=== PATIENT | female | born 1945 | race Caucasian/White ===

== ENCOUNTER → 2016-09-11 | Outpatient (CLI) | payer OTHER ==
[~2016-09-11] MED LIST: ACET-1311 PO; ACET325T30 PO; ALBU1AER9 INH; AMOX875T PO; ARFO15NE INH; ASPEC81 PO; ASPI-435 PO; ATOR-22 PO; ATV5 PO; BACL10TA PO; BISA10SU38 PR; BRVIN NEB; BUDE0.5S NEB; CEFD250S2 PO; CIPR-255 PO; DLR500 PO; DMD20 PO; DOCU-94 PO; DOUNEB NEB; DOXY100C41 PO; FURO40TA3 PO; HYDR25TA4 PO; IPRASOL4 INH; LCTL45 PO; LCTX PO; LEVO100T7 PO; LEVO112T2 PO; LSX20 PO; MAGNSUS73 PO; METO1TAB69 PO; METO50TA7 PO; MOMLX PO; NVLG SQ; NVLGI SC; NYST1POW7 TOP; ONDA4TAB65 PO; OXGN; PANT40TA PO; PRD20 PO; PRED10PA3 PO; PRED10TA PO; PRNJ PO; PRVHFAIN INH; QUET1TAB91 PO; QUET5TAB PO; RISP0.5T10 PO; RISP0.5T4 PO; ROFL1TAB5 PO; SENN-65 PO; SENN8.6T7 PO; SODIENE PR; SPRIN INH; TORS20TA2 PO; TPRSR50 PO; TRAM-10 PO; VNTHFA/IN INH; [UNRECOGNIZED DRUG - CODE] PO
[2016-09-11 17:58] LABS: URINE APPEARANCE CLOUDY (CLEAR); URINE BILIRUBIN NEG (NEG); URINE COLOR YELLOW; URINE EPITHELIAL CELL AUTO >30 /lpf (0-5); URINE NITRITE POS (NEG); URINE PH >= 9.0 (4.5-7.5); URINE SPECIFIC GRAVITY 1.021 (1.000-1.030); UROBILINOGEN NEG (NEG)
[2016-09-11 18:08] LABS: MANUAL MICROSCOPIC REQUIRED? NO; REVIEW REQ? YES
[2016-09-11 18:09] LABS: SULFASALICYLIC ACID NEG (NEG)
== END ==
LOC: C.LABCC 17:08
PROVIDERS: ATTEND Internal Medicine
DX: F29 Unspecified psychosis not due to a substance or known physiological condition (principal)

== ENCOUNTER → 2016-11-22 | Outpatient (CLI) | payer OTHER ==
[~2016-11-22] MED LIST changes: +METO100T44 PO; -METO1TAB69 PO
[2016-11-22 08:30] LABS: BLOOD UREA NITROGEN 30 mg/dl (7-18); BUN/CREATININE RATIO 26.8 (10-20); CALCIUM 8.7 mg/dl (8.5-10.1); CARBON DIOXIDE 31 mmol/L (21-32); CHLORIDE 106 mmol/L (98-107); GLUCOSE 129 mg/dl (70-99); SODIUM 145 mmol/L (136-145)
== END ==
LOC: C.LABCC 08:09
PROVIDERS: ATTEND Internal Medicine
DX: R60.0 Localized edema (principal)

== ENCOUNTER 2016-11-24 12:33 | Inpatient (IN) | payer OTHER ==
[~2016-11-24] VITALS: Ht 177.8 cm; Wt 123.5 kg
[~2016-11-24 12:33] MED LIST changes: -ACET-1311 PO; -ACET325T30 PO; -AMOX875T PO; -ARFO15NE INH; -ASPI-435 PO; -BISA10SU38 PR; -CEFD250S2 PO; -CIPR-255 PO; -DLR500 PO; -DMD20 PO; -DOXY100C41 PO; -FURO40TA3 PO; -IPRASOL4 INH; -LCTL45 PO; -LCTX PO; -LEVO112T2 PO; -MAGNSUS73 PO; -METO50TA7 PO; -MOMLX PO; -NVLG SQ; -NYST1POW7 TOP; -PANT40TA PO; -PRD20 PO; -PRNJ PO; -PRVHFAIN INH; -QUET5TAB PO; -RISP0.5T10 PO; -RISP0.5T4 PO; -SENN-65 PO; -SENN8.6T7 PO; -SODIENE PR; -TORS20TA2 PO; -TPRSR50 PO; -VNTHFA/IN INH; -[UNRECOGNIZED DRUG - CODE] PO
[2016-11-24 13:51] LABS: BASO % 0.2 %; BASO ABS # 0.02 K/uL (0-0.2); COMPLETE YES; EOS % 0.7 %; IG% 0.3 %; LYMPH % 6.2 %; LYMPH ABS # 0.59 K/uL (1.2-3.4); MEAN CELL VOLUME 86.4 fL (80-100); MEAN CORPUSCULAR HEMOGLOBIN 25.7 pg (25-34); MEAN CORPUSCULAR HGB CONC 29.7 g/dl (32-36); MEAN PLATELET VOLUME 9.8 fL (7.4-10.4); MONO % 4.4 %; NEUT % 88.2 %; PLATELET COUNT 142 K/uL (130-400); RED BLOOD COUNT 4.05 M/uL (4.2-5.4); WHITE BLOOD COUNT 9.57 K/uL (4.8-10.8)
[2016-11-24] MEDS ORDERED: ACET325T30 PO (14:05)
[2016-11-24] MEDS ORDERED: LEVO112T2 PO (14:05)
[2016-11-24] MEDS ORDERED: ARFO15NE INH (14:05)
[2016-11-24] MEDS ORDERED: IPRASOL4 INH ×2 (14:05→18:42)
[2016-11-24] MEDS ORDERED: BUDE0.5S NEB (14:05)
[2016-11-24] MEDS ORDERED: NVLG SQ (14:05)
[2016-11-24] MEDS ORDERED: DLR500 PO (14:05)
[2016-11-24] MEDS ORDERED: VNTHFA/IN INH (14:05)
[2016-11-24] MEDS ORDERED: FURO40TA3 PO (14:05)
[2016-11-24] MEDS ORDERED: ASPI-435 PO (14:05)
[2016-11-24] MEDS ORDERED: QUET5TAB PO (14:05)
--- NOTE | 2016-11-24 14:09 | DIAGNOSTIC IMAGING REPORT ---
CHEST ONE VIEW PORTABLE CLINICAL HISTORY: Shortness of breath COMPARISON STUDY: 10/15/2015 FINDINGS: The heart is enlarged. There is radiographic evidence of congestive failure/fluid overload. There is no lobar consolidation. There are postsurgical changes of spinal rodding. Degenerative changes are present within the shoulders.[ IMPRESSION: Cardiomegaly and radiographic evidence of congestive failure/fluid overload. Electronically signed by: Jamin Foreman M.D. 11/24/2016 2:07 PM Dictated Date/Time: 11/24/2016 2:06 PM
[2016-11-24] MEDS ORDERED: PIPERACILLIN/TAZOBACTAM 4.5 GM/100ML D5W IV STA (14:13)
[2016-11-24] MEDS ORDERED: VANCOMYCIN INJ 2,800 MG in SODIUM CHLORIDE 0.9% 500ML 500 ML IV STA (14:13)
[2016-11-24] MEDS ORDERED: FUROSEMIDE 40 MG/4 ML VIAL IV STA (14:13)
--- NOTE | 2016-11-24 14:16 | EMERGENCY ROOM VISIT NOTE ---
History Report prepared by Tavares: Audelia Pate Under the Supervision of: Dr. Susan Foss M.D. First contact with patient: 14:04 Chief Complaint: EDEMA TO EXTREMITY Stated Complaint: FLUID RETENTION/CHF History of Present Illness The patient is a 71 year old female who presents to the Emergency Room with complaints of worsening edema to the bilateral lower extremities beginning one week prior to arrival. The patient notes that the edema began in her feet and has since moved up her legs into her abdomen. She has also been having trouble breathing and shortness of breath. She lives at [facility] and 2 days ago had an ultrasound done of her lower extremities which was negative for a DVT. She is currently on Lasix and Augmentin. 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 The edema has moved up from feet to abdomen. Review of Systems See HPI for pertinent positives & negatives. A total of 10 systems reviewed and were otherwise negative. Past Medical & Surgical Medical Problems: (1) Cholelith W Cholecys Nec (2) Chronic bronchitis (3) Chronic obstructive lung disease (4) Chronic pancreatitis (5) COPD exacerbation (6) Depressive Disorder Nec (7) Dyslipidemia (8) Essential hypertension (9) Hypothyroidism (10) Osteoporosis (11) Panic Disorder Without Agoraphobia (12) Scoliosis deformity of spine (13) Urin Tract Infection Nos Surgical Problems: (1) Carcinoma in situ of breast (2) s p cholecystectomy (3) S/P hysterectomy (4) S/P spinal surgery Family History FH: heart disease FATHER Social History Smoking Status: Former Smoker Alcohol Use: none, other Drug Use: none Marital Status: single Housing Status: prison Occupation Status: retired Current/Historical Medications Scheduled Amoxicillin & Pot Clavulanate (Augmentin 875-125 mg), 875 MG PO BID Arformoterol Tartrate (Brovana), 15 MCG INH BID Aspirin (Aspirin 81), 81 MG PO DAILY Atorvastatin (Lipitor), 20 MG PO HS Budesonide (Inhalation) (Pulmicort), 0.5 MG NEB BID Docusate Sodium (Colace), 500 MG PO BID Furosemide (Lasix), 40 MG PO DAILY Insulin Aspart (Novolog), SQ UD Ipratropium-Albuterol (Duoneb), 1 TREATMENT INH DAILY Levothyroxine Sodium (Synthroid), 112 MCG PO DAILY Metoprolol Succ (Toprol Xl) (Toprol-Xl ), 100 MG PO DAILY Oxygen (Oxygen), 4 LITERS NA CONTINOUS Prednisone Tab (Prednisone), 5 MG PO DAILY Quetiapine Fumarate (Seroquel), 50 MG PO HS Roflumilast (Daliresp), 500 MCG PO DAILY Scheduled PRN Acetaminophen (Acetaminophen), 650 MG PO Q6H PRN for Pain Albuterol (Ventolin Hfa), 2 PUFFS INH Q4 PRN for Shortness of Breath Baclofen (Lioresal), 15 MG PO QID PRN for Muscle Spasms Bisacodyl (Dulcolax), 1 SUPP DE UD PRN for Constipation Ipratropium-Albuterol (Duoneb), 1 TREATMENT INH Q6H PRN for SOB/Wheezing Magnesium Hydroxide (Milk of Magnesia 400 mg/5Ml), 30 ML PO UD PRN for Constipation Ondansetron Hcl (Zofran), 4 MG PO Q8 PRN for Nausea Prune Juice (Prune Juice ), Unknown Dose PO UD PRN for Constipation Tramadol (Ultram), 50 MG PO Q6H PRN for Pain Allergies Coded Allergies: Benzodiazepines (Unverified Adverse Reaction, Unknown, DELIRIUM, 11/25/16) Patient has history of abuse and addiction per family. 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 Physical Exam Vital Signs Date Time Temp Pulse Resp B/P Pulse Ox O2 Delivery O2 Flow Rate FiO2 11/24/16 14:55 90 20 161/82 95 Nasal Cannula 4.0 11/24/16 13:50 96 20 134/73 93 Nasal Cannula 4.0 11/24/16 13:20 93 11/24/16 12:53 36.6 94 20 120/73 93 Nasal Cannula 4.0 11/24/16 12:40 Nasal Cannula 4.0 11/24/16 12:40 Nasal Cannula 4.0 Physical Exam Vital signs reviewed. General: Chronically ill appearing obese female, in no significant distress. On oxygen. HEENT: No scleral icterus, PERRLA, neck supple. Atraumatic. Cardiovascular: Regular rate and rhythm, no extra sounds. Pulmonary: Faint wheezing bilateral lung witt. Abdomen: Soft, nontender, nondistended, positive bowel sounds. Musculoskeletal: Atraumatic. Pitting edema to bilateral lower extremity with erythema circumanally distally tracking medially to the groin with erythema extending throughout suprapubic region to abdomen. Neurologic: Patient awake alert and oriented x 3, full strength in all 4 extremities. Cranial nerves 2 through 12 grossly intact. Skin: Warm, dry, no rash Medical Decision & Procedures ER Provider Diagnostic Interpretation: X-ray results as stated below per interpretation by me and the radiologist: CHEST ONE VIEW PORTABLE CLINICAL HISTORY: Shortness of breath COMPARISON STUDY: 10/15/2015 FINDINGS: The heart is enlarged. There is radiographic evidence of congestive failure/fluid overload. There is no lobar consolidation. There are postsurgical changes of spinal rodding. Degenerative changes are present within the shoulders.[ IMPRESSION: Cardiomegaly and radiographic evidence of congestive failure/fluid overload. Electronically signed by: Jamin Foreman M.D. 11/24/2016 2:07 PM Dictated Date/Time: 11/24/2016 2:06 PM Laboratory Results 11/24/16 13:20 Red Blood Count 4.05, Mean Corpuscular Volume 86.4, Mean Corpuscular Hemoglobin 25.7, Mean Corpuscular Hemoglobin Concent 29.7, Mean Platelet Volume 9.8, Neutrophils (%) (Auto) 88.2, Lymphocytes (%) (Auto) 6.2, Monocytes (%) (Auto) 4.4, Eosinophils (%) (Auto) 0.7, Basophils (%) (Auto) 0.2, Neutrophils # (Auto) 8.44, Lymphocytes # (Auto) 0.59, Monocytes # (Auto) 0.42, Eosinophils # (Auto) 0.07, Basophils # (Auto) 0.02 11/24/16 13:20 Test 11/24/16 13:20 11/24/16 13:50 11/24/16 15:27 White Blood Count 9.57 K/uL (4.8-10.8) Red Blood Count 4.05 M/uL (4.2-5.4) Hemoglobin 10.4 g/dL (12.0-16.0) Hematocrit 35.0 % (37-47) Mean Corpuscular Volume 86.4 fL (80-100) Mean Corpuscular Hemoglobin 25.7 pg (25-34) Mean Corpuscular Hemoglobin Concent 29.7 g/dl (32-36) Platelet Count 142 K/uL (130-400) Mean Platelet Volume 9.8 fL (7.4-10.4) Neutrophils (%) (Auto) 88.2 % Lymphocytes (%) (Auto) 6.2 % Monocytes (%) (Auto) 4.4 % Eosinophils (%) (Auto) 0.7 % Basophils (%) (Auto) 0.2 % Neutrophils # (Auto) 8.44 K/uL (1.4-6.5) Lymphocytes # (Auto) 0.59 K/uL (1.2-3.4) Monocytes # (Auto) 0.42 K/uL (0.11-0.59) Eosinophils # (Auto) 0.07 K/uL (0-0.5) Basophils # (Auto) 0.02 K/uL (0-0.2) RDW Standard Deviation 57.3 fL (36.4-46.3) RDW Coefficient of Variation 18.0 % (11.5-14.5) Immature Granulocyte % (Auto) 0.3 % Immature Granulocyte # (Auto) 0.03 K/uL (0.00-0.02) Anion Gap 4.0 mmol/L (3-11) Est Creatinine Clear Calc Drug Dose 75.7 ml/min Estimated GFR () 68.5 Estimated GFR (Non- 59.1 BUN/Creatinine Ratio 27.2 (10-20) Calcium Level 9.3 mg/dl (8.5-10.1) Total Bilirubin 0.6 mg/dl (0.2-1) Aspartate Amino Transf (AST/SGOT) 11 U/L (15-37) Alanine Aminotransferase (ALT/SGPT) 21 U/L (12-78) Alkaline Phosphatase 60 U/L (45-117) Total Protein 7.4 gm/dl (6.4-8.2) Albumin 3.5 gm/dl (3.4-5.0) Globulin 3.9 gm/dl (2.5-4.0) Albumin/Globulin Ratio 0.9 (0.9-2) Urine Color YELLOW Urine Appearance CLEAR (CLEAR) Urine pH 6.5 (4.5-7.5) Urine Specific [place] 1.014 (1.000-1.030) Urine Protein NEG (NEG) Urine Glucose (UA) NEG (NEG) Urine Ketones NEG (NEG) Urine Occult Blood NEG (NEG) Urine Nitrite NEG (NEG) Urine Bilirubin NEG (NEG) Urine Urobilinogen NEG (NEG) Urine Leukocyte Esterase NEG (NEG) Bedside Lactic Acid Venous 2.07 mmol/L (0.90-1.70) Laboratory results per my review. Medications Administered Medications (Trade) Dose Ordered Sig/Romaine Route Start Time Stop Time Status Last Admin Dose Admin Furosemide 40 mg 40 mg NOW STAT IV 11/24/16 14:13 11/24/16 14:16 DC 11/24/16 14:58 40 MG Vancomycin HCl/ Sodium Chloride (Vancomycin Inj/ Nss 500ml) 556 ml @ 200 mls/hr ONE STAT IV 11/24/16 14:13 11/24/16 16:59 DC 11/24/16 16:19 200 MLS/HR Piperacillin Sod/ Tazobactam Sod (Zosyn Iv) 4.5 gm NOW STAT IV 11/24/16 14:13 11/24/16 14:16 DC 11/24/16 14:59 4.5 GM Morphine Sulfate (MoRPHine SULFATE INJ) 4 mg NOW STAT IV 11/24/16 14:19 11/24/16 14:21 DC 11/24/16 14:59 4 MG Ondansetron HCl (Zofran Inj) 4 mg NOW STAT IV 11/24/16 14:19 11/24/16 14:21 DC 11/24/16 14:59 4 MG ECG Indication: other (edema) Rate (beats per minute): 95 Rhythm: normal sinus Findings: T-wave inversion (diffuse), no ectopy, other (rightward axis, low voltage QRS) ED Course 1411: Past medical records reviewed. The patient was evaluated in room A2. A complete history and physical examination was performed. 1413: Zosyn IV 4.5 gm IB, Vancomycin HCl 2.800 mg/ Sodium Chloride 556 ml @ 200 mls/hr IV, Lasix Inj 40 mg IV. 1419: Zofran Inj 4 mg IV, Morphine Sulfate Inj 4 mg IV. 1656: I reviewed the patient's case with Dr. Logan Sosa. She will evaluate the patient for further management. 1700: Upon reevaluation, the patient is resting comfortably. I discussed laboratory and radiographic results with her. She verbalized agreement of the treatment plan. I spoke with Dr. Ford of the [facility] Hospitalist Service. The patient will be evaluated for further management and care. Medical Decision The patient is a 71 year old female who presents to the ED with complaints of lower extremity edema. Differentials include cellulitis, abscess, MRSA infection, DVT, necrotizing fasciitis, dermatitis, drug eruption, as well as others were entertained. This patient was evaluated and appeared to be in some discomfort. IV access was obtained and laboratory work was drawn. The patient was medicated with IV vancomycin and IV Zosyn for a bilateral lower extremity cellulitis extending to the abdomen. Patient is complaining of some shortness of breath, may be edema related. Ultrasounds of the bilateral lower extremities are negative for DVT 2 days ago. Blood cultures are pending. Patient's vital signs are stable. Given the extent of the cellulitis, the patient was evaluated by the hospitalist service for further management. She was aware of the plan and agree. Consults Time Called: 1653 Consulting Physician: Dr. Logan Sosa Returned Call: 1658 I reviewed the patient's case with Dr. Logan Sosa. She will evaluate the patient for further management. Impression Primary Impression: Bilateral lower leg cellulitis Additional Impression: CHF (congestive heart failure) Scribe Attestation The scribe's documentation has been prepared under my direction and personally reviewed by me in its entirety. I confirm that the note above accurately reflects all work, treatment, procedures, and medical decision making performed by me. Departure Information Dispostion Being Evaluated By Hospitalist Referrals [place] (PCP) Problem Qualifiers
[2016-11-24] MEDS ORDERED: ONDANSETRON INJ 2 MG/ML 2 ML VIAL IV STA (14:19)
[2016-11-24] MEDS ORDERED: MoRPHine SULFATE 4 MG/ML 1 ML CARP\\VIAL IV STA (14:19)
[2016-11-24 14:22] LABS: BUN/CREATININE RATIO 27.2 (10-20); CALCIUM 9.3 mg/dl (8.5-10.1); CREATININE 0.96 mg/dl (0.60-1.20)
[2016-11-24 14:25] LABS: ALB/GLOB RATIO 0.9 (0.9-2)
[2016-11-24 14:58] LABS: URINE APPEARANCE CLEAR (CLEAR); URINE BILIRUBIN NEG (NEG); URINE COLOR YELLOW; URINE NITRITE NEG (NEG); URINE PH 6.5 (4.5-7.5); URINE SPECIFIC GRAVITY 1.014 (1.000-1.030); UROBILINOGEN NEG (NEG); ZZUR CULT IF INDIC CLEAN CATCH NO
[2016-11-24 15:19] LABS: MANUAL MICROSCOPIC REQUIRED? NO; REVIEW REQ? NO
[2016-11-24] MEDS ORDERED: FUROSEMIDE INJ 40 MG in SYRINGE 0 ML IV STA (18:12)
[2016-11-24] MEDS ORDERED: ACETAMINOPHEN 325 MG TAB PO PRN (18:15)
[2016-11-24] MEDS ORDERED: NITROGLYCERIN 0.4 MG SL PER TAB CHARGE SL PRN (18:15)
[2016-11-24] MEDS ORDERED: ONDANSETRON INJ 2 MG/ML 2 ML VIAL IV PRN (18:15)
[2016-11-24] MEDS ORDERED: GLUCOSE 40% GEL 15 GM TUBE PO PRN (18:30)
[2016-11-24] MEDS ORDERED: DEXTROSE 50% 50 ML SYR IV PRN (18:30)
[2016-11-24] MEDS ORDERED: GLUCOSE 10 TABS/TUBE PO PRN (18:30)
[2016-11-24] MEDS ORDERED: GLUCAGON FOR INJ 1 MG VIAL SQ PRN (18:30)
[2016-11-24] MEDS ORDERED: PRNJ PO (18:42)
[2016-11-24] MEDS ORDERED: AMOX875T PO (18:42)
[2016-11-24] MEDS ORDERED: BISA10SU38 PR (18:42)
[2016-11-24] MEDS ORDERED: MAGNSUS73 PO (18:42)
[2016-11-24] MEDS ORDERED: PRVHFAIN INH (18:42)
[2016-11-24] MEDS ORDERED: ALBUT/IPRATROP 3MG/0.5MG NEB 3 ML VIAL INH PRN (18:45)
[2016-11-24] MEDS ORDERED: ALBUTEROL HFA 8 GM INHALER INH PRN (18:45)
[2016-11-24] MEDS ORDERED: BACLOFEN 10 MG TAB PO PRN (18:45)
[2016-11-24 18:54] LABS: CKMB/CK RATIO 3.6 (0-3.0)
[2016-11-24 20:00] VITALS: BP 109/63; PULSE 88; TEMP 36.3; O2SAT 96; Ht 177.8 cm; Wt 123.5 kg
[2016-11-24] MEDS ORDERED: PIPERACILL/TAZOBAC CONSULT ACTIVE PRN (20:00)
[2016-11-24] MEDS ORDERED: VANCOMYCIN CONSULT ACTIVE PRN (20:00)
[2016-11-24 20:35] LABS: CKMB/CK RATIO 3.7 (0-3.0)
--- NOTE | 2016-11-24 20:50 | History and Physical ---
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 Patient reports 1 week of swelling, erythema, and pain starting at the feet progressively extending to her abdomen. There has been no wound/ skin trauma. Patient was started on Augmentin on 11/19 with no improvement. She was also started on furosemide 20 mg on 11/15 which was increased to 40 mg on 11/19 without improvement. Has been taking Tramadol for pain which did not provide relief. Pain is controlled after morphine given in ER. Patient additionally reports increased SOB from baseline for past 1 week with both rest and exertion. She is unable to lay supine due to chronic back pain. The patient reports increased difficulty ambulating secondary to her legs being heavy with the edema. At baseline she uses wheelchair or walker for short distances. Babin was placed in ER at patient's request. Has not tracked her weight. Pt denies fever, chills, diaphoresis, URI symptoms, cough, chest pain, N/V/D, urinary changes. Patient admits to dietary indiscretion. Had LLE venous doppler on 11/18 negative for DVT. Past Medical/Surgical History Medical Problems: (1) Atherosclerosis of abdominal aorta Status: Chronic (2) Cholelith W Cholecys Nec Status: Resolved (3) Chronic bronchitis Status: Chronic (4) Chronic obstructive lung disease Status: Chronic (5) Chronic pancreatitis Status: Resolved (6) Depressive Disorder Nec Status: Chronic (7) Dyslipidemia Status: Chronic (8) Essential hypertension Status: Chronic (9) History of bronchiolitis Status: Chronic (10) Hypothyroidism Status: Chronic (11) Osteoporosis Status: Chronic (12) Panic Disorder Without Agoraphobia Status: Chronic (13) Pulmonary hypertension Status: Chronic (14) Right ventricular dysfunction Status: Chronic (15) Scoliosis deformity of spine Status: Chronic (16) Urin Tract Infection Nos Status: Resolved Surgical Problems: (1) Carcinoma in situ of breast Permanent Comment: 2002 right breast Status: Resolved (2) s p cholecystectomy Permanent Comment: [address] [facility] [address] [place]iola Status: Resolved (3) S/P hysterectomy Permanent Comment: 1994 Status: Resolved (4) S/P spinal surgery Permanent Comment: 1998 [facility] jesse stabilization for scoliosis Status: Resolved Family History FH: heart disease FATHER Social History Smoking Status: Former Smoker (quit 10 years ago. prior 2 ppd x 40 years) Drug Use: none Marital Status: single Housing status: other ([facility]) Occupational Status: retired Immunizations History of Influenza Vaccine: N/A Influenza Vaccine Date: Mar 21, 2011 History of Tetanus Vaccine?: Unknown Tetanus Immunization Date: Apr 09, 2003 History of Pneumococcal: Yes Pneumococcal Date: Mar 10, 2010 History of Hepatitis B Vaccine: Unknown Hepatitis Immunization Date: Mar 19, 1998 Multi-Drug Resistant Organisms History of MDRO: Yes Allergies Coded Allergies: No Known Allergies (Verified , 11/24/16) Home Medications Scheduled Amoxicillin & Pot Clavulanate (Augmentin 875-125 mg), 875 MG PO BID Arformoterol Tartrate (Brovana), 15 MCG INH BID Aspirin (Aspirin 81), 81 MG PO DAILY Atorvastatin (Lipitor), 20 MG PO HS Budesonide (Inhalation) (Pulmicort), 0.5 MG NEB BID Docusate Sodium (Colace), 500 MG PO BID Furosemide (Lasix), 40 MG PO DAILY Insulin Aspart (Novolog), SQ UD Ipratropium-Albuterol (Duoneb), 1 TREATMENT INH DAILY Levothyroxine Sodium (Synthroid), 112 MCG PO DAILY Metoprolol Succ (Toprol Xl) (Toprol-Xl ), 100 MG PO DAILY Oxygen (Oxygen), 4 LITERS NA CONTINOUS Prednisone Tab (Prednisone), 5 MG PO DAILY Quetiapine Fumarate (Seroquel), 50 MG PO HS Roflumilast (Daliresp), 500 MCG PO DAILY Scheduled PRN Acetaminophen (Acetaminophen), 650 MG PO Q6H PRN for Pain Albuterol (Ventolin Hfa), 2 PUFFS INH Q4 PRN for Shortness of Breath Baclofen (Lioresal), 15 MG PO QID PRN for Muscle Spasms Bisacodyl (Dulcolax), 1 SUPP CA UD PRN for Constipation Ipratropium-Albuterol (Duoneb), 1 TREATMENT INH Q6H PRN for SOB/Wheezing Magnesium Hydroxide (Milk of Magnesia 400 mg/5Ml), 30 ML PO UD PRN for Constipation Ondansetron Hcl (Zofran), 4 MG PO Q8 PRN for Nausea Prune Juice (Prune Juice ), Unknown Dose PO UD PRN for Constipation Tramadol (Ultram), 50 MG PO Q6H PRN for Pain Review of Systems Ten point ROS performed Physical Exam Vital Signs Date Time Temp Pulse Resp B/P Pulse Ox O2 Delivery O2 Flow Rate FiO2 11/24/16 17:18 88 11/24/16 17:16 90 22 105/71 90 Room Air 11/24/16 14:55 90 20 161/82 95 Nasal Cannula 4.0 11/24/16 13:50 96 20 134/73 93 Nasal Cannula 4.0 11/24/16 13:20 93 11/24/16 12:53 36.6 94 20 120/73 93 Nasal Cannula 4.0 11/24/16 12:40 Nasal Cannula 4.0 11/24/16 12:40 Nasal Cannula 4.0 General Appearance: no apparent distress, + obese, + pertinent finding ( pleasant alert 71 year old female, sitting up in bed, not in distress) Head: normocephalic, atraumatic Eyes: normal inspection, PERRL, sclerae normal ENT: hearing grossly normal, pharynx normal Neck: supple, trachea midline, + pertinent finding (neck is thick, no JVD appreciated) Respiratory/Chest: no respiratory distress, no accessory muscle use, + decreased breath sounds, + pertinent finding (no wheezing, speaks in full sentences, saturating well on 4 liters NC) Cardiovascular: regular rate, rhythm, no murmur Abdomen/GI: normal bowel sounds, non tender, soft, + pertinent finding (obese) Extremities/Musculoskelatal: + pertinent finding (bilateral lower extremity pitting edema) Neurologic/Psych: alert, normal mood/affect, oriented x 3, + pertinent finding (grossly nonfocal) Skin: warm/dry, + pertinent finding (erythema, warmth, and tenderness extending from dorsum of bilateral feet to entire circumference of lower legs, inner thighs, and mildly on lower adomen. no wound or indurated area. ) Diagnostics Laboratory Results Results Past 24 Hours Test 11/24/16 13:20 11/24/16 13:50 11/24/16 15:27 11/24/16 18:21 Range/Units White Blood Count 9.57 4.8-10.8 K/uL Red Blood Count 4.05 4.2-5.4 M/uL Hemoglobin 10.4 12.0-16.0 g/dL Hematocrit 35.0 37-47 % Mean Corpuscular Volume 86.4 80-100 fL Mean Corpuscular Hemoglobin 25.7 25-34 pg Mean Corpuscular Hemoglobin Concent 29.7 32-36 g/dl Platelet Count 142 130-400 K/uL Mean Platelet Volume 9.8 7.4-10.4 fL Neutrophils (%) (Auto) 88.2 % Lymphocytes (%) (Auto) 6.2 % Monocytes (%) (Auto) 4.4 % Eosinophils (%) (Auto) 0.7 % Basophils (%) (Auto) 0.2 % Neutrophils # (Auto) 8.44 1.4-6.5 K/uL Lymphocytes # (Auto) 0.59 1.2-3.4 K/uL Monocytes # (Auto) 0.42 0.11-0.59 K/uL Eosinophils # (Auto) 0.07 0-0.5 K/uL Basophils # (Auto) 0.02 0-0.2 K/uL RDW Standard Deviation 57.3 36.4-46.3 fL RDW Coefficient of Variation 18.0 11.5-14.5 % Immature Granulocyte % (Auto) 0.3 % Immature Granulocyte # (Auto) 0.03 0.00-0.02 K/uL Sodium Level 143 136-145 mmol/L Potassium Level 4.0 3.5-5.1 mmol/L Chloride Level 106 98-107 mmol/L Carbon Dioxide Level 33 21-32 mmol/L Anion Gap 4.0 3-11 mmol/L Blood Urea Nitrogen 26 7-18 mg/dl Creatinine 0.96 0.60-1.20 mg/dl Est Creatinine Clear Calc Drug Dose 75.7 ml/min Estimated GFR () 68.5 Estimated GFR (Non- 59.1 BUN/Creatinine Ratio 27.2 10-20 Random Glucose 140 70-99 mg/dl Calcium Level 9.3 8.5-10.1 mg/dl Total Bilirubin 0.6 0.2-1 mg/dl Aspartate Amino Transf (AST/SGOT) 11 15-37 U/L Alanine Aminotransferase (ALT/SGPT) 21 12-78 U/L Alkaline Phosphatase 60 45-117 U/L Total Protein 7.4 6.4-8.2 gm/dl Albumin 3.5 3.4-5.0 gm/dl Globulin 3.9 2.5-4.0 gm/dl Albumin/Globulin Ratio 0.9 0.9-2 Thyroid Stimulating Hormone (TSH) 3.800 0.300-4.500 uIu/ml Urine Color YELLOW Urine Appearance CLEAR CLEAR Urine pH 6.5 4.5-7.5 Urine Specific [place] 1.014 1.000-1.030 Urine Protein NEG NEG Urine Glucose (UA) NEG NEG Urine Ketones NEG NEG Urine Occult Blood NEG NEG Urine Nitrite NEG NEG Urine Bilirubin NEG NEG Urine Urobilinogen NEG NEG Urine Leukocyte Esterase NEG NEG Bedside Lactic Acid Venous 2.07 0.90-1.70 mmol/L Creatine Kinase MB Ratio 0-3.0 Microbiology Results 11/24/16 Blood Culture, Received Pending 11/24/16 Blood Culture, Received Pending Diagnostic Radiology CHEST ONE VIEW PORTABLE CLINICAL HISTORY: Shortness of breath COMPARISON STUDY: 10/15/2015 FINDINGS: The heart is enlarged. There is radiographic evidence of congestive failure/fluid overload. There is no lobar consolidation. There are postsurgical changes of spinal rodding. Degenerative changes are present within the shoulders.[ IMPRESSION: Cardiomegaly and radiographic evidence of congestive failure/fluid overload. EKG Normal sinus rhythm, Right axis deviation, Low voltage QRS, Poor R wave progression, consider anterior OK vs. lead placement vs. LVH, Abnormal ECG, When compared with ECG of 10-OCT-2015 08:31, Premature ventricular complexes are no longer Present, QRS axis Shifted right, Nonspecific T wave abnormality now evident in Inferior leads, Nonspecific T wave abnormality now evident in Anterior leads as confirmed by car sealer Impression Assessment and Plan BILATERAL LOWER EXTREMITY CELLULITIS In diabetic patient who resides in health care facility Failed outpatient treatment with Augmentin Started on Zosyn and Vancomycin in ER Blood cultures pending; no wound to culture on the legs Continue empiric Zosyn and Vancomycin Had neg Check bilateral LE venous doppler to r/o DVT INCREASED SHORTNESS OF BREATH Possibly due to acutely decompensated right sided CHF; clinically appears volume overloaded; Pro-BNP ~5000; Saturating well on her chronic 4 liters NC CXR shows cardiomegaly, congestive failure/ fluid overload Patient admits to dietary indiscretion- discussed w/ patient about sodium restriction Prior echo 10/14/15- mild concentric LVH, sigmoid appearing septum, LV EF 55-60% , flattened septum consistent with RV pressure/ volume overload, dilated RV chamber size with normal systolic function, no significant valvular pathology, pulmonary hypertension ins present, moderate right atrial enlargement Initial troponin negative; EKG- nonspecific changes Trend serial cardiac enzymes Check echo Had started outpatient Lasix 20 mg daily on 11/15 -> increased to 40 mg Lasix daily on 11/19 Will give dose of IV Lasix 40 mg IV tonight Track I/O's (Babin in place), daily standing weights COPD Not in acute exacerbation Continue chronic prednisone 5 mg daily, home inhaler/ nebs, Daliresp Continue chronic supplemental O2 HYPERTENSION Stable, continue metoprolol HYPOTHYROIDISM TSH was elevated to ~7 as outpatient on 11/22/16 Levothyroxine increased from 100 ->112 mcg on 11/23/16 TSH WNL on admission DM TYPE 2 Insulin sliding scale coverage Check A1c CODE STATUS Full code per my discussion with the patient DVT PROPHYLAXIS Lovenox SQ DISPOSITION Lives at [facility] service, PT, OT evaluations requested Patient seen in collaboration with Dr. Ford. Please see her addendum. I have seen and examined the patient and discussed the case with the provider above. I agree with the assessment and plan as stated. The cellulitis is extensive and started at the top of her feet; possible minor skin trauma in setting of chronic lymphatic destruction from venous stasis changes as a cause. Failed Augmentin as outpatient, and meets admission criteria because of the extent of the cellulitis. Also, she appears to be in acute heart failure. Agree with management plan above. Awaiting Doppler u/s to look for DVT. Deena Ford, DO Level of Care Telemetry Resuscitation Status FULL RESUSCITATION VTE Prophylaxis VTE Risk Assessment Done? Y/N: Yes Risk Level: Moderate Given or contraindicated: Enoxaparin (Lovenox)SQ Social Service Consult Lives in [facility] Care
--- NOTE | 2016-11-24 21:22 | Pharmacy Progress Note ---
Pharmacy Antibiotic Consult Date of Service: Nov 24, 2016. Pharmacy Dosing Scope Pharmacy is consulted to initiate Vancomycin and Zosyn IV dosing therapies for a bilateral cellulitis in an obese patient (BMI greater than 35kg/m2; BMI= 39.1kg/m2), order appropriate labs and adjust drug dose/frequency. Subjective The patient is a 71 year old female admitted on Nov 24, 2016 at 18:11. Objective Height (Feet): 5 Height (Inches): 10.00 Weight (Kilograms): 122.100 Lab Results (24hrs): Laboratory Tests Test 11/24/16 13:20 BUN/Creatinine Ratio 27.2 Blood Urea Nitrogen 26 mg/dl Creatinine 0.96 mg/dl White Blood Count 9.57 K/uL Red Blood Count 4.05 M/uL Hemoglobin 10.4 g/dL Hematocrit 35.0 % Mean Corpuscular Volume 86.4 fL Mean Corpuscular Hemoglobin 25.7 pg Mean Corpuscular Hemoglobin Concent 29.7 g/dl Platelet Count 142 K/uL Mean Platelet Volume 9.8 fL Neutrophils (%) (Auto) 88.2 % Lymphocytes (%) (Auto) 6.2 % Monocytes (%) (Auto) 4.4 % Eosinophils (%) (Auto) 0.7 % Basophils (%) (Auto) 0.2 % Neutrophils # (Auto) 8.44 K/uL Lymphocytes # (Auto) 0.59 K/uL Monocytes # (Auto) 0.42 K/uL Eosinophils # (Auto) 0.07 K/uL Basophils # (Auto) 0.02 K/uL Micro Results: Item Value Date Time Blood Culture Received 11/24/16 1510 Blood Pending Blood Culture Received 11/24/16 1505 Blood Pending Recent Pertinent Medications Item Value Date Time Piperacillin Sod/ 4.5 gm 11/24/16 1413 Tazobactam Sod NOW STAT/IV 11/24/16 1459 (Zosyn Iv) x 1 in the ED Vancomycin HCl 556 ml @ 200 mls/hr 11/24/16 1413 2800 mg/Sodium ONE STAT/IV 11/24/16 1619 Chloride x 1 in the ED Assessment & Plan Pharmacy is consulted to initiate Vancomycin and Zosyn IV dosing therapies for a bilateral cellulitis in an obese patient (BMI greater than 35kg/m2; BMI= 39.1kg/m2). VANCOMYCIN Loading dose: Vancomycin 2800 mg (~23mg/kg) IV X 1 dose in the ED then: Vancomycin 1600 mg (~13mg/kg) IV every 12 hours. * Estimated P'kinetic levels:ke= 0.0672/hr, t1/2= 10 hrs * Goal trough level estimate: ~15 mcg/mL. * Trough level has been ordered for: ~30 minutes before the 5th dose at 1400 in which Vancomycin serum concentrations will reach steady state. ZOSYN * Zosyn 4.5gm IV x 1 dose in the ED then: * Zosyn 4.5gm IV every 8 hours extended infusion for bilateral cellulitis in an obese patient (BMI greater than 35kg/m2) with a CrCl greater than 20mL/min (CrCl ~ 76mL/min). Pharmacy will continue to follow and will adjust dose/frequency as necessary. Thank you
[2016-11-24] MEDS: ATORVASTATIN 20 MG TAB PO SCH (21:42)
[2016-11-24] MEDS: TRAMADOL HCL 50 MG TAB PO PRN (21:42)
[2016-11-24] MEDS: QUETIAPINE FUMARATE 25 MG TAB PO SCH (21:43)
[2016-11-24] MEDS: ENOXAPARIN 40 MG/0.4 ML SYR SC SCH (21:44)
[2016-11-24] MEDS: DOCUSATE SODIUM 100 MG CAP PO SCH (21:44)
[2016-11-24] MEDS: INSULIN ASPART 100 UNITS/ML 3 ML PEN SC SCH (21:46)
[2016-11-24] MEDS: PIPERACILL/TAZOBAC IV 4.5 GM in DEXTROSE 5% 100ML IV SCH (22:08)
[2016-11-24] MEDS: ARFORMOTEROL TART 15MCG/2ML VIAL INH SCH (22:12)
[2016-11-24 22:13] VITALS: PULSE 91; O2SAT 93
[2016-11-24] MEDS: BUDESONIDE 0.5 MG/2 ML VIAL (PULMICORT) INH SCH (22:13)
[2016-11-24] MEDS ORDERED: OXYCODONE/ACETAMINOPHEN 5-325 TAB PO PRN (22:15)
[2016-11-24 23:33] VITALS: BP 100/65; PULSE 96; TEMP 36.3; O2SAT 90
[2016-11-25] VITALS (15 sets, daily range): BP systolic 94–142; BP diastolic 52–78; PULSE 72–107; TEMP 36.3–36.8; O2SAT 88–99
[2016-11-25] MEDS: VANCOMYCIN INJ 1,600 MG in SODIUM CHLORIDE 0.9% 500ML 500 ML IV SCH ×2 (03:08→14:00)
[2016-11-25] MEDS ORDERED: METHYLPREDNISOLONE 125 MG VIAL IV STA (04:16)
--- NOTE | 2016-11-25 04:29 | Progress Note ---
Progress Note Date of Service Nov 25, 2016. 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 : 71 yo F with multiple co morbidities admitted yesterday for SOB /hypoxia , bilateral lower ext cellulitis Cxray shows -pulmonary vascular congestion hx of CHF with diastolic dysfunction EF 50-55% pro BNP > 3500 given Lasix 40 mg X1 dose in ED called by nursing as pt was found to be very confused, repeating same words - mental status changed since admission worsening of Hypoxia requiring 6 L o2 Spo2 in 88 % significant orthopnea asked for Neb tx pt evaluated at bedside sitting up on edge of bed , more alert and oriented , able to answer questions per nursing -improved to baseline after breathing treatment pt complains of pain and discomfort in bilat lower ext -persistent erythema , tenderness and warmth significant orthopnea -can not lie flat wants to know what is wrong with her P/E: elderly women with sign of respiratory distress , anxious Lungs: very diminished breath sound, rales at base HT; tachycardic EXT ; bilat lower ext erythema, pitting edema , with increased warmth and tenderness extending below knee to foot neuro ; mild confusion , oriented to place and person , normal conversation , no focal neurological deficit noted A/P : Acute hypoxemic respiratory failure due to combination of CHF exacerbation /diastolic dysfunction /COPD exacerbation will give extra dose of Lasix 20 mg IV X1 now ( received 40 mg Lasix in ED) daily IV 40 mg scheduled ( will be given at 9 am ) neb tx Q4 hrs scheduled and PRN hx of chronic respiratory failure -on 4 L 02 at home ordered for IV Solu Medrol repeat Cxray in AM ordered for ABG lower ext Doppler -negative for DVT pulmonology eval requested
[2016-11-25] MEDS: LEVOTHYROXINE 112 MCG TAB PO SCH (04:30)
[2016-11-25] MEDS: BACLOFEN 10 MG TAB PO SCH ×4 (04:30→20:29)
[2016-11-25] MEDS: TRAMADOL HCL 50 MG TAB PO PRN ×2 (04:31→08:45)
[2016-11-25] MEDS ORDERED: FUROSEMIDE INJ 20 MG in SYRINGE 0 ML IV STA (04:35)
[2016-11-25] MEDS ORDERED: NURSING VERBAL MED ORDER ONE (05:15)
[2016-11-25 05:17] LABS: BLOOD UREA NITROGEN 27 mg/dl (7-18); BUN/CREATININE RATIO 24.5 (10-20); CALCIUM 8.8 mg/dl (8.5-10.1); CARBON DIOXIDE 32 mmol/L (21-32); CHLORIDE 104 mmol/L (98-107); CKMB/CK RATIO 3.3 (0-3.0); GLUCOSE 116 mg/dl (70-99); MAGNESIUM 2.1 mg/dl (1.8-2.4); POTASSIUM 4.4 mmol/L (3.5-5.1); SODIUM 143 mmol/L (136-145)
[2016-11-25] MEDS ORDERED: LORAZEPAM 0.5 MG TAB PO STA (05:40)
[2016-11-25] MEDS: PIPERACILL/TAZOBAC IV 4.5 GM in DEXTROSE 5% 100ML IV SCH ×3 (05:45→21:46)
[2016-11-25 05:51] LABS: ARTERIAL BLD GAS O2 SATURATION 85.3 % (90-95); ARTERIAL BLOOD GAS BASE EXCESS 1.9 mEq/L (-9-1.8); ARTERIAL BLOOD GAS HCO3 28 mmol/L (19-24); ARTERIAL BLOOD GAS PO2 57 mm/Hg (80-95); ARTERIAL BLOOD GAS pH 7.35 (7.35-7.45)
[2016-11-25 05:53] LABS: ALLEN TEST POS (POS); O2 ADMINISTRATION 6L
[2016-11-25 05:56] LABS: HEMATOCRIT 34.5 % (37-47); MEAN CELL VOLUME 87.1 fL (80-100); MEAN CORPUSCULAR HGB CONC 29.9 g/dl (32-36); MEAN PLATELET VOLUME 10.5 fL (7.4-10.4); PLATELET COUNT 138 K/uL (130-400); PLT ESTIMATE NORMAL; RED BLOOD COUNT 3.96 M/uL (4.2-5.4); WHITE BLOOD COUNT 11.79 K/uL (4.8-10.8)
--- NOTE | 2016-11-25 06:50 | DIAGNOSTIC IMAGING REPORT ---
BILATERAL LOWER EXTREMITY VENOUS DOPPLER CLINICAL HISTORY: Fluid retention. Congestive heart failure. COMPARISON STUDY: Bilateral lower extremity venous Doppler October 14, 2015. TECHNIQUE: Sonography of the deep venous system of the bilateral lower extremities was performed. Compression and augmentation were evaluated. FINDINGS: The common femoral, superficial femoral and popliteal veins were compressible. Augmentation was normal. Flow was shown within the deep calf vessels. IMPRESSION: No evidence of deep venous thrombus within the bilateral lower extremities. Electronically signed by: Derik Barraza M.D. 11/25/2016 6:48 AM Dictated Date/Time: 11/25/2016 6:47 AM
[2016-11-25] MEDS: ARFORMOTEROL TART 15MCG/2ML VIAL INH SCH ×2 (07:15→19:11)
[2016-11-25] MEDS: BUDESONIDE 0.5 MG/2 ML VIAL (PULMICORT) INH SCH ×2 (07:15→19:11)
[2016-11-25] MEDS: ALBUT/IPRATROP 3MG/0.5MG NEB 3 ML VIAL INH SCH ×5 (07:45→23:53)
[2016-11-25] MEDS: INSULIN ASPART 100 UNITS/ML 3 ML PEN SC SCH ×4 (08:00→20:43)
[2016-11-25] MEDS ORDERED: ALBUT/IPRATROP 3MG/0.5MG NEB 3 ML VIAL INH SCH (08:00)
--- NOTE | 2016-11-25 08:22 | DIAGNOSTIC IMAGING REPORT ---
CHEST ONE VIEW PORTABLE CLINICAL HISTORY: Shortness of breath. Congestive heart failure. COMPARISON STUDY: Chest radiograph November 24, 2016. FINDINGS: Lumbar spine hardware is partially imaged. There is no pneumothorax. Cardiomegaly is unchanged. There is pulmonary vascular congestion with possible mild pulmonary edema. This is unchanged. Mild bibasilar opacities persist. Mild elevation of the left hemidiaphragm is unchanged. There are suspected small bilateral pleural effusions. IMPRESSION: No significant change in mild pulmonary edema, small bilateral pleural effusions and suspected bibasilar atelectasis. Electronically signed by: Derik Barraza M.D. 11/25/2016 8:20 AM Dictated Date/Time: 11/25/2016 8:18 AM
[2016-11-25] MEDS: DOCUSATE SODIUM 100 MG CAP PO SCH ×2 (08:46→20:30)
[2016-11-25] MEDS: METHYLPREDNISOLONE IV 60 MG in SYRINGE 0 ML IV SCH ×2 (08:46→17:43)
[2016-11-25] MEDS: METOPROLOL SUCC 50MG EXT REL TAB PO SCH (08:47)
[2016-11-25] MEDS: ASPIRIN 81 MG ECTAB PO SCH (08:47)
[2016-11-25] MEDS: ROFLUMILAST 500 MCG TAB PO SCH (08:47)
[2016-11-25] MEDS ORDERED: PHARMACY GLYCEMIC MGMT CONSULT PRN (09:00)
[2016-11-25] MEDS ORDERED: FUROSEMIDE INJ 40 MG in SYRINGE 0 ML IV SCH (09:00)
[2016-11-25 11:31] LABS: CKMB/CK RATIO 3.2 (0-3.0)
--- NOTE | 2016-11-25 11:35 | Progress Note ---
Internal Med Progress Note Date of Service: Nov 25, 2016. Provider Documentation: SUBJECTIVE: The patient was seen and examined Has had confusion and SOB last night with low O2 saturation Was better this morning until now Drowsy and low saturation -requiring 10 liters to maintain saturation OBJECTIVE: Vital Signs-as noted below Exam: General-Drowsy this morning but worse since then Eyes-Normal ENT-normal Neck-supple Lungs-Decreased breath sound bilaterally Minimal wheezing and crackles at the bases Heart-regular Abdomen-Benign,no masses,bowel sound present Extremities-Bilateral leg edema and redness Redness is much improved Neuro-AA Drowsy with decreased breathing Lab data as noted below. ASSESSMENT & PLAN: Acute Decompensated Right sided CHF Complicated by COPD INCREASED SHORTNESS OF BREATH associated with it CXR shows cardiomegaly, congestive failure/ fluid overload Prior echo 10/14/15- mild concentric LVH, sigmoid appearing septum, LV EF 55-60% , flattened septum consistent with RV pressure/ volume overload, dilated RV chamber size with normal systolic function, no significant valvular pathology, pulmonary hypertension ins present, moderate right atrial enlargement EKG and Mirta are unremarkable for ACS Check echo-pending Getting Lasix 40mg IV daily BILATERAL LOWER EXTREMITY CELLULITIS Failed outpatient treatment with Augmentin Started on Zosyn and Vancomycin in ER and continued Blood cultures pending; no wound to culture on the legs US negative for any DVT Clinically much better COPD-may have an exacerbation Condition got worse overnight ABG noted with increase CO2 and Decrease O2 Started on IV Solumedrol Pulmonary consulted BIPAP added for better oxygenation and expose CO2 HYPERTENSION Stable, continue metoprolol HYPOTHYROIDISM TSH was elevated to ~7 as outpatient on 11/22/16 Levothyroxine increased from 100 ->112 mcg on 11/23/16 TSH WNL on admission DM TYPE 2 Insulin sliding scale coverage Check [id number] CODE STATUS Full code per my discussion with the patient DVT PROPHYLAXIS Lovenox SQ DISPOSITION Lives at [facility] Social service, PT, OT evaluations requested Vital Signs: Date Time Temp Pulse Resp B/P Pulse Ox O2 Delivery O2 Flow Rate FiO2 11/25/16 08:18 36.8 105 19 142/70 92 Nasal Cannula 6.0 11/25/16 08:00 Nasal Cannula 6.0 11/25/16 07:15 100 18 90 Nasal Cannula 6.0 11/25/16 04:30 Nasal Cannula 6.0 11/25/16 03:27 101 18 95 Nasal Cannula 6.0 11/25/16 03:20 36.8 107 24 108/52 91 Nasal Cannula 6.0 11/25/16 00:00 Nasal Cannula 5.0 11/24/16 23:33 36.3 96 20 100/65 90 Nasal Cannula 5.0 11/24/16 22:13 91 16 93 Nasal Cannula 5.0 11/24/16 20:02 85 20 110/63 91 11/24/16 20:00 36.3 88 24 109/63 96 Nasal Cannula 6.0 11/24/16 19:20 84 20 Nasal Cannula 4.0 11/24/16 17:18 88 11/24/16 17:16 90 22 105/71 90 Room Air 11/24/16 14:55 90 20 161/82 95 Nasal Cannula 4.0 11/24/16 13:50 96 20 134/73 93 Nasal Cannula 4.0 11/24/16 13:20 93 11/24/16 12:53 36.6 94 20 120/73 93 Nasal Cannula 4.0 11/24/16 12:40 Nasal Cannula 4.0 11/24/16 12:40 Nasal Cannula 4.0 Lab Results: Results Past 24 Hours Test 11/24/16 13:20 11/24/16 13:50 11/24/16 15:27 11/24/16 19:54 Range/Units White Blood Count 9.57 4.8-10.8 K/uL Red Blood Count 4.05 4.2-5.4 M/uL Hemoglobin 10.4 12.0-16.0 g/dL Hematocrit 35.0 37-47 % Mean Corpuscular Volume 86.4 80-100 fL Mean Corpuscular Hemoglobin 25.7 25-34 pg Mean Corpuscular Hemoglobin Concent 29.7 32-36 g/dl Platelet Count 142 130-400 K/uL Mean Platelet Volume 9.8 7.4-10.4 fL Neutrophils (%) (Auto) 88.2 % Lymphocytes (%) (Auto) 6.2 % Monocytes (%) (Auto) 4.4 % Eosinophils (%) (Auto) 0.7 % Basophils (%) (Auto) 0.2 % Neutrophils # (Auto) 8.44 1.4-6.5 K/uL Lymphocytes # (Auto) 0.59 1.2-3.4 K/uL Monocytes # (Auto) 0.42 0.11-0.59 K/uL Eosinophils # (Auto) 0.07 0-0.5 K/uL Basophils # (Auto) 0.02 0-0.2 K/uL RDW Standard Deviation 57.3 36.4-46.3 fL RDW Coefficient of Variation 18.0 11.5-14.5 % Immature Granulocyte % (Auto) 0.3 % Immature Granulocyte # (Auto) 0.03 0.00-0.02 K/uL Sodium Level 143 136-145 mmol/L Potassium Level 4.0 3.5-5.1 mmol/L Chloride Level 106 98-107 mmol/L Carbon Dioxide Level 33 21-32 mmol/L Anion Gap 4.0 3-11 mmol/L Blood Urea Nitrogen 26 7-18 mg/dl Creatinine 0.96 0.60-1.20 mg/dl Est Creatinine Clear Calc Drug Dose 75.7 ml/min Estimated GFR () 68.5 Estimated GFR (Non- 59.1 BUN/Creatinine Ratio 27.2 10-20 Random Glucose 140 70-99 mg/dl Calcium Level 9.3 8.5-10.1 mg/dl Total Bilirubin 0.6 0.2-1 mg/dl Aspartate Amino Transf (AST/SGOT) 11 15-37 U/L Alanine Aminotransferase (ALT/SGPT) 21 12-78 U/L Alkaline Phosphatase 60 45-117 U/L Total Creatine Kinase 59 52 26-192 U/L Creatine Kinase MB 2.1 1.9 0.5-3.6 ng/ml Creatine Kinase MB Ratio 3.6 3.7 0-3.0 Troponin I < 0.015 < 0.015 0-0.045 ng/ml Pro-B-Type Natriuretic Peptide 5106 0-900 pg/ml Total Protein 7.4 6.4-8.2 gm/dl Albumin 3.5 3.4-5.0 gm/dl Globulin 3.9 2.5-4.0 gm/dl Albumin/Globulin Ratio 0.9 0.9-2 Thyroid Stimulating Hormone (TSH) 3.800 0.300-4.500 uIu/ml Urine Color YELLOW Urine Appearance CLEAR CLEAR Urine pH 6.5 4.5-7.5 Urine Specific Hayes 1.014 1.000-1.030 Urine Protein NEG NEG Urine Glucose (UA) NEG NEG Urine Ketones NEG NEG Urine Occult Blood NEG NEG Urine Nitrite NEG NEG Urine Bilirubin NEG NEG Urine Urobilinogen NEG NEG Urine Leukocyte Esterase NEG NEG Bedside Lactic Acid Venous 2.07 0.90-1.70 mmol/L Test 11/24/16 20:33 11/25/16 01:19 11/25/16 03:14 11/25/16 04:30 Range/Units Bedside Glucose 116 111 70-90 mg/dl Total Creatine Kinase 48 26-192 U/L Creatine Kinase MB 1.7 1.6 0.5-3.6 ng/ml Creatine Kinase MB Ratio 3.3 0-3.0 Troponin I < 0.015 < 0.015 0-0.045 ng/ml White Blood Count 11.79 4.8-10.8 K/uL Red Blood Count 3.96 4.2-5.4 M/uL Hemoglobin 10.3 12.0-16.0 g/dL Hematocrit 34.5 37-47 % Mean Corpuscular Volume 87.1 80-100 fL Mean Corpuscular Hemoglobin 26.0 25-34 pg Mean Corpuscular Hemoglobin Concent 29.9 32-36 g/dl RDW Standard Deviation 58.4 36.4-46.3 fL RDW Coefficient of Variation 18.2 11.5-14.5 % Platelet Count 138 130-400 K/uL Mean Platelet Volume 10.5 7.4-10.4 fL Platelet Estimate NORMAL D-Dimer 610 0-500 ug/L FEU Sodium Level 143 136-145 mmol/L Potassium Level 4.4 3.5-5.1 mmol/L Chloride Level 104 98-107 mmol/L Carbon Dioxide Level 32 21-32 mmol/L Anion Gap 7.0 3-11 mmol/L Blood Urea Nitrogen 27 7-18 mg/dl Creatinine 1.10 0.60-1.20 mg/dl Est Creatinine Clear Calc Drug Dose 65.6 ml/min Estimated GFR () 58.1 Estimated GFR (Non- 50.1 BUN/Creatinine Ratio 24.5 10-20 Random Glucose 116 70-99 mg/dl Calcium Level 8.8 8.5-10.1 mg/dl Magnesium Level 2.1 1.8-2.4 mg/dl Ammonia 37.0 11-32 umol/L Test 11/25/16 05:40 11/25/16 07:16 11/25/16 09:57 11/25/16 10:30 Range/Units Arterial Blood pH 7.35 7.35-7.45 Arterial Blood Partial Pressure CO2 53 35-46 mmHg Arterial Blood Partial Pressure O2 57 80-95 mm/Hg Arterial Blood HCO3 28 19-24 mmol/L Arterial Blood Oxygen Saturation 85.3 90-95 % Arterial Blood Base Excess 1.9 -9-1.8 mEq/L Arterial Blood Gas Delivery 6L Justice Test POS POS Bedside Glucose 132 70-90 mg/dl Creatine Kinase MB Ratio 0-3.0 Microbiology Results 11/24/16 Blood Culture, Received Pending 11/24/16 Blood Culture, Received Pending
--- NOTE | 2016-11-25 12:46 | ECHOCARDIOGRAM REPORT ---
*NOTICE TO RECEIVING DEMOCRAT AGENCY This information is strictly Confidential and protected under [place] law. [place] law prohibits you from making any further disclosure of this information unless further disclosure is expressly permitted by the written consent of the person to whom it pertains or is authorized by law. A general authorization for the release of medical or other information is not sufficient for this purpose. Hospital accepts no responsibility if the information is made available to any other person, INCLUDING THE PATIENT. Interpretation Summary * Name: MICAELA WALKER Study Date: 11/25/2016 09:42 AM BP: 142/70 mmHg * Patient Location: C.2T\S\S244\S\1 HR: 98 * : 1945 (M/d/yyy) Gender: Female Height: 70 in * Age: 71 yrs Ethnicity: CA Weight: 272 lb * Ordering Physician: Xoimy Gleason * Referring Physician: Harshil Ewing * Performed By: Matheus Win RDCS * * Reason For Study: CHF * BSA: 2.4 m2 * -- Conclusions -- * The left ventricular cavity is small. * There is normal left ventricular wall thickness. * The left ventricular wall motion is normal. * Flattened septum is consistent with RV pressure/volume overload. * Ejection Fraction = 65-70%. * Grade I diastolic dysfunction, (abnormal relaxation pattern). * The right ventricle is moderate to severely dilated. * The right atrium is moderate to severely dilated. * There is severe tricuspid regurgitation. * Right ventricular systolic pressure is markedly elevated at >60mmHg. Procedure Details * A complete two-dimensional transthoracic echocardiogram was performed (2D, M-mode, Doppler and color flow Doppler). * The study was technically difficult. * There were technical limitations due to patient'sbody habitus * A contrast injection of Definity was performed to improve assessment of LV function. * Contrast was injected into an intravenous site in the left arm. * One vial of Definity ultrasound contrast was diluted in normal saline to a total volume of 10 ml. A total of '3' ml of solution was administered during imaging. * Lot # [id number] of Definity utilized for procedure. * Expiration date . * The attending nurse who injected the contrast agent was C.Wineland, RN. Left Ventricle * The left ventricular cavity is small. * There is normal left ventricular wall thickness. * Left ventricular systolic function is normal. * Ejection Fraction = 65-70%. * The left ventricular wall motion is normal. * Flattened septum is consistent with RV pressure/volume overload. Right Ventricle * The right ventricle is moderate to severely dilated. Atria * The left atrial size is normal. * The right atrium is moderate to severely dilated. * No ASD detected; PFO is not assessed. Mitral Valve * The mitral valve anatomy is normal. * There is no mitral valve stenosis. * There is trace mitral regurgitation. Tricuspid Valve * The tricuspid valve anatomy is normal. * There is no tricuspid stenosis. * Right ventricular systolic pressure is elevated at >60mmHg. * There is severe tricuspid regurgitation. Aortic Valve * The aortic valve is trileaflet. * Aortic valve sclerosis mild, without significant aortic valvular stenosis. * No aortic regurgitation is present. Pulmonic Valve * The pulmonic valve is not well visualized. Great Vessels * The aortic root is normal size. Pericardium/Pleural * There is no pericardial effusion. Great Vessels * The inferior vena cava is mildly dilated. Left Ventricular Diastolic Function * Grade I diastolic dysfunction, (abnormal relaxation pattern). MMode 2D Measurements and Calculations IVSd 1.2 cm IVSs 1.5 cm LVIDd 4.5 cm LVIDs 2.8 cm LVPWd 1.3 cm LVPWs 1.6 cm IVS/LVPW 0.93 FS 37.6 % EDV(Teich) 90.8 ml ESV(Teich) 29.2 ml EF(Teich) 67.9 % EDV(cubed) 89.0 ml ESV(cubed) 21.6 ml EF(cubed) 75.7 % % IVS thick 26.1 % % LVPW thick 27.4 % LV mass(C)d 201.6 grams LV mass(C)dI 84.8 grams/m\S\2 LV mass(C)s 152.7 grams LV mass(C)sI 64.2 grams/m\S\2 SV(Teich) 61.6 ml SI(Teich) 25.9 ml/m\S\2 SV(cubed) 67.4 ml SI(cubed) 28.3 ml/m\S\2 EPSS 0.50 cm Ao root diam 3.3 cm Ao root area 8.6 cm\S\2 ACS 1.7 cm LA dimension 3.4 cm asc Aorta Diam 3.4 cm LA/Ao 1.0 LVOT diam 2.1 cm LVOT area 3.5 cm\S\2 LVOT area(traced) 3.5 cm\S\2 LVAd ap4 19.1 cm\S\2 LVLd ap4 7.2 cm EDV(MOD-sp4) 41.0 ml LVAs ap4 11.0 cm\S\2 LVLs ap4 6.1 cm ESV(MOD-sp4) 16.0 ml EF(MOD-sp4) 61.0 % LVAd ap2 22.8 cm\S\2 LVLd ap2 7.5 cm EDV(MOD-sp2) 59.0 ml LVAs ap2 11.4 cm\S\2 LVLs ap2 6.3 cm ESV(MOD-sp2) 19.0 ml EF(MOD-sp2) 67.8 % SV(MOD-sp4) 25.0 ml SI(MOD-sp4) 10.5 ml/m\S\2 SV(MOD-sp2) 40.0 ml SI(MOD-sp2) 16.8 ml/m\S\2 Doppler Measurements and Calculations MV E max rajeev 62.8 cm/sec MV A max rajeev 82.3 cm/sec MV E/A 0.76 MV dec time 0.28 sec Ao V2 max 148.8 cm/sec Ao max PG 8.9 mmHg Ao max PG (full) 5.9 mmHg PEYTON(V,A) 2.1 cm\S\2 PEYTON(V,D) 2.1 cm\S\2 LV V1 max PG 3.0 mmHg LV V1 max 86.4 cm/sec PA V2 max 120.8 cm/sec PA max PG 5.8 mmHg PI end-d rajeev 187.3 cm/sec TR max rajeev 445.8 cm/sec
[2016-11-25] MEDS ORDERED: INSULIN GLARGINE SOLOSTAR 100 UNITS/ML 3 ML PEN SC ONE (15:00)
--- NOTE | 2016-11-25 15:13 | Pharmacy Progress Note ---
Glycemic Control Intl Consult Date of Service Nov 25, 2016. Scope Glycemic Pharmacist consulted by Dr Sandhu on 11/25/16 for glycemic control and to write orders per [facility] inpatient glycemic control protocol Objective Weight (Kilograms): 123.100 Accuchecks BSG (last 24hrs): Test 11/24/16 20:33 11/25/16 03:14 11/25/16 04:30 11/25/16 07:16 Bedside Glucose 116 mg/dl (70-90) 111 mg/dl (70-90) 132 mg/dl (70-90) Random Glucose 116 mg/dl (70-99) Test 11/25/16 11:20 Bedside Glucose 230 mg/dl (70-90) Laboratory Data (last 24hrs) Test 11/25/16 04:30 Anion Gap 7.0 mmol/L BUN/Creatinine Ratio 24.5 Blood Urea Nitrogen 27 mg/dl Creatinine 1.10 mg/dl Potassium Level 4.4 mmol/L Sodium Level 143 mmol/L White Blood Count 11.79 K/uL HbA1c Test 11/25/16 04:30 Recent Pertinent Medications Outpatient Anti-diabetic Regimen: * N/A * A1c 6.4% for 07/26/16 Risk Factors for Insulin Resistance: * Steroids * Infection * Diet Assessment & Plan ASSESSMENT: * 71 yo F admitted with bilateral cellulitis, initiated on broad spectrum antibiotics and high dose IV steroids * Pharmacy consulted to manage potential steroid-induced hyperglycemia * A1c outdated, reassess new A1c in the AM with labs * Fasting BSG 132 mg/dL this AM, then Lunch 230 mg/dL * Initiate weight-based Novolog (stress 1.5) * Given obesity and borderline A1c from 2016, I will go ahead and add a small dose of Lantus * It will be imperative to step insulin dosing down with each step down in steroids * ADA & AACE recommend a goal blood sugar range 140-180 mg/dl for the majority of critically ill & non-critically ill patients. However, more stringent targets may be selected in individual cases. Tighten to 120-160 mg/dL to facilitate treatment of infection. PLAN FOR INPATIENT GLYCEMIC CONTROL: * Basal insulin with LANTUS 10 units SQ daily, first dose now * Correctional Insulin with NOVOLOG per scale ACHS +0200 * Goal Range: Low 120 mg/dL - High 160 mg/dL * Correction Factor: 25 mg/dL/unit * Nutritional / Prandial insulin per carb ratio of 1 unit per 8 grams CHO consumed * A1c to be assessed tomorrow * Please note that the plan above was derived based on current level of insulin resistance and hospital stress. These recommendations are appropriate for inpatient admission only. Plan of care upon discharge will need to be reassessed to avoid potential outpatient hypo/hyperglycemia. Thank you.
[2016-11-25 16:29] LABS: ARTERIAL BLD GAS O2 SATURATION 91.4 % (90-95); ARTERIAL BLOOD GAS HCO3 29 mmol/L (19-24); ARTERIAL BLOOD GAS PO2 74 mm/Hg (80-95); ARTERIAL BLOOD GAS pH 7.28 (7.35-7.45)
[2016-11-25 16:30] LABS: ALLEN TEST POS (POS); O2 ADMINISTRATION 40%
[2016-11-25] MEDS ORDERED: ACETAMINOPHEN IV 650 MG in EMPTY BAG 0 ML IV PRN (16:30)
--- NOTE | 2016-11-25 17:53 | DIAGNOSTIC IMAGING REPORT ---
CHEST ONE VIEW PORTABLE HISTORY: Short of breath. chf,desaturation COMPARISON: Chest 11/25/2016. FINDINGS: No pneumothorax. Thoracic spinal rods are again noted. Chronic elevation of the left hemidiaphragm. Trace bilateral pleural effusions, cardiomegaly, and mild interstitial pulmonary edema persists. A few linear scarlike densities at the left lung base are again noted. No new focal lung consolidations. IMPRESSION: No change in the mild pulmonary edema and trace bilateral pleural effusions. Electronically signed by: Espinoza Navarro M.D. 11/25/2016 5:51 PM Dictated Date/Time: 11/25/2016 5:50 PM
--- NOTE | 2016-11-25 18:53 | Pulmonary Consultation ---
History General Date of Service: Nov 25, 2016. Stated Complaint: Bilateral Lower Leg Cellulitis, Chf HPI The patient is a 71 year old female who presents to [facility] with complaints of Bilateral Lower Leg Cellulitis, Chf. The patient's primary care provider is Harshil Ewing. 71-year-old female admitted with acute on chronic hypoxemia. Patient has an extensive history with severe COPD FEV1 47%, chronic oxygen dependence, right ventricular dysfunction with elevated pulmonary tear pressures and chronic diastolic dysfunction. Patient stated experiencing progressive dyspnea on exertion with bilateral lower extremity swelling and erythema over the previous week. She was started on Augmentin prior to admission because of chronic lower extremity wounds as well as furosemide which was slowly increased to 40 mg with no relief of signs and symptoms. She presented to the ED in respiratory insufficiency and was transferred to the floor. Earlier today the patient started experiencing increasing dyspnea was started on BiPAP with repeat a showing progressive hypoxia and CO2 retention. At this time the patient is arousable but obtunded. Current workup: Blood cultures pending AB11/25/2016 (0540) 7.35/53/57/28 on 6 L AB11/25/2016 (1409) 7.28/63/74/29 on 40% FiO2 WBC: 10K D-dimer: 610 Pro-BNP: 5106 BUN/Cr: 26/0.69 I/Os: -547ml Chest x-ray: Cephalization, bilateral hilar fullness, parabronchial cuffing, but the costophrenic angles bilaterally Cardiac Echo: LV: EF=65-70%, grade I diastolic dysfunction RV: Mod to sever dilation RA: mod-sever dilation Mitral: TR IVC: dilated Current treatment: BiPAP: FIO2:40% Methylprednisolone 60 mg IV every 8 hours Daliresp 500 g daily Duo nebs every 4 hours Vancomycin 1600 mg every 12 hours Zosyn 4.5 g every 8 hours Brovana nebulized twice a day Budesonide one puff twice a day Albuterol nebulizers every 4 hours when necessary shortness of breath PFT 02/16/2016 PRE POST %Change FEV1/FVC: 59 81 3 FEV1: 1.25/47% 1.30/49% 4 FVC: 2.12/59% 2.14/60% one T.00/67% SVC: 2.21/62% RV: 1.79/71% RV/T% DLCO: 33% DL/VA: 60% Appears to be a good quality study Bilateral lower extremity Doppler studies: 10/10/2015 No signs of DVT 6 minute walk study: 07/21/2012 Total ambulation 158 mm Significant ambulatory hypoxemia and noted almost immediately Mild to moderate tachycardia noted Microbiology: Bronchial washing 10/15/2007: Pseudomonas aeruginosa Endotracheal tube suction 11/11/2007: MRSA/Pseudomonas Ascitic fluid for 18 2007: Escherichia coli and VRE Immunologic workup 08/02/2005 A screen positive, LISSA titer 1:80, pattern speckled Historian: EMS Review of Systems Patient is obtunded at this time unable to give appropriate answers Past Medical History Past Medical History: 1. Disorder of vocal cord 2. Lung disease, chronic obstructive 3. Dyslipidemia 4. Essential hypertension 5. chronic bronchitis 6. chronic pancreatitis 7. hypothyroidism 8. osteoporosis 9. Panic disorder 10. 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 Scoliosis 12. 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 Pneumonia: Pseudomonal/MRSA 15. VRE ascitic fluid 16. Escherichia coli: Ascitic fluid/abdominal abscess/urine Past Surgical History: 1. Back Surgery/Scoliosis 2. Hysterectomy Family History FH: heart disease FATHER Unable to obtain to the records and patient is obtunded Social History Hx Tobacco Use In Past Year?: No Smoking Status: Former Smoker (quit 10 years ago. prior 2 ppd x 40 years) Marital status: single Housing status: other ([facility]) Occupational Status: retired Immunizations History of Influenza Vaccine: N/A Influenza Vaccine Date: Mar 21, 2011 History of Tetanus Vaccine?: Unknown Tetanus Immunization Date: Apr 09, 2003 History of Pneumococcal: Yes Pneumococcal Date: Mar 10, 2010 History of Hepatitis B Vaccine: Unknown Hepatitis Immunization Date: Mar 19, 1998 History of MDRO History of MDRO: Yes Allergies Coded Allergies: Benzodiazepines (Unverified Adverse Reaction, Unknown, DELIRIUM, 11/25/16) Patient has history of abuse and addiction per family. 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 Current Medications Reported Home Medications Medications Dose Route/Sig Max Daily Dose Days Date Category Dose Instructions Ventolin Hfa (Albuterol) 60 Puffs/5400 Mcg Aers 2 Puffs INH Q4 PRN 11/24/16 Reported Augmentin 875-125 mg (Amoxicillin & Pot Clavulanate) 1 Tab Tab 875 Mg PO BID 11/24/16 Reported Duoneb (Ipratropium-Albuterol) 3 Ml Nebu 1 Treatment INH DAILY 11/24/16 Reported Dulcolax (Bisacodyl) 10 Mg Sup 1 Supp IA UD PRN 11/24/16 Reported Prune Juice (Prune) Unknown Strength Liqd Unknown Dose PO UD PRN 11/24/16 Reported Milk of Magnesia 400 mg/5Ml (Magnesium Hydroxide) 1 Lynn Lynn 30 Ml PO UD PRN 11/24/16 Reported Lasix (Furosemide) 40 Mg Tab 40 Mg PO DAILY 11/24/16 Reported Daliresp (Roflumilast) 500 Mcg Tab 500 Mcg PO DAILY 11/24/16 Reported Acetaminophen 325 Mg Tab 650 Mg PO Q6H PRN 11/24/16 Reported Novolog (Insulin Aspart) 100 Units/Ml Inj SQ UD 11/24/16 Reported Per sliding scale Seroquel (Quetiapine Fumarate) 50 Mg Tab 50 Mg PO HS 11/24/16 Reported Pulmicort (Budesonide (Inhalation)) 0.5 Mg/2 Ml Lynn 0.5 Mg NEB BID 11/24/16 Reported Brovana (Arformoterol Tartrate) 15 Mcg/2 Ml Neb 15 Mcg INH BID 11/24/16 Reported Synthroid (Levothyroxine Sodium) 112 Mcg Tab 112 Mcg PO DAILY 11/24/16 Reported Duoneb (Ipratropium-Albuterol) 3 Ml Nebu 1 Treatment INH Q6H PRN 11/24/16 Reported Aspirin 81 (Aspirin) 81 Mg Tab 81 Mg PO DAILY 11/24/16 Reported Prednisone 10 Mg Tab 5 Mg PO DAILY 10/10/15 Reported Oxygen Gas 4 Liters NA CONTINOUS 10/10/15 Reported Zofran (Ondansetron Hcl) 4 Mg Tab 4 Mg PO Q8 PRN 09/21/15 Reported Lipitor (Atorvastatin Calcium) 20 Mg Tab 20 Mg PO HS 09/21/15 Reported Lioresal (Baclofen) 10 Mg Tab 15 Mg PO QID PRN 09/21/15 Reported Colace (Docusate Sodium) 100 Mg Cap 500 Mg PO BID 30 09/21/15 Reported Toprol-Xl (Metoprolol Succinate) 100 Mg Tabcr 100 Mg PO DAILY 09/21/15 Reported Ultram (Tramadol HCl) 50 Mg Tab 50 Mg PO Q6H PRN 03/19/08 Reported Physical Physical Exam Vital Signs: Date Time Temp Pulse Resp B/P Pulse Ox O2 Delivery O2 Flow Rate FiO2 11/25/16 16:54 73 96 50 11/25/16 16:00 BiPAP 40 11/25/16 15:33 79 18 94 BiPAP/CPAP 40 11/25/16 15:32 79 94 40 11/25/16 15:28 36.4 76 22 105/65 94 BiPAP 11/25/16 12:02 BiPAP 40 11/25/16 11:59 85 95 40 11/25/16 11:37 36.8 90 20 114/73 88 Nasal Cannula 6.0 11/25/16 08:18 36.8 105 19 142/70 92 Nasal Cannula 6.0 11/25/16 08:00 Nasal Cannula 6.0 11/25/16 07:15 100 18 90 Nasal Cannula 6.0 11/25/16 04:30 Nasal Cannula 6.0 11/25/16 03:27 101 18 95 Nasal Cannula 6.0 11/25/16 03:20 36.8 107 24 108/52 91 Nasal Cannula 6.0 11/25/16 00:00 Nasal Cannula 5.0 11/24/16 23:33 36.3 96 20 100/65 90 Nasal Cannula 5.0 11/24/16 22:13 91 16 93 Nasal Cannula 5.0 11/24/16 20:02 85 20 110/63 91 11/24/16 20:00 36.3 88 24 109/63 96 Nasal Cannula 6.0 11/24/16 19:20 84 20 Nasal Cannula 4.0 General Appearance: obese, other (obtunded but arousable to physical stimulation) Head: NORMOCEPHALIC, ATRAUMATIC Eyes: PERRLA, NO DISCHARGE, EOMI, SCLERAE NORMAL ENT: NORMAL EAR EXAM, NORMAL NASAL EXAM, NORMAL MOUTH EXAM, NORMAL THROAT EXAM , NORMAL DENTAL EXAM, other (BiPAP in place no signs of leak) Neck: NORMAL RANGE OF MOTION, NO TENDERNESS, other (2+ JVD) Respiratory: other (global crackles/ultrasonic evaluation supposed global B- lines with small bilateral pleural effusions) Cardiovasular: REGULAR RATE/RHYTHM, NORMAL S1S2, other (very distant heart sounds unable to auscultate for murmurs rubs or gallops) Abdomen: NORMAL BOWEL SOUNDS, NO REBOUND, other (patient does complain of some mild tenderness to deep palpation) Genitourinary - Female: EXTERNAL GENITALIA NORMAL Back: other (scoliosis appreciated but no tenderness to palpation) Upper Extremities: NO EDEMA, NO DEFORMITY Lower Extremities: NO DEFORMITY, other (bilateral lower lobe/gravity dependent 3+ pitting edema) Pulses: carotid (R) (1+), carotid (L) (1+), posterior tibial (R), posterior tibial (L) (1+) Neuro: lethargic, disoriented Diagnostics Labs Results Past 24 Hours Test 11/24/16 19:54 11/24/16 20:33 11/25/16 01:19 11/25/16 03:14 Range/Units Total Creatine Kinase 52 26-192 U/L Creatine Kinase MB 1.9 1.7 0.5-3.6 ng/ml Creatine Kinase MB Ratio 3.7 0-3.0 Troponin I < 0.015 < 0.015 0-0.045 ng/ml Bedside Glucose 116 111 70-90 mg/dl Test 11/25/16 04:30 11/25/16 05:40 11/25/16 07:16 11/25/16 10:30 Range/Units White Blood Count 11.79 4.8-10.8 K/uL Red Blood Count 3.96 4.2-5.4 M/uL Hemoglobin 10.3 12.0-16.0 g/dL Hematocrit 34.5 37-47 % Mean Corpuscular Volume 87.1 80-100 fL Mean Corpuscular Hemoglobin 26.0 25-34 pg Mean Corpuscular Hemoglobin Concent 29.9 32-36 g/dl RDW Standard Deviation 58.4 36.4-46.3 fL RDW Coefficient of Variation 18.2 11.5-14.5 % Platelet Count 138 130-400 K/uL Mean Platelet Volume 10.5 7.4-10.4 fL Platelet Estimate NORMAL D-Dimer 610 0-500 ug/L FEU Sodium Level 143 136-145 mmol/L Potassium Level 4.4 3.5-5.1 mmol/L Chloride Level 104 98-107 mmol/L Carbon Dioxide Level 32 21-32 mmol/L Anion Gap 7.0 3-11 mmol/L Blood Urea Nitrogen 27 7-18 mg/dl Creatinine 1.10 0.60-1.20 mg/dl Est Creatinine Clear Calc Drug Dose 65.6 ml/min Estimated GFR () 58.1 Estimated GFR (Non- 50.1 BUN/Creatinine Ratio 24.5 10-20 Random Glucose 116 70-99 mg/dl Calcium Level 8.8 8.5-10.1 mg/dl Magnesium Level 2.1 1.8-2.4 mg/dl Ammonia 37.0 11-32 umol/L Total Creatine Kinase 48 41 26-192 U/L Creatine Kinase MB 1.6 1.3 0.5-3.6 ng/ml Creatine Kinase MB Ratio 3.3 3.2 0-3.0 Troponin I < 0.015 < 0.015 0-0.045 ng/ml Arterial Blood pH 7.35 7.35-7.45 Arterial Blood Partial Pressure CO2 53 35-46 mmHg Arterial Blood Partial Pressure O2 57 80-95 mm/Hg Arterial Blood HCO3 28 19-24 mmol/L Arterial Blood Oxygen Saturation 85.3 90-95 % Arterial Blood Base Excess 1.9 -9-1.8 mEq/L Arterial Blood Gas Delivery 6L Justice Test POS POS Bedside Glucose 132 70-90 mg/dl Test 11/25/16 11:20 11/25/16 14:09 11/25/16 15:10 11/25/16 16:12 Range/Units Bedside Glucose 230 206 182 70-90 mg/dl Arterial Blood pH 7.28 7.35-7.45 Arterial Blood Partial Pressure CO2 63 35-46 mmHg Arterial Blood Partial Pressure O2 74 80-95 mm/Hg Arterial Blood HCO3 29 19-24 mmol/L Arterial Blood Oxygen Saturation 91.4 90-95 % Arterial Blood Base Excess 1.0 -9-1.8 mEq/L Arterial Blood Gas Delivery 40% Justice Test POS POS Test 11/25/16 17:57 11/25/16 18:23 Range/Units Creatine Kinase MB Ratio 0-3.0 Diagnostic Radiology Chest x-ray: Cephalization, bilateral hilar fullness, parabronchial cuffing, but the costophrenic angles bilaterally EKG Normal sinus rhythm with right axis deviation Impression Assessment and Plan 71-year-old female admitted with acute on chronic hypoxic respiratory insufficiency: #1 Hypoxic respiratory insufficiency: Patient hypoxia is most likely multifactorial combining severe COPD, diastolic heart failure and possible pulmonary hypertension but group unknown. At this time I would continue aggressive diuresis, BiPAP therapy, IV steroids and nebulizer treatments. I would hold off on oral medications as the patient is obtunded. I also agree with aggressive antibiotic choices at this time as the patient does have a history of VRE, Escherichia coli and MRSA. I should also note her chronic respiratory insufficiency is also made more complicated by her obesity and scoliosis. #2 Future workup: Pulmonary hypertension: Patient most likely has pulmonary hypertension but unknown group. Possible combination of group 2 and 3 even possible group 5. #A In the future the patient will require right heart catheterization with left ventricular end-diastolic evaluation and shunt fraction evaluation #B Patient should also get a high resolution CAT scan when she is stable for rule out of interstitial lung changes as her pulmonary function tests suggest restrictive ventilatory disease #C patient does have a history of LISSA positive speckled pattern. When she is off steroids future rheumatologic workup would be appropriate. #3 Prognosis: The patient is a very guarded prognosis that she has severe chronic hypoxic issues and will require close monitoring on telemetry and early transferred to the intensive care unit if required. #4 Vocal Cords: Patient previously seen by drywall sander Dr. Davison. 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 This time I hear no signs of stridor or upper airway dysfunctioning. We'll continue to monitor this as this could complicate her current issues.
[2016-11-25 19:42] LABS: VEN BLOOD GAS BASE EXCESS 1.6 mmol/L; VENOUS BLOOD GAS PCO2 67 mmHg (38.0-50.0); VENOUS BLOOD GAS PO2 31 mmHg
[2016-11-25 19:43] LABS: VEN BLD GAS O2 SATURATION < 60.0 %
[2016-11-25] MEDS: ENOXAPARIN 40 MG/0.4 ML SYR SC SCH (20:28)
[2016-11-25] MEDS: ATORVASTATIN 20 MG TAB PO SCH (20:28)
[2016-11-25] MEDS: QUETIAPINE FUMARATE 25 MG TAB PO SCH (20:30)
[2016-11-25] MEDS: FUROSEMIDE INJ 40 MG in SYRINGE 0 ML IV SCH (20:36)
[2016-11-26] VITALS (17 sets, daily range): BP systolic 93–112; BP diastolic 53–68; PULSE 78–92; TEMP 36.3–37; O2SAT 90–98
[2016-11-26] MEDS: VANCOMYCIN INJ 1,600 MG in SODIUM CHLORIDE 0.9% 500ML 500 ML IV SCH ×3 (02:01→15:32)
[2016-11-26] MEDS: METHYLPREDNISOLONE IV 60 MG in SYRINGE 0 ML IV SCH ×2 (02:02→14:03)
[2016-11-26] MEDS: INSULIN ASPART 100 UNITS/ML 3 ML PEN SC SCH ×5 (02:03→21:03)
[2016-11-26] MEDS: ALBUT/IPRATROP 3MG/0.5MG NEB 3 ML VIAL INH SCH ×6 (03:17→23:27)
[2016-11-26] MEDS: BACLOFEN 10 MG TAB PO SCH ×4 (03:40→20:58)
[2016-11-26] MEDS: LEVOTHYROXINE 112 MCG TAB PO SCH (06:31)
[2016-11-26] MEDS: PIPERACILL/TAZOBAC IV 4.5 GM in DEXTROSE 5% 100ML IV SCH ×3 (06:33→22:00)
[2016-11-26 06:39] LABS: ESTIMATED AVERAGE GLUCOSE 111 mg/dl; HA1C FLAG Normal (Normal)
[2016-11-26 07:35] LABS: HEMATOCRIT 32.2 % (37-47); MEAN CELL VOLUME 88.5 fL (80-100); MEAN CORPUSCULAR HEMOGLOBIN 26.1 pg (25-34); MEAN CORPUSCULAR HGB CONC 29.5 g/dl (32-36); MEAN PLATELET VOLUME 10.5 fL (7.4-10.4); PLATELET COUNT 122 K/uL (130-400); RED BLOOD COUNT 3.64 M/uL (4.2-5.4); WHITE BLOOD COUNT 6.62 K/uL (4.8-10.8)
[2016-11-26] MEDS: BUDESONIDE 0.5 MG/2 ML VIAL (PULMICORT) INH SCH ×2 (07:36→19:15)
[2016-11-26] MEDS: ARFORMOTEROL TART 15MCG/2ML VIAL INH SCH ×2 (07:36→19:15)
[2016-11-26 08:10] LABS: BUN/CREATININE RATIO 30.6 (10-20); CALCIUM 9.2 mg/dl (8.5-10.1); CREATININE 1.1 mg/dl (0.60-1.20); MAGNESIUM 2.3 mg/dl (1.8-2.4)
[2016-11-26] MEDS: FUROSEMIDE INJ 40 MG in SYRINGE 0 ML IV SCH ×2 (08:10→16:47)
[2016-11-26] MEDS: DOCUSATE SODIUM 100 MG CAP PO SCH ×2 (08:11→20:57)
[2016-11-26] MEDS: ASPIRIN 81 MG ECTAB PO SCH (08:12)
[2016-11-26] MEDS: ROFLUMILAST 500 MCG TAB PO SCH (08:12)
[2016-11-26] MEDS: METOPROLOL SUCC 50MG EXT REL TAB PO SCH (08:13)
[2016-11-26] MEDS: TRAMADOL HCL 50 MG TAB PO PRN ×3 (08:24→20:55)
--- NOTE | 2016-11-26 08:27 | PROGRESS NOTE ---
DATE: 11/26/2016 SUBJECTIVE: The patient is comfortable this morning. She refused BiPAP last night stating she could not tolerate it. She had a long conversation with me this morning and states she just does not want to wear. 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 She has a heavy history of tobacco use, quit several years ago and smoked from age 15 until about age 69, at least a pack a day. That may be the etiology for the hypercapnia. She is eating breakfast this morning and seems to be just slightly confused, thinking that she is here for different reasons, but could not tell me the reason. OBJECTIVE: VITAL SIGNS: Nonetheless, her vital signs are stable and she is afebrile. Nurses' notes are reviewed. Oxygen saturation is 97%. Weight 123.9 kilograms up from 122.1 on the 8th. HEENT: Reveals redundant tissue in the posterior pharynx with a large tongue. NECK: There is no neck vein distention or HJR. HEART: Regular rate and rhythm. I thought I could hear a 1/6 mid-to-late systolic murmur heard at the apex. No gallops are auscultated. LUNGS: Reveal some rales at the lung bases bilaterally. ABDOMEN: Soft, nontender. EXTREMITIES: She has no cyanosis, clubbing or edema. The echocardiogram revealed severely dilated right atrium with [id number] dilatation of the right ventricle with marked elevation of right ventricular pressures at 60 or greater than 60 mmHg. Sugars have been in the 182-230 range. Arterial blood gas last night at 6:30 revealed pH 7.26, pCO2 of 67, pO2 of 31 and that was a venous blood gas, not arterial blood gas. CO2 on her electrolytes on the was 32. IMPRESSION: 1. Respiratory failure with hypercapnia and hypoxemia. 2. Chronic obstructive lung disease with severe pulmonary hypertension. 3. Severe pulmonary hypertension, probably related to chronic obstructive pulmonary disease. She appears to be GOLD class 3. RECOMMENDATIONS: 1. Continue with her present medications. I spoke with her about being placed on BiPAP at night. She states she would be willing to try that again tonight, but I would suggest the setting of 14/6 with a rate of 10. 2. Continue with prednisone. I think she can be switched to 40 mg p.o. and the Solu-Medrol could be discontinued. 3. Continue on the DuoNeb 4 times a day and q. 4 hours p.r.n. She does not have significant bronchitis, but we should continue on the Daliresp for now unless she would develop some despondency and then that can be discontinued. Overall, I think her prognosis is poor.
[2016-11-26] MEDS: INSULIN GLARGINE SOLOSTAR 100 UNITS/ML 3 ML PEN SC SCH (08:35)
--- NOTE | 2016-11-26 09:06 | Pharmacy Progress Note ---
Glycemic Control: Progress Nt Date of Service Nov 26, 2016. Scope Glycemic Pharmacist consulted by Dr Sandhu on 11/25 for glycemic control and to write orders per [facility] inpatient glycemic control protocol. Objective Accuchecks BSG (last 24hrs): Test 11/25/16 11:20 11/25/16 15:10 11/25/16 16:12 11/25/16 20:00 Bedside Glucose 230 mg/dl (70-90) 206 mg/dl (70-90) 182 mg/dl (70-90) 127 mg/dl (70-90) Test 11/26/16 01:54 11/26/16 06:52 11/26/16 06:55 Bedside Glucose 170 mg/dl (70-90) 156 mg/dl (70-90) Random Glucose 149 mg/dl (70-99) Laboratory Data (last 24hrs) Test 11/26/16 06:55 Anion Gap 8.0 mmol/L BUN/Creatinine Ratio 30.6 Blood Urea Nitrogen 34 mg/dl Creatinine 1.10 mg/dl Potassium Level 4.0 mmol/L Sodium Level 144 mmol/L White Blood Count 6.62 K/uL HbA1c: Test 11/25/16 04:30 Hemoglobin A1c 5.5 % (4.5-5.6) Recent Pertinent Medications Outpatient Anti-diabetic Regimen: * n/a The patient is currently receiving: * Basal insulin: Lantus 10 units every 24 hours * Correctional Insulin: Novolog Correction per scale ACHS Goal Range: Low 120 mg/dL - High 160 mg/dL Correction Factor: 25 mg/dL/unit * Prandial insulin: Per carb ratio of 1 unit per 8 grams CHO consumed Risk Factors for Insulin Resistance: * Steroids: Solu-medrol 60 mg IV q12h * Infection: cellulitis - on vanc and Zosyn * Diet: AHA/type 2 diabetes Assessment & Plan ASSESSMENT: 11/25/16 * 71 yo F admitted with bilateral cellulitis, initiated on broad spectrum antibiotics and high dose IV steroids * Pharmacy consulted to manage potential steroid-induced hyperglycemia * A1c outdated, reassess new A1c in the AM with labs * Fasting BSG 132 mg/dL this AM, then Lunch 230 mg/dL * Initiate weight-based Novolog (stress 1.5) * Given obesity and borderline A1c from 2016, I will go ahead and add a small dose of Lantus * It will be imperative to step insulin dosing down with each step down in steroids * ADA & AACE recommend a goal blood sugar range 140-180 mg/dl for the majority of critically ill & non-critically ill patients. However, more stringent targets may be selected in individual cases. Tighten to 120-160 mg/dL to facilitate treatment of infection. 11/26/16 * Ms. Galvan received 25 units of insulin yesterday with BSGs ranging from 127- 182 mg/dL since the initiation of a basal/bolus regimen * Her A1c from this admission is normal, so the hyperglycemia seems to just be steroid-induced * Since BSGs have improved and appear stable, will plan to continue with the current regimen * Insulin doses will need to be adjusted as steroids are reduced PLAN FOR INPATIENT GLYCEMIC CONTROL: * Continue Lantus 10 units daily * Continue Novolog ACHS * Goal 120-160 mg/dL * CF 25 mg/dL/unit * CR 1 unit per 8 gm CHO consumed RECOMMENDATIONS FOR DISCHARGE: * A1c does not indicate diabetes - No need for hypoglycemic agents on d/c unless steroids are to be continued Thank you.
--- NOTE | 2016-11-26 09:23 | Clinical Documentation Query ---
Dr. [facility] : CLINICAL DOCUMENTATION QUERY Patient is a 71 female admitted for bilateral lower extremity cellulitis and acute diastolic CHF. Patient noted to be on 4 L/min of oxygen continuously at home. Subsequent documentation include acute hypoxemic respiratory failure. ABG's have demonstrated both hypoxemia and hypercarbia. Pulmonary design center consultant has documented "respiratory failure with hypercapnia and hypercarbia". This statement lacks consideration of acuity. As appropriate, consider a single diagnostic statement as suggested below in order to capture these important clinical diagnoses. Thank you. In your clinical opinion is this patient being managed for: ( + ) Acute on chronic respiratory failure with hypoxemia and hypercapnia ( ) Other explanation of clinical findings (Please Explain) ( ) Unable to determine (Please Define) ( ) Need to Discuss ( ) Not Agree The medical record reflects the following clinical findings, treatment, and risk factors. Clinical Indicators: As above Treatment: Telemetry, pulmonary consultationd, BiPAP, steroids, nebs Risk Factors: Age, obesity, smoking history, severe COPD Please clarify and document your clinical opinion in the progress notes and discharge summary. Terms such as "probable", "suspected", "likely", "questionable", "possible", or "still to be ruled out" are acceptable. IF IN AGREEMENT, YOU MUST DOCUMENT ABOVE DIAGNOSTIC STATEMENT IN DAILY PROGRESS NOTES AND DISCHARGE SUMMARY. This document is not part of the patient's record. Thank You, Jesse Martin RN [phone]
--- NOTE | 2016-11-26 11:29 | Cardiology Consultation ---
Cardiology Consultation Date of Service Nov 26, 2016. (Lianna Horvath PA-C) Cardiology Consultation Cardiology Consultation: SUBJECTIVE: Tierra Galvan is a 71 year old female with PMH significant for severe underlying COPD with pulmonary hypertension, resultant Right heart failure with dilated RV and severe RV dysfunction, DM type II, HTN, hypothyroidism. She was admitted several days ago with worsening SOB, LE edema, and cellulitis. She resides at [facility] and failed outpatient therapies for right heart failure and COPD exacerbation. Since admission she has been requiring bipap therapy, been treated with antibiotics, steroids, and IV furosemide. At time of consult, patient wearing Bipap and ROS unable to be performed. She is lethargic and continually falls asleep during attempted conversation. Review Of Systems: See HPI PMH: Breast CA HYPOTHYROIDISM OSTEOPOROSIS NOS LUMBAR DISC DISPLACEMENT CHRONIC PANCREATITIS (HCC) Dyslipidemia Obesity Partial small bowel obstruction COPD, severe Elevated diaphragm Atherosclerosis of abdominal aorta Back pain Surgical History Procedure Laterality Date Comment COLONOSCOPY W/ LESION REMOVAL, SNARE 11/20/00 1cm polyp removed distal rectal area [facility] () EXC BREAST LESION RADMARK 11/21/94 Right breast [facility] Dr. Wiley INFORMATION 1974 major cervical laceration repair.( associated with childbirth) LAPAROSCOPY; CHOLECYSTECTOMY 09/22/07 Cholecystectomy, Laproscopic w/ attempted cholangiogram/[facility]/ MISCELLANEOUS ORDER 10/18/07 Central line placement(right subclavian vein)[facility] / MISCELLANEOUS ORDER 10/19/07 Floroscopy guided central line placement/[facility]/ MISCELLANEOUS ORDER 10/23/07 Tracheostomy/[facility]/ PUNCTURE DRAINAGE BREAST CYST 11/21/94 Breast Biopsy RIGHT BLEZNAK [facility] PUNCTURE DRAINAGE BREAST CYST 1971 right breast PUNCTURE DRAINAGE BREAST CYST 05/29/95 FNA right breast at 11:00, [facility] ( ) SPINE SURGERY PROCEDURE NEC 1998 spinal fusion rods.( rib and bone removed) Sheila Adames. 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 Family History: Father with presumed OH/CAD, age 51 Review of patient's allergies indicates: Benzodiazepines, Opium Reported Home Medications Medications Dose Route/Sig Max Daily Dose Days Date Category Dose Instructions Ventolin Hfa (Albuterol) 60 Puffs/5400 Mcg Aers 2 Puffs INH Q4 PRN 11/24/16 Reported Augmentin 875-125 mg (Amoxicillin & Pot Clavulanate) 1 Tab Tab 875 Mg PO BID 11/24/16 Reported Duoneb (Ipratropium-Albuterol) 3 Ml Nebu 1 Treatment INH DAILY 11/24/16 Reported Dulcolax (Bisacodyl) 10 Mg Sup 1 Supp NV UD PRN 11/24/16 Reported Prune Juice (Prune) Unknown Strength Liqd Unknown Dose PO UD PRN 11/24/16 Reported Milk of Magnesia 400 mg/5Ml (Magnesium Hydroxide) 1 Lynn Lynn 30 Ml PO UD PRN 11/24/16 Reported Lasix (Furosemide) 40 Mg Tab 40 Mg PO DAILY 11/24/16 Reported Daliresp (Roflumilast) 500 Mcg Tab 500 Mcg PO DAILY 11/24/16 Reported Acetaminophen 325 Mg Tab 650 Mg PO Q6H PRN 11/24/16 Reported Novolog (Insulin Aspart) 100 Units/Ml Inj SQ UD 11/24/16 Reported Per sliding scale Seroquel (Quetiapine Fumarate) 50 Mg Tab 50 Mg PO HS 11/24/16 Reported Pulmicort (Budesonide (Inhalation)) 0.5 Mg/2 Ml Lynn 0.5 Mg NEB BID 11/24/16 Reported Brovana (Arformoterol Tartrate) 15 Mcg/2 Ml Neb 15 Mcg INH BID 11/24/16 Reported Synthroid (Levothyroxine Sodium) 112 Mcg Tab 112 Mcg PO DAILY 11/24/16 Reported Duoneb (Ipratropium-Albuterol) 3 Ml Nebu 1 Treatment INH Q6H PRN 11/24/16 Reported Aspirin 81 (Aspirin) 81 Mg Tab 81 Mg PO DAILY 11/24/16 Reported Prednisone 10 Mg Tab 5 Mg PO DAILY 10/10/15 Reported Oxygen Gas 4 Liters NA CONTINOUS 10/10/15 Reported Zofran (Ondansetron Hcl) 4 Mg Tab 4 Mg PO Q8 PRN 09/21/15 Reported Lipitor (Atorvastatin Calcium) 20 Mg Tab 20 Mg PO HS 09/21/15 Reported Lioresal (Baclofen) 10 Mg Tab 15 Mg PO QID PRN 09/21/15 Reported Colace (Docusate Sodium) 100 Mg Cap 500 Mg PO BID 30 09/21/15 Reported Toprol-Xl (Metoprolol Succinate) 100 Mg Tabcr 100 Mg PO DAILY 09/21/15 Reported Ultram (Tramadol HCl) 50 Mg Tab 50 Mg PO Q6H PRN 03/19/08 Reported PHYSICAL EXAMINATION: Last 8 Hrs Date Time Temp Pulse Resp B/P Pulse Ox O2 Delivery O2 Flow Rate FiO2 11/26/16 08:11 36.3 91 19 112/55 90 Nasal Cannula 6.0 11/26/16 07:36 88 18 96 Nasal Cannula 6.0 11/26/16 06:13 97 Nasal Cannula 6.0 11/26/16 04:55 95 Nasal Cannula 6.0 11/26/16 04:00 96 Nasal Cannula 6.0 11/26/16 03:40 36.3 88 20 111/66 90 Nasal Cannula 6.0 11/26/16 03:17 82 18 96 BiPAP/CPAP 45 General: Lethargic, Bipap in place Neck: Thick. no evidence of JVD no hepatojugular reflux Lungs: expiratory wheeze with reduced breath sounds anteriorly. Cardiac Exam: - regular heart sounds, no audible murmurs, rubs, or gallops Abdomen: Soft non tender. Extremities: 2+ edema to hips/thighs. Psych: lethargic. Data: Echocardiogram this admission demonstrates: Conclusions -- * The left ventricular cavity is small. * There is normal left ventricular wall thickness. * The left ventricular wall motion is normal. * Flattened septum is consistent with RV pressure/volume overload. * Ejection Fraction = 65-70%. * Grade I diastolic dysfunction, (abnormal relaxation pattern). * The right ventricle is moderate to severely dilated. * The right atrium is moderate to severely dilated. * There is severe tricuspid regurgitation. * Right ventricular systolic pressure is markedly elevated at >60mmHg. Chest xray and imaging reviewed - FINDINGS: No pneumothorax. Thoracic spinal rods are again noted. Chronic elevation of the left hemidiaphragm. Trace bilateral pleural effusions, cardiomegaly, and mild interstitial pulmonary edema persists. A few linear scarlike densities at the left lung base are again noted. No new focal lung consolidations. IMPRESSION: No change in the mild pulmonary edema and trace bilateral pleural effusions. ASSESSMENT: 71 year old female 1. Acute on choreic respiratory failure secondary to severe COPD and pulmonary hypertension 2. Acute on chronic right heart failure secondary to pulmonary disease. With severely dilated RV with reduced RV systolic function. Normal LV function on echo. 3. Hypertension 4. dyslipidemia PLAN: Recommend continuing bipap and treatment of pulmonary exacerbation with antibiotics/steroids/nebs. Continue IV furosemide as tolerated. May benefit from low dose spironolactone. Monitor I+O's. Fluid restriction of 1500 ml Case discussed with Dr. Feliciano. Will follow. (Lianna Horvath, MANISHA) Patient seen and examined, echocardiogram reviewed personally. Assessment and plan as above. Acute on chronic right heart failure due to pulmonary disease. Left ventricle is small and hyperdynamic and likely preload dependant. Caution will be necessary with diuresis. Hold furosemide after pm dose today with reassessment in am Gordno Feliciano MD (Gordon Feliciano,MRegina.)
[2016-11-26] MEDS ORDERED: KETOROLAC TROMETHAMINE 15 MG/ML VIAL IV. ONE (13:30)
[2016-11-26] MEDS ORDERED: VANCOMYCIN TROUGH SCH (13:30)
--- NOTE | 2016-11-26 15:37 | Progress Note ---
Internal Med Progress Note Date of Service: Nov 26, 2016. Provider Documentation: SUBJECTIVE: The patient was seen and examined Has had confusion and SOB last night with low O2 saturation Occasional confusion with agitation Requiring BIPAP OBJECTIVE: Vital Signs-as noted below Exam: General-no acute distress Eyes-Normal ENT-normal Neck-supple Lungs-Decreased breath sound bilaterally Minimal wheezing and crackles at the bases Heart-regular Abdomen-Benign,no masses,bowel sound present Extremities-Bilateral leg edema and redness Redness is much improved Neuro-AA Drowsy with decreased breathing Lab data as noted below. ASSESSMENT & PLAN: Acute Decompensated Right sided CHF INCREASED SHORTNESS OF BREATH CXR shows cardiomegaly, congestive failure/ fluid overload Prior echo 10/14/15- mild concentric LVH, sigmoid appearing septum, LV EF 55-60% , flattened septum consistent with RV pressure/ volume overload, dilated RV chamber size with normal systolic function, no significant valvular pathology, pulmonary hypertension ins present, moderate right atrial enlargement EKG and Mirta are unremarkable for ACS Check ECHO::The left ventricular cavity is small. * There is normal left ventricular wall thickness. * The left ventricular wall motion is normal. * Flattened septum is consistent with RV pressure/volume overload. * Ejection Fraction = 65-70%. * Grade I diastolic dysfunction, (abnormal relaxation pattern). * The right ventricle is moderate to severely dilated. * The right atrium is moderate to severely dilated. * There is severe tricuspid regurgitation. * Right ventricular systolic pressure is markedly elevated at >60mmHg. Was Getting Lasix 40mg IV daily and increased to Twice daily Appreciate Pulmonary input Cardiology consulted Cramps in Hands Patient gets agitated with it May have cramps in other area Toradol 30mg x1 given BILATERAL LOWER EXTREMITY CELLULITIS Failed outpatient treatment with Augmentin Started on Zosyn and Vancomycin in ER and continued Blood cultures pending; no wound to culture on the legs US negative for any DVT Clinically much better Acute on chronic respiratory failure with hypoxemia and hypercapnia COPD-may have an exacerbation Condition got worse overnight ABG noted with increase CO2 and Decrease O2 Started on IV Solumedrol and Nebs Pulmonary consulted -appreciate input BIPAP added for better oxygenation and expose CO2 Advised Cardiology evaluation HYPERTENSION Stable, continue metoprolol HYPOTHYROIDISM TSH was elevated to ~7 as outpatient on 11/22/16 Levothyroxine increased from 100 ->112 mcg on 11/23/16 TSH WNL on admission DM TYPE 2 Insulin sliding scale coverage Check [id number] CODE STATUS Full code per my discussion with the patient DVT PROPHYLAXIS Lovenox SQ DISPOSITION Lives at [facility] Social service, PT, OT evaluations requested Vital Signs: Date Time Temp Pulse Resp B/P Pulse Ox O2 Delivery O2 Flow Rate FiO2 11/26/16 15:17 83 18 95 Nasal Cannula 6.0 11/26/16 12:39 36.3 92 18 93/53 93 Nasal Cannula 6.0 11/26/16 12:00 93 Nasal Cannula 6.0 11/26/16 11:29 86 98 45 11/26/16 11:29 86 20 98 BiPAP/CPAP 45 11/26/16 08:11 36.3 91 19 112/55 90 Nasal Cannula 6.0 11/26/16 08:00 90 Nasal Cannula 6.0 11/26/16 07:36 88 18 96 Nasal Cannula 6.0 11/26/16 06:13 97 Nasal Cannula 6.0 11/26/16 04:55 95 Nasal Cannula 6.0 11/26/16 04:00 96 Nasal Cannula 6.0 11/26/16 03:40 36.3 88 20 111/66 90 Nasal Cannula 6.0 11/26/16 03:17 82 18 96 BiPAP/CPAP 45 11/26/16 00:00 BiPAP 45 11/25/16 23:53 78 18 96 BiPAP/CPAP 45 11/25/16 23:43 36.5 78 18 94/56 96 BiPAP 11/25/16 20:00 BiPAP 50 11/25/16 19:31 36.3 72 22 124/78 99 BiPAP 11/25/16 19:13 77 96 45 11/25/16 19:12 77 18 96 BiPAP/CPAP 50 11/25/16 16:54 73 96 50 11/25/16 16:00 BiPAP 40 11/25/16 15:33 79 18 94 BiPAP/CPAP 40 11/25/16 15:32 79 94 40 Lab Results: Results Past 24 Hours Test 11/25/16 16:12 11/25/16 18:23 11/25/16 20:00 11/26/16 01:54 Range/Units Bedside Glucose 182 127 170 70-90 mg/dl Venous Blood pH 7.26 7.36-7.41 Venous Blood Partial Pressure CO2 67 38.0-50.0 mmHg Venous Blood Partial Pressure O2 31 mmHg Venous Blood HCO3 30 mmol/L Venous Blood Oxygen Saturation < 60.0 % Venous Blood Base Excess 1.6 mmol/L Total Creatine Kinase 35 26-192 U/L Creatine Kinase MB 1.4 0.5-3.6 ng/ml Creatine Kinase MB Ratio 4.0 0-3.0 Troponin I 0.043 0-0.045 ng/ml Test 11/26/16 06:52 11/26/16 06:55 11/26/16 11:24 11/26/16 13:52 Range/Units Bedside Glucose 156 146 70-90 mg/dl White Blood Count 6.62 4.8-10.8 K/uL Red Blood Count 3.64 4.2-5.4 M/uL Hemoglobin 9.5 12.0-16.0 g/dL Hematocrit 32.2 37-47 % Mean Corpuscular Volume 88.5 80-100 fL Mean Corpuscular Hemoglobin 26.1 25-34 pg Mean Corpuscular Hemoglobin Concent 29.5 32-36 g/dl RDW Standard Deviation 58.7 36.4-46.3 fL RDW Coefficient of Variation 17.9 11.5-14.5 % Platelet Count 122 130-400 K/uL Mean Platelet Volume 10.5 7.4-10.4 fL Sodium Level 144 136-145 mmol/L Potassium Level 4.0 3.5-5.1 mmol/L Chloride Level 107 98-107 mmol/L Carbon Dioxide Level 29 21-32 mmol/L Anion Gap 8.0 3-11 mmol/L Blood Urea Nitrogen 34 7-18 mg/dl Creatinine 1.10 0.60-1.20 mg/dl Est Creatinine Clear Calc Drug Dose 66.2 ml/min Estimated GFR () 58.1 Estimated GFR (Non- 50.1 BUN/Creatinine Ratio 30.6 10-20 Random Glucose 149 70-99 mg/dl Calcium Level 9.2 8.5-10.1 mg/dl Magnesium Level 2.3 1.8-2.4 mg/dl Vancomycin Level Trough 38.7 SEE COMMENT mcg/ml
[2016-11-26] MEDS: KETOROLAC TROMETHAMINE 15 MG/ML VIAL IV PRN (19:27)
[2016-11-26] MEDS: QUETIAPINE FUMARATE 25 MG TAB PO SCH (20:58)
[2016-11-26] MEDS: ATORVASTATIN 20 MG TAB PO SCH (20:58)
[2016-11-26] MEDS ORDERED: VANCOMYCIN INJ 1,600 MG in SODIUM CHLORIDE 0.9% 250ML 250 ML IV SCH (21:00)
[2016-11-26] MEDS: ENOXAPARIN 40 MG/0.4 ML SYR SC SCH (21:00)
[2016-11-27] VITALS (17 sets, daily range): BP systolic 100–138; BP diastolic 58–81; PULSE 67–88; TEMP 36.2–36.6; O2SAT 84–99
[2016-11-27] MEDS: INSULIN ASPART 100 UNITS/ML 3 ML PEN SC SCH ×5 (02:00→21:00)
[2016-11-27] MEDS: METHYLPREDNISOLONE IV 60 MG in SYRINGE 0 ML IV SCH ×2 (02:37→13:06)
[2016-11-27] MEDS: BACLOFEN 10 MG TAB PO SCH ×4 (02:43→22:00)
[2016-11-27] MEDS: ALBUT/IPRATROP 3MG/0.5MG NEB 3 ML VIAL INH SCH ×6 (03:50→23:01)
[2016-11-27] MEDS: KETOROLAC TROMETHAMINE 15 MG/ML VIAL IV PRN ×3 (05:15→18:15)
[2016-11-27] MEDS: PIPERACILL/TAZOBAC IV 4.5 GM in DEXTROSE 5% 100ML IV SCH ×3 (05:58→22:46)
[2016-11-27] MEDS: LEVOTHYROXINE 112 MCG TAB PO SCH (05:59)
[2016-11-27] MEDS: BUDESONIDE 0.5 MG/2 ML VIAL (PULMICORT) INH SCH ×2 (07:10→19:32)
[2016-11-27] MEDS: ARFORMOTEROL TART 15MCG/2ML VIAL INH SCH ×2 (07:10→19:32)
[2016-11-27 07:23] LABS: HEMATOCRIT 32.9 % (37-47); MEAN CELL VOLUME 85.9 fL (80-100); MEAN CORPUSCULAR HEMOGLOBIN 25.6 pg (25-34); MEAN CORPUSCULAR HGB CONC 29.8 g/dl (32-36); MEAN PLATELET VOLUME 9.8 fL (7.4-10.4); PLATELET COUNT 139 K/uL (130-400); RED BLOOD COUNT 3.83 M/uL (4.2-5.4); WHITE BLOOD COUNT 9.77 K/uL (4.8-10.8)
--- NOTE | 2016-11-27 07:40 | PROGRESS NOTE ---
DATE: 11/27/2016 SUBJECTIVE: The patient continued to have episodes of confusion and hallucinations, crying out throughout most of the night according to the nurses' notes. She states she wants to go home today. She was not sure who she lives with at home. I think a psychiatric evaluation with consideration for medication treatment might be appropriate for her. She carries a history of chronic obstructive lung disease with pulmonary hypertension, and seems to be stable at the present time. She states her shortness of breath has improved. She has been tolerating BiPAP. She had a cardiology evaluation done as well yesterday. OBJECTIVE: VITAL SIGNS: Stable and she is afebrile. Her blood pressure is slightly low at 100/62, oxygen saturation is 91% on 6 liters. HEENT: Posterior pharynx is unremarkable. Nose exam is unremarkable with no septal deviation. NECK: No neck vein distention or HJR is noted. HEART: Regular rate and rhythm. Second heart sounds accentuated. No murmurs are heard. LUNGS: Clear with decreased breath sounds bilaterally. ABDOMEN: Soft and obese, nontender. EXTREMITIES: She has no cyanosis or clubbing. Chest x-ray revealed trace pleural effusions with increase in vascular markings. PRP is pending. LABORATORY DATA: Her CO2 was 29 with a BUN of 34 yesterday. The CO2 is improved from 32 on the 9th. IMPRESSION: 1. Respiratory failure with hypercapnia and hypoxemia. 2. Chronic obstructive pulmonary disease with exacerbation. 3. Profound pulmonary hypertension. 4. Cellulitis. 5. Confusion. RECOMMENDATIONS: At this point, I discontinuance the Daliresp. It has been known to cause depression and perhaps is the etiology for some of her hallucinations. 2. Continue on her present antimicrobial agents, Ventolin inhaler and she can use DuoNeb as needed. 3. She is on Pulmicort and Brovana, seems to be tolerating those well and they can be continued. Overall from a pulmonary standpoint, she seems to be stable today. JADIEL
[2016-11-27 07:44] LABS: BUN/CREATININE RATIO 31.3 (10-20); CREATININE 1.8 mg/dl (0.60-1.20); MAGNESIUM 2.6 mg/dl (1.8-2.4); POTASSIUM 4.2 mmol/L (3.5-5.1)
[2016-11-27] MEDS: METOPROLOL SUCC 50MG EXT REL TAB PO SCH (08:08)
[2016-11-27] MEDS: DOCUSATE SODIUM 100 MG CAP PO SCH ×2 (08:08→22:08)
[2016-11-27] MEDS: ASPIRIN 81 MG ECTAB PO SCH (08:09)
[2016-11-27] MEDS: ROFLUMILAST 500 MCG TAB PO SCH (08:10)
[2016-11-27] MEDS: INSULIN GLARGINE SOLOSTAR 100 UNITS/ML 3 ML PEN SC SCH (08:17)
[2016-11-27] MEDS: TRAMADOL HCL 50 MG TAB PO PRN ×3 (08:18→22:01)
--- NOTE | 2016-11-27 12:04 | Psychiatric Progress Notes ---
Psychiatric Progress Note Date of Service Nov 27, 2016. Notes Attempted to see the patient at this time. She is agitated, yelling that she is choking and does not want to talk with anyone. Nursing staff in attendance. Will try again later.
--- NOTE | 2016-11-27 13:30 | Psychiatric Consultation ---
Psychiatric Consultation Date of Service: Nov 27, 2016. 71-year-old woman with multiple medical problems including heart disease, hypertension, diabetes, obesity, COPD, CHF, chronic back pain with scoliosis and hypothyroidism, who is admitted to the hospital on 11/24 with bilateral lower leg cellulitis. We are consulted to evaluate anxiety and depression. Information is gathered from the patient and considered to be reliable. History of present illness: Susan says that she had been in psychiatric care for many years but "I gave up on them". She says that she has been on all kinds of medicines in the past and will never go back on an antidepressant. She says she takes Seroquel 50 mg at bedtime currently because of her sleep if she is to continue that does not want her dosage adjusted. She admits that she is depressed but says that she's been that way all of her life. "It's my personality". She reports terrible sleep saying she can't stop moving which is something new. She says her appetite is "too good". Her anxiety is very high and she says it's because she is in the hospital. She denies experiencing any hallucinations. "My reality sucks". Basically the patient does not want to have anything to do with psychiatry and will not be cajoled into reconsidering antidepressants. She feels that she has spent enough time in psychiatry and has not gotten enough benefit from it. She recognizes that she can be irritable and anxious but would rather just "deal with it". I attempted to get her to see that antidepressants can help in more ways than just her anxiety and depression, but to her overall medical outcomes, but she continues to decline. I therefore don't push her but tell her that I am willing to come back at any time if she changes her mind and wishes to consider ways that she could improve her life by treating her depression. She denies that she is suicidal or that she would ever be suicidal. Plan: Has been reviewed with Dr. Trista David As above, the patient is essentially dismissing me, not wanting to have anything to do with psychiatric medications or treatment. There is a psychiatrist at [facility], Dr. Iqbal, who could see her once she is discharged back to their facility, to establish rapport that may allow him to better treat her irritability and depression. For now we will sign off, but feel free to reconsult if the patient has a change of heart.
--- NOTE | 2016-11-27 15:36 | Cardiology Follow-Up ---
Subjective General Date of Service: Nov 27, 2016. Pt evaluation today including: conversation w/ patient, physical exam, chart review, lab review, review of studies, review of inpatient medication list History of Present Illness Patient more awake/alert this AM. She states she is feeling better. SOB improved. Refusing BiPap. No chest pain. Limited ROS. She states she did not want to talk to me. Allergies Coded Allergies: Benzodiazepines (Unverified Adverse Reaction, Unknown, DELIRIUM, 11/25/16) Patient has history of abuse and addiction per family. 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 Social History Smoking Status: Former Smoker (quit 10 years ago. prior 2 ppd x 40 years) Hx Tobacco Use In Past Year?: No Hx Alcohol Use - Type And Amou: No Hx Substance Use - Type And Am: No Problem List Medical Problems: (1) Bilateral lower leg cellulitis Status: Acute (2) CHF (congestive heart failure) Status: Acute (3) Failure of outpatient treatment Status: Acute (4) Hypoxia Status: Acute (5) Respiratory distress Status: Acute Review of Systems Respiratory: + see HPI Cardiac: + see HPI Physical Exam Vital Signs Last Vital Signs Documentation Date Time Temp Pulse Resp B/P Pulse Ox O2 Delivery O2 Flow Rate FiO2 11/27/16 08:19 36.3 73 20 138/78 84 Nasal Cannula 6.0 11/26/16 15:30 45 Physical Exam Constitutional: General Apperance: obese Level of Distress: NAD, acutely ill, chronically ill Psychiatric: Mental Status: agitated Head: normocephalic Eyes: Pupils: PERRLA Neck: supple Lungs: Auscultation: deminished air movement (anteriorly) Cardiovascular: Heart Auscultation: RRR, pertinent finding (distant heart sounds. No audible murmurs) Extremities: edema (1+ b/l edema) Assessment and Plan Assessment and Plan Assessment: 71 year old female 1. Acute on choreic respiratory failure secondary to severe COPD and pulmonary hypertension 2. Acute on chronic right heart failure secondary to pulmonary disease. Severely dilated RV with reduced RV systolic function. Normal LV function on echo with small LV cavity size. 3. Hypertension 4. dyslipidemia 5. ?Dementia/agitation/depression PLAN: Patient refusing Bipap. Hold diuretics today given elevated creatinine. Reassess in AM. Monitor I+O's. Fluid restriction of 1500 ml Case discussed with Dr. Feliciano. Will follow. Patient seen and examined Agree with above. Reassess re diuretic use in am Gordon Feliciano MD Laboratory Results Last 24 Hours Test 11/26/16 11:24 11/26/16 13:52 11/26/16 16:23 11/26/16 20:15 Bedside Glucose 146 mg/dl 151 mg/dl 176 mg/dl Vancomycin Level Trough 38.7 mcg/ml Test 11/27/16 01:59 11/27/16 06:59 11/27/16 07:08 Bedside Glucose 146 mg/dl 154 mg/dl White Blood Count 9.77 K/uL Red Blood Count 3.83 M/uL Hemoglobin 9.8 g/dL Hematocrit 32.9 % Mean Corpuscular Volume 85.9 fL Mean Corpuscular Hemoglobin 25.6 pg Mean Corpuscular Hemoglobin Concent 29.8 g/dl RDW Standard Deviation 56.1 fL RDW Coefficient of Variation 18.0 % Platelet Count 139 K/uL Mean Platelet Volume 9.8 fL Sodium Level 142 mmol/L Potassium Level 4.2 mmol/L Chloride Level 106 mmol/L Carbon Dioxide Level 29 mmol/L Anion Gap 7.0 mmol/L Blood Urea Nitrogen 56 mg/dl Creatinine 1.80 mg/dl Est Creatinine Clear Calc Drug Dose 40.8 ml/min Estimated GFR () 32.0 Estimated GFR (Non- 27.6 BUN/Creatinine Ratio 31.3 Random Glucose 162 mg/dl Calcium Level 9.0 mg/dl Magnesium Level 2.6 mg/dl Random Vancomycin Level 27.5 mcg/ml
--- NOTE | 2016-11-27 18:27 | Progress Note ---
Internal Med Progress Note Date of Service: Nov 27, 2016. Provider Documentation: SUBJECTIVE: resting comfortably denies sob or chest pain no abdominal pain or nausea says constipated afebrile erythema in lower extremity improving OBJECTIVE: Vital Signs-as noted below Exam: General-alert and awake and oriented ENT-normal hearing Neck-no neck masses Lungs-cta b/l no wheezing or crackles Heart-s1 and s2 heard regular rate and rhythm no murmurs Abdomen-soft bowel sounds present non tender no distension Extremities- b/l mild lower extremity erythema seen Neuro-alert and awake moves extremities Lab data as noted below. ASSESSMENT & PLAN: Acute Decompensated Right sided CHF INCREASED SHORTNESS OF BREATH CXR shows cardiomegaly, congestive failure/ fluid overload received iv lasix currently lsix on hold on iv steroids and nebs Pulmonary and cardiology on board and appreciate inputs no complaints today will monitor BILATERAL LOWER EXTREMITY CELLULITIS Failed outpatient treatment with Augmentin Started on Zosyn and Vancomycin in ER and continued No DVT on US improving will d/c iv vanco Acute on chronic respiratory failure with hypoxemia and hypercapnia COPD-may have an exacerbation refused bipap on steroids and nebs improving HYPERTENSION Stable on metoprolol HYPOTHYROIDISM TSH was elevated to ~7 as outpatient on 11/22/16 Levothyroxine increased from 100 ->112 mcg on 11/23/16 TSH WNL on admission DM TYPE 2 ISS monitor while on steroids hba1c 5.5 CODE STATUS Full code DVT PROPHYLAXIS Lovenox SQ DISPOSITION Lives at [facility] Social service, PT, OT evaluations requested Vital Signs: Date Time Temp Pulse Resp B/P Pulse Ox O2 Delivery O2 Flow Rate FiO2 11/27/16 16:00 91 Nasal Cannula 6.0 11/27/16 15:05 36.5 86 18 130/81 93 Nasal Cannula 6.0 Humidified Oxygen 11/27/16 14:33 83 20 93 Nasal Cannula 6.0 11/27/16 12:00 91 Nasal Cannula 6.0 11/27/16 11:50 36.5 76 19 122/68 86 Nasal Cannula 6.0 11/27/16 11:29 69 20 94 Nasal Cannula 6.0 11/27/16 08:19 36.3 73 20 138/78 84 Nasal Cannula 6.0 11/27/16 08:00 91 Nasal Cannula 6.0 11/27/16 07:10 75 20 94 Nasal Cannula 6.0 11/27/16 04:00 91 Nasal Cannula 6.0 11/27/16 03:13 36.6 85 22 100/62 91 Nasal Cannula 6.0 11/27/16 00:00 88 Nasal Cannula 6.0 11/27/16 00:00 36.6 88 22 106/58 88 Nasal Cannula 6.0 11/26/16 23:28 89 20 91 Nasal Cannula 6.0 11/26/16 20:00 Nasal Cannula 6.0 11/26/16 19:30 37.0 89 20 108/58 92 Nasal Cannula 6.0 11/26/16 19:15 88 20 95 Nasal Cannula 6.0 Lab Results: Results Past 24 Hours Test 11/26/16 20:15 11/27/16 01:59 11/27/16 06:59 11/27/16 07:08 Range/Units Bedside Glucose 176 146 154 70-90 mg/dl White Blood Count 9.77 4.8-10.8 K/uL Red Blood Count 3.83 4.2-5.4 M/uL Hemoglobin 9.8 12.0-16.0 g/dL Hematocrit 32.9 37-47 % Mean Corpuscular Volume 85.9 80-100 fL Mean Corpuscular Hemoglobin 25.6 25-34 pg Mean Corpuscular Hemoglobin Concent 29.8 32-36 g/dl RDW Standard Deviation 56.1 36.4-46.3 fL RDW Coefficient of Variation 18.0 11.5-14.5 % Platelet Count 139 130-400 K/uL Mean Platelet Volume 9.8 7.4-10.4 fL Sodium Level 142 136-145 mmol/L Potassium Level 4.2 3.5-5.1 mmol/L Chloride Level 106 98-107 mmol/L Carbon Dioxide Level 29 21-32 mmol/L Anion Gap 7.0 3-11 mmol/L Blood Urea Nitrogen 56 7-18 mg/dl Creatinine 1.80 0.60-1.20 mg/dl Est Creatinine Clear Calc Drug Dose 40.8 ml/min Estimated GFR () 32.0 Estimated GFR (Non- 27.6 BUN/Creatinine Ratio 31.3 10-20 Random Glucose 162 70-99 mg/dl Calcium Level 9.0 8.5-10.1 mg/dl Magnesium Level 2.6 1.8-2.4 mg/dl Random Vancomycin Level 27.5 mcg/ml Test 11/27/16 11:19 11/27/16 16:28 Range/Units Bedside Glucose 158 157 70-90 mg/dl
[2016-11-27] MEDS: ENOXAPARIN 40 MG/0.4 ML SYR SC SCH (21:00)
[2016-11-27] MEDS ORDERED: LACTULOSE SYRUP 30 GM/45 ML UDP PO ONE (21:00)
[2016-11-27] MEDS: QUETIAPINE FUMARATE 25 MG TAB PO SCH (22:06)
[2016-11-27] MEDS: ATORVASTATIN 20 MG TAB PO SCH (22:06)
[2016-11-27] MEDS ORDERED: NURSING VERBAL MED ORDER STA (23:32)
[2016-11-27] MEDS ORDERED: QUETIAPINE FUMARATE 25 MG TAB PO ONE (23:45)
[2016-11-28] VITALS (7 sets, daily range): BP systolic 105–161; BP diastolic 68–90; PULSE 70–81; TEMP 36.2–36.8; O2SAT 91–98
[2016-11-28] MEDS: METHYLPREDNISOLONE IV 60 MG in SYRINGE 0 ML IV SCH (01:28)
[2016-11-28] MEDS: ALBUT/IPRATROP 3MG/0.5MG NEB 3 ML VIAL INH SCH ×3 (03:50→11:55)
[2016-11-28] MEDS: LEVOTHYROXINE 112 MCG TAB PO SCH (05:05)
[2016-11-28] MEDS: BACLOFEN 10 MG TAB PO SCH ×2 (05:05→09:15)
[2016-11-28] MEDS: PIPERACILL/TAZOBAC IV 4.5 GM in DEXTROSE 5% 100ML IV SCH (05:21)
[2016-11-28] MEDS: INSULIN ASPART 100 UNITS/ML 3 ML PEN SC SCH ×2 (07:00→11:00)
[2016-11-28] MEDS: ARFORMOTEROL TART 15MCG/2ML VIAL INH SCH (07:04)
[2016-11-28] MEDS: BUDESONIDE 0.5 MG/2 ML VIAL (PULMICORT) INH SCH (07:04)
[2016-11-28 07:42] LABS: MEAN CELL VOLUME 87.3 fL (80-100); MEAN CORPUSCULAR HEMOGLOBIN 25.9 pg (25-34); MEAN CORPUSCULAR HGB CONC 29.7 g/dl (32-36); MEAN PLATELET VOLUME 9.9 fL (7.4-10.4); PLATELET COUNT 131 K/uL (130-400); RED BLOOD COUNT 3.78 M/uL (4.2-5.4); WHITE BLOOD COUNT 8.67 K/uL (4.8-10.8)
[2016-11-28 08:05] LABS: BUN/CREATININE RATIO 43.9 (10-20); CALCIUM 9.1 mg/dl (8.5-10.1); CREATININE 1.4 mg/dl (0.60-1.20); MAGNESIUM 2.6 mg/dl (1.8-2.4); POTASSIUM 4.2 mmol/L (3.5-5.1)
[2016-11-28] MEDS ORDERED: INSULIN GLARGINE SOLOSTAR 100 UNITS/ML 3 ML PEN SC SCH (09:00)
[2016-11-28] MEDS: DOCUSATE SODIUM 100 MG CAP PO SCH (09:13)
[2016-11-28] MEDS: METOPROLOL SUCC 50MG EXT REL TAB PO SCH (09:14)
[2016-11-28] MEDS: ASPIRIN 81 MG ECTAB PO SCH (09:14)
[2016-11-28] MEDS: ROFLUMILAST 500 MCG TAB PO SCH (09:15)
[2016-11-28] MEDS ORDERED: LCTX PO (09:53)
[2016-11-28] MEDS ORDERED: SENN8.6T7 PO (09:53)
[2016-11-28] MEDS ORDERED: CIPR-255 PO (09:53)
[2016-11-28] MEDS ORDERED: PRED10TA PO (09:53)
[2016-11-28] MEDS ORDERED: DOXY100C41 PO (09:53)
[2016-11-28] MEDS ORDERED: LCTL45 PO (09:53)
--- NOTE | 2016-11-28 09:55 | Discharge Instructions ---
Discharge Instructions Date of Service Nov 28, 2016. Admission Reason for Admission: Bilateral Lower Leg Cellulitis, Chf Discharge Discharge Diagnosis / Problem: bilateral lower extremity cellulitis, chf, arf Discharge Goals Goal(s): Decrease discomfort, Improve function Activity Recommendations Activity Limitations: resume your previous activity . Instructions / Follow-Up Instructions / Follow-Up FOLLOWUP WITH FAMILY DOCTOR IN ONE WEEK LAB: BMP WITH MG LEVELS IN 5-7 DAYS AND FOLLOW RESULTS WITH FAMILY DOCTOR. TO TAPER PREDNISONE TO HOME DOSE 5MG DAILY. Current Hospital Diet Patient's current hospital diet: AHA Diet (Heart Healthy), Diabetes Type 2 Diet Discharge Diet Recommended Diet: AHA Diet (Heart Healthy), Diabetes Type 2 Diet Pending Studies Studies pending at discharge: no Laboratory Results Hemoglobin A1c Test 11/25/16 04:30 Range/Units Estimated Average Glucose 111 mg/dl Hemoglobin A1c 5.5 4.5-5.6 % Medical Emergencies . Who to Call and When: Medical Emergencies: If at any time you feel your situation is an emergency, please call 911 immediately. . Non-Emergent Contact Non-Emergency issues call your: Primary Care Provider . . "Provider Documentation" section prepared by Drew Sifuentes. VTE Core Measure Inpt VTE Proph given/why not?: Enoxaparin (Lovenox)SQ
--- NOTE | 2016-11-28 11:15 | Cardiology Follow-Up ---
Subjective General Date of Service: Nov 28, 2016. Chief Complaint: SOB Pt evaluation today including: conversation w/ patient, physical exam, chart review, lab review, review of studies, conversation w/ regional engagement consultant, review of inpatient medication list History of Present Illness Patient reports feeling better. Anxious to be discharged. States SOB at baseline. Edema improved and at baseline, per patient. No chest pain or dizziness. Appears less agitated, improved mood today. Allergies Coded Allergies: Benzodiazepines (Unverified Adverse Reaction, Unknown, DELIRIUM, 11/25/16) Patient has history of abuse and addiction per family. 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 Social History Smoking Status: Former Smoker (quit 10 years ago. prior 2 ppd x 40 years) Hx Tobacco Use In Past Year?: No Hx Alcohol Use - Type And Amou: No Hx Substance Use - Type And Am: No Problem List Medical Problems: (1) Bilateral lower leg cellulitis Status: Acute (2) CHF (congestive heart failure) Status: Acute (3) Failure of outpatient treatment Status: Acute (4) Hypoxia Status: Acute (5) Respiratory distress Status: Acute Review of Systems Respiratory: + shortness of breath, No cough, No dyspnea at rest, No hemoptysis , No sputum, No wheezing Cardiac: + edema, No PND, No chest pain, No orthopnea, No palpitations Physical Exam Vital Signs Last Vital Signs Documentation Date Time Temp Pulse Resp B/P Pulse Ox O2 Delivery O2 Flow Rate FiO2 11/28/16 07:42 36.8 75 18 145/77 98 6.0 11/28/16 07:04 Nasal Cannula 11/26/16 15:30 45 Physical Exam Constitutional: General Apperance: obese Level of Distress: NAD, chronically ill Psychiatric: Mental Status: active & alert, normal mood Head: normocephalic Eyes: Pupils: PERRLA Neck: supple Lungs: Auscultation: deminished air movement (anteriorly) Cardiovascular: Heart Auscultation: RRR, pertinent finding (distant heart sounds. No audible murmurs) Extremities: edema (1+ b/l edema) Assessment and Plan Assessment and Plan Assessment: 71 year old female 1. Acute on choreic respiratory failure secondary to severe COPD and pulmonary hypertension 2. Acute on chronic right heart failure secondary to pulmonary disease. Severely dilated RV with reduced RV systolic function. Normal LV function on echo with small LV cavity size. 3. Hypertension 4. dyslipidemia 5. ?Dementia/agitation/depression PLAN: Patient refusing Bipap. continue supplemental O2 Renal function improved from yesterday. resume oral diuretics on discharge. Case to be discussed with Dr. Feliciano. Laboratory Results Last 24 Hours Test 11/27/16 11:19 11/27/16 16:28 11/27/16 21:02 11/28/16 06:56 Bedside Glucose 158 mg/dl 157 mg/dl 151 mg/dl 159 mg/dl Test 11/28/16 07:30 White Blood Count 8.67 K/uL Red Blood Count 3.78 M/uL Hemoglobin 9.8 g/dL Hematocrit 33.0 % Mean Corpuscular Volume 87.3 fL Mean Corpuscular Hemoglobin 25.9 pg Mean Corpuscular Hemoglobin Concent 29.7 g/dl RDW Standard Deviation 57.0 fL RDW Coefficient of Variation 17.8 % Platelet Count 131 K/uL Mean Platelet Volume 9.9 fL Sodium Level 143 mmol/L Potassium Level 4.2 mmol/L Chloride Level 106 mmol/L Carbon Dioxide Level 31 mmol/L Anion Gap 6.0 mmol/L Blood Urea Nitrogen 62 mg/dl Creatinine 1.40 mg/dl Est Creatinine Clear Calc Drug Dose 51.9 ml/min Estimated GFR () 43.4 Estimated GFR (Non- 37.4 BUN/Creatinine Ratio 43.9 Random Glucose 155 mg/dl Calcium Level 9.1 mg/dl Magnesium Level 2.6 mg/dl
--- NOTE | 2016-11-28 12:36 | Pharmacy Progress Note ---
Glycemic Control: Progress Nt Date of Service Nov 28, 2016. Scope Glycemic Pharmacist consulted by Dr Sandhu on 11/25 for glycemic control and to write orders per [facility] inpatient glycemic control protocol. Objective Accuchecks BSG (last 24hrs): Test 11/27/16 16:28 11/27/16 21:02 11/28/16 06:56 11/28/16 07:30 Bedside Glucose 157 mg/dl (70-90) 151 mg/dl (70-90) 159 mg/dl (70-90) Random Glucose 155 mg/dl (70-99) Test 11/28/16 11:23 Bedside Glucose 149 mg/dl (70-90) Laboratory Data (last 24hrs) Test 11/28/16 07:30 Anion Gap 6.0 mmol/L BUN/Creatinine Ratio 43.9 Blood Urea Nitrogen 62 mg/dl Creatinine 1.40 mg/dl Potassium Level 4.2 mmol/L Sodium Level 143 mmol/L White Blood Count 8.67 K/uL HbA1c: Test 11/25/16 04:30 Hemoglobin A1c 5.5 % (4.5-5.6) Recent Pertinent Medications Outpatient Anti-diabetic Regimen: * n/a The patient is currently receiving: * Basal insulin: Lantus 12 units every 24 hours * Correctional Insulin: Novolog Correction per scale ACHS Goal Range: Low 120 mg/dL - High 160 mg/dL Correction Factor: 25 mg/dL/unit * Prandial insulin: Per carb ratio of 1 unit per 8 grams CHO consumed Risk Factors for Insulin Resistance: * Steroids: Solu-medrol 60 mg IV q12h -> just decreased to prednisone 40 mg daily * Infection: cellulitis - on Zosyn * Diet: AHA/type 2 diabetes - consuming an ave of 30 gm CHO w/ each meal Assessment & Plan ASSESSMENT: 11/25/16 * 71 yo F admitted with bilateral cellulitis, initiated on broad spectrum antibiotics and high dose IV steroids * Pharmacy consulted to manage potential steroid-induced hyperglycemia * A1c outdated, reassess new A1c in the AM with labs * Fasting BSG 132 mg/dL this AM, then Lunch 230 mg/dL * Initiate weight-based Novolog (stress 1.5) * Given obesity and borderline A1c from 2016, I will go ahead and add a small dose of Lantus * It will be imperative to step insulin dosing down with each step down in steroids * ADA & AACE recommend a goal blood sugar range 140-180 mg/dl for the majority of critically ill & non-critically ill patients. However, more stringent targets may be selected in individual cases. Tighten to 120-160 mg/dL to facilitate treatment of infection. 11/26/16 * Ms. Galvan received 25 units of insulin yesterday with BSGs ranging from 127- 182 mg/dL since the initiation of a basal/bolus regimen * Her A1c from this admission is normal, so the hyperglycemia seems to just be steroid-induced * Since BSGs have improved and appear stable, will plan to continue with the current regimen * Insulin doses will need to be adjusted as steroids are reduced 11/28/16 * Ms. Galvan's BSGs have been excellent over the past 24 hours, other than a fasting that could be slightly improved * I increased her Lantus from 10 to 12 units this AM but now her steroids are being cut in 1/2 (will still receive 2 doses of steroids today) * Will plan to empirically cut her Lantus in 1/2 starting tomorrow but continue the CF/CR for today - will most likely need to adjust this slightly tomorrow * She is currently receiving ~30 units/day, estimate maybe 15-20 units daily with the once daily prednisone? PLAN FOR INPATIENT GLYCEMIC CONTROL: * Decrease Lantus to 6 units qAM starting tomorrow * Continue Novolog ACHS * Goal 120-160 mg/dL * CF 25 mg/dL/unit * CR 1 unit per 8 gm CHO consumed RECOMMENDATIONS FOR DISCHARGE: * A1c does not indicate diabetes - No need for hypoglycemic agents on d/c unless steroids are to be continued Thank you.
[2016-11-28] MEDS: KETOROLAC TROMETHAMINE 15 MG/ML VIAL IV PRN (12:54)
--- NOTE | 2016-11-28 18:25 | Progress Note ---
Internal Med Progress Note Date of Service: Nov 28, 2016. Provider Documentation: SUBJECTIVE: resting comfortably moved bowels afebrile no pain want to be discharged OBJECTIVE: Vital Signs-as noted below Exam: General-alert and awake and oriented ENT-normal hearing Neck-no neck masses Lungs-cta b/l no wheezing or crackles Heart-s1 and s2 heard regular rate and rhythm no murmurs Abdomen-soft bowel sounds present non tender no distension Extremities- b/l mild lower extremity erythema improved Neuro-alert and awake moves extremities Lab data as noted below. ASSESSMENT & PLAN: Acute Decompensated Right sided CHF INCREASED SHORTNESS OF BREATH CXR shows cardiomegaly, congestive failure/ fluid overload received iv lasix currently lsix on hold on iv steroids and nebs Pulmonary and cardiology on board and appreciate inputs no complaints today discharged on prednisone taper to home dose and home lasix BILATERAL LOWER EXTREMITY CELLULITIS Failed outpatient treatment with Augmentin Started on Zosyn and Vancomycin in ER and continued No DVT on US improving will d/c iv vanco discharged on po Cipro and doxycycline f/u with pcp Acute on chronic respiratory failure with hypoxemia and hypercapnia COPD-may have an exacerbation refused bipap on steroids and nebs improving HYPERTENSION Stable on metoprolol HYPOTHYROIDISM TSH was elevated to ~7 as outpatient on 11/22/16 Levothyroxine increased from 100 ->112 mcg on 11/23/16 TSH WNL on admission DM TYPE 2 ISS monitor while on steroids hba1c 5.5 Discharged to [facility] Vital Signs: Date Time Temp Pulse Resp B/P Pulse Ox O2 Delivery O2 Flow Rate FiO2 11/28/16 13:39 36.5 70 20 95 Nasal Cannula 11/28/16 12:00 Nasal Cannula 11/28/16 11:55 70 20 95 Nasal Cannula 6.0 11/28/16 11:35 36.5 79 18 105/68 96 Room Air 11/28/16 08:00 Nasal Cannula 11/28/16 07:42 36.8 75 18 145/77 98 6.0 11/28/16 07:04 73 20 97 Nasal Cannula 6.0 11/28/16 05:12 91 Nasal Cannula 6.0 11/28/16 04:40 36.2 81 22 161/90 94 Nasal Cannula 6.0 Humidified Oxygen 11/28/16 00:00 Nasal Cannula 6.0 11/27/16 23:01 83 20 92 Nasal Cannula 6.0 11/27/16 22:54 36.2 87 24 132/72 91 Nasal Cannula 6.0 11/27/16 20:00 92 Nasal Cannula 6.0 11/27/16 19:33 78 22 93 Nasal Cannula 6.0 11/27/16 19:04 36.3 84 22 126/70 92 Nasal Cannula 6.0 Humidified Oxygen Lab Results: Results Past 24 Hours Test 11/27/16 21:02 11/28/16 06:56 11/28/16 07:30 11/28/16 11:23 Range/Units Bedside Glucose 151 159 149 70-90 mg/dl White Blood Count 8.67 4.8-10.8 K/uL Red Blood Count 3.78 4.2-5.4 M/uL Hemoglobin 9.8 12.0-16.0 g/dL Hematocrit 33.0 37-47 % Mean Corpuscular Volume 87.3 80-100 fL Mean Corpuscular Hemoglobin 25.9 25-34 pg Mean Corpuscular Hemoglobin Concent 29.7 32-36 g/dl RDW Standard Deviation 57.0 36.4-46.3 fL RDW Coefficient of Variation 17.8 11.5-14.5 % Platelet Count 131 130-400 K/uL Mean Platelet Volume 9.9 7.4-10.4 fL Sodium Level 143 136-145 mmol/L Potassium Level 4.2 3.5-5.1 mmol/L Chloride Level 106 98-107 mmol/L Carbon Dioxide Level 31 21-32 mmol/L Anion Gap 6.0 3-11 mmol/L Blood Urea Nitrogen 62 7-18 mg/dl Creatinine 1.40 0.60-1.20 mg/dl Est Creatinine Clear Calc Drug Dose 51.9 ml/min Estimated GFR () 43.4 Estimated GFR (Non- 37.4 BUN/Creatinine Ratio 43.9 10-20 Random Glucose 155 70-99 mg/dl Calcium Level 9.1 8.5-10.1 mg/dl Magnesium Level 2.6 1.8-2.4 mg/dl
--- NOTE | 2016-11-28 18:31 | Discharge Summary ---
Discharge Summary Date of Service Nov 28, 2016. Discharge Summary Admission Date: Nov 24, 2016 at 18:11 Discharge Date: Nov 28, 2016 Discharge Disposition: alf facility Principal Diagnosis: Acute Decompensated Right sided CHF B/L LOWER EXTREMITY CELLULITIS Secondary Diagnoses/Problems: 1) Atherosclerosis of abdominal aorta Status: Chronic (2) Cholelith W Cholecys Nec Status: Resolved (3) Chronic bronchitis Status: Chronic (4) Chronic obstructive lung disease Status: Chronic (5) Chronic pancreatitis Status: Resolved (6) Depressive Disorder Nec Status: Chronic (7) Dyslipidemia Status: Chronic (8) Essential hypertension Status: Chronic (9) History of bronchiolitis Status: Chronic (10) Hypothyroidism Status: Chronic (11) Osteoporosis Status: Chronic (12) Panic Disorder Without Agoraphobia Status: Chronic (13) Pulmonary hypertension Status: Chronic (14) Right ventricular dysfunction Status: Chronic (15) Scoliosis deformity of spine Status: Chronic (16) Urin Tract Infection Nos Status: Resolved Procedures: CXR: Cardiomegaly and radiographic evidence of congestive failure/fluid overload. LOWER EXTREMITY VENOUS DOPPLER: No evidence of deep venous thrombus within the bilateral lower extremities. ECHO: * The left ventricular cavity is small. * There is normal left ventricular wall thickness. * The left ventricular wall motion is normal. * Flattened septum is consistent with RV pressure/volume overload. * Ejection Fraction = 65-70%. * Grade I diastolic dysfunction, (abnormal relaxation pattern). * The right ventricle is moderate to severely dilated. * The right atrium is moderate to severely dilated. * There is severe tricuspid regurgitation. Right ventricular systolic pressure is markedly elevated at >60mmHg Consultations: CARDIOLOGY PULMONARY PSYCHIATRY Medication Reconciliation New Medications: Ciprofloxacin Hcl (Cipro) 500 Mg Tab 500 MG PO BID for 7 Days, #14 TAB Doxycycline (Monohydrate) (Monodox) 100 Mg Cap 100 MG PO BID for 7 Days, #14 CAP Lactobacillus Acidophilus (Lactinex) Tab 4 TAB PO TID for 10 Days, TAB Lactulose (Lactulose) 30 Gm/45 Ml Syrp 45 ML PO BID PRN for Constipation, #30 2 Refills Prednisone (Prednisone) 10 Mg Tab 40 MG PO UD, #30 TAB 1 Refill PREDNISONE 40MG PO DAILY X 2 DAYS THEN PREDNISONE 30MG PO DAILY X 2 DAYS THEN PREDNISONE 20MG PO DAILY X 2 DAYS THEN PREDNISONE 10MG PO DAILY X 2 DAYS THEN PREDNISONE 5MG PO DAILY HOME DOSE Sennosides-Docusate Sodium (Senokot S) 1 Tab Tab 2 TAB PO HS for 30 Days, TAB 2 Refills Continued Medications: Acetaminophen (Acetaminophen) 325 Mg Tab 650 MG PO Q6H PRN for Pain Albuterol (Ventolin Hfa) 60 Puffs/5400 Mcg Aers 2 PUFFS INH Q4 PRN for Shortness of Breath Arformoterol Tartrate (Brovana) 15 Mcg/2 Ml Neb 15 MCG INH BID, INHALER Aspirin (Aspirin 81) 81 Mg Tab 81 MG PO DAILY Atorvastatin (Lipitor) 20 Mg Tab 20 MG PO HS, TAB Baclofen (Lioresal) 10 Mg Tab 15 MG PO QID PRN for Muscle Spasms, TAB Bisacodyl (Dulcolax) 10 Mg Sup 1 SUPP FL UD PRN for Constipation, SUP Budesonide (Inhalation) (Pulmicort) 0.5 Mg/2 Ml Lynn 0.5 MG NEB BID Furosemide (Lasix) 40 Mg Tab 40 MG PO DAILY, TAB Insulin Aspart (Novolog) 100 Units/Ml Inj SQ UD Per sliding scale Ipratropium-Albuterol (Duoneb) 3 Ml Nebu 1 TREATMENT INH Q6H PRN for SOB/Wheezing, INHA Ipratropium-Albuterol (Duoneb) 3 Ml Nebu 1 TREATMENT INH DAILY, INHA Levothyroxine Sodium (Synthroid) 112 Mcg Tab 112 MCG PO DAILY, TAB Metoprolol Succ (Toprol Xl) (Toprol-Xl ) 100 Mg Tabcr 100 MG PO DAILY, TAB Ondansetron Hcl (Zofran) 4 Mg Tab 4 MG PO Q8 PRN for Nausea, TAB Oxygen (Oxygen) Gas 4 LITERS NA CONTINOUS Prednisone Tab (Prednisone) 10 Mg Tab 5 MG PO DAILY, TAB Prune Juice (Prune Juice ) Unknown Strength Liqd Unknown Dose PO UD PRN for Constipation Quetiapine Fumarate (Seroquel) 50 Mg Tab 50 MG PO HS, TAB Tramadol (Ultram) 50 Mg Tab 50 MG PO Q6H PRN for Pain, 0 Refills Discontinued Medications: Amoxicillin & Pot Clavulanate (Augmentin 875-125 mg) 1 Tab Tab 875 MG PO BID, #14 TAB Docusate Sodium (Colace) 100 Mg Cap 500 MG PO BID for 30 Days, #300 CAP Magnesium Hydroxide (Milk of Magnesia 400 mg/5Ml) 1 Lynn Lynn 30 ML PO UD PRN for Constipation Roflumilast (Daliresp) 500 Mcg Tab 500 MCG PO DAILY Admission Information HPI (per Admitting provider): This is a 71 year old female with PMH of COPD on chronic oxygen, RV dysfunction due to COPD, pulmonary hypertension, DM type 2, HTN, and other problems listed below who presents to the ED from [facility] for bilateral lower extremity swelling. Patient reports 1 week of swelling, erythema, and pain starting at the feet progressively extending to her abdomen. There has been no wound/ skin trauma. Patient was started on Augmentin on 11/19 with no improvement. She was also started on furosemide 20 mg on 11/15 which was increased to 40 mg on 11/19 without improvement. Has been taking Tramadol for pain which did not provide relief. Pain is controlled after morphine given in ER. Patient additionally reports increased SOB from baseline for past 1 week with both rest and exertion. She is unable to lay supine due to chronic back pain. The patient reports increased difficulty ambulating secondary to her legs being heavy with the edema. At baseline she uses wheelchair or walker for short distances. Babin was placed in ER at patient's request. Has not tracked her weight. Pt denies fever, chills, diaphoresis, URI symptoms, cough, chest pain, N/V/D, urinary changes. Patient admits to dietary indiscretion. Had LLE venous doppler on 11/18 negative for DVT. Physical Exam (per Admitting): General Appearance: no apparent distress, + obese, + pertinent finding ( pleasant alert 71 year old female, sitting up in bed, not in distress) Head: normocephalic, atraumatic Eyes: normal inspection, PERRL, sclerae normal ENT: hearing grossly normal, pharynx normal Neck: supple, trachea midline, + pertinent finding (neck is thick, no JVD appreciated) Respiratory/Chest: no respiratory distress, no accessory muscle use, + decreased breath sounds, + pertinent finding (no wheezing, speaks in full sentences, saturating well on 4 liters NC) Cardiovascular: regular rate, rhythm, no murmur Abdomen/GI: normal bowel sounds, non tender, soft, + pertinent finding ( obese) Extremities/Musculoskelatal: + pertinent finding (bilateral lower extremity pitting edema) Neurologic/Psych: alert, normal mood/affect, oriented x 3, + pertinent finding (grossly nonfocal) Skin: warm/dry, + pertinent finding (erythema, warmth, and tenderness extending from dorsum of bilateral feet to entire circumference of lower legs, inner thighs, and mildly on lower adomen. no wound or indurated area. ) Hospital Course Acute Decompensated Right sided CHF INCREASED SHORTNESS OF BREATH CXR shows cardiomegaly, congestive failure/ fluid overload received iv lasix currently lsix on hold on iv steroids and nebs Pulmonary and cardiology on board and appreciate inputs no complaints today discharged on prednisone taper to home dose and home lasix BILATERAL LOWER EXTREMITY CELLULITIS Failed outpatient treatment with Augmentin Started on Zosyn and Vancomycin in ER and continued No DVT on US improving will d/c iv vanco discharged on po Cipro and doxycycline f/u with pcp Acute on chronic respiratory failure with hypoxemia and hypercapnia COPD-may have an exacerbation refused bipap on steroids and nebs improving HYPERTENSION Stable on metoprolol HYPOTHYROIDISM TSH was elevated to ~7 as outpatient on 11/22/16 Levothyroxine increased from 100 ->112 mcg on 11/23/16 TSH WNL on admission DM TYPE 2 ISS monitor while on steroids hba1c 5.5 Discharged to [facility] Total time spent on discharge = 40MINUTES This includes examination of the patient, discharge planning, medication reconciliation, and communication with other providers. Discharge Instructions Please take this sheet to every appointment for the next month Discharge Instructions Date of Service Nov 28, 2016. Admission Reason for Admission: Bilateral Lower Leg Cellulitis, Chf Discharge Discharge Diagnosis / Problem: bilateral lower extremity cellulitis, chf, arf Discharge Goals Goal(s): Decrease discomfort, Improve function Activity Recommendations Activity Limitations: resume your previous activity . Instructions / Follow-Up Instructions / Follow-Up FOLLOWUP WITH FAMILY DOCTOR IN ONE WEEK LAB: BMP WITH MG LEVELS IN 5-7 DAYS AND FOLLOW RESULTS WITH FAMILY DOCTOR. TO TAPER PREDNISONE TO HOME DOSE 5MG DAILY. Current Hospital Diet Patient's current hospital diet: AHA Diet (Heart Healthy), Diabetes Type 2 Diet Discharge Diet Recommended Diet: AHA Diet (Heart Healthy), Diabetes Type 2 Diet Pending Studies Studies pending at discharge: no Laboratory Results Hemoglobin A1c Test 11/25/16 04:30 Range/Units Estimated Average Glucose 111 mg/dl Hemoglobin A1c 5.5 4.5-5.6 % Medical Emergencies . Who to Call and When: Medical Emergencies: If at any time you feel your situation is an emergency, please call 911 immediately. . Non-Emergent Contact Non-Emergency issues call your: Primary Care Provider . . "Provider Documentation" section prepared by Drew Sifuentes. VTE Core Measure Inpt VTE Proph given/why not?: Enoxaparin (Lovenox)SQ
[2016-11-29] MEDS ORDERED: INSULIN GLARGINE SOLOSTAR 100 UNITS/ML 3 ML PEN SC SCH (09:00)
[2016-12-05] MEDS ORDERED: PRD20 PO (11:40)
[2016-12-05] MEDS ORDERED: FURO40TA3 PO (11:40)
[2016-12-05] MEDS ORDERED: TRAM-10 PO (11:40)
[2016-12-05] MEDS ORDERED: PANT40TA PO (11:48)
== END 2016-11-28 13:50 | DRG 602 ==
LOC: ENRESERVDT → ENRESERVTM → EDBD 12:33 → C.EDA 12:34 → UNDOADMIN 18:11 → C.2T 18:11
PROVIDERS: ADMIT Hospitalist; ATTEND Internal Medicine
DX: L03.116 Cellulitis of left lower limb (principal); I50.31 Acute diastolic (congestive) heart failure; J96.21 Acute and chronic respiratory failure with hypoxia; J96.22 Acute and chronic respiratory failure with hypercapnia; J44.1 Chronic obstructive pulmonary disease with (acute) exacerbation; J44.0 Chronic obstructive pulmonary disease with (acute) lower respiratory infection; L03.115 Cellulitis of right lower limb; I11.0 Hypertensive heart disease with heart failure; I27.2 Other secondary pulmonary hypertension; E11.9 Type 2 diabetes mellitus without complications; E03.9 Hypothyroidism, unspecified; E78.5 Hyperlipidemia, unspecified; F32.9 Major depressive disorder, single episode, unspecified; M81.0 Age-related osteoporosis without current pathological fracture; Z85.3 Personal history of malignant neoplasm of breast; Z87.891 Personal history of nicotine dependence; E66.9 Obesity, unspecified; Z86.14 Personal history of Methicillin resistant Staphylococcus aureus infection; I07.1 Rheumatic tricuspid insufficiency; F03.90 Unspecified dementia, unspecified severity, without behavioral disturbance, psychotic disturbance, mood disturbance, and anxiety

== ENCOUNTER 2016-12-01 07:18 | Inpatient (IN) | payer OTHER ==
[2016-12-01] VITALS (11 sets, daily range): BP systolic 124–151; BP diastolic 58–76; PULSE 84–104; TEMP 36.6–36.8; O2SAT 91–100; Ht 177.8 cm; Wt 117.9 kg
[~2016-12-01] VITALS: Ht 177.8 cm; Wt 117.9 kg
[~2016-12-01 07:18] MED LIST changes: +ACET325T30 PO; -ALBU1AER9 INH; +ARFO15NE INH; -ASPEC81 PO; +ASPI-435 PO; -ATV5 PO; +BISA10SU38 PR; -BRVIN NEB; +CIPR-255 PO; -DOCU-94 PO; -DOUNEB NEB; +DOXY100C41 PO; +FURO40TA3 PO; -HYDR25TA4 PO; +IPRASOL4 INH; +LCTL45 PO; +LCTX PO; -LEVO100T7 PO; +LEVO112T2 PO; -LSX20 PO; +NVLG SQ; -NVLGI SC; -PRED10PA3 PO; +PRNJ PO; +PRVHFAIN INH; -QUET1TAB91 PO; +QUET5TAB PO; -ROFL1TAB5 PO; +SENN8.6T7 PO; -SPRIN INH
--- NOTE | 2016-12-01 07:59 | EMERGENCY ROOM VISIT NOTE ---
History Report prepared by Tavares: Sharon Luke Under the Supervision of: Dr. Mohamud Rehman M.D. First contact with patient: 07:28 Stated Complaint: LEG SWELLING History of Present Illness The patient is a 71 year old female who presents to the Emergency Room with complaints of constant worsening bilateral leg swelling beginning this morning. The patient states that she was discharged from the hospital 2 days ago with cellulitis and has been on Cipro and Doxycycline since her discharge. She reports that she does not like [facility] and she would like to be transferred to [facility] with her sister. She complains of redness, diarrhea and black tarry stools beginning yesterday, urinary frequency, and dysuria. She denies any shortness of breath, chest pain, abdominal pain, chills, fever, nausea, vomiting, hematochezia. The patient notes that she is diabetic and on prednisone. Source of History: patient Onset: this morning Position: leg (bilateral) Quality: other (swelling) Timing: constant, worsening Associated Symptoms: + diarrhea, + urinary symptoms, No SOB, No abdominal pain, No chest pain, No chills, No fevers, No nausea, No vomiting Note: She complains of redness, black tarry stools beginning yesterday. Review of Systems All systems have been listed, reviewed, and are negative other than those previously mentioned. Please see Additional Medical History Sheet. Past Medical & Surgical Medical Problems: (1) Atherosclerosis of abdominal aorta (2) Bilateral lower leg cellulitis (3) CHF (congestive heart failure) (4) Cholelith W Cholecys Nec (5) Chronic bronchitis (6) Chronic obstructive lung disease (7) Chronic pancreatitis (8) COPD exacerbation (9) Depressive Disorder Nec (10) Dyslipidemia (11) Essential hypertension (12) History of bronchiolitis (13) Hypothyroidism (14) Osteoporosis (15) Panic Disorder Without Agoraphobia (16) Pulmonary hypertension (17) Right ventricular dysfunction (18) Scoliosis deformity of spine (19) Urin Tract Infection Nos Surgical Problems: (1) Carcinoma in situ of breast (2) s p cholecystectomy (3) S/P hysterectomy (4) S/P spinal surgery Family History FH: heart disease FATHER Social History Smoking Status: Former Smoker Alcohol Use: none, other Drug Use: none Marital Status: single Housing Status: half-way Occupation Status: retired Current/Historical Medications Scheduled Arformoterol Tartrate (Brovana), 15 MCG INH BID Aspirin (Aspirin 81), 81 MG PO DAILY Atorvastatin (Lipitor), 20 MG PO HS Budesonide (Inhalation) (Pulmicort), 0.5 MG NEB BID Ciprofloxacin Hcl (Cipro), 500 MG PO BID Doxycycline (Monohydrate) (Monodox), 100 MG PO BID Furosemide (Lasix), 40 MG PO DAILY Insulin Aspart (Novolog), SQ UD Ipratropium-Albuterol (Duoneb), 1 TREATMENT INH DAILY Lactobacillus Acidophilus (Lactinex), 4 TAB PO TID Levothyroxine Sodium (Synthroid), 112 MCG PO DAILY Metoprolol Succ (Toprol Xl) (Toprol-Xl ), 100 MG PO DAILY Oxygen (Oxygen), 4 LITERS NA CONTINOUS Prednisone (Prednisone), 40 MG PO UD Prednisone Tab (Prednisone), 5 MG PO DAILY Quetiapine Fumarate (Seroquel), 50 MG PO HS Sennosides-Docusate Sodium (Senokot S), 2 TAB PO HS Scheduled PRN Acetaminophen (Acetaminophen), 650 MG PO Q6H PRN for Pain Albuterol (Ventolin Hfa), 2 PUFFS INH Q4 PRN for Shortness of Breath Baclofen (Lioresal), 15 MG PO QID PRN for Muscle Spasms Bisacodyl (Dulcolax), 1 SUPP OR UD PRN for Constipation Ipratropium-Albuterol (Duoneb), 1 TREATMENT INH Q6H PRN for SOB/Wheezing Lactulose (Lactulose), 45 ML PO BID PRN for Constipation Ondansetron Hcl (Zofran), 4 MG PO Q8 PRN for Nausea Prune Juice (Prune Juice ), Unknown Dose PO UD PRN for Constipation Tramadol (Ultram), 50 MG PO Q6H PRN for Pain Allergies Coded Allergies: Benzodiazepines (Unverified Adverse Reaction, Unknown, DELIRIUM, 12/01/16) Patient has history of abuse and addiction per family. 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 Physical Exam Vital Signs Date Time Temp Pulse Resp B/P Pulse Ox O2 Delivery O2 Flow Rate FiO2 12/01/16 09:10 82 20 127/59 96 Nasal Cannula 5.0 12/01/16 07:55 96 Nasal Cannula 6.0 12/01/16 07:37 96 Nasal Cannula 6.0 12/01/16 07:29 36.7 86 22 136/68 97 Nasal Cannula 6.0 Physical Exam GENERAL: Patient awake, alert, oriented x 3. Patient follows commands. Patient does not appear toxic. Patient is adequately hydrated and well- nourished. SKIN: Bilateral lower extremity erythema extending to upper thighs bilaterally, no pallor, cyanosis or rash HEENT: Normal head, pupils equal, reactive to light and accommodation. Ears normal. Oral Cavity shows whitish lesions on tongue that scrape off easily. Neck : Without adenopathy, no neck vein distention. LUNGS: Diminished breath sounds bilaterally. No wheezes, no rales, no rhonchi. HEART: 3/6 systolic murmur. No gallops. No rubs ABDOMEN: No masses, no rebound, no hepatomegaly or splenomegaly. Large area of ecchymosis overlying right lower abdomen. EXTREMITIES: No signs of trauma. 2+ pitting pedal edema bilaterally. No calf or thigh tenderness. NEUROLOGIC: Cranial nerves II-XII within normal limits. No gross motor sensory function deficits. RECTAL: Hemoccult positive Medical Decision & Procedures ER Provider Diagnostic Interpretation: X ray results are stated below per my interpretation and the radiologist's interpretation. CHEST ONE VIEW PORTABLE FINDINGS: There are bilateral spinal rods. The heart remains enlarged. Mild elevation of the left hemidiaphragm, unchanged. Diffuse interstitial and vascular thickening is again noted. Suspect trace bilateral pleural effusions. No new focal lung consolidations. IMPRESSION: No change in the pulmonary edema, cardiomegaly, trace bilateral pleural effusions. Electronically signed by: Espinoza Navarro M.D. 12/01/2016 8:23 AM Dictated Date/Time: 12/01/2016 8:22 AM Laboratory Results 12/01/16 08:15 Red Blood Count 3.83, Mean Corpuscular Volume 86.2, Mean Corpuscular Hemoglobin 25.6, Mean Corpuscular Hemoglobin Concent 29.7, Mean Platelet Volume 10.0, Neutrophils (%) (Auto) 79.7, Lymphocytes (%) (Auto) 10.7, Monocytes (%) (Auto) 8.1, Eosinophils (%) (Auto) 0.7, Basophils (%) (Auto) 0.1, Neutrophils # (Auto) 7.24, Lymphocytes # (Auto) 0.97, Monocytes # (Auto) 0.74, Eosinophils # (Auto) 0.06, Basophils # (Auto) 0.01 12/01/16 08:15 Test 12/01/16 08:06 12/01/16 08:15 Urine Color YELLOW Urine Appearance CLEAR (CLEAR) Urine pH 6.5 (4.5-7.5) Urine Specific [place] 1.023 (1.000-1.030) Urine Protein 1+ (NEG) Urine Glucose (UA) NEG (NEG) Urine Ketones NEG (NEG) Urine Occult Blood 2+ (NEG) Urine Nitrite NEG (NEG) Urine Bilirubin NEG (NEG) Urine Urobilinogen NEG (NEG) Urine Leukocyte Esterase SMALL (NEG) Urine WBC (Auto) 10-30 /hpf (0-5) Urine RBC (Auto) 10-30 /hpf (0-4) Urine Hyaline Casts (Auto) 1-5 /lpf (0-5) Urine Epithelial Cells (Auto) 5-10 /lpf (0-5) Urine Bacteria (Auto) NEG (NEG) Urine Renal Epithelial Cells /lpf (0-5) White Blood Count 9.08 K/uL (4.8-10.8) Red Blood Count 3.83 M/uL (4.2-5.4) Hemoglobin 9.8 g/dL (12.0-16.0) Hematocrit 33.0 % (37-47) Mean Corpuscular Volume 86.2 fL (80-100) Mean Corpuscular Hemoglobin 25.6 pg (25-34) Mean Corpuscular Hemoglobin Concent 29.7 g/dl (32-36) Platelet Count 135 K/uL (130-400) Mean Platelet Volume 10.0 fL (7.4-10.4) Neutrophils (%) (Auto) 79.7 % Lymphocytes (%) (Auto) 10.7 % Monocytes (%) (Auto) 8.1 % Eosinophils (%) (Auto) 0.7 % Basophils (%) (Auto) 0.1 % Neutrophils # (Auto) 7.24 K/uL (1.4-6.5) Lymphocytes # (Auto) 0.97 K/uL (1.2-3.4) Monocytes # (Auto) 0.74 K/uL (0.11-0.59) Eosinophils # (Auto) 0.06 K/uL (0-0.5) Basophils # (Auto) 0.01 K/uL (0-0.2) RDW Standard Deviation 56.3 fL (36.4-46.3) RDW Coefficient of Variation 17.8 % (11.5-14.5) Immature Granulocyte % (Auto) 0.7 % Immature Granulocyte # (Auto) 0.06 K/uL (0.00-0.02) Tear Drop Cells OCCASIONAL Prothrombin Time 12.4 SECONDS (9.0-12.0) Prothromb Time International Ratio 1.2 (0.9-1.1) Activated Partial Thromboplast Time 25.4 SECONDS (21.0-31.0) Partial Thromboplastin Ratio 1.0 Anion Gap 5.0 mmol/L (3-11) Est Creatinine Clear Calc Drug Dose 87.7 ml/min Estimated GFR () 81.7 Estimated GFR (Non- 70.4 BUN/Creatinine Ratio 40.8 (10-20) Calcium Level 9.0 mg/dl (8.5-10.1) Total Bilirubin 0.7 mg/dl (0.2-1) Aspartate Amino Transf (AST/SGOT) 16 U/L (15-37) Alanine Aminotransferase (ALT/SGPT) 27 U/L (12-78) Alkaline Phosphatase 45 U/L (45-117) Total Protein 6.6 gm/dl (6.4-8.2) Albumin 3.4 gm/dl (3.4-5.0) Globulin 3.2 gm/dl (2.5-4.0) Albumin/Globulin Ratio 1.1 (0.9-2) Laboratory results as stated above per my review. Medications Administered Medications (Trade) Dose Ordered Sig/Romaine Route Start Time Stop Time Status Last Admin Dose Admin Baclofen (Lioresal Tab) 15 mg QID PRN PO 12/01/16 10:30 12/01/16 14:25 DC 12/01/16 14:19 15 MG Tramadol HCl 50 mg 50 mg Q6H PRN PO 12/01/16 10:30 12/31/16 10:29 12/01/16 14:19 50 MG Furosemide/Syringe (Lasix Inj/ Syringe) 4 ml @ 4 mls/min [id number] IV 12/01/16 10:30 12/31/16 10:29 12/01/16 14:18 4 MLS/MIN ECG Indication: other (edema) Rate (beats per minute): 90 Rhythm: sinus rhythm Findings: no acute ischemic change, no ectopy ED Course 07: Past medical records reviewed. The patient was evaluated in room A2. A complete history and physical examination was performed. 1005: I reevaluated the patient, she is resting comfortably. 1008: I spoke to Carline Balderas PA-C and Dr. Sifuentes will come see the patient. 1038: Discussed the patient's case with Dr. Sifuentes. The patient will be evaluated for further management. 1047: Upon reevaluation, the patient is hemodynamically stable.I discussed today 's findings with the patient. She verbalized agreement of the treatment plan. I spoke with Dr. Sifuentes of the [facility] to evaluate the patient for further management. Medical Decision Differential diagnosis includes cellulitis, CHF exacerbation, necrotizing fasciitis, sepsis, UTI, pneumonia. The patient is significant erythema of both lower legs. The hospitalist who had previously seen her also evaluated her in the ED and apparently the erythema is worsened was at time of discharge. This is consistent with the patient's history. Multiple labs, EKG and imaging were obtained. Please see above. The patient's white count is not elevated. Guaiac stool is positive. The patient is anemic. The patient will require further evaluation in the hospital. Consults Time Called: 1006 Consulting Physician: Carline Sosa Returned Call: [phone] I spoke to Carline Balderas PA-C and Dr. Ye will come see the patient. Additional Consults: Time Called: 1038 Consulted Physician: Dr. Bear Sosa Returned Call: [phone] Additional Comments: Discussed the patient's case with Dr. Sifuentes. The patient will be evaluated for further management. Impression Primary Impression: Bilateral lower leg cellulitis Additional Impressions: Anemia GI bleed Scribe Attestation The scribe's documentation has been prepared under my direction and personally reviewed by me in its entirety. I confirm that the note above accurately reflects all work, treatment, procedures, and medical decision making performed by me. Departure Information Dispostion Being Evaluated By Hospitalist Referrals [place] (PCP) Problem Qualifiers
[2016-12-01 08:26] LABS: BASO % 0.1 %; BASO ABS # 0.01 K/uL (0-0.2); EOS % 0.7 %; IG% 0.7 %; LYMPH % 10.7 %; LYMPH ABS # 0.97 K/uL (1.2-3.4); MEAN CELL VOLUME 86.2 fL (80-100); MEAN CORPUSCULAR HEMOGLOBIN 25.6 pg (25-34); MEAN CORPUSCULAR HGB CONC 29.7 g/dl (32-36); MONO % 8.1 %; NEUT % 79.7 %; PLATELET COUNT 135 K/uL (130-400); RED BLOOD COUNT 3.83 M/uL (4.2-5.4); WHITE BLOOD COUNT 9.08 K/uL (4.8-10.8)
--- NOTE | 2016-12-01 08:26 | DIAGNOSTIC IMAGING REPORT ---
CHEST ONE VIEW PORTABLE HISTORY: Leg swelling. Short of breath. COPD COMPARISON: Chest 11/25/2016. FINDINGS: There are bilateral spinal rods. The heart remains enlarged. Mild elevation of the left hemidiaphragm, unchanged. Diffuse interstitial and vascular thickening is again noted. Suspect trace bilateral pleural effusions. No new focal lung consolidations. IMPRESSION: No change in the pulmonary edema, cardiomegaly, trace bilateral pleural effusions. Electronically signed by: Espinoza Navarro M.D. 12/01/2016 8:23 AM Dictated Date/Time: 12/01/2016 8:22 AM
[2016-12-01 08:41] LABS: BUN/CREATININE RATIO 40.8 (10-20); CREATININE 0.83 mg/dl (0.60-1.20); POTASSIUM 3.5 mmol/L (3.5-5.1)
[2016-12-01 08:44] LABS: ALB/GLOB RATIO 1.1 (0.9-2)
[2016-12-01 08:45] LABS: URINE APPEARANCE CLEAR (CLEAR); URINE BILIRUBIN NEG (NEG); URINE COLOR YELLOW; URINE NITRITE NEG (NEG); URINE PH 6.5 (4.5-7.5); URINE SPECIFIC GRAVITY 1.023 (1.000-1.030); UROBILINOGEN NEG (NEG); ZZURINE CULT IF INDIC CATH YES
[2016-12-01 08:50] LABS: MANUAL MICROSCOPIC REQUIRED? NO; REVIEW REQ? YES
[2016-12-01 08:55] LABS: COMPLETE YES; TEAR DROP CELLS OCCASIONAL
[2016-12-01] MEDS ORDERED: NITROGLYCERIN 0.4 MG SL PER TAB CHARGE SL PRN (10:30)
[2016-12-01] MEDS ORDERED: LACTULOSE SYRUP 30 GM/45 ML UDP PO PRN (10:30)
[2016-12-01] MEDS ORDERED: BISACODYL 10 MG SUPP PR PRN (10:30)
[2016-12-01] MEDS ORDERED: ALUMINUM/MAGNESIUM/SIMETH (MAALOX MAX) 30 ML UDC PO PRN (10:30)
[2016-12-01] MEDS ORDERED: ONDANSETRON 4 MG TAB PO PRN (10:30)
[2016-12-01] MEDS ORDERED: ACETAMINOPHEN 325 MG TAB PO PRN ×2 (10:30)
[2016-12-01] MEDS ORDERED: ALBUTEROL HFA 8 GM INHALER INH PRN (10:30)
[2016-12-01] MEDS ORDERED: BACLOFEN 10 MG TAB PO PRN (10:30)
[2016-12-01] MEDS ORDERED: POLYETHYLENE (MIRALAX) 17 GM PACK PO PRN (10:30)
[2016-12-01] MEDS ORDERED: ONDANSETRON INJ 2 MG/ML 2 ML VIAL IV PRN (10:30)
--- NOTE | 2016-12-01 11:31 | HISTORY & PHYSICAL EXAMINATION ---
DATE OF ADMISSION: 12/01/2016 CHIEF COMPLAINT: Lower extremity cellulitis and congestive heart failure. HISTORY OF PRESENT ILLNESS: This is a 71-year-old female with past medical history significant for COPD on chronic oxygen, right ventricular dysfunction due to COPD, pulmonary hypertension, diabetes type 2, hypertension, chronic pancreatitis, depression, dyslipidemia, hypertension, history of bronchitis, hypothyroidism, panic disorder without agoraphobia, history of urinary tract infections, was recently in the hospital for CHF and lower extremity cellulitis extending up to the abdomen, was treated with IV antibiotics. Cultures did not grow anything. She responded to IV antibiotics and also CHF improved with IV Lasix. She was doing okay. She wanted to get discharged and she was discharged to group home with doxy and Cipro, but the patient says lower extremity swelling got worse and erythema got worse. She says she also not getting good care at [facility] and she is not getting the treatments she should be getting and she was looking to go to [facility] so she came to the ER. Currently lower extremity looks more erythematous and swollen than at the time of discharge a couple of days ago. Denies any fever, chills, no shortness of breath, no chest pain, no headaches, no blurred vision, no nausea, no vomiting. Also complains of black tarry stools, but no abdominal pain. ALLERGIES: BENZODIAZEPINE, OPIUM. PAST MEDICAL HISTORY: As mentioned above. PAST SURGICAL HISTORY: Carcinoma right breast status post cholecystectomy, status post hysterectomy, status post spinal surgery. FAMILY HISTORY: Significant for father had heart disease. SOCIAL HISTORY: Former smoker, quit 10 years ago. Prior to that smoked 2 packs per day for 40 years. No history of drug abuse. Single, currently at [facility], retired. No known drug allergies. MEDICATIONS AT HOME: Currently, the patient is on Cipro 500 mg p.o. b.i.d., doxycycline 100 mg p.o. b.i.d., lactobacillus 4 tablets p.o. t.i.d., lactulose 45 mL p.o. b.i.d. p.r.n. for constipation, prednisone tapering dose, Senokot 2 tablets p.o. at bedtime, Tylenol 650 mg p.o. q. 6 hours p.r.n., albuterol 2 puffs every 4 hours p.r.n., Brovana 50 mcg inhalation b.i.d., aspirin 81 mg p.o. daily, atorvastatin 20 mg p.o. at bedtime, baclofen 50 mg p.o. q.i.d., Dulcolax 10 mg suppository p.r.n., Pulmicort 0.5 mg nebs b.i.d., Lasix 40 mg p.o. daily, insulin sliding scale, DuoNeb 3 mL one inhalation daily, DuoNeb q. 6 hours p.r.n., levothyroxine 112 mcg p.o. daily, Toprol-XL 100 mg p.o. daily, Zofran 4 mg p.o. q. 8 hours p.r.n., oxygen 4 liters continuous, prednisone 5 mg p.o. daily. Prune juice as needed, Seroquel 50 mg p.o. at bedtime, tramadol 50 mg p.o. q. 6 hours p.r.n. REVIEW OF SYMPTOMS: As per HPI. Rest of review of symptoms negative. PHYSICAL EXAMINATION: GENERAL: The patient is obese, not in distress. VITAL SIGNS: Temperature 36.7, pulse 82, respiratory rate 20, blood pressure 127/58, oxygen 96% on 5 liters. HEAD, EYES, EARS, NOSE, AND THROAT: No pallor, no icterus. Pupils equal, round, and reactive to light. NECK: No JVD, no neck masses, no carotid bruits. CARDIOVASCULAR: S1, S2 heard, regular rate and rhythm, no murmur, no gallop. RESPIRATORY SYSTEM: Normal AP diameter. No accessory muscle use. No wheezing, no crackles. ABDOMEN: Soft, bowel sounds present, nontender. Mild erythema seen in lower abdomen. CENTRAL NERVOUS SYSTEM: Cranial nerves II-XII grossly intact. Nonfocal. EXTREMITIES: Bilateral lower extremities, erythematous and edematous. Warm on palpation. LABORATORY DATA: WBC 9, hemoglobin 9.8, hematocrit 33, platelets 135. Sodium 140, potassium 3.5, chloride 108, bicarbonate 32, BUN 34, creatinine 0.8, serum glucose 101, calcium 9, total bilirubin 0.7, AST 16, ALT 27, alkaline phosphatase 45. Urinalysis positive for small leukocyte esterase. Chest x-ray, no change in pulmonary edema, cardiomegaly, trace bilateral pleural effusions. EKG: Sinus rhythm with PACs at a rate of 90, no acute ST changes seen. ASSESSMENT AND PLAN: This is a 71-year-old female who presents with bilateral lower extremity cellulitis and CHF . 1. Bilateral lower extremity cellulitis. The patient responded to IV Zosyn and vancomycin recently and was discharged on doxy and Cipro, but cellulitis came back. She will again be restarted on IV Zosyn, IV vancomycin and follow the cultures. We will get ID help to recommend antibiotics for discharge and duration of antibiotics. 2. Acute on chronic right-sided heart failure from severe COPD. We will place IV Lasix 40 b.i.d. and follow the response. 3. History of chronic obstructive pulmonary disease. Not in exacerbation. The patient will continue his home inhalations and will place on DuoNebs q. 8 hours and p.r.n. and continue the prednisone taper. 4. History of hypertension on metoprolol. Will follow the blood pressure. 5. History of hypothyroidism. Continue Synthroid. 6. History of diabetes, insulin sliding scale.We will monitor the blood sugars. 7. Black stools hb stable from previous labs. will follow stool studies. DVT prophylaxis heparin sub q. for now Disposition: Admit to tele floor. Expect to discharge home and follow up with the family doctor. Level 1 to tele floor. PT and OT prior to discharge. Social Service to help with discharge to [facility]. LEVEL 1 FULL CODE. MTDD
[2016-12-01] MEDS ORDERED: DEXTROSE 50% 50 ML SYR IV PRN (11:45)
[2016-12-01] MEDS ORDERED: GLUCOSE 40% GEL 15 GM TUBE PO PRN (11:45)
[2016-12-01] MEDS ORDERED: PIPERACILL/TAZOBAC CONSULT ACTIVE PRN (11:45)
[2016-12-01] MEDS ORDERED: GLUCAGON FOR INJ 1 MG VIAL SQ PRN (11:45)
[2016-12-01] MEDS ORDERED: VANCOMYCIN CONSULT ACTIVE PRN (11:45)
[2016-12-01] MEDS ORDERED: GLUCOSE 10 TABS/TUBE PO PRN (11:45)
[2016-12-01] MEDS ORDERED: PIPERACILLIN/TAZOBACTAM 4.5 GM/100ML D5W IV STA (11:48)
[2016-12-01] MEDS ORDERED: VANCOMYCIN INJ 2,700 MG in SODIUM CHLORIDE 0.9% 500ML 500 ML IV ONE ×2 (12:00→16:30)
[2016-12-01 12:18] LABS: INR 1.2 (0.9-1.1); PROTHROMBIN TIME (PATIENT) 12.4 SECONDS (9.0-12.0)
[2016-12-01] MEDS: INSULIN ASPART 100 UNITS/ML 3 ML PEN SC SCH ×4 (13:15→21:00)
[2016-12-01] MEDS: LACTOBACILLUS ACIDOPHILUS (FLORANEX) TAB PO SCH ×2 (13:16→16:38)
[2016-12-01] MEDS ORDERED: PIPERACILL/TAZOBAC IV 4.5 GM in DEXTROSE 5% 100ML IV ONE (14:00)
[2016-12-01] MEDS: HEPARIN SOD 5000 UNIT/0.5 ML CARP SQ SCH ×4 (14:00→21:34)
[2016-12-01] MEDS: ALBUT/IPRATROP 3MG/0.5MG NEB 3 ML VIAL INH SCH ×2 (14:07→19:00)
[2016-12-01] MEDS: FUROSEMIDE INJ 40 MG in SYRINGE 0 ML IV SCH ×2 (14:18→16:38)
[2016-12-01] MEDS: TRAMADOL HCL 50 MG TAB PO PRN ×2 (14:19→21:19)
[2016-12-01 16:03] LABS: HEMATOCRIT 35.9 % (37-47)
--- NOTE | 2016-12-01 16:43 | Pharmacy Progress Note ---
Pharmacy Antibiotic Consult Date of Service: Dec 01, 2016. Pharmacy Dosing Scope Pharmacy is consulted to initiate Vancomycin and Zosyn IV dosing therapy, order appropriate labs and adjust drug dose/frequency. Subjective The patient is a 71 year old female admitted on Dec 01, 2016 at 10:38. Objective Height (Feet): 5 Height (Inches): 10.00 Weight (Kilograms): 124.000 Lab Results (24hrs): Laboratory Tests Test 12/01/16 08:15 BUN/Creatinine Ratio 40.8 Blood Urea Nitrogen 34 mg/dl Creatinine 0.83 mg/dl White Blood Count 9.08 K/uL Red Blood Count 3.83 M/uL Hemoglobin 9.8 g/dL Hematocrit 33.0 % Mean Corpuscular Volume 86.2 fL Mean Corpuscular Hemoglobin 25.6 pg Mean Corpuscular Hemoglobin Concent 29.7 g/dl Platelet Count 135 K/uL Mean Platelet Volume 10.0 fL Neutrophils (%) (Auto) 79.7 % Lymphocytes (%) (Auto) 10.7 % Monocytes (%) (Auto) 8.1 % Eosinophils (%) (Auto) 0.7 % Basophils (%) (Auto) 0.1 % Neutrophils # (Auto) 7.24 K/uL Lymphocytes # (Auto) 0.97 K/uL Monocytes # (Auto) 0.74 K/uL Eosinophils # (Auto) 0.06 K/uL Basophils # (Auto) 0.01 K/uL Micro Results: Item Value Date Time Urine Culture Received 12/01/16 1456 Urine,Catheterized Pending Blood Culture Received 12/01/16 0815 Blood Pending Urine Culture Received 12/01/16 0806 Urine,Catheterized Pending Blood Culture Received 12/01/16 0731 Blood Pending Assessment & Plan Assessment 71 year old female admitted with LE cellulitis. * Recent admission to [facility] for CHF, LE cellulitis * Patient received Vancomycin + Zosyn IV and was later transitioned to Doxycycline + Cipro on discharge * Patient resides at a intermediate Plan Vancomycin and Zosyn IV for treatment of LE cellulitis Vancomycin IV * Loading dose: 2700 mg (22 mg/kg) * Maintenance dose: 1400 mg IV (11 mg/kg) every 18 hours * Goal trough level for recurrent cellulitis : 15 to 20 mcg/mL * Trough level ordered for 12/03/16 (dosing will not be at steady state) * A less than traditional dose and extended dosing interval have been selected due to likelihood of drug accumulation in obese patient. During recent admission , the patient had a trough level of 38.7 mcg/mL on a dose of 1600 mg IV every 12 hours, thus I have backed off both the dose and dosing interval and have ordered the trough level early. Piperacillin/tazobactam * 4.5 g bolus administered over 30 minutes, then 4.5 g IV extended infusion every 8 hours for CrCl greater than 20 mL/min * Aggressive dosing selected due to BMI 35 or more Pharmacy will continue to follow and will adjust dose/frequency as necessary. Thank you
[2016-12-01] MEDS: NYSTATIN SUSP 500,000 U/5 ML UDC PO SCH ×3 (17:21→21:19)
[2016-12-01] MEDS: BACLOFEN 10 MG TAB PO SCH ×2 (17:53→21:20)
[2016-12-01] MEDS: ARFORMOTEROL TART 15MCG/2ML VIAL INH SCH (19:00)
[2016-12-01] MEDS: BUDESONIDE 0.5 MG/2 ML VIAL (PULMICORT) INH SCH (19:00)
[2016-12-01] MEDS: PIPERACILL/TAZOBAC IV 4.5 GM in DEXTROSE 5% 100ML 100 ML IV SCH (19:51)
[2016-12-01] MEDS ORDERED: QUETIAPINE FUMARATE 25 MG TAB PO SCH (21:00)
[2016-12-01] MEDS: ATORVASTATIN 20 MG TAB PO SCH (21:19)
[2016-12-01] MEDS: DOCUSATE SODIUM/SENNA 50/8.6MG TAB PO SCH (21:19)
[2016-12-01] MEDS: ALBUT/IPRATROP 3MG/0.5MG NEB 3 ML VIAL INH PRN (23:20)
[2016-12-02] VITALS (12 sets, daily range): BP systolic 81–129; BP diastolic 53–75; PULSE 93–115; TEMP 36.6–37.1; O2SAT 88–96
[2016-12-02] MEDS: PIPERACILL/TAZOBAC IV 4.5 GM in DEXTROSE 5% 100ML 100 ML IV SCH ×3 (04:12→20:53)
[2016-12-02] MEDS: VANCOMYCIN INJ 1,400 MG in SODIUM CHLORIDE 0.9% 500ML 500 ML IV SCH ×2 (04:12→22:00)
[2016-12-02] MEDS: ALBUT/IPRATROP 3MG/0.5MG NEB 3 ML VIAL INH PRN (05:30)
[2016-12-02] MEDS: HEPARIN SOD 5000 UNIT/0.5 ML CARP SQ SCH (06:00)
[2016-12-02] MEDS: LEVOTHYROXINE 112 MCG TAB PO SCH (06:07)
[2016-12-02] MEDS: TRAMADOL HCL 50 MG TAB PO PRN (06:08)
[2016-12-02] MEDS: BACLOFEN 10 MG TAB PO SCH ×4 (06:08→23:44)
[2016-12-02 06:28] LABS: BASO % 0.1 %; BASO ABS # 0.01 K/uL (0-0.2); COMPLETE YES; EOS % 1.4 %; HEMATOCRIT 33.5 % (37-47); IG% 0.4 %; LYMPH % 5.5 %; LYMPH ABS # 0.61 K/uL (1.2-3.4); MEAN CORPUSCULAR HEMOGLOBIN 25.6 pg (25-34); MEAN CORPUSCULAR HGB CONC 30.1 g/dl (32-36); MEAN PLATELET VOLUME 9.5 fL (7.4-10.4); MONO % 5.6 %; PLATELET COUNT 120 K/uL (130-400); RED BLOOD COUNT 3.94 M/uL (4.2-5.4); WHITE BLOOD COUNT 11.15 K/uL (4.8-10.8)
[2016-12-02 06:58] LABS: BUN/CREATININE RATIO 27.2 (10-20); CALCIUM 8.7 mg/dl (8.5-10.1); CREATININE 0.89 mg/dl (0.60-1.20); MAGNESIUM 2.2 mg/dl (1.8-2.4); POTASSIUM 3.3 mmol/L (3.5-5.1)
[2016-12-02] MEDS: BUDESONIDE 0.5 MG/2 ML VIAL (PULMICORT) INH SCH ×2 (07:08→19:14)
[2016-12-02] MEDS: ARFORMOTEROL TART 15MCG/2ML VIAL INH SCH ×2 (07:08→19:14)
[2016-12-02] MEDS: ALBUT/IPRATROP 3MG/0.5MG NEB 3 ML VIAL INH SCH ×4 (07:08→19:14)
[2016-12-02] MEDS ORDERED: POTASSIUM CHLORIDE 20 MEQ TABCR PO ONE (07:45)
[2016-12-02] MEDS ORDERED: NURSING DECISION MEDICATION ORDER SCH (08:00)
[2016-12-02] MEDS ORDERED: SODIUM CHLORIDE 0.65% NA SOLN 45 ML (OCEAN) PRN (08:00)
[2016-12-02] MEDS: LACTOBACILLUS ACIDOPHILUS (FLORANEX) TAB PO SCH ×5 (08:13→17:38)
[2016-12-02] MEDS: INSULIN ASPART 100 UNITS/ML 3 ML PEN SC SCH ×4 (08:14→20:47)
[2016-12-02] MEDS ORDERED: ASPIRIN 81 MG ECTAB PO SCH (09:00)
[2016-12-02] MEDS: NYSTATIN SUSP 500,000 U/5 ML UDC PO SCH ×4 (09:40→20:44)
[2016-12-02] MEDS: PANTOprazole INJ 40 MG in SYRINGE 0 ML IV SCH ×2 (09:41→20:43)
[2016-12-02] MEDS: METOPROLOL SUCC 50MG EXT REL TAB PO SCH (09:41)
[2016-12-02] MEDS: FUROSEMIDE INJ 40 MG in SYRINGE 0 ML IV SCH (09:45)
[2016-12-02] MEDS: RISPERIDONE 0.5 MG TAB PO PRN (11:00)
[2016-12-02] MEDS: DOCUSATE SODIUM 100 MG CAP PO SCH ×2 (11:00→20:43)
[2016-12-02] MEDS: TRAMADOL HCL 50 MG TAB PO SCH ×3 (13:00→23:44)
--- NOTE | 2016-12-02 16:47 | Progress Note ---
Internal Med Progress Note Date of Service: Dec 02, 2016. Provider Documentation: SUBJECTIVE: was some what restless in the morning but more calmer later in the day erythema and swelling in lower extremity improving denies any pain afebrile OBJECTIVE: Vital Signs-as noted below Exam: General-alert and awake and oriented ENT-normal hearing Neck-no neck masses Lungs-cta b/l no wheezing or crackles Heart-s1 and s2 heard irregular rate and rhythm no murmurs Abdomen-soft bowel sounds present non tender no distension Extremities- b/l lower extremity erythema and edema-improving Neuro-alert and awake moves extremities Lab data as noted below. ASSESSMENT & PLAN: This is a 71-year-old female who presents with bilateral lower extremity cellulitis and CHF . 1. Bilateral lower extremity cellulitis. The patient responded to IV Zosyn and vancomycin recently and was discharged on doxy and Cipro, but cellulitis came back. \ Currently on iv vanco and zosyn #2 improving ID consulted. 2. Acute on chronic right-sided heart failure from severe COPD. IV lasix 40mg bid lower extremity improving will change Lasix to once daily and monitor. 3. History of chronic obstructive pulmonary disease. Not in exacerbation. Will continue his home inhalations and will place on DuoNebs q. 8 hours and p.r.n. and continue the prednisone taper. 4. History of hypertension on metoprolol. Will follow the blood pressure. 5. History of hypothyroidism. Continue Synthroid. 6. History of diabetes, insulin sliding scale.We will monitor the blood sugars. 7. Black stools hb stable from previous labs. will follow stool studies.Hemoccult positive. Hb stable. No obvious bleeding. Stopped aspirin and hep sub q. placed on iv Protonix bid. Consulted GI. DVT prophylaxis scds . for now. Disposition: Monitor in tele. Expect to discharge home and follow up with the family doctor. Level 1 to tele floor. PT and OT prior to discharge. Social Service to help with discharge to [facility]. LEVEL 1 FULL CODE. Vital Signs: Date Time Temp Pulse Resp B/P Pulse Ox O2 Delivery O2 Flow Rate FiO2 12/02/16 15:12 95 14 93 Nasal Cannula 5.0 12/02/16 14:48 37.1 96 19 118/71 92 Nasal Cannula 5.0 12/02/16 12:00 Nasal Cannula 4.0 12/02/16 11:43 37.1 99 20 129/73 93 Nasal Cannula 5.0 12/02/16 11:42 96 14 90 Nasal Cannula 5.0 12/02/16 08:45 36.8 115 20 99/53 96 Nasal Cannula 5.0 12/02/16 08:00 94 Nasal Cannula 4.0 12/02/16 07:09 110 14 88 Nasal Cannula 4.0 12/02/16 05:30 103 14 90 Nasal Cannula 4.0 12/02/16 04:00 Nasal Cannula 4.0 12/02/16 03:48 36.8 107 20 115/75 96 Nasal Cannula 4.0 12/02/16 00:00 Nasal Cannula 4.0 12/01/16 23:51 36.7 99 20 127/60 95 Nasal Cannula 4.0 12/01/16 23:20 104 16 95 Nasal Cannula 4.0 12/01/16 20:00 Nasal Cannula 4.0 12/01/16 19:04 36.8 90 19 124/63 97 Nasal Cannula 4.0 12/01/16 19:00 90 16 97 Nasal Cannula 4.0 Lab Results: Results Past 24 Hours Test 12/01/16 20:45 12/02/16 03:27 12/02/16 06:16 12/02/16 06:52 Range/Units Bedside Glucose 134 110 70-90 mg/dl Stool Occult Blood POSITIVE NEGATIVE White Blood Count 11.15 4.8-10.8 K/uL Red Blood Count 3.94 4.2-5.4 M/uL Hemoglobin 10.1 12.0-16.0 g/dL Hematocrit 33.5 37-47 % Mean Corpuscular Volume 85.0 80-100 fL Mean Corpuscular Hemoglobin 25.6 25-34 pg Mean Corpuscular Hemoglobin Concent 30.1 32-36 g/dl Platelet Count 120 130-400 K/uL Mean Platelet Volume 9.5 7.4-10.4 fL Neutrophils (%) (Auto) 87.0 % Lymphocytes (%) (Auto) 5.5 % Monocytes (%) (Auto) 5.6 % Eosinophils (%) (Auto) 1.4 % Basophils (%) (Auto) 0.1 % Neutrophils # (Auto) 9.71 1.4-6.5 K/uL Lymphocytes # (Auto) 0.61 1.2-3.4 K/uL Monocytes # (Auto) 0.62 0.11-0.59 K/uL Eosinophils # (Auto) 0.16 0-0.5 K/uL Basophils # (Auto) 0.01 0-0.2 K/uL RDW Standard Deviation 55.5 36.4-46.3 fL RDW Coefficient of Variation 17.9 11.5-14.5 % Immature Granulocyte % (Auto) 0.4 % Immature Granulocyte # (Auto) 0.04 0.00-0.02 K/uL Sodium Level 144 136-145 mmol/L Potassium Level 3.3 3.5-5.1 mmol/L Chloride Level 104 98-107 mmol/L Carbon Dioxide Level 33 21-32 mmol/L Anion Gap 7.0 3-11 mmol/L Blood Urea Nitrogen 24 7-18 mg/dl Creatinine 0.89 0.60-1.20 mg/dl Est Creatinine Clear Calc Drug Dose 79.0 ml/min Estimated GFR () 75.0 Estimated GFR (Non- 64.7 BUN/Creatinine Ratio 27.2 10-20 Random Glucose 126 70-99 mg/dl Calcium Level 8.7 8.5-10.1 mg/dl Magnesium Level 2.2 1.8-2.4 mg/dl Test 12/02/16 11:42 12/02/16 16:00 12/02/16 16:12 Range/Units Bedside Glucose 135 223 70-90 mg/dl Potassium Level 3.8 3.5-5.1 mmol/L Microbiology Results 12/02/16 C.difficile Toxin B Gene (PCR) - Final, Complete No C. difficile toxin B gene detected
[2016-12-02] MEDS: ATORVASTATIN 20 MG TAB PO SCH (20:44)
[2016-12-02] MEDS: DOCUSATE SODIUM/SENNA 50/8.6MG TAB PO SCH (20:45)
[2016-12-02] MEDS ORDERED: QUETIAPINE FUMARATE 25 MG TAB PO SCH (21:00)
[2016-12-03] VITALS (12 sets, daily range): BP systolic 95–105; BP diastolic 50–71; PULSE 80–98; TEMP 36.4–36.9; O2SAT 91–98
[2016-12-03] MEDS: PIPERACILL/TAZOBAC IV 4.5 GM in DEXTROSE 5% 100ML 100 ML IV SCH ×3 (04:07→20:07)
[2016-12-03] MEDS: TRAMADOL HCL 50 MG TAB PO SCH (06:00)
[2016-12-03] MEDS: LEVOTHYROXINE 112 MCG TAB PO SCH (06:11)
[2016-12-03 06:24] LABS: BASO % 0.1 %; BASO ABS # 0.01 K/uL (0-0.2); COMPLETE YES; IG% 0.5 %; LYMPH % 9.1 %; MEAN CELL VOLUME 85.8 fL (80-100); MEAN CORPUSCULAR HEMOGLOBIN 25.2 pg (25-34); MEAN CORPUSCULAR HGB CONC 29.4 g/dl (32-36); MEAN PLATELET VOLUME 9.6 fL (7.4-10.4); MONO % 7.3 %; PLATELET COUNT 111 K/uL (130-400); RED BLOOD COUNT 3.73 M/uL (4.2-5.4); WHITE BLOOD COUNT 8.82 K/uL (4.8-10.8)
[2016-12-03 06:47] LABS: CALCIUM 8.3 mg/dl (8.5-10.1); MAGNESIUM 2.5 mg/dl (1.8-2.4); POTASSIUM 3.6 mmol/L (3.5-5.1)
[2016-12-03] MEDS: ARFORMOTEROL TART 15MCG/2ML VIAL INH SCH ×2 (07:48→19:10)
[2016-12-03] MEDS: ALBUT/IPRATROP 3MG/0.5MG NEB 3 ML VIAL INH SCH ×4 (07:48→19:11)
[2016-12-03] MEDS: BUDESONIDE 0.5 MG/2 ML VIAL (PULMICORT) INH SCH ×2 (07:48→19:11)
--- NOTE | 2016-12-03 08:10 | Clinical Documentation Query ---
CLINICAL DOCUMENTATION QUERY 71-y/o female with bilateral lower extremity cellulitis and acute on chronic right sided CHF. By CMS coding guidelines right sided heart failure codes to CHF unspecified. Query #1/2 In your clinical opinion is this patient being managed for: ( + ) Acute on chronic right ventricular systolic and diastolic CHF (Acute on chronic preserved EF heart failure) treated with IV Lasix ( ) Other explanation of clinical findings (Please Explain) ( ) Unable to determine (Please Define) ( ) Need to Discuss ( ) Not Agree The medical record reflects the following clinical findings, treatment, and risk factors. Clinical Indicators: As above. Echo 11/25/16 showed EF of 65-70%, RV pressure overload, Grade I diastolic dysfunction, right atrium and ventricles are severely dilated. Severe tricuspid regurgitation. A cardiology consult commenting on above echo stating, "reduced RV systolic function." Treatment: IV Lasix, telemetry, I/O's, daily weights, Risk Factors: Age, right ventricular dilatation, valvular regurgitation, diastolic dysfunction, and HTN. Query #2/2 In your clinical opinion is this patient being managed for: ( + ) Chronic respiratory failure treated with home O2. ( ) Other explanation of clinical findings (Please Explain) ( ) Unable to determine (Please Define) ( ) Need to Discuss ( ) Not Agree The medical record reflects the following clinical findings, treatment, and risk factors. Clinical Indicators: COPD, on home O2. Treatment: O2 Risk Factors: Age, COPD, CHF Please clarify and document your clinical opinion in the progress notes and discharge summary. Terms such as "probable", "suspected", "likely", "questionable", "possible", or "still to be ruled out" are acceptable. IF IN AGREEMENT, YOU MUST DOCUMENT ABOVE DIAGNOSTIC STATEMENT IN DAILY PROGRESS NOTES AND DISCHARGE SUMMARY. This document is not part of the patient's record. Thank You, Gopal Moran, ADELIA [phone]
[2016-12-03] MEDS: DOCUSATE SODIUM 100 MG CAP PO SCH ×2 (08:40→20:09)
[2016-12-03] MEDS: METOPROLOL SUCC 50MG EXT REL TAB PO SCH (08:41)
[2016-12-03] MEDS: LACTOBACILLUS ACIDOPHILUS (FLORANEX) TAB PO SCH ×3 (08:42→17:25)
[2016-12-03] MEDS: BACLOFEN 10 MG TAB PO SCH ×4 (08:42→20:09)
[2016-12-03] MEDS: NYSTATIN SUSP 500,000 U/5 ML UDC PO SCH ×4 (08:43→20:11)
[2016-12-03] MEDS: PANTOprazole INJ 40 MG in SYRINGE 0 ML IV SCH ×2 (08:43→20:08)
[2016-12-03] MEDS: FUROSEMIDE INJ 40 MG in SYRINGE 0 ML IV SCH (08:53)
[2016-12-03] MEDS: INSULIN ASPART 100 UNITS/ML 3 ML PEN SC SCH ×4 (09:41→21:00)
--- NOTE | 2016-12-03 10:18 | Progress Note ---
Progress Note Date of Service Dec 03, 2016. Progress Note ID Consult Dictated #[id number] A/P: 1.LE cellulitis -Can continue vanco and zosyn while hospitalized, upon d/c transition to po cipro/doxy for 7 days -Elevated LE -ok for d/c from ID standpoint when medically stable, thank you
--- NOTE | 2016-12-03 10:26 | DIAGNOSTIC IMAGING REPORT ---
KUB HISTORY: eval for constipation COMPARISON: Chest and abdominal series 03/14/2012. FINDINGS: The bowel gas pattern is unremarkable. There are no dilated loops of small bowel to suggest an obstruction. No renal calculi. No ureteral calculi. No pneumoperitoneum or pneumatosis. Thoracolumbar spinal rods are again noted. There are severe degenerative changes at the L5-S1 disc space. Surgical clips within left upper quadrant. Chronic elevation the left hemidiaphragm. Moderate well-formed stool seen within the colon. IMPRESSION: 1. Moderate well-formed stool seen within the colon. 2. Chronic elevation of the left hemidiaphragm. 3. No evidence for bowel obstruction. Electronically signed by: Espinoza Navarro M.D. 12/03/2016 10:24 AM Dictated Date/Time: 12/03/2016 10:23 AM
[2016-12-03] MEDS ORDERED: POLYETHYLENE (MIRALAX) 17 GM PACK PO ONE (11:42)
--- NOTE | 2016-12-03 11:47 | INFECT. DISEASE CONSULTATION ---
DATE OF CONSULTATION: 12/03/2016 REQUESTING PHYSICIAN: Dr. Sifuentes. HISTORY OF PRESENT ILLNESS: This is a 71-year-old female who was recently discharged from the hospital. At that time, she was found to have COPD, CHF and suspected lower extremity cellulitis. She did improve with IV diuretics and antibiotics. She was subsequently transitioned to oral doxycycline and Cipro and was discharged to a local nursing facility. One day after discharge, she felt that she had worsening breathing, worsening edema and worsening erythema and was subsequently readmitted to the hospital. She was placed on prednisone as well as vancomycin and Zosyn. She has been afebrile since admission. She has not had leukocytosis. Blood cultures were obtained in the Emergency Room and are negative. Urine culture is negative. The C. diff was negative. She states today overall she is feeling better. She states that the edema is less and she feels that the IV diuretics were helping. She also feels that she is improving with IV antibiotics. She denies any pain in the lower extremity. She denies any fevers or chills. She states she does have underlying COPD and her breathing is at its baseline. She denies any chest pain or cough. She has no nausea, vomiting or diarrhea. She does have a Babin catheter in place. All remaining review of systems are reviewed and are negative except for as noted above. PAST MEDICAL HISTORY: Significant for COPD on oxygen, pulmonary hypertension, type 2 diabetes, hypertension, pancreatitis, depression, dyslipidemia, hypothyroidism, panic disorder, acarophobia, and CHF. ALLERGIES: SHE IS ALLERGIC TO BENZOS AND OPIUM. PAST SURGICAL HISTORY: Significant for cholecystectomy, carcinoma of the right breast, hysterectomy and spinal surgery. FAMILY HISTORY: Noncontributory. SOCIAL HISTORY: Significant for history of tobacco use. She has no history of alcohol or drug use. She currently lives at [facility]. CURRENT MEDICATIONS: Include Seroquel, Ultram, prednisone, Lasix, Colace, risperidone, Toprol-XL, Protonix, Synthroid, vancomycin, Lipitor, Senokot, Brovana, Pulmicort, Zosyn, baclofen, Nystatin, DuoNebs, Floranex, insulin, Tylenol, Maalox, Ventolin, MiraLax, Dulcolax, and lactulose. PHYSICAL EXAMINATION: VITAL SIGNS: She is afebrile and has been since admission to the hospital, pulse 95, respiratory rate 20, blood pressure is 95/50, and oxygen saturation is 97% on 5 liters nasal cannula. GENERAL: She is awake, alert and oriented. She is in no acute distress. HEENT: Mucous membranes are moist. Extraocular muscles are intact. HEART: Regular. LUNGS: Clear with decreased breath sounds at the bases bilaterally. ABDOMEN: Soft and nondistended. EXTREMITIES: There is no lower extremity erythema or warmth. There is minimal pitting edema bilaterally. A Babin catheter is in place. LABORATORY AND IMAGING STUDIES: CBC today reveals a white blood cell count of 8.8, hemoglobin 9.4, platelets are 111. Chemistry panel reveals sodium of 143, potassium 3.6, chloride 103, bicarbonate 37, BUN 20, creatinine 1, glucose is 120. Urinalysis was unremarkable. Stool occult blood was positive. C. diff was negative. Urine culture was negative. Blood cultures are negative x2. Chest x-ray done in the Emergency Room shows pulmonary edema unchanged with trace effusions. ASSESSMENT AND PLAN: Previously diagnosed with cellulitis. She can remain on vancomycin and Zosyn while hospitalized. Upon discharge from the hospital, I would recommend transitioning her back to Cipro and doxycycline as previously prescribed for an additional 7 days. Thank you for this consultation.
--- NOTE | 2016-12-03 12:23 | Gastrointestinal Consultation ---
Gastrointestinal Consultation Date of Consultation: Dec 03, 2016 Attending Physician: Drew Sifuentes Consulting Physician: Julian Cerna Reason for Consultation: Heme positive, black stool History of Present Illness Patient is a 71 year old female currently admitted for cellulitis on LE and CHF , seen as consultation for heme positive and black stools. She reports that she has issues w constipation, at home usually take ? 800mg of Colace. Her Colace wasn't given in 2 days prior to admission and she noticed then when she had BM her stools are black, tarry. It is heme positive. She denies any iron supplement. RN report pt has hemorrhoids, but she is denying them being any issue or actively bleeding. Her H/H was 9.8/33 which is around her baseline. She has some nausea, and felt everytime she eats, food is just "stuck" in her upper abd area. She is currently back on Colace and Senna-S and she started to have BMs but stools are still black and tarry per pt. She denies any abd pain otherwise. She is on ASA 81mg daily, but not on any other anti coagulants, and no NSAIDs. She denies having any EGD or colonoscopy in the past. She is currently refusing to have any endoscopic procedures, but asking for abdominal xray. Past Medical/Surgical History Medical Problems: (1) Anemia Status: Acute (2) Bilateral lower leg cellulitis Status: Acute (3) CHF (congestive heart failure) Status: Acute (4) Failure of outpatient treatment Status: Acute (5) GI bleed Status: Acute (6) Hypoxia Status: Acute (7) Respiratory distress Status: Acute Past Medical History: COPD, CHF, pulmonary HTN, DM II, HTN, chronic pancreatitis, depression, dyslipidemia, bronchitis, hypothyroidism, panic disorder, hx of UTI, R breast ca Past Surgical History: Lap bakari, hysterectomy, spinal surgery Family History FH: heart disease FATHER Social History Smoking Status: Former Smoker Alcohol Use: none, other Drug Use: none Marital Status: single Housing Status: halfway Occupation Status: retired Allergies Coded Allergies: Benzodiazepines (Unverified Adverse Reaction, Unknown, DELIRIUM, 12/01/16) Patient has history of abuse and addiction per family. 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 Current Medications Home Meds and Scripts Medications Dose Route/Sig Max Daily Dose Days Date Category Dose Instructions Lactulose 30 Gm/45 Ml Syrp 45 Ml PO BID PRN 11/28/16 Rx Senokot S (Sennosides-Docusate Sodium) 1 Tab Tab 2 Tab PO HS 30 11/28/16 Rx Prednisone 10 Mg Tab 40 Mg PO UD 11/28/16 Rx PREDNISONE 40MG PO DAILY X 2 DAYS THEN PREDNISONE 30MG PO DAILY X 2 DAYS THEN PREDNISONE 20MG PO DAILY X 2 DAYS THEN PREDNISONE 10MG PO DAILY X 2 DAYS THEN PREDNISONE 5MG PO DAILY HOME DOSE Cipro (Ciprofloxacin Hcl) 500 Mg Tab 500 Mg PO BID 7 11/28/16 Rx Lactinex (Lactobacillus Acidophilus) Tab 4 Tab PO TID 10 11/28/16 Rx Monodox (Doxycycline (Monohydrate)) 100 Mg Cap 100 Mg PO BID 7 11/28/16 Rx Ventolin Hfa (Albuterol) 60 Puffs/5400 Mcg Aers 2 Puffs INH Q4 PRN 11/24/16 Reported Duoneb (Ipratropium-Albuterol) 3 Ml Nebu 1 Treatment INH DAILY 11/24/16 Reported Dulcolax (Bisacodyl) 10 Mg Sup 1 Supp ND UD PRN 11/24/16 Reported Prune Juice (Prune) Unknown Strength Liqd Unknown Dose PO UD PRN 11/24/16 Reported Lasix (Furosemide) 40 Mg Tab 40 Mg PO DAILY 11/24/16 Reported Acetaminophen 325 Mg Tab 650 Mg PO Q6H PRN 11/24/16 Reported Novolog (Insulin Aspart) 100 Units/Ml Inj SQ UD 11/24/16 Reported Per sliding scale Seroquel (Quetiapine Fumarate) 50 Mg Tab 50 Mg PO HS 11/24/16 Reported Pulmicort (Budesonide (Inhalation)) 0.5 Mg/2 Ml Lynn 0.5 Mg NEB BID 11/24/16 Reported Brovana (Arformoterol Tartrate) 15 Mcg/2 Ml Neb 15 Mcg INH BID 11/24/16 Reported Synthroid (Levothyroxine Sodium) 112 Mcg Tab 112 Mcg PO DAILY 11/24/16 Reported Duoneb (Ipratropium-Albuterol) 3 Ml Nebu 1 Treatment INH Q6H PRN 11/24/16 Reported Aspirin 81 (Aspirin) 81 Mg Tab 81 Mg PO DAILY 11/24/16 Reported Prednisone 10 Mg Tab 5 Mg PO DAILY 10/10/15 Reported Oxygen Gas 4 Liters NA CONTINOUS 10/10/15 Reported Zofran (Ondansetron Hcl) 4 Mg Tab 4 Mg PO Q8 PRN 09/21/15 Reported Lipitor (Atorvastatin Calcium) 20 Mg Tab 20 Mg PO HS 09/21/15 Reported Lioresal (Baclofen) 10 Mg Tab 15 Mg PO QID PRN 09/21/15 Reported Toprol-Xl (Metoprolol Succinate) 100 Mg Tabcr 100 Mg PO DAILY 09/21/15 Reported Ultram (Tramadol HCl) 50 Mg Tab 50 Mg PO Q6H PRN 03/19/08 Reported Review of Systems Constitutional: No chills, No fever Respiratory: + shortness of breath, No cough Cardiac: + edema, No chest pain Abdomen: + GI bleeding, + nausea, + see HPI, No pain, No vomiting Skin: + see HPI (cellulitis on legs, + redness) Physical Exam Date Time Temp Pulse Resp B/P Pulse Ox O2 Delivery O2 Flow Rate FiO2 12/03/16 11:30 80 14 94 Nasal Cannula 5.0 12/03/16 08:07 36.4 95 20 95/50 97 Nasal Cannula 5.0 12/03/16 08:00 Nasal Cannula 4.0 12/03/16 07:48 87 14 94 Nasal Cannula 5.0 12/03/16 04:00 Nasal Cannula 4.0 12/03/16 03:10 36.8 98 16 105/63 98 Nasal Cannula 5.0 12/03/16 00:00 Nasal Cannula 4.0 12/02/16 23:10 36.6 93 20 81/53 95 Nasal Cannula 5.0 12/02/16 20:00 Nasal Cannula 4.0 12/02/16 19:14 36.8 94 18 107/66 94 Nasal Cannula 5.0 12/02/16 19:14 94 14 94 Nasal Cannula 5.0 12/02/16 16:00 94 Nasal Cannula 4.0 12/02/16 15:12 95 14 93 Nasal Cannula 5.0 12/02/16 14:48 37.1 96 19 118/71 92 Nasal Cannula 5.0 General Appearance: WD/WN, no apparent distress, + obese Eyes: normal inspection, PERRL, EOMI Neck: supple, no JVD, trachea midline Respiratory/Chest: no respiratory distress, no accessory muscle use, + decreased breath sounds Cardiovascular: regular rate, rhythm, no gallop, no murmur Abdomen: normal bowel sounds, non tender, soft Extremities: + swelling, + pertinent finding (bilateral LE w generalized edema. Mild erythema on bilateral lower legs, and up R thigh) Neurologic/Psych: alert, normal mood/affect, oriented x 3 Skin: normal color, no jaundice, no rash Laboratory Results Last 24 Hours Test 12/02/16 16:00 12/02/16 16:12 12/02/16 19:54 12/03/16 06:00 Potassium Level 3.8 mmol/L 3.6 mmol/L Bedside Glucose 223 mg/dl 192 mg/dl White Blood Count 8.82 K/uL Red Blood Count 3.73 M/uL Hemoglobin 9.4 g/dL Hematocrit 32.0 % Mean Corpuscular Volume 85.8 fL Mean Corpuscular Hemoglobin 25.2 pg Mean Corpuscular Hemoglobin Concent 29.4 g/dl Platelet Count 111 K/uL Mean Platelet Volume 9.6 fL Neutrophils (%) (Auto) 82.0 % Lymphocytes (%) (Auto) 9.1 % Monocytes (%) (Auto) 7.3 % Eosinophils (%) (Auto) 1.0 % Basophils (%) (Auto) 0.1 % Neutrophils # (Auto) 7.24 K/uL Lymphocytes # (Auto) 0.80 K/uL Monocytes # (Auto) 0.64 K/uL Eosinophils # (Auto) 0.09 K/uL Basophils # (Auto) 0.01 K/uL RDW Standard Deviation 57.0 fL RDW Coefficient of Variation 18.1 % Immature Granulocyte % (Auto) 0.5 % Immature Granulocyte # (Auto) 0.04 K/uL Sodium Level 143 mmol/L Chloride Level 103 mmol/L Carbon Dioxide Level 37 mmol/L Anion Gap 3.0 mmol/L Blood Urea Nitrogen 20 mg/dl Creatinine 1.00 mg/dl Est Creatinine Clear Calc Drug Dose 71.0 ml/min Estimated GFR () 65.2 Estimated GFR (Non- 56.2 BUN/Creatinine Ratio 20.0 Random Glucose 125 mg/dl Calcium Level 8.3 mg/dl Magnesium Level 2.5 mg/dl Test 12/03/16 07:12 12/03/16 11:24 Bedside Glucose 120 mg/dl 74 mg/dl Impression Patient is a 71 year old female currently admitted for LE cellulitis, CHF, seen for heme positive dark tarry stools. H/H at her baseline. She is c/o of nausea, and previously constipation when her Colace was stopped but now bowels are moving. She is refusing endoscopic evaluations. ? heme positive result related to hemorrhoid bleeding Plan - Monitor H/H, transfuse prn - Obtain KUB, if signs of still high stool load in colon, will add Miralax 17g daily on bowel regimen. If no signs of constipation, will consider gastric emptying study to r/o gastroparesis causing her nausea. - Continue Protonix 40mg BID. - Defer EGD/Colonoscopy per pt's request; and sign off as H/H stable, pt already being on PPI BID dosing and she is refusing endoscopies. Call if new questions or concerns arise. I performed a history and physical examination of the patient. I have discussed the patient's case, impression and plan with CHARLY Jackson. Her note reflects my findings and plan. Most c/w obscure low grade GI bleeding associated with co morbid disease. Patient does not want invasive GI testing. Julian Cerna MD
[2016-12-03] MEDS: TRAMADOL HCL 50 MG TAB PO PRN ×2 (13:05→20:07)
[2016-12-03] MEDS ORDERED: VANCOMYCIN TROUGH SCH (15:30)
--- NOTE | 2016-12-03 15:41 | Progress Note ---
Internal Med Progress Note Date of Service: Dec 03, 2016. Provider Documentation: SUBJECTIVE: says had good night sleep after several days and want to keep Seroquel 75mg q hs for now doesn't want to take probiotic requests to stop Senokot s and place on her previous high dose Colace erythema and swelling in legs improving afebrile denies any pain OBJECTIVE: Vital Signs-as noted below Exam: General-alert and awake and oriented ENT-normal hearing Neck-no neck masses Lungs-cta b/l no wheezing or crackles Heart-s1 and s2 heard regular rate and rhythm no murmurs Abdomen-soft bowel sounds present non tender no distension Extremities- b/l lower extremity erythema and edema-improving Neuro-alert and awake moves extremities Lab data as noted below. ASSESSMENT & PLAN: This is a 71-year-old female who presents with bilateral lower extremity cellulitis and CHF . 1. Bilateral lower extremity cellulitis. The patient responded to IV Zosyn and vancomycin recently and was discharged on doxy and Cipro, but cellulitis came back. Currently on iv vanco and zosyn #3 improving ID consulted and ok for current abcx while inpatient and to d/c on po Cipro and doxycycline 2. Acute on chronic right-sided heart failure from severe COPD. Started IV lasix 40mg bid lower extremity improving currently on iv lasix 40mg daily- which is held today for relative hypotension may need increased Lasix dose at discharge 3. History of chronic obstructive pulmonary disease. Not in exacerbation. Will continue his home inhalations and will place on DuoNebs q. 8 hours and p.r.n. and continue the prednisone taper. Stable. 4. History of hypertension on metoprolol. Will follow the blood pressure. 5. History of hypothyroidism. Continue Synthroid. 6. History of diabetes, insulin sliding scale.We will monitor the blood sugars. 7. Black stools hb stable from previous labs. will follow stool studies.Hemoccult positive. Hb stable. No obvious bleeding. Stopped aspirin and hep sub q. placed on iv Protonix bid. Consulted GI. Patient declined any procedures. Hb stable DVT prophylaxis scds . for now. Disposition: Monitor in tele. Expect to discharge home and follow up with the family doctor. Level 1 to tele floor. PT and OT prior to discharge. Social Service to help with discharge to [facility]. LEVEL 1 FULL CODE. Vital Signs: Date Time Temp Pulse Resp B/P Pulse Ox O2 Delivery O2 Flow Rate FiO2 12/03/16 19:11 87 14 93 Nasal Cannula 5.0 12/03/16 16:00 Nasal Cannula 4.0 12/03/16 15:58 95 12 94 Nasal Cannula 5.0 12/03/16 15:30 36.9 97 22 100/52 95 Nasal Cannula 5.0 12/03/16 12:00 Nasal Cannula 4.0 12/03/16 11:30 80 14 94 Nasal Cannula 5.0 12/03/16 11:10 36.4 88 20 100/71 97 Nasal Cannula 5.0 12/03/16 08:07 36.4 95 20 95/50 97 Nasal Cannula 5.0 12/03/16 08:00 Nasal Cannula 4.0 12/03/16 07:48 87 14 94 Nasal Cannula 5.0 12/03/16 04:00 Nasal Cannula 4.0 12/03/16 03:10 36.8 98 16 105/63 98 Nasal Cannula 5.0 12/03/16 00:00 Nasal Cannula 4.0 12/02/16 23:10 36.6 93 20 81/53 95 Nasal Cannula 5.0 12/02/16 20:00 Nasal Cannula 4.0 Lab Results: Results Past 24 Hours Test 12/02/16 19:54 12/03/16 06:00 12/03/16 07:12 12/03/16 11:24 Range/Units Bedside Glucose 192 120 74 70-90 mg/dl White Blood Count 8.82 4.8-10.8 K/uL Red Blood Count 3.73 4.2-5.4 M/uL Hemoglobin 9.4 12.0-16.0 g/dL Hematocrit 32.0 37-47 % Mean Corpuscular Volume 85.8 80-100 fL Mean Corpuscular Hemoglobin 25.2 25-34 pg Mean Corpuscular Hemoglobin Concent 29.4 32-36 g/dl Platelet Count 111 130-400 K/uL Mean Platelet Volume 9.6 7.4-10.4 fL Neutrophils (%) (Auto) 82.0 % Lymphocytes (%) (Auto) 9.1 % Monocytes (%) (Auto) 7.3 % Eosinophils (%) (Auto) 1.0 % Basophils (%) (Auto) 0.1 % Neutrophils # (Auto) 7.24 1.4-6.5 K/uL Lymphocytes # (Auto) 0.80 1.2-3.4 K/uL Monocytes # (Auto) 0.64 0.11-0.59 K/uL Eosinophils # (Auto) 0.09 0-0.5 K/uL Basophils # (Auto) 0.01 0-0.2 K/uL RDW Standard Deviation 57.0 36.4-46.3 fL RDW Coefficient of Variation 18.1 11.5-14.5 % Immature Granulocyte % (Auto) 0.5 % Immature Granulocyte # (Auto) 0.04 0.00-0.02 K/uL Sodium Level 143 136-145 mmol/L Potassium Level 3.6 3.5-5.1 mmol/L Chloride Level 103 98-107 mmol/L Carbon Dioxide Level 37 21-32 mmol/L Anion Gap 3.0 3-11 mmol/L Blood Urea Nitrogen 20 7-18 mg/dl Creatinine 1.00 0.60-1.20 mg/dl Est Creatinine Clear Calc Drug Dose 71.0 ml/min Estimated GFR () 65.2 Estimated GFR (Non- 56.2 BUN/Creatinine Ratio 20.0 10-20 Random Glucose 125 70-99 mg/dl Calcium Level 8.3 8.5-10.1 mg/dl Magnesium Level 2.5 1.8-2.4 mg/dl Test 12/03/16 15:25 12/03/16 16:16 Range/Units Vancomycin Level Trough 19.6 SEE COMMENT mcg/ml Bedside Glucose 204 70-90 mg/dl
[2016-12-03] MEDS: VANCOMYCIN INJ 1,400 MG in SODIUM CHLORIDE 0.9% 500ML 500 ML IV SCH (16:30)
[2016-12-03] MEDS: ATORVASTATIN 20 MG TAB PO SCH (20:10)
[2016-12-03] MEDS: QUETIAPINE FUMARATE 25 MG TAB PO SCH (20:12)
[2016-12-03] MEDS ORDERED: QUETIAPINE FUMARATE 25 MG TAB PO SCH (21:00)
[2016-12-04] VITALS (10 sets, daily range): BP systolic 94–119; BP diastolic 47–80; PULSE 82–104; TEMP 36.5–36.9; O2SAT 92–97
[2016-12-04] MEDS: RISPERIDONE 0.5 MG TAB PO PRN ×2 (00:34→14:09)
[2016-12-04] MEDS: PIPERACILL/TAZOBAC IV 4.5 GM in DEXTROSE 5% 100ML 100 ML IV SCH ×3 (04:13→20:00)
[2016-12-04] MEDS: LEVOTHYROXINE 112 MCG TAB PO SCH (05:24)
[2016-12-04 06:28] LABS: BASO % 0.1 %; BASO ABS # 0.01 K/uL (0-0.2); COMPLETE YES; HEMATOCRIT 34.4 % (37-47); IG% 0.3 %; LYMPH % 10.7 %; LYMPH ABS # 0.94 K/uL (1.2-3.4); MEAN CELL VOLUME 88.2 fL (80-100); MEAN CORPUSCULAR HEMOGLOBIN 25.6 pg (25-34); MEAN CORPUSCULAR HGB CONC 29.1 g/dl (32-36); MEAN PLATELET VOLUME 10.8 fL (7.4-10.4); MONO % 6.2 %; NEUT % 81.7 %; PLATELET COUNT 126 K/uL (130-400); WHITE BLOOD COUNT 8.77 K/uL (4.8-10.8)
[2016-12-04] MEDS: ARFORMOTEROL TART 15MCG/2ML VIAL INH SCH ×2 (06:31→20:02)
[2016-12-04] MEDS: BUDESONIDE 0.5 MG/2 ML VIAL (PULMICORT) INH SCH ×2 (06:31→20:02)
[2016-12-04] MEDS: ALBUT/IPRATROP 3MG/0.5MG NEB 3 ML VIAL INH SCH ×4 (06:31→20:00)
[2016-12-04 07:00] LABS: BUN/CREATININE RATIO 24.7 (10-20); CALCIUM 8.7 mg/dl (8.5-10.1); MAGNESIUM 2.6 mg/dl (1.8-2.4); POTASSIUM 3.8 mmol/L (3.5-5.1)
--- NOTE | 2016-12-04 08:51 | Pharmacy Progress Note ---
Pharmacy Antibiotic Prog Note Date of Service Dec 04, 2016. Subjective The patient is currently receiving Vancomycin 1400 mg IV every 18 hours and Zosyn 4.5gm IV q8 hours EI. The patient is currently on day # 4 of antibiotic IV therapy for treatment of LE cellulitis. Objective Height (Feet): 5 Height (Inches): 10.00 Weight (Kilograms): 117.200 Levels: Item Value Date Time Vancomycin Level Trough 19.6 mcg/ml 12/03/16 1525 Lab Results (24hrs): Laboratory Tests Test 12/04/16 05:57 BUN/Creatinine Ratio 24.7 Blood Urea Nitrogen 25 mg/dl Creatinine 1.00 mg/dl White Blood Count 8.77 K/uL Red Blood Count 3.90 M/uL Hemoglobin 10.0 g/dL Hematocrit 34.4 % Mean Corpuscular Volume 88.2 fL Mean Corpuscular Hemoglobin 25.6 pg Mean Corpuscular Hemoglobin Concent 29.1 g/dl Platelet Count 126 K/uL Mean Platelet Volume 10.8 fL Neutrophils (%) (Auto) 81.7 % Lymphocytes (%) (Auto) 10.7 % Monocytes (%) (Auto) 6.2 % Eosinophils (%) (Auto) 1.0 % Basophils (%) (Auto) 0.1 % Neutrophils # (Auto) 7.16 K/uL Lymphocytes # (Auto) 0.94 K/uL Monocytes # (Auto) 0.54 K/uL Eosinophils # (Auto) 0.09 K/uL Basophils # (Auto) 0.01 K/uL Micro Results: Item Value Date Time C.difficile Toxin B Gene (PCR) - Final Complete 12/02/16 0327 Stool No C. difficile toxin B gene detected Urine Culture - Final Complete 12/01/16 1456 Urine,Catheterized NO GROWTH - LESS THAN 1,000 COLONIES/ML Blood Culture - Preliminary Resulted 12/01/16 0815 Blood NO GROWTH TO DATE. Urine Culture - Final Complete 12/01/16 0806 Urine,Catheterized NO GROWTH - LESS THAN 1,000 COLONIES/ML Blood Culture - Preliminary Resulted 12/01/16 0731 Blood NO GROWTH TO DATE. Assessment & Plan Vancomycin * Trough level yesterday afternoon was 19.6 mcg/ml. Pt is at risk for drug accumulation d/t body habitus (BMI = 39.2 kg/m2). * Since trough level is on higher end of goal range (15-20 mcg/ml) will extend dosing interval slightly. * Begin Vancomycin 1400 mg IV q20 hours. * Repeat trough level on 12/06 prior to the 0400 dose. Zosyn * Continue Zosyn 4.5gm IV q8 hours EI for BMI > 35 kg/m2 and Crcl > 20 ml/min. Pharmacy will continue to follow and will adjust dose/frequency as necessary. Thank you
[2016-12-04] MEDS: METOPROLOL SUCC 50MG EXT REL TAB PO SCH ×2 (09:00→10:00)
--- NOTE | 2016-12-04 09:44 | Progress Note ---
Internal Med Progress Note Date of Service: Dec 04, 2016. Provider Documentation: SUBJECTIVE: Patient is feeling better. SOB is back to her baseline. Still feels fluid in abdomen, upper thighs. No worsening of cough, sputum production, fever, chills, abdominal pain, nausea. BM + dark colored. Chronic hoarseness of voice due to vocal cord dysfunction On 5 L oxygen OBJECTIVE: Vital Signs-as noted below Exam: General-AAOX3, no distress Lungs-AE bilaterally decreased, no wheezing, rhonchi Heart-S1, S2 normal, no murmurs Abdomen-Soft, distension upper abdomen, edema +, Non tender, BS present Extremities- B/L Lower extremities (thigh right > left) edema, erythema- improved, almost resolved Neuro-Grossly no focal deficits, wheel chair bound Skin- Multiple ecchymotic areas + Lab data as noted below. ASSESSMENT & PLAN: ASSESSMENT & PLAN : This is a 71-year-old female who presents with bilateral lower extremity cellulitis and CHF BILATERAL LOWER EXTREMITY CELLULITIS-Right > Left Patient was treated with IV Vanc/Zosyn and discharged on Cipro/Doxy recently, came back with recurrent cellulitis -On IV Vancomycin/Zosyn (Day 4) -Per ID- continue with IV antibiotics till in hospital and than transition to oral- PO Cipro/doxy x 7 additional days on discharge. ACUTE ON CHRONIC RIGHT SIDED HEART FAILURE (preserved EF) WITH HX OF SEVERE COPD : -Diuresing well- around 6 L since admission, still has some fluid in lower extremity, Abdomen -IV Lasix 40 mg BID--> Changed to IV 40 mg daily which was held yesterday due to relative hypotension -Will need increased lasix dose on discharge BLACK STOOLS WITH FOBT +VE: -No overt GI bleeding noted. -GI was consulted- as patient's HB stable, no GI overt bleeding, patient refusing invasive GI testing, signed off. -Hb stable -Continue with PPI BID- Change to PO from IV -Hold Heparin SQ, Continue with aspirin while monitoring H & H -KUB- Constipation SEVERE COPD WITHOUT EXACERBATION -Continue with home inhalers, Duonebs q 8 hours and prn -Continue with prednisone taper CHRONIC HYPOXIC RESPIRATORY FAILURE -Home: 4-5 L at rest 5-6 L on ambulation -At baseline HYPERTENSION -On metoprolol. IV lasix -Lasix was held yesterday due to relative hypotension. -Monitor closely HYPOTHYROIDISM -Continue with synthroid CONSTIPATION -Resolved -On colace BID, miralex, lactulose prn DM- -ISS, accucheckes DVT prophylaxis- SCDS Heparin SQ held due to black stools DISPOSITION: PT/OT SS on board Plan is for [facility] in 1-2 days FULL CODE Vital Signs: Date Time Temp Pulse Resp B/P Pulse Ox O2 Delivery O2 Flow Rate FiO2 12/04/16 15:47 91 16 93 Nasal Cannula 4.0 12/04/16 15:18 36.8 94 20 100/63 94 Nasal Cannula 4.0 12/04/16 12:23 92 18 94/47 97 Nasal Cannula 4.0 12/04/16 12:00 94 16 97 Nasal Cannula 4.0 12/04/16 07:53 36.8 95 18 119/68 97 12/04/16 06:31 86 14 94 Nasal Cannula 5.0 12/04/16 04:00 95 Nasal Cannula 5.0 12/04/16 03:10 36.5 82 16 106/62 95 Nasal Cannula 5.0 12/03/16 23:59 95 Nasal Cannula 5.0 12/03/16 23:20 36.7 95 18 102/57 95 Nasal Cannula 5.0 12/03/16 20:00 91 Nasal Cannula 5.0 12/03/16 19:27 36.7 90 24 100/60 91 Nasal Cannula 5.0 12/03/16 19:11 87 14 93 Nasal Cannula 5.0 12/03/16 16:00 Nasal Cannula 4.0 Lab Results: Results Past 24 Hours Test 12/03/16 16:16 12/03/16 20:31 12/04/16 05:57 12/04/16 06:26 Range/Units Bedside Glucose 204 150 97 70-90 mg/dl White Blood Count 8.77 4.8-10.8 K/uL Red Blood Count 3.90 4.2-5.4 M/uL Hemoglobin 10.0 12.0-16.0 g/dL Hematocrit 34.4 37-47 % Mean Corpuscular Volume 88.2 80-100 fL Mean Corpuscular Hemoglobin 25.6 25-34 pg Mean Corpuscular Hemoglobin Concent 29.1 32-36 g/dl Platelet Count 126 130-400 K/uL Mean Platelet Volume 10.8 7.4-10.4 fL Neutrophils (%) (Auto) 81.7 % Lymphocytes (%) (Auto) 10.7 % Monocytes (%) (Auto) 6.2 % Eosinophils (%) (Auto) 1.0 % Basophils (%) (Auto) 0.1 % Neutrophils # (Auto) 7.16 1.4-6.5 K/uL Lymphocytes # (Auto) 0.94 1.2-3.4 K/uL Monocytes # (Auto) 0.54 0.11-0.59 K/uL Eosinophils # (Auto) 0.09 0-0.5 K/uL Basophils # (Auto) 0.01 0-0.2 K/uL RDW Standard Deviation 58.8 36.4-46.3 fL RDW Coefficient of Variation 18.0 11.5-14.5 % Immature Granulocyte % (Auto) 0.3 % Immature Granulocyte # (Auto) 0.03 0.00-0.02 K/uL Sodium Level 143 136-145 mmol/L Potassium Level 3.8 3.5-5.1 mmol/L Chloride Level 104 98-107 mmol/L Carbon Dioxide Level 32 21-32 mmol/L Anion Gap 7.0 3-11 mmol/L Blood Urea Nitrogen 25 7-18 mg/dl Creatinine 1.00 0.60-1.20 mg/dl Est Creatinine Clear Calc Drug Dose 70.6 ml/min Estimated GFR () 65.2 Estimated GFR (Non- 56.2 BUN/Creatinine Ratio 24.7 10-20 Random Glucose 107 70-99 mg/dl Calcium Level 8.7 8.5-10.1 mg/dl Magnesium Level 2.6 1.8-2.4 mg/dl Test 12/04/16 11:35 12/04/16 15:44 Range/Units Bedside Glucose 115 188 70-90 mg/dl
[2016-12-04] MEDS: INSULIN ASPART 100 UNITS/ML 3 ML PEN SC SCH ×4 (09:51→20:35)
[2016-12-04] MEDS: FUROSEMIDE INJ 40 MG in SYRINGE 0 ML IV SCH (09:52)
[2016-12-04] MEDS: DOCUSATE SODIUM 100 MG CAP PO SCH ×2 (09:55→20:24)
[2016-12-04] MEDS: POLYETHYLENE (MIRALAX) 17 GM PACK PO SCH (09:57)
[2016-12-04] MEDS: BACLOFEN 10 MG TAB PO SCH ×4 (09:57→20:25)
[2016-12-04] MEDS: NYSTATIN SUSP 500,000 U/5 ML UDC PO SCH ×4 (09:58→20:26)
[2016-12-04] MEDS: VANCOMYCIN INJ 1,400 MG in SODIUM CHLORIDE 0.9% 500ML 500 ML IV SCH (12:00)
[2016-12-04] MEDS: ATORVASTATIN 20 MG TAB PO SCH (20:26)
[2016-12-04] MEDS: PANTOprazole SOD 40 MG TAB PO SCH (20:27)
[2016-12-04] MEDS: QUETIAPINE FUMARATE 25 MG TAB PO SCH (20:27)
[2016-12-05] VITALS (9 sets, daily range): BP systolic 105–123; BP diastolic 59–71; PULSE 80–103; TEMP 36.4–36.9; O2SAT 90–99
[2016-12-05] MEDS: TRAMADOL HCL 50 MG TAB PO PRN ×2 (03:54→12:15)
[2016-12-05] MEDS: ALBUT/IPRATROP 3MG/0.5MG NEB 3 ML VIAL INH SCH ×4 (04:14→15:12)
[2016-12-05] MEDS: PIPERACILL/TAZOBAC IV 4.5 GM in DEXTROSE 5% 100ML 100 ML IV SCH ×2 (04:17→12:00)
[2016-12-05] MEDS: LEVOTHYROXINE 112 MCG TAB PO SCH (05:47)
[2016-12-05 06:46] LABS: HEMATOCRIT 35.2 % (37-47); MEAN CELL VOLUME 90.3 fL (80-100); MEAN CORPUSCULAR HEMOGLOBIN 25.4 pg (25-34); MEAN CORPUSCULAR HGB CONC 28.1 g/dl (32-36); MEAN PLATELET VOLUME 10.4 fL (7.4-10.4); PLATELET COUNT 122 K/uL (130-400); WHITE BLOOD COUNT 7.18 K/uL (4.8-10.8)
[2016-12-05 07:00] LABS: BUN/CREATININE RATIO 21.8 (10-20); CALCIUM 8.8 mg/dl (8.5-10.1); CREATININE 1.2 mg/dl (0.60-1.20); POTASSIUM 3.7 mmol/L (3.5-5.1)
[2016-12-05] MEDS: BUDESONIDE 0.5 MG/2 ML VIAL (PULMICORT) INH SCH (07:15)
[2016-12-05] MEDS: ARFORMOTEROL TART 15MCG/2ML VIAL INH SCH (07:15)
[2016-12-05] MEDS: FUROSEMIDE INJ 40 MG in SYRINGE 0 ML IV SCH (08:03)
[2016-12-05] MEDS: METOPROLOL SUCC 50MG EXT REL TAB PO SCH (08:04)
[2016-12-05] MEDS: DOCUSATE SODIUM 100 MG CAP PO SCH (08:04)
[2016-12-05] MEDS: POLYETHYLENE (MIRALAX) 17 GM PACK PO SCH (08:05)
[2016-12-05] MEDS: PANTOprazole SOD 40 MG TAB PO SCH (08:05)
[2016-12-05] MEDS: BACLOFEN 10 MG TAB PO SCH ×2 (08:05→12:23)
[2016-12-05] MEDS: NYSTATIN SUSP 500,000 U/5 ML UDC PO SCH ×2 (08:05→12:23)
[2016-12-05] MEDS: INSULIN ASPART 100 UNITS/ML 3 ML PEN SC SCH ×2 (08:23→12:20)
[2016-12-05] MEDS: VANCOMYCIN INJ 1,400 MG in SODIUM CHLORIDE 0.9% 500ML 500 ML IV SCH (08:26)
--- NOTE | 2016-12-05 11:37 | Progress Note ---
Internal Med Progress Note Date of Service: Dec 05, 2016. Provider Documentation: SUBJECTIVE: Patient is feeling better. SOB is back to her baseline. Eager to be discharged. Still feels fluid in abdomen, upper thighs., but improved significantly No worsening of cough, sputum production, fever, chills, abdominal pain, nausea. BM + dark colored. Chronic hoarseness of voice due to vocal cord dysfunction On 5 L oxygen as at baseline OBJECTIVE: Vital Signs-as noted below Exam: General-AAOX3, no distress Lungs-AE bilaterally decreased, no wheezing, rhonchi Heart-S1, S2 normal, no murmurs Abdomen-Soft, distension upper abdomen, edema +, Non tender, BS present Extremities- B/L Lower extremities (thigh right > left) edema, erythema- improved, almost resolved Neuro-Grossly no focal deficits, wheel chair bound Skin- Multiple ecchymotic areas + Lab data as noted below. ASSESSMENT & PLAN: ASSESSMENT & PLAN : This is a 71-year-old female who presents with bilateral lower extremity cellulitis and CHF BILATERAL LOWER EXTREMITY CELLULITIS-Right > Left--> Resolved Patient was treated with IV Vanc/Zosyn and discharged on Cipro/Doxy recently, came back with recurrent cellulitis -On IV Vancomycin/Zosyn (Day 4) -Per ID- continue with IV antibiotics till in hospital and than transition to oral- PO Cipro/doxy x 7 additional days on discharge. PLAN: Will change IV Vancomycin/Zosyn to PO Ciprofloxacin/Doxycycline x 7 more days per ID ACUTE ON CHRONIC RIGHT SIDED HEART FAILURE (preserved EF) WITH HX OF SEVERE COPD : -Diuresing well- around 6 L since admission, still has some fluid in lower extremity, Abdomen -IV Lasix 40 mg BID--> Changed to IV 40 mg daily --> Lasix 60 mg PO ( increased from 40 mg daily ) on discharge -Insisting to keep her foleys catheter on discharge due to lasix. Explained her risks of UTI, Sepsis, even , but still adamant about keeping foleys. Would strongly encourage removal of catheter outpatient. Routine catheter care BLACK STOOLS WITH FOBT +VE: -No overt GI bleeding noted. -GI was consulted- as patient's HB stable, no GI overt bleeding, patient refusing invasive GI testing, signed off. -Hb stable -Continue with PPI BID - Changed to PO from IV -Hold Heparin SQ, Continue with aspirin while monitoring H & H -stable -KUB- Constipation SEVERE COPD WITHOUT EXACERBATION -Continue with home inhalers, Duonebs q 8 hours and prn -Continue with prednisone taper CHRONIC HYPOXIC RESPIRATORY FAILURE -Home: 4-5 L at rest 5-6 L on ambulation -At baseline HYPERTENSION -On metoprolol. Lasix -Monitor closely HYPOTHYROIDISM -Continue with synthroid CONSTIPATION -Resolved -On colace BID, miralex, lactulose prn DM- -ISS, accucheckes DVT prophylaxis- SCDS Heparin SQ held due to black stools DISPOSITION: PT/OT SS on board Eager to be discharged Plan is for [facility] today FULL CODE Vital Signs: Date Time Temp Pulse Resp B/P Pulse Ox O2 Delivery O2 Flow Rate FiO2 12/05/16 08:23 36.6 103 20 105/59 90 12/05/16 07:15 91 16 99 Nasal Cannula 5.0 12/05/16 04:15 94 16 94 Nasal Cannula 5.0 12/05/16 04:00 Nasal Cannula 5.0 12/05/16 03:35 36.4 89 14 117/67 97 Nasal Cannula 5.0 12/05/16 00:17 36.9 98 24 123/71 92 Nasal Cannula 5.0 12/05/16 00:01 Nasal Cannula 5.0 12/04/16 20:11 36.9 104 27 118/80 92 Nasal Cannula 4.0 12/04/16 20:05 95 16 95 Nasal Cannula 4.0 12/04/16 20:00 Nasal Cannula 5.0 12/04/16 16:00 Nasal Cannula 4.0 12/04/16 15:47 91 16 93 Nasal Cannula 4.0 12/04/16 15:18 36.8 94 20 100/63 94 Nasal Cannula 4.0 12/04/16 12:23 92 18 94/47 97 Nasal Cannula 4.0 12/04/16 12:00 Nasal Cannula 4.0 12/04/16 12:00 94 16 97 Nasal Cannula 4.0 Lab Results: Results Past 24 Hours Test 12/04/16 11:35 12/04/16 15:44 12/04/16 19:50 12/05/16 05:31 Range/Units Bedside Glucose 115 188 184 70-90 mg/dl White Blood Count 7.18 4.8-10.8 K/uL Red Blood Count 3.90 4.2-5.4 M/uL Hemoglobin 9.9 12.0-16.0 g/dL Hematocrit 35.2 37-47 % Mean Corpuscular Volume 90.3 80-100 fL Mean Corpuscular Hemoglobin 25.4 25-34 pg Mean Corpuscular Hemoglobin Concent 28.1 32-36 g/dl RDW Standard Deviation 59.9 36.4-46.3 fL RDW Coefficient of Variation 18.1 11.5-14.5 % Platelet Count 122 130-400 K/uL Mean Platelet Volume 10.4 7.4-10.4 fL Sodium Level 144 136-145 mmol/L Potassium Level 3.7 3.5-5.1 mmol/L Chloride Level 104 98-107 mmol/L Carbon Dioxide Level 35 21-32 mmol/L Anion Gap 5.0 3-11 mmol/L Blood Urea Nitrogen 26 7-18 mg/dl Creatinine 1.20 0.60-1.20 mg/dl Est Creatinine Clear Calc Drug Dose 58.9 ml/min Estimated GFR () 52.3 Estimated GFR (Non- 45.1 BUN/Creatinine Ratio 21.8 10-20 Random Glucose 123 70-99 mg/dl Calcium Level 8.8 8.5-10.1 mg/dl Test 12/05/16 06:51 12/05/16 11:15 Range/Units Bedside Glucose 117 154 70-90 mg/dl
[2016-12-05] MEDS ORDERED: TRAM-10 PO (11:40)
[2016-12-05] MEDS ORDERED: PRD20 PO (11:40)
[2016-12-05] MEDS ORDERED: FURO40TA3 PO (11:40)
--- NOTE | 2016-12-05 11:43 | Discharge Instructions ---
Discharge Instructions Date of Service Dec 05, 2016. Admission Reason for Admission: Bilateral Lower Leg Cellulitis, Chf Discharge Discharge Diagnosis / Problem: 1. Bilateral lower leg cellulitis 2. Acute on chronic CHF (right sided) Discharge Goals Goal(s): Increase independence, Improve disease control, Therapeutic intervention, Prevent Disease Progression Activity Recommendations Activity Limitations: resume your previous activity ( TOLERATED PRIOR TO ADMISSION; pt/ot RECOMMENDED) . Instructions / Follow-Up Instructions / Follow-Up MEDICATION CHANGES: 1. Lasix dose increased to 60 mg daily from 40 m g daily 2. Ciprofloxacin/Doxycycline x 7 more days for cellulitis 3. New medication: Protonix 40 mg PO BID x 1 month and than consider changing it to daily MONITOR Routine care- Foleys catheter Strongly encourage to discontinue in future as kept in due to patient's request FOLLOW UP 1. Follow up with PCP in 7 days Current Hospital Diet Patient's current hospital diet: AHA Diet (Heart Healthy), Diabetes Type 2 Diet Discharge Diet Recommended Diet: AHA Diet (Heart Healthy), Low Sodium Diet (2gm Na), Diabetes Type 2 Diet Pending Studies Studies pending at discharge: no Laboratory Results Hemoglobin A1c Test 11/25/16 04:30 Range/Units Estimated Average Glucose 111 mg/dl Hemoglobin A1c 5.5 4.5-5.6 % Medical Emergencies . Who to Call and When: Medical Emergencies: If at any time you feel your situation is an emergency, please call 911 immediately. . Non-Emergent Contact Non-Emergency issues call your: Primary Care Provider . . "Provider Documentation" section prepared by Li Prasad. . VTE Core Measure Inpt VTE Proph given/why not?: Unfractionated heparin SQ
--- NOTE | 2016-12-05 11:46 | Discharge Summary ---
Discharge Summary Date of Service Dec 05, 2016. Discharge Summary Admission Date: Dec 01, 2016 at 10:38 Discharge Date: Dec 05, 2016 Discharge Disposition: [facility] facility ([facility] Principal Diagnosis: 1. Bilateral lower extremity cellulitis (Right > Left) 2. Acute on chronic CHF (Right sided heart failure with preserved EF) Secondary Diagnoses/Problems: 1. Severe COPD without exacerbation/Chronic hypoxic respiratory failure 2. HTN 3. Hypothyroidism 4. DM-2 5. Obesity Procedures: Tele monitoring IV antibiotics IV lasix CXR KUB PT/OT Consultations: ID Pending Studies/Follow-Up: Instructions / Follow-Up Instructions / Follow-Up MEDICATION CHANGES: 1. Lasix dose increased to 60 mg daily from 40 m g daily 2. Ciprofloxacin/Doxycycline x 7 more days for cellulitis 3. New medication: Protonix 40 mg PO BID x 1 month and than consider changing it to daily MONITOR Routine care- Foleys catheter Strongly encourage to discontinue in future as kept in due to patient's request FOLLOW UP 1. Follow up with PCP in 7 days Medication Reconciliation New Medications: Prednisone (Prednisone) 20 Mg Tab 20 MG PO UD, #10 TAB Take 20 mg daily x 2 days followed by 10 mg daily x 3 days followed by 5 mg daily as prior to admission Changed Medications: Furosemide (Lasix) 40 Mg Tab 60 MG PO DAILY for 30 Days, #45 TAB (Changed from: 40 MG) Continued Medications: Acetaminophen (Acetaminophen) 325 Mg Tab 650 MG PO Q6H PRN for Pain Albuterol (Ventolin Hfa) 60 Puffs/5400 Mcg Aers 2 PUFFS INH Q4 PRN for Shortness of Breath Arformoterol Tartrate (Brovana) 15 Mcg/2 Ml Neb 15 MCG INH BID, INHALER Aspirin (Aspirin 81) 81 Mg Tab 81 MG PO DAILY Atorvastatin (Lipitor) 20 Mg Tab 20 MG PO HS, TAB Baclofen (Lioresal) 10 Mg Tab 15 MG PO QID PRN for Muscle Spasms, TAB Bisacodyl (Dulcolax) 10 Mg Sup 1 SUPP VA UD PRN for Constipation, SUP Budesonide (Inhalation) (Pulmicort) 0.5 Mg/2 Ml Lynn 0.5 MG NEB BID Ciprofloxacin Hcl (Cipro) 500 Mg Tab 500 MG PO BID for 7 Days, #14 TAB Doxycycline (Monohydrate) (Monodox) 100 Mg Cap 100 MG PO BID for 7 Days, #14 CAP Insulin Aspart (Novolog) 100 Units/Ml Inj SQ UD Per sliding scale Ipratropium-Albuterol (Duoneb) 3 Ml Nebu 1 TREATMENT INH Q6H PRN for SOB/Wheezing, INHA Lactobacillus Acidophilus (Lactinex) Tab 4 TAB PO TID for 10 Days, TAB Lactulose (Lactulose) 30 Gm/45 Ml Syrp 45 ML PO BID PRN for Constipation, #30 2 Refills Levothyroxine Sodium (Synthroid) 112 Mcg Tab 112 MCG PO DAILY, TAB Metoprolol Succ (Toprol Xl) (Toprol-Xl ) 100 Mg Tabcr 100 MG PO DAILY, TAB Ondansetron Hcl (Zofran) 4 Mg Tab 4 MG PO Q8 PRN for Nausea, TAB Oxygen (Oxygen) Gas 4 LITERS NA CONTINOUS Prednisone (Prednisone) 10 Mg Tab 40 MG PO UD, #30 TAB 1 Refill PREDNISONE 40MG PO DAILY X 2 DAYS THEN PREDNISONE 30MG PO DAILY X 2 DAYS THEN PREDNISONE 20MG PO DAILY X 2 DAYS THEN PREDNISONE 10MG PO DAILY X 2 DAYS THEN PREDNISONE 5MG PO DAILY HOME DOSE Prune Juice (Prune Juice ) Unknown Strength Liqd Unknown Dose PO UD PRN for Constipation Quetiapine Fumarate (Seroquel) 50 Mg Tab 50 MG PO HS, TAB Sennosides-Docusate Sodium (Senokot S) 1 Tab Tab 2 TAB PO HS for 30 Days, TAB 2 Refills Tramadol (Ultram) 50 Mg Tab 50 MG PO Q6H PRN for Pain for 10 Days, #40 TAB 0 Refills (This prescription has been renewed) Discontinued Medications: Ipratropium-Albuterol (Duoneb) 3 Ml Nebu 1 TREATMENT INH DAILY, INHA Prednisone Tab (Prednisone) 10 Mg Tab 5 MG PO DAILY, TAB Admission Information HPI (per Admitting provider): HISTORY OF PRESENT ILLNESS: This is a 71-year-old female with past medical history significant for COPD on chronic oxygen, right ventricular dysfunction due to COPD, pulmonary hypertension, diabetes type 2, hypertension, chronic pancreatitis, depression, dyslipidemia, hypertension, history of bronchitis, hypothyroidism, panic disorder without agoraphobia, history of urinary tract infections, was recently in the hospital for CHF and lower extremity cellulitis extending up to the abdomen, was treated with IV antibiotics. Cultures did not grow anything. She responded to IV antibiotics and also CHF improved with IV Lasix. She was doing okay. She wanted to get discharged and [facility], but the patient says lower extremity swelling got worse and erythema got worse. She says she also not getting good care at [facility] [place] and she is not getting the treatments she should be getting and [facility] so she came to the ER. Currently lower extremity looks more erythematous and swollen than at the time of discharge a couple of days ago. Denies any fever, chills, no shortness of breath, no chest pain, no headaches, no blurred vision, no nausea, no vomiting. Also complains of black tarry stools, but no abdominal pain. Hospital Course ASSESSMENT & PLAN : This is a 71-year-old female who presents with bilateral lower extremity cellulitis and CHF BILATERAL LOWER EXTREMITY CELLULITIS-Right > Left--> Resolved Patient was treated with IV Vanc/Zosyn and discharged on Cipro/Doxy recently, came back with recurrent cellulitis -On IV Vancomycin/Zosyn (Day 4) -Per ID- continue with IV antibiotics till in hospital and than transition to oral- PO Cipro/doxy x 7 additional days on discharge. PLAN: Will change IV Vancomycin/Zosyn to PO Ciprofloxacin/Doxycycline x 7 more days per ID ACUTE ON CHRONIC RIGHT SIDED HEART FAILURE (preserved EF) WITH HX OF SEVERE COPD : -Diuresing well- around 6 L since admission, still has some fluid in lower extremity, Abdomen -IV Lasix 40 mg BID--> Changed to IV 40 mg daily --> Lasix 60 mg PO ( increased from 40 mg daily ) on discharge -Insisting to keep her foleys catheter on discharge due to lasix. Explained her risks of UTI, Sepsis, even , but still adamant about keeping foleys. Would strongly encourage removal of catheter outpatient. Routine catheter care BLACK STOOLS WITH FOBT +VE: -No overt GI bleeding noted. -GI was consulted- as patient's HB stable, no GI overt bleeding, patient refusing invasive GI testing, signed off. -Hb stable -Continue with PPI BID - Changed to PO from IV -Hold Heparin SQ, Continue with aspirin while monitoring H & H -stable -KUB- Constipation SEVERE COPD WITHOUT EXACERBATION -Continue with home inhalers, Duonebs q 8 hours and prn -Continue with prednisone taper CHRONIC HYPOXIC RESPIRATORY FAILURE -Home: 4-5 L at rest 5-6 L on ambulation -At baseline HYPERTENSION -On metoprolol. Lasix -Monitor closely HYPOTHYROIDISM -Continue with synthroid CONSTIPATION -Resolved -On colace BID, miralex, lactulose prn DM-2 -ISS, accucheckes DVT prophylaxis- SCDS Heparin SQ held due to black stools DISPOSITION: PT/OT SS on board Eager to be discharged Plan is for [facility] today FULL CODE Total time spent on discharge = 35 minutes This includes examination of the patient, discharge planning, medication reconciliation, and communication with other providers. Discharge Instructions Discharge Diagnosis / Problem: 1. Bilateral lower leg cellulitis 2. Acute on chronic CHF (right sided) Discharge Goals Goal(s): Increase independence, Improve disease control, Therapeutic intervention, Prevent Disease Progression Activity Recommendations Activity Limitations: resume your previous activity ( TOLERATED PRIOR TO ADMISSION; pt/ot RECOMMENDED) . Instructions / Follow-Up Instructions / Follow-Up MEDICATION CHANGES: 1. Lasix dose increased to 60 mg daily from 40 m g daily 2. Ciprofloxacin/Doxycycline x 7 more days for cellulitis MONITOR Routine care- Foleys catheter Strongly encourage to discontinue in future as kept in due to patient's request FOLLOW UP 1. Follow up with PCP in 7 days Current Hospital Diet Patient's current hospital diet: AHA Diet (Heart Healthy), Diabetes Type 2 Diet Discharge Diet Recommended Diet: AHA Diet (Heart Healthy), Low Sodium Diet (2gm Na), Diabetes Type 2 Diet Pending Studies Studies pending at discharge: no Laboratory Results Hemoglobin A1c Test 11/25/16 04:30 Range/Units Estimated Average Glucose 111 mg/dl Hemoglobin A1c 5.5 4.5-5.6 % Medical Emergencies . Who to Call and When: Medical Emergencies: If at any time you feel your situation is an emergency, please call 911 immediately. . Non-Emergent Contact Non-Emergency issues call your: Primary Care Provider . . "Provider Documentation" section prepared by Li Prasad. . VTE Core Measure Inpt VTE Proph given/why not?: Unfractionated heparin SQ
[2016-12-05] MEDS ORDERED: PANT40TA PO (11:48)
[2016-12-06] MEDS ORDERED: VANCOMYCIN TROUGH ONE (03:30)
[2016-12-22] MEDS ORDERED: TPRSR50 PO (11:43)
[2016-12-22] MEDS ORDERED: DMD20 PO (11:43)
[2016-12-22] MEDS ORDERED: [UNRECOGNIZED DRUG - CODE] PO (11:43)
[2016-12-22] MEDS ORDERED: RISP0.5T4 PO (11:43)
== END 2016-12-05 16:00 | DRG 602 ==
LOC: ENRESERVDT → ENRESERVTM → CANRESERV → EDBD 07:18 → C.EDA 07:19 → C.2E 10:38
PROVIDERS: ADMIT Internal Medicine; ATTEND Internal Medicine
DX: L03.115 Cellulitis of right lower limb (principal); I50.43 Acute on chronic combined systolic (congestive) and diastolic (congestive) heart failure; J44.0 Chronic obstructive pulmonary disease with (acute) lower respiratory infection; J96.11 Chronic respiratory failure with hypoxia; K86.1 Other chronic pancreatitis; L03.116 Cellulitis of left lower limb; I11.0 Hypertensive heart disease with heart failure; E03.9 Hypothyroidism, unspecified; E11.9 Type 2 diabetes mellitus without complications; Z99.81 Dependence on supplemental oxygen; I27.2 Other secondary pulmonary hypertension; F32.9 Major depressive disorder, single episode, unspecified; E78.5 Hyperlipidemia, unspecified; Z87.891 Personal history of nicotine dependence; Z85.3 Personal history of malignant neoplasm of breast; E66.9 Obesity, unspecified; Z68.37 Body mass index [BMI] 37.0-37.9, adult

== ENCOUNTER 2016-12-13 08:52 | Inpatient (IN) | payer OTHER ==
[~2016-12-13] VITALS: Ht 177.8 cm; Wt 118.2 kg
[~2016-12-13 08:52] MED LIST changes: -DOXY100C41 PO; -LCTX PO; +PANT40TA PO; +PRD20 PO
[2016-12-13] MEDS ORDERED: LCTX PO (09:19)
--- NOTE | 2016-12-13 09:57 | EMERGENCY ROOM VISIT NOTE ---
History Report prepared by Tavares: Debbi Richard Under the Supervision of: Dr. Susan Foss M.D. First contact with patient: 09:00 Chief Complaint: SHORTNESS OF BREATH Stated Complaint: DIFFICULT BREATHING/ FR [facility] Nursing Triage Summary: Pt presents to ED room b04b via ALS from [facility]. pt reports shortness of breath since yesterday and also nausea and vomitting. pt displays + 2 pitting edema to bilat lower extremities. pt reports "i was just here for the same thing." pt has hx of copd and wears [address] [facility]. ems report that staff at [facility] found pt oxygen saturation today to be at 84%. ems reports they attempted to have mask on pt but pt would rip it off and no tolearte it. pt yelling out upon arrival to room b04b. "help me i have pain!." pt reports pain to neck and back. History of Present Illness The patient is a 71 year old female who presents to the Emergency Room with complaints of persistent SOB starting yesterday. She came to the ED by ALS from [facility]. She has SOB right now and her O2 sat is 92% on 5 L currently. She normally wears 4 L of oxygen at home. She has sleep apnea. She is not on CPAP because she does not want it. Source of History: patient Onset: yesterday Position: other (respiratory) Quality: other (SOB) Timing: other (persistent) Review of Systems See HPI for pertinent positives & negatives. A total of 10 systems reviewed and were otherwise negative. Past Medical & Surgical Medical Problems: (1) Atherosclerosis of abdominal aorta (2) Bilateral lower leg cellulitis (3) CHF (congestive heart failure) (4) Cholelith W Cholecys Nec (5) Chronic bronchitis (6) Chronic obstructive lung disease (7) Chronic pancreatitis (8) COPD exacerbation (9) Depressive Disorder Nec (10) Dyslipidemia (11) Essential hypertension (12) History of bronchiolitis (13) Hypothyroidism (14) Osteoporosis (15) Panic Disorder Without Agoraphobia (16) Pulmonary hypertension (17) Right ventricular dysfunction (18) Scoliosis deformity of spine (19) Urin Tract Infection Nos Surgical Problems: (1) Carcinoma in situ of breast (2) s p cholecystectomy (3) S/P hysterectomy (4) S/P spinal surgery Family History FH: heart disease FATHER Social History Smoking Status: Former Smoker Alcohol Use: none, other Drug Use: none Marital Status: single Housing Status: long-term Occupation Status: retired Current/Historical Medications Scheduled Arformoterol Tartrate (Brovana), 15 MCG INH BID Aspirin (Aspirin 81), 81 MG PO DAILY Atorvastatin (Lipitor), 20 MG PO HS Budesonide (Inhalation) (Pulmicort), 0.5 MG NEB BID Furosemide (Lasix), 60 MG PO DAILY Insulin Aspart (Novolog), SQ UD Lactobacillus Acidophilus (Lactinex), 4 TABS PO TID Levothyroxine Sodium (Synthroid), 112 MCG PO DAILY Metoprolol Succ (Toprol Xl) (Toprol-Xl ), 100 MG PO DAILY Oxygen (Oxygen), 4 LITERS NA CONTINOUS Pantoprazole (Protonix), 40 MG PO BID Prednisone (Prednisone), 40 MG PO UD Quetiapine Fumarate (Seroquel), 50 MG PO HS Sennosides-Docusate Sodium (Senokot S), 2 TAB PO HS Scheduled PRN Albuterol (Ventolin Hfa), 2 PUFFS INH Q4 PRN for Shortness of Breath Baclofen (Lioresal), 15 MG PO QID PRN for Muscle Spasms Ipratropium-Albuterol (Duoneb), 1 TREATMENT INH Q6H PRN for SOB/Wheezing Ondansetron Hcl (Zofran), 4 MG PO Q8 PRN for Nausea Tramadol (Ultram), 50 MG PO Q6H PRN for Pain Allergies Coded Allergies: Benzodiazepines (Unverified Adverse Reaction, Intermediate, DELIRIUM, 12/13) Patient has history of abuse and addiction per family. 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 Physical Exam Vital Signs Date Time Temp Pulse Resp B/P Pulse Ox O2 Delivery O2 Flow Rate FiO2 12/13/16 10:26 87 22 102/60 94 Nasal Cannula 4.0 12/13/16 09:37 79 22 95/55 90 Nasal Cannula 6.0 12/13/16 09:17 94 12/13/16 09:10 91 Nasal Cannula 6.0 12/13/16 09:07 82 Nasal Cannula 4.0 12/13/16 09:07 82 Nasal Cannula 4.0 12/13/16 09:01 36.8 86 32 97/53 82 Nasal Cannula 4.0 12/13/16 09:01 84 Nasal Cannula 4.0 Physical Exam Vital signs reviewed. General: Chronically ill-appearing, edentulous, in no significant distress. HEENT: No scleral icterus, PERRLA, neck supple. Atraumatic. Cardiovascular: Regular rate and rhythm. Systolic ejection murmur. Pulmonary: Crackles at bases bilaterally, increased work of breathing. Hypoxic on home O2 4 L. Abdomen: Soft, nontender, nondistended, positive bowel sounds. Musculoskeletal: Atraumatic, no peripheral edema. Neurologic: Patient is somnolent but arousable, oriented x 3, full strength in all 4 extremities. Cranial nerves 2 through 12 grossly intact. Skin: Warm, dry. Mild erythema to bilateral lower extremities, appears to be improved from previous. Medical Decision & Procedures ER Provider Diagnostic Interpretation: X-ray results as stated below per interpretation by me and the radiologist: CHEST ONE VIEW PORTABLE CLINICAL HISTORY: SOB, hypoxia COMPARISON STUDY: Chest radiograph December 01, 2016. FINDINGS: Spinal hardware is partially imaged. No pneumothorax is present. There are small bilateral pleural effusions with bibasilar opacities. Interstitial thickening has slightly progressed and suggest pulmonary edema. Moderate to marked enlargement of the cardiac silhouette is unchanged. IMPRESSION: Progression of pulmonary edema, small bilateral pleural effusions and bibasilar opacities which statistically reflect atelectasis. Electronically signed by: Derik Barraza M.D. 12/13/2016 10:19 AM Dictated Date/Time: 12/13/2016 10:17 AM Laboratory Results Test 12/13/16 09:05 12/13/16 09:42 Immature Granulocyte % (Auto) 0.3 % White Blood Count 13.66 K/uL (4.8-10.8) Red Blood Count 4.09 M/uL (4.2-5.4) Hemoglobin 10.4 g/dL (12.0-16.0) Hematocrit 36.1 % (37-47) Mean Corpuscular Volume 88.3 fL (80-100) Mean Corpuscular Hemoglobin 25.4 pg (25-34) Mean Corpuscular Hemoglobin Concent 28.8 g/dl (32-36) Platelet Count 142 K/uL (130-400) Mean Platelet Volume 10.7 fL (7.4-10.4) Neutrophils (%) (Auto) 82.4 % Lymphocytes (%) (Auto) 6.5 % Monocytes (%) (Auto) 10.4 % Eosinophils (%) (Auto) 0.3 % Basophils (%) (Auto) 0.1 % Neutrophils # (Auto) 11.25 K/uL (1.4-6.5) Lymphocytes # (Auto) 0.89 K/uL (1.2-3.4) Monocytes # (Auto) 1.42 K/uL (0.11-0.59) Eosinophils # (Auto) 0.04 K/uL (0-0.5) Basophils # (Auto) 0.02 K/uL (0-0.2) Immature Granulocyte # (Auto) 0.04 K/uL (0.00-0.02) Magnesium Level 2.2 mg/dl (1.8-2.4) Total Bilirubin 0.6 mg/dl (0.2-1) Direct Bilirubin 0.2 mg/dl (0-0.2) Aspartate Amino Transf (AST/SGOT) 22 U/L (15-37) Alanine Aminotransferase (ALT/SGPT) 42 U/L (12-78) Alkaline Phosphatase 71 U/L (45-117) Total Creatine Kinase 24 U/L (26-192) Creatine Kinase MB 1.4 ng/ml (0.5-3.6) Creatine Kinase MB Ratio 5.8 (0-3.0) Total Protein 6.2 gm/dl (6.4-8.2) Albumin 3.2 gm/dl (3.4-5.0) Bedside Troponin I 0.030 ng/ml (0-0.045) Laboratory results per my review. Medications Administered Medications (Trade) Dose Ordered Sig/Romaine Route Start Time Stop Time Status Last Admin Dose Admin Furosemide (Lasix Inj) 40 mg NOW STAT IV 12/13/16 10:57 12/13/16 10:58 DC 12/13/16 11:15 40 MG Baclofen (Lioresal Tab) 15 mg QID PRN PO 12/13/16 11:30 01/12/17 11:29 12/14/16 08:50 15 MG Tramadol HCl (Ultram Tab) 50 mg Q6H PRN PO 12/13/16 11:30 01/12/17 11:29 12/14/16 08:49 50 MG ECG Indication: SOB/dyspnea Rate (beats per minute): 91 Rhythm: sinus rhythm (marked sinus arrhythmia) Findings: T-wave inversion (Inferior), no ectopy, other (right axis deviation, poor quality baseline for interpretation) ED Course 0912: Past medical records reviewed. The patient was evaluated in room B4B. A complete history and physical examination was performed. 0934: Her O2 sat was 83% on 5 L. Her oxygen has been increased. 1057: Furosemide 40 mg IV. 1103: I reviewed the patient's [facility] will [facility] the patient for further management. 1107: Upon reevaluation, the patient is resting comfortably. I discussed laboratory and radiographic results with her. She verbalized agreement of the treatment plan. I spoke with Dr. Prasad of the [facility]. The patient will be evaluated for further management and care. Medical Decision Differential diagnosis: Etiologies such as infections, reactive airway disease, pneumonia, pneumothorax , COPD, CHF, cardiac ischemia, pulmonary embolism, musculoskeletal, gastrointestinal, as well as others were entertained. This patient was evaluated and appeared to be in no significant distress. Patient is hypoxic on her home oxygen. She is somewhat somnolent. Chest x-ray is consistent with a congestive heart failure. Laboratory work reveals an elevated BNP over 10,000. Patient's troponin is normal. EKG reveals T-wave inversions but otherwise a sinus rhythm. Patient was given 40 mL of IV Lasix. [facility] Patient was evaluated in the emergency department for further management. Consults Time Called: 105 Consulting Physician: Dr. Prasad [facility] Returned Call: [phone] I reviewed the patient's case with her. She will evaluate the patient for further management. Impression Primary Impression: Hypoxia Additional Impression: CHF (congestive heart failure) Scribe Attestation The scribe's documentation has been prepared under my direction and personally reviewed by me in its entirety. I confirm that the note above accurately reflects all work, treatment, procedures, and medical decision making performed by me. Departure Information Dispostion Being Evaluated By Hospitalist Referrals John Boucher (PCP) Patient Instructions My [facility] Problem Qualifiers
[2016-12-13 10:05] LABS: BUN/CREATININE RATIO 26.9 (10-20); CALCIUM 9.4 mg/dl (8.5-10.1); CREATININE 1.7 mg/dl (0.60-1.20); MAGNESIUM 2.2 mg/dl (1.8-2.4)
[2016-12-13 10:06] LABS: HEMATOCRIT 36.1 % (37-47); MEAN CELL VOLUME 88.3 fL (80-100); MEAN CORPUSCULAR HEMOGLOBIN 25.4 pg (25-34); MEAN CORPUSCULAR HGB CONC 28.8 g/dl (32-36); MEAN PLATELET VOLUME 10.7 fL (7.4-10.4); PLATELET COUNT 142 K/uL (130-400); RED BLOOD COUNT 4.09 M/uL (4.2-5.4); WHITE BLOOD COUNT 13.66 K/uL (4.8-10.8)
[2016-12-13 10:07] LABS: BASO % 0.1 %; BASO ABS # 0.02 K/uL (0-0.2); COMPLETE YES; EOS % 0.3 %; IG% 0.3 %; LYMPH % 6.5 %; LYMPH ABS # 0.89 K/uL (1.2-3.4); MONO % 10.4 %; NEUT % 82.4 %
[2016-12-13 10:10] LABS: CKMB/CK RATIO 5.8 (0-3.0)
--- NOTE | 2016-12-13 10:20 | DIAGNOSTIC IMAGING REPORT ---
CHEST ONE VIEW PORTABLE CLINICAL HISTORY: SOB, hypoxia COMPARISON STUDY: Chest radiograph December 01, 2016. FINDINGS: Spinal hardware is partially imaged. No pneumothorax is present. There are small bilateral pleural effusions with bibasilar opacities. Interstitial thickening has slightly progressed and suggest pulmonary edema. Moderate to marked enlargement of the cardiac silhouette is unchanged. IMPRESSION: Progression of pulmonary edema, small bilateral pleural effusions and bibasilar opacities which statistically reflect atelectasis. Electronically signed by: Derik Barraza M.D. 12/13/2016 10:19 AM Dictated Date/Time: 12/13/2016 10:17 AM
[2016-12-13] MEDS ORDERED: FUROSEMIDE 40 MG/4 ML VIAL IV STA (10:57)
--- NOTE | 2016-12-13 11:28 | History and Physical ---
History & Physical Date & Time of Service: Dec 13, 2016 at 11:27 Chief Complaint: Difficult Breathing/ Fr Sander Primary Care Physician: John Boucher History of Present Illness Source: hospital records, other (EMR) HISTORY OF PRESENT ILLNESS: This is a 71-year-old Female with PMH significant for COPD on chronic oxygen, right ventricular dysfunction due to COPD, pulmonary hypertension, diabetes type 2, hypertension, chronic pancreatitis, depression, dyslipidemia, hypertension, history of bronchitis, hypothyroidism, panic disorder without agoraphobia, history of urinary tract infections, was recently in the hospital (12/04/16) for CHF and lower extremity cellulitis extending up to the abdomen, was treated with IV antibiotics, IV lasix and discharged to [facility] side on increased dose of lasix 60 mg History obtained from EMR, ER physician, Hospital records, as patient is very drowsy and keeps saying that she is sleepy. Unable to give a good history and details. Per records, patient comes back to ED with c/o SOB worsening from baseline since yesterday after noon. Requiring 6 L oxygen (at home on 4 L). CXR- worsening of pulmonary edema, BNP 10k doubled compared to last one 5k, Creatinine is up to 1.70 from 0.88. Received a dose of IV lasix 40 mg in ED. We will admit her for CHF exacerbation, CLIFF on CKD for further evaluation and mx Past Medical/Surgical History Medical Problems: (1) Atherosclerosis of abdominal aorta Status: Chronic (2) Cholelith W Cholecys Nec Status: Resolved (3) Chronic bronchitis Status: Chronic (4) Chronic obstructive lung disease Status: Chronic (5) Chronic pancreatitis Status: Resolved (6) Depressive Disorder Nec Status: Chronic (7) Dyslipidemia Status: Chronic (8) Essential hypertension Status: Chronic (9) History of bronchiolitis Status: Chronic (10) Hypothyroidism Status: Chronic (11) Osteoporosis Status: Chronic (12) Panic Disorder Without Agoraphobia Status: Chronic (13) Pulmonary hypertension Status: Chronic (14) Right ventricular dysfunction Status: Chronic (15) Scoliosis deformity of spine Status: Chronic (16) Urin Tract Infection Nos Status: Resolved Surgical Problems: (1) Carcinoma in situ of breast Permanent Comment: 2002 right breast Status: Resolved (2) s p cholecystectomy Permanent Comment: [address] [facility] [address] Mendiola Status: Resolved (3) S/P hysterectomy Permanent Comment: 1994 Status: Resolved (4) S/P spinal surgery Permanent Comment: 1998 [facility] [place] jesse stabilization for scoliosis Status: Resolved Family History FH: heart disease FATHER Social History Smoking Status: Former Smoker Drug Use: none Marital Status: single Housing status: other Occupational Status: retired Immunizations History of Influenza Vaccine: N/A Influenza Vaccine Date: Mar 21, 2011 History of Tetanus Vaccine?: Unknown Tetanus Immunization Date: Apr 09, 2003 History of Pneumococcal: Yes Pneumococcal Date: Mar 10, 2010 History of Hepatitis B Vaccine: Unknown Hepatitis Immunization Date: Mar 19, 1998 Multi-Drug Resistant Organisms History of MDRO: Yes Allergies Coded Allergies: Benzodiazepines (Unverified Adverse Reaction, Unknown, DELIRIUM, 12/13/16) Patient has history of abuse and addiction per family. Opium (Unverified Adverse Reaction, Unknown, DELIRIUM, 12/13/16) Patient has a history of abuse and addiction to opiates, Per family . Home Medications Scheduled Arformoterol Tartrate (Brovana), 15 MCG INH BID Aspirin (Aspirin 81), 81 MG PO DAILY Atorvastatin (Lipitor), 20 MG PO HS Budesonide (Inhalation) (Pulmicort), 0.5 MG NEB BID Furosemide (Lasix), 60 MG PO DAILY Insulin Aspart (Novolog), SQ UD Lactobacillus Acidophilus (Lactinex), 4 TABS PO TID Levothyroxine Sodium (Synthroid), 112 MCG PO DAILY Metoprolol Succ (Toprol Xl) (Toprol-Xl ), 100 MG PO DAILY Oxygen (Oxygen), 4 LITERS NA CONTINOUS Pantoprazole (Protonix), 40 MG PO BID Prednisone (Prednisone), 40 MG PO UD Quetiapine Fumarate (Seroquel), 50 MG PO HS Sennosides-Docusate Sodium (Senokot S), 2 TAB PO HS Scheduled PRN Albuterol (Ventolin Hfa), 2 PUFFS INH Q4 PRN for Shortness of Breath Baclofen (Lioresal), 15 MG PO QID PRN for Muscle Spasms Ipratropium-Albuterol (Duoneb), 1 TREATMENT INH Q6H PRN for SOB/Wheezing Ondansetron Hcl (Zofran), 4 MG PO Q8 PRN for Nausea Tramadol (Ultram), 50 MG PO Q6H PRN for Pain Review of Systems Limited ROS as patient is drowsy and not able to get much history Constitutional: No fever, No weight loss Eyes: No discharge, No redness Respiratory: + cough, + shortness of breath, No hemoptysis Cardiovascular: + edema, No chest pain Abdomen: No diarrhea, No nausea, No pain, No vomiting Genitourinary - Female: No dysuria, No urinary frequency Neurologic: No memory loss, No paralysis Endocrine: + fatigue Hematologic / Lymphatic: No abnormal bleeding/bruising Integumentary: No rash Physical Exam Vital Signs Date Time Temp Pulse Resp B/P Pulse Ox O2 Delivery O2 Flow Rate FiO2 12/13/16 10:26 87 22 102/60 94 Nasal Cannula 4.0 12/13/16 09:37 79 22 95/55 90 Nasal Cannula 6.0 12/13/16 09:17 94 12/13/16 09:10 91 Nasal Cannula 6.0 12/13/16 09:07 82 Nasal Cannula 4.0 12/13/16 09:07 82 Nasal Cannula 4.0 12/13/16 09:01 36.8 86 32 97/53 82 Nasal Cannula 4.0 12/13/16 09:01 84 Nasal Cannula 4.0 General Appearance: + pertinent finding (Drowsy/Sleepy) Head: normocephalic, atraumatic Eyes: PERRL ENT: hearing grossly normal Neck: supple Respiratory/Chest: chest non-tender, no respiratory distress, no accessory muscle use, + decreased breath sounds, + crackles Cardiovascular: regular rate, rhythm, no murmur, + pertinent finding (b/l edema -thighs + ) Abdomen/GI: non tender, soft, + distended, + pertinent finding (distended +) Extremities/Musculoskelatal: + pedal edema (bilateral extending upto abdomen) Neurologic/Psych: + pertinent finding (drowsy + Limited exam as not cooperative ) Skin: normal color Diagnostics Laboratory Results Results Past 24 Hours Test 12/13/16 09:05 12/13/16 09:42 Range/Units White Blood Count 13.66 4.8-10.8 K/uL Red Blood Count 4.09 4.2-5.4 M/uL Hemoglobin 10.4 12.0-16.0 g/dL Hematocrit 36.1 37-47 % Mean Corpuscular Volume 88.3 80-100 fL Mean Corpuscular Hemoglobin 25.4 25-34 pg Mean Corpuscular Hemoglobin Concent 28.8 32-36 g/dl Platelet Count 142 130-400 K/uL Mean Platelet Volume 10.7 7.4-10.4 fL Neutrophils (%) (Auto) 82.4 % Lymphocytes (%) (Auto) 6.5 % Monocytes (%) (Auto) 10.4 % Eosinophils (%) (Auto) 0.3 % Basophils (%) (Auto) 0.1 % Neutrophils # (Auto) 11.25 1.4-6.5 K/uL Lymphocytes # (Auto) 0.89 1.2-3.4 K/uL Monocytes # (Auto) 1.42 0.11-0.59 K/uL Eosinophils # (Auto) 0.04 0-0.5 K/uL Basophils # (Auto) 0.02 0-0.2 K/uL RDW Standard Deviation 57.8 36.4-46.3 fL RDW Coefficient of Variation 17.9 11.5-14.5 % Immature Granulocyte % (Auto) 0.3 % Immature Granulocyte # (Auto) 0.04 0.00-0.02 K/uL Sodium Level 138 136-145 mmol/L Potassium Level 5.0 3.5-5.1 mmol/L Chloride Level 100 98-107 mmol/L Carbon Dioxide Level 35 21-32 mmol/L Anion Gap 3.0 3-11 mmol/L Blood Urea Nitrogen 46 7-18 mg/dl Creatinine 1.70 0.60-1.20 mg/dl Est Creatinine Clear Calc Drug Dose 42.4 ml/min Estimated GFR () 34.3 Estimated GFR (Non- 29.6 BUN/Creatinine Ratio 26.9 10-20 Random Glucose 148 70-99 mg/dl Calcium Level 9.4 8.5-10.1 mg/dl Magnesium Level 2.2 1.8-2.4 mg/dl Total Bilirubin 0.6 0.2-1 mg/dl Direct Bilirubin 0.2 0-0.2 mg/dl Aspartate Amino Transf (AST/SGOT) 22 15-37 U/L Alanine Aminotransferase (ALT/SGPT) 42 12-78 U/L Alkaline Phosphatase 71 45-117 U/L Total Creatine Kinase 24 26-192 U/L Creatine Kinase MB 1.4 0.5-3.6 ng/ml Creatine Kinase MB Ratio 5.8 0-3.0 Pro-B-Type Natriuretic Peptide 21299 0-900 pg/ml Total Protein 6.2 6.4-8.2 gm/dl Albumin 3.2 3.4-5.0 gm/dl Bedside Troponin I 0.030 0-0.045 ng/ml Diagnostic Radiology CXR reviewed- Pulmonary congestion EKG-sinus arrhythmia with no new changes Impression Assessment and Plan ASSESSMENT & PLAN : This is a 71-year-old female who was recently discharged 12/05/16 (For bilateral LE Cellulitis/CHF exacerbatin) re admitted for CHF exacerbation. ACUTE ON CHRONIC RIGHT SIDED HEART FAILURE (preserved EF) WITH HX OF SEVERE COPD /OBESITY Patient did diurese well during last admission > 6 Litres on IV lasix. Lasix was increased from 40 mg to 60 mg daily on discharge. Comes back with SOB, worse since yesterday afternoon, BNP 10k (doubled from last one), abdominal distension/pedal edema till thighs, CXR- worsening pulmonary congestion, On 6 L oxygen (at home 4 L) -IV lasix 40 mg BID (BP borderline low - so need to monitor closely) -Babin catheter insertion - I/O , Daily weight , Fluid restriction -EKG- no acute changes compared to prior EKG, Troponin x 3, Echo- 11/25/16- EF 65- 70%, Gd I diastolic dysfunction, RV- mod-severe RV dilation, [id number]-gikso dilation, severe TR, Rt ventricular pressure > 60 CLIFF ON CKD-III -Baseline 0.8-1--> 1,70 today -Cardiorenal ? -Lasix ordered -Monitor ACUTE ON CHRONIC HYPOXIC RESPIRATORY FAILURE -Home: 4-5 L at rest 5-6 L on ambulation -Currently on 6 L at rest -Likely secondary to above LETHARGIC Reviewed medication list- didnt receive any sedatives in ED -Does wake up but unable to do a detailed conversation, drowsy in between conversations -Will check ABGs -Has refused to use CPAP outpatient RECENT HX OF BILATERAL LOWER EXTREMITY CELLULITIS-Right > Left--> Resolved Patient was treated with IV Vanc/Zosyn and discharged on Cipro/Doxy recently, came back with recurrent cellulitis last admission. Was again rxed with IV Vanco /zosyn till in hospital and than changed to PO cipro/Doxy x 7 more days per ID ( Completed course of antibiotics) -No issues this time HX OF BLACK STOOLS WITH FOBT +VE: -No overt GI bleeding noted. -GI was consulted last admission as patient's HB stable, no GI overt bleeding, patient refusing invasive GI testing, signed off. -Hb stable -Continue with Protonix BID started last admission -Continue with ASA, but will avoid Heparin SQ for DVT prophylaxis SEVERE COPD WITHOUT EXACERBATION -Continue with home inhalers, Duonebs q 8 hours and PRN -Continue with prednisone taper from last admission- 20 mg daily x 1 day followed by 10 mg daily x 3 days and than 5 mg daily as prior to home dose HYPERTENSION -On metoprolol. Lasix -Monitor closely HYPOTHYROIDISM -Continue with synthroid CONSTIPATION -Resolved -On colace BID, miralex, lactulose PRN DM-2 -ISS, accucheckes DVT prophylaxis- SCDS No heparin due to FOBT +ve anemia during last admission DISPOSITION: PT/OT SS on board Plan is for hearthside once discharged from here FULL CODE per prior records Level of Care Telemetry Resuscitation Status FULL RESUSCITATION VTE Prophylaxis Risk Level: High Given or contraindicated: Unfractionated heparin SQ Social Service Consult Lives in Snf
[2016-12-13] MEDS ORDERED: ALBUT/IPRATROP 3MG/0.5MG NEB 3 ML VIAL INH PRN (11:30)
[2016-12-13] MEDS ORDERED: ALBUTEROL HFA 8 GM INHALER INH PRN (11:30)
[2016-12-13] MEDS ORDERED: DEXTROSE 50% 50 ML SYR IV PRN (11:45)
[2016-12-13] MEDS ORDERED: ACETAMINOPHEN 325 MG TAB PO PRN (11:45)
[2016-12-13] MEDS ORDERED: GLUCOSE 10 TABS/TUBE PO PRN (11:45)
[2016-12-13] MEDS ORDERED: NITROGLYCERIN 0.4 MG SL PER TAB CHARGE SL PRN (11:45)
[2016-12-13] MEDS ORDERED: MAGNESIUM HYDROXIDE SUSP 30 ML UDC PO PRN (11:45)
[2016-12-13] MEDS ORDERED: GLUCOSE 40% GEL 15 GM TUBE PO PRN (11:45)
[2016-12-13] MEDS ORDERED: GLUCAGON FOR INJ 1 MG VIAL SQ PRN (11:45)
[2016-12-13 13:11] LABS: ARTERIAL BLD GAS O2 SATURATION 94.5 % (90-95); ARTERIAL BLOOD GAS BASE EXCESS 3.9 mEq/L (-9-1.8); ARTERIAL BLOOD GAS HCO3 30 mmol/L (19-24); ARTERIAL BLOOD GAS PO2 81 mm/Hg (80-95); ARTERIAL BLOOD GAS pH 7.35 (7.35-7.45)
[2016-12-13 13:12] LABS: ALLEN TEST POS (POS); O2 ADMINISTRATION 4L
[2016-12-13 13:30] VITALS: BP 105/68; PULSE 85; TEMP 36.5; O2SAT 92; Ht 177.8 cm; Wt 118.2 kg
[2016-12-13] MEDS ORDERED: HEPARIN SOD 5000 UNIT/0.5 ML CARP SQ SCH (14:00)
[2016-12-13 16:00] VITALS: O2SAT 92
[2016-12-13] MEDS: LACTOBACILLUS ACIDOPHILUS (FLORANEX) TAB PO SCH ×2 (16:12→20:57)
[2016-12-13] MEDS: INSULIN ASPART 100 UNITS/ML 3 ML PEN SC SCH ×2 (16:15→20:52)
[2016-12-13 16:20] VITALS: BP 109/61; PULSE 87; TEMP 37; O2SAT 90
[2016-12-13] MEDS: FUROSEMIDE INJ 40 MG in SYRINGE 0 ML IV SCH (17:30)
[2016-12-13 19:41] VITALS: BP 110/60; PULSE 87; TEMP 36.5; O2SAT 93
[2016-12-13] MEDS: ARFORMOTEROL TART 15MCG/2ML VIAL INH SCH (19:48)
[2016-12-13] MEDS: BUDESONIDE 0.5 MG/2 ML VIAL (PULMICORT) INH SCH (19:48)
[2016-12-13] MEDS: ALBUT/IPRATROP 3MG/0.5MG NEB 3 ML VIAL INH SCH (19:48)
[2016-12-13 19:57] VITALS: PULSE 88; O2SAT 97
[2016-12-13] MEDS: DOCUSATE SODIUM/SENNA 50/8.6MG TAB PO SCH (20:57)
[2016-12-13] MEDS: QUETIAPINE FUMARATE 25 MG TAB PO SCH (20:57)
[2016-12-13] MEDS: PANTOprazole SOD 40 MG TAB PO SCH (20:57)
[2016-12-13] MEDS: ATORVASTATIN 20 MG TAB PO SCH (20:58)
[2016-12-13 23:49] VITALS: BP 98/64; PULSE 94; TEMP 36.5; O2SAT 91
[2016-12-14] VITALS (11 sets, daily range): BP systolic 97–119; BP diastolic 50–67; PULSE 79–96; TEMP 36.6–36.9; O2SAT 88–100
[2016-12-14] MEDS: LEVOTHYROXINE 112 MCG TAB PO SCH (05:27)
[2016-12-14 06:12] LABS: HEMATOCRIT 34.4 % (37-47); MEAN CELL VOLUME 87.8 fL (80-100); MEAN CORPUSCULAR HEMOGLOBIN 25.3 pg (25-34); MEAN CORPUSCULAR HGB CONC 28.8 g/dl (32-36); MEAN PLATELET VOLUME 10.4 fL (7.4-10.4); PLATELET COUNT 110 K/uL (130-400); RED BLOOD COUNT 3.92 M/uL (4.2-5.4); WHITE BLOOD COUNT 10.13 K/uL (4.8-10.8)
[2016-12-14 06:40] LABS: BUN/CREATININE RATIO 30.6 (10-20); CREATININE 1.7 mg/dl (0.60-1.20); POTASSIUM 4.4 mmol/L (3.5-5.1)
[2016-12-14] MEDS: INSULIN ASPART 100 UNITS/ML 3 ML PEN SC SCH ×4 (07:00→21:00)
--- NOTE | 2016-12-14 07:27 | DIAGNOSTIC IMAGING REPORT ---
SINGLE VIEW CHEST CLINICAL HISTORY: CHF exacerbation. FINDINGS: An AP, portable, upright chest radiograph is compared to study dated 12/13/2016. Correlation is made with chest CT dated 09/25/2007. The examination is significantly degraded by portable technique, large body habitus, and patient rotation. The heart is mildly enlarged. There is pulmonary vascular congestion with mild interstitial edema. There is atherosclerotic calcification of the thoracic aorta. There are layering pleural effusions with bibasilar consolidation. No pneumothorax is seen. The skeletal structures are osteopenic. The bony thorax is grossly intact. Spinal rods are in place. IMPRESSION: 1. Cardiomegaly with evidence of congestive failure and interstitial edema. This is similar to yesterday. 2. Layering pleural effusions with bibasilar consolidation. This likely represents atelectasis. Clinical correlation will be required. Electronically signed by: Juan Luis Jin M.D. 12/14/2016 7:26 AM Dictated Date/Time: 12/14/2016 7:24 AM
[2016-12-14] MEDS: ALBUT/IPRATROP 3MG/0.5MG NEB 3 ML VIAL INH SCH ×3 (07:38→15:49)
[2016-12-14] MEDS: ARFORMOTEROL TART 15MCG/2ML VIAL INH SCH (07:38)
[2016-12-14] MEDS: BUDESONIDE 0.5 MG/2 ML VIAL (PULMICORT) INH SCH (07:38)
[2016-12-14] MEDS: TRAMADOL HCL 50 MG TAB PO PRN (08:49)
[2016-12-14] MEDS: BACLOFEN 10 MG TAB PO PRN (08:50)
[2016-12-14] MEDS: ASPIRIN 81 MG ECTAB PO SCH (08:50)
[2016-12-14] MEDS: FUROSEMIDE INJ 40 MG in SYRINGE 0 ML IV SCH ×2 (08:51→17:29)
[2016-12-14] MEDS: METOPROLOL SUCC 50MG EXT REL TAB PO SCH (08:51)
[2016-12-14] MEDS: PANTOprazole SOD 40 MG TAB PO SCH ×2 (08:51→21:21)
[2016-12-14] MEDS: LACTOBACILLUS ACIDOPHILUS (FLORANEX) TAB PO SCH ×3 (08:51→21:20)
--- NOTE | 2016-12-14 09:27 | NEPHROLOGY CONSULTATION ---
DATE OF CONSULTATION: 12/14/2016 ATTENDING OF RECORD: Jossie Gong DO REASON FOR CONSULTATION: CLIFF. HISTORY OF PRESENT ILLNESS: This 71-year-old female with underlying COPD and pulmonary hypertension who was recently in the hospital several weeks ago for congestive heart failure and lower extremity cellulitis and presents with worsening shortness of breath and lethargy. BNP is elevated. Creatinines worsened up to 1.7. Currently, diuresing with IV Lasix. Has a Babin catheter in place and requiring a facemask to help with oxygenation. The patient is lethargic, but then is very arousable and answers questions appropriately. Appetite is better and states that she is hungry today. PAST MEDICAL HISTORY: Hyperlipidemia, hypertension, hypothyroidism, osteoporosis, pulmonary hypertension, COPD, chronic pancreatitis, and depression. 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 FAMILY HISTORY: Significant for heart disease. SOCIAL HISTORY: Former smoker. No drugs. No alcohol. Currently, residing in a alf. REVIEW OF SYSTEMS: The patient's appetite is better. Does not state that she is short of breath, although requiring a facemask. No chest pain. No nausea or vomiting. Has a Babin catheter in place. Positive fatigue. Limited review of systems. Unclear how much insight she has into her medical problems. All other review of systems otherwise negative. CURRENT MEDICATIONS: Aspirin 81 mg daily, Toprol-XL 100 mg daily, Synthroid 112 mcg daily, Lipitor 20 mg at night, Protonix 40 mg p.o. b.i.d., Seroquel 50 mg at night, senna 2 tabs at night, Lasix 40 mg IV b.i.d., and sliding scale insulin. PHYSICAL EXAMINATION: VITAL SIGNS: Temperature 36.9, pulse 90, respiratory rate 18, blood pressure 119/54, and satting 100% nasal cannula, was requiring 50% Venturi mask earlier this morning. GENERAL: Lethargic, but arousable. Knows her name and location and year. EYES: No scleral icterus. ENT: Moist mucous membranes. NECK: Supple. PULMONARY: Basilar rales. CARDIAC: Distant heart sounds. ABDOMEN: Bowel sounds positive, soft, and nontender. EXTREMITIES: Mild edema in lower extremities with some mild venous stasis changes. NEUROLOGIC: Sleepy, but arousable. DERMATOLOGIC: No ulcers noted. LABORATORY DATA: Sodium is 141, potassium is 4.4, chloride is 102, bicarb is 35, BUN is 52, creatinine is 1.7, glucose 106, and calcium is 9. ProBNP 10,000. CK is 24. Albumin is 3.2. Liver enzymes on admission were normal. Blood gases yesterday showed a pH of 7.35, pCO2 of 56, pO2 of 81, and bicarbonate of 30. White count 10, H\T\H 9.9 and 34.4, and platelet count is 110. IMAGING DATA: Chest x-ray shows cardiomegaly with evidence of congestive failure and interstitial edema with layering pleural effusions with bibasilar consolidation. IMPRESSION AND PLAN: Acute kidney injury, baseline creatinine under 1 and comes in with creatinine 1.7, which is unchanged during admission despite aggressive IV diuresis. Currently on Lasix 40 IV b.i.d. and would continue the current diuretics. The patient does have pleural effusions as well as right-sided heart failure and need to optimize lungs and likely has an element of cardiorenal syndrome as well. Does have a Babin catheter and I do not feel there is an obstruction. At this point, I would hold off on doing a renal ultrasound and continue the IV Lasix. Given the fact that the blood pressure is stable, I do not feel that there is a role for albumin with Lasix at this time. For now, continue the aggressive IV diuresis. The patient does have some lethargy and I would like to check an ammonia level to be thorough and I greatly appreciate primary hospitalist's help in the management of this complicated patient. JADIEL
--- NOTE | 2016-12-14 09:28 | Progress Note ---
Subjective Date of Service: Dec 14, 2016. Subjective Pt evaluation today including: conversation w/ patient, conversation w/ family (son, Ortiz), physical exam, chart review, lab review, review of studies, conversation w/ it consultant, review of inpatient medication list Saw/examined the patient in room 204; she has a mask on for oxygen; she states she's not short of breath Difficulty with keeping oxygen levels appropriate with dips into the upper 80s with any minimal effort Denies chest pain; improvement in lower extremity erythema and swelling Spoke with patient's son about her condition; explaining she is requiring more O2 than she does as an outpatient Problem List Medical Problems: (1) Anemia Status: Acute (2) Bilateral lower leg cellulitis Status: Acute (3) CHF (congestive heart failure) Status: Acute (4) Failure of outpatient treatment Status: Acute (5) GI bleed Status: Acute (6) Hypoxia Status: Acute (7) Hypoxia Status: Acute (8) Respiratory distress Status: Acute Review of Systems Constitutional: + fatigue, + weakness, No chills, No fever Respiratory: No cough, No dyspnea on exertion, No shortness of breath (denies shortness of breath), No sputum, No wheezing Cardiac: No chest pain, No palpitations Medications Current Inpatient Medications Medications (Trade) Dose Ordered Sig/Romaine Route Start Time Stop Time Status Last Admin Dose Admin Arformoterol Tartrate (Brovana 15MCG/ 2ML Neb Soln) 15 mcg BIDR INH 12/13/16 20:00 01/12/17 19:59 12/14/16 07:38 15 MCG Aspirin (Ecotrin Tab) 81 mg DAILY PO 12/14/16 09:00 01/13/17 08:59 Atorvastatin Calcium (Lipitor Tab) 20 mg HS PO 12/13/16 21:00 01/12/17 20:59 12/13/16 20:58 20 MG Baclofen (Lioresal Tab) 15 mg QID PRN PO 12/13/16 11:30 01/12/17 11:29 Budesonide (Pulmicort Respules 0.5MG/ 2ML Neb Soln) 0.5 mg BIDR INH 12/13/16 20:00 01/12/17 19:59 12/14/16 07:38 0.5 MG Lactobacillus Acidophilus (Floranex Tab) 4 tab TID PO 12/13/16 14:00 01/12/17 13:59 12/13/16 20:57 4 TAB Levothyroxine Sodium (Synthroid Tab) 112 mcg DAILYBB PO 12/14/16 06:00 01/13/17 05:59 12/14/16 05:27 112 MCG Metoprolol Succinate (Toprol Xl Tab) 100 mg DAILY PO 12/14/16 09:00 01/13/17 08:59 Pantoprazole Sodium (Protonix Tab) 40 mg BID PO 12/13/16 21:00 01/12/17 20:59 12/13/16 20:57 40 MG Quetiapine Fumarate (seroQUEL TAB) 50 mg HS PO 12/13/16 21:00 01/12/17 20:59 12/13/16 20:57 50 MG Senna/Docusate Sodium (Senokot S Tab) 2 tab HS PO 12/13/16 21:00 01/12/17 20:59 12/13/16 20:57 2 TAB Tramadol HCl (Ultram Tab) 50 mg Q6H PRN PO 12/13/16 11:30 01/12/17 11:29 Acetaminophen (Tylenol Tab) 650 mg Q4H PRN PO 12/13/16 11:45 01/12/17 11:44 Magnesium Hydroxide (Milk Of Magnesia Susp) 30 ml Q12H PRN PO 12/13/16 11:45 01/12/17 11:44 Ondansetron HCl (Zofran Inj) 4 mg Q6H PRN IV 12/13/16 11:45 01/12/17 11:44 Nitroglycerin (Nitrostat Tab) 0.4 mg UD PRN SL 12/13/16 11:45 01/12/17 11:44 Polyethylene (Miralax Powder Packet) 17 gm DAILY PRN PO 12/13/16 11:45 01/12/17 11:44 Insulin Aspart (novoLOG ASPART) SLIDING SCALE If C... ACHS SC 12/13/16 16:15 01/12/17 16:14 Glucose (Glucose 40% Gel) 15-30 GRAMS 15 GRAMS... UD PRN PO 12/13/16 11:45 01/12/17 11:44 Glucose (Glucose Chew Tab) 4-8 Tablets 4 Tabl... UD PRN PO 12/13/16 11:45 01/12/17 11:44 Dextrose (Dextrose 50% 50ML Syringe) 25-50ML OF 50% DW IV FOR... UD PRN IV 12/13/16 11:45 01/12/17 11:44 Glucagon 1 mg 1 mg UD PRN SQ 12/13/16 11:45 01/12/17 11:44 Furosemide/Syringe (Lasix Inj/ Syringe) 4 ml @ 4 mls/min BID17 IV 12/13/16 17:00 01/12/17 16:59 12/13/16 17:30 4 MLS/MIN Albuterol/ Ipratropium (Duoneb) 3 ml QIDR INH 12/13/16 20:00 01/12/17 19:59 Objective Vital Signs Date Time Temp Pulse Resp B/P Pulse Ox O2 Delivery O2 Flow Rate FiO2 12/14/16 07:38 86 22 92 Venturi Mask 50 12/14/16 04:45 36.6 79 22 101/67 91 15.0 50 12/14/16 04:00 Venturi Mask 15.0 50 12/14/16 00:01 Venturi Mask 15.0 50 12/13/16 23:49 36.5 94 20 98/64 91 15.0 50 12/13/16 20:00 Nasal Cannula 6.0 12/13/16 19:57 88 20 97 Nasal Cannula 7.5 12/13/16 19:41 36.5 87 20 110/60 93 Nasal Cannula 8.0 12/13/16 16:20 37.0 87 20 109/61 90 Nasal Cannula 6.0 12/13/16 16:00 92 Nasal Cannula 6.0 12/13/16 13:30 36.5 85 18 105/68 92 Nasal Cannula 6.0 12/13/16 13:09 84 20 97/48 91 12/13/16 11:47 87 20 98/53 91 Nasal Cannula 6.0 12/13/16 10:26 87 22 102/60 94 Nasal Cannula 4.0 12/13/16 09:37 79 22 95/55 90 Nasal Cannula 6.0 12/13/16 09:17 94 12/13/16 09:10 91 Nasal Cannula 6.0 12/13/16 09:07 82 Nasal Cannula 4.0 12/13/16 09:07 82 Nasal Cannula 4.0 12/13/16 09:01 36.8 86 32 97/53 82 Nasal Cannula 4.0 12/13/16 09:01 84 Nasal Cannula 4.0 Physical Exam General Appearance: + mild distress (respiratory distress), + obese Respiratory/Chest: no accessory muscle use, + respiratory distress, + decreased breath sounds, + crackles Cardiovascular: regular rate, rhythm, no murmur Abdomen: non tender, soft, + distended Extremities: + pertinent finding (+1-2 pitting edema b/l LE, mild erythema) Neurologic/Psychiatric: alert, + pertinent finding (awake, alert, but lethargic ) Laboratory Results Last 24 Hours Test 12/13/16 09:05 12/13/16 09:42 12/13/16 12:55 12/13/16 16:19 White Blood Count 13.66 K/uL Red Blood Count 4.09 M/uL Hemoglobin 10.4 g/dL Hematocrit 36.1 % Mean Corpuscular Volume 88.3 fL Mean Corpuscular Hemoglobin 25.4 pg Mean Corpuscular Hemoglobin Concent 28.8 g/dl Platelet Count 142 K/uL Mean Platelet Volume 10.7 fL Neutrophils (%) (Auto) 82.4 % Lymphocytes (%) (Auto) 6.5 % Monocytes (%) (Auto) 10.4 % Eosinophils (%) (Auto) 0.3 % Basophils (%) (Auto) 0.1 % Neutrophils # (Auto) 11.25 K/uL Lymphocytes # (Auto) 0.89 K/uL Monocytes # (Auto) 1.42 K/uL Eosinophils # (Auto) 0.04 K/uL Basophils # (Auto) 0.02 K/uL RDW Standard Deviation 57.8 fL RDW Coefficient of Variation 17.9 % Immature Granulocyte % (Auto) 0.3 % Immature Granulocyte # (Auto) 0.04 K/uL Sodium Level 138 mmol/L Potassium Level 5.0 mmol/L Chloride Level 100 mmol/L Carbon Dioxide Level 35 mmol/L Anion Gap 3.0 mmol/L Blood Urea Nitrogen 46 mg/dl Creatinine 1.70 mg/dl Est Creatinine Clear Calc Drug Dose 42.4 ml/min Estimated GFR () 34.3 Estimated GFR (Non- 29.6 BUN/Creatinine Ratio 26.9 Random Glucose 148 mg/dl Calcium Level 9.4 mg/dl Magnesium Level 2.2 mg/dl Total Bilirubin 0.6 mg/dl Direct Bilirubin 0.2 mg/dl Aspartate Amino Transf (AST/SGOT) 22 U/L Alanine Aminotransferase (ALT/SGPT) 42 U/L Alkaline Phosphatase 71 U/L Total Creatine Kinase 24 U/L Creatine Kinase MB 1.4 ng/ml Creatine Kinase MB Ratio 5.8 Pro-B-Type Natriuretic Peptide 15968 pg/ml Total Protein 6.2 gm/dl Albumin 3.2 gm/dl Bedside Troponin I 0.030 ng/ml Arterial Blood pH 7.35 Arterial Blood Partial Pressure CO2 56 mmHg Arterial Blood Partial Pressure O2 81 mm/Hg Arterial Blood HCO3 30 mmol/L Arterial Blood Oxygen Saturation 94.5 % Arterial Blood Base Excess 3.9 mEq/L Arterial Blood Gas Delivery 4L Justice Test POS Bedside Glucose 133 mg/dl Test 12/13/16 20:33 12/14/16 05:24 12/14/16 06:37 Bedside Glucose 85 mg/dl 113 mg/dl White Blood Count 10.13 K/uL Red Blood Count 3.92 M/uL Hemoglobin 9.9 g/dL Hematocrit 34.4 % Mean Corpuscular Volume 87.8 fL Mean Corpuscular Hemoglobin 25.3 pg Mean Corpuscular Hemoglobin Concent 28.8 g/dl RDW Standard Deviation 57.5 fL RDW Coefficient of Variation 17.8 % Platelet Count 110 K/uL Mean Platelet Volume 10.4 fL Sodium Level 141 mmol/L Potassium Level 4.4 mmol/L Chloride Level 102 mmol/L Carbon Dioxide Level 35 mmol/L Anion Gap 4.0 mmol/L Blood Urea Nitrogen 52 mg/dl Creatinine 1.70 mg/dl Est Creatinine Clear Calc Drug Dose 41.2 ml/min Estimated GFR () 34.3 Estimated GFR (Non- 29.6 BUN/Creatinine Ratio 30.6 Random Glucose 106 mg/dl Calcium Level 9.0 mg/dl Pro-B-Type Natriuretic Peptide 64690 pg/ml Assessment and Plan This is a 71 year old female with PMH of severe COPD and chronic respiratory failure on continuous O2 therapy, right sided heart failure secondary to COPD and pulmonary HTN, DM2, HTN, CKD stage 3, HLD, chronic pancreatitis, hypothyroidism, depression/anxiety with recent admission to [facility] due to CHF exacerbation; was discharged to [facility] and returned with acute respiratory failure Acute on Chronic Respiratory Failure patient on chronic 4-5L O2 at [facility] she has multiple co-morbidities including COPD, R sided heart failure, obesity she is now requiring more O2 than at baseline; currently on a Venturi mask ABGs performed yesterday; pH mildly acidotic, chronic CO2 elevation; which seems to be close to baseline CXR performed on 12/13 Progression of pulmonary edema, small bilateral pleural effusions and bibasilar opacities which statistically reflect atelectasis likely related to her heart failure; will monitor and adjust O2 as needed during previous admission, she did require bipap; will hold off for now Acute on Chronic Right Side Heart Failure (with preserved EF) patient recently admitted a few weeks prior due to heart failure symptoms echo performed on 11/25 suggest R sided heart failure * Flattened septum is consistent with RV pressure/volume overload. * Ejection Fraction = 65-70%. * Grade I diastolic dysfunction, (abnormal relaxation pattern). * The right ventricle is moderate to severely dilated. * The right atrium is moderate to severely dilated. * There is severe tricuspid regurgitation. * Right ventricular systolic pressure is markedly elevated at >60mmHg. CXR also suggest fluid overload, BNP > 10,000 will continue IV Lasix BID, appropriate diuresis I's and O's, daily weights, fluid restriction Acute Kidney Injury superimposed on CKD stage 3 creatinine during last admission was around 0.8 her Lasix dose during previous admission was changed from 40mg to 60mg as outpatient creatinine on admission was 1.7 appreciate nephrology input, will continue to diurese until breathing status, oxygen saturation, etc. improve Lethargy - improving seems to be improving slightly thoughts about CO2 narcosis, though CO2 seems to be at baseline ammonia level pending should on on CPAP nocturnally, though refuses COPD chronic respiratory failure with 4-5 L O2 continuously at baseline does not seem to be in exacerbation, no wheezing noted will monitor breathing status and oxygen saturation after IV Lasix doses no steroids needed nebulizers as needed Recent bilateral LE cellulitis - resolved some lower extremity swelling, though patient with R sided heart failure no need for antibiotics currently, mild residual erythema remains DM2 last A1c = 5.5% using sliding scale and monitor sugars HTN continue home medications monitor BP due to IV diuretic use currently holding up and stable Hypothyroidism continue synthroid Hx. of Black Stools, +FOBT patient was positive for FOBT during last admission refused GI w/up started on protonix BID H/H stable DVT ppx SCDs, due to hx. of GI bleed FULL CODE
--- NOTE | 2016-12-14 09:33 | Clinical Documentation Query ---
CLINICAL DOCUMENTATION QUERY Dr. GARCIA, In your clinical opinion is this patient being managed for: ( ) Metabolic encephalopathy/multifactorial encephalopathy ( ) Other explanation of clinical findings (Please Explain) ( X ) Unable to determine (Please Define) ( ) Need to Discuss ( ) Not Agree The medical record reflects the following clinical findings, treatment, and risk factors. Clinical Indicators: 71 yo female presenting for acute on chronic heart failure, acute respiratory failure and CLIFF. Pt is described as lethargic, uncooperative and agitated, unable to provide detailed conversation and hx. Cr 1.7, hypoxic 88% on 4L, BNP 65326, ABG 7.35/56/81/30 Treatment: IV lasix, increased O2 support, fluid restriction, tele monitoring, monitor CBC and PRP Risk Factors: hypoxia, CLIFF, acute on chronic diastolic CHF, acute respiratory failure Please clarify and document your clinical opinion in the progress notes and discharge summary. Terms such as "probable", "suspected", "likely", "questionable", "possible", or "still to be ruled out" are acceptable. IF IN AGREEMENT, YOU MUST DOCUMENT ABOVE DIAGNOSTIC STATEMENT IN DAILY PROGRESS NOTES AND DISCHARGE SUMMARY. This document is not part of the patient's record. Thank You, Honey Isaacs, RN [phone]
[2016-12-14] MEDS ORDERED: LORAZEPAM 2 MG/ML 1 ML VIAL IV STA (11:20)
[2016-12-14] MEDS ORDERED: LORAZEPAM 2 MG/ML 1 ML VIAL ONE (11:24)
[2016-12-14] MEDS ORDERED: LORAZEPAM 2 MG/ML 1 ML VIAL IV PRN (11:30)
[2016-12-14] MEDS ORDERED: HALOPERIDOL LACTATE 5 MG/ML 1 ML VIAL IV STA (11:40)
[2016-12-14] MEDS ORDERED: HALOPERIDOL LACTATE 5 MG/ML 1 ML VIAL ONE (11:48)
[2016-12-14] MEDS ORDERED: RISPERIDONE 1 MG TAB PO ONE (15:00)
[2016-12-14 19:42] LABS: BUN/CREATININE RATIO 28.8 (10-20); CALCIUM 9.1 mg/dl (8.5-10.1); CREATININE 1.8 mg/dl (0.60-1.20); POTASSIUM 4.8 mmol/L (3.5-5.1)
[2016-12-14] MEDS: ATORVASTATIN 20 MG TAB PO SCH (21:21)
[2016-12-14] MEDS: DOCUSATE SODIUM/SENNA 50/8.6MG TAB PO SCH (21:22)
[2016-12-14] MEDS: QUETIAPINE FUMARATE 25 MG TAB PO SCH (21:22)
[2016-12-14] MEDS: RISPERIDONE 1 MG TAB PO PRN (21:23)
[2016-12-15] VITALS (19 sets, daily range): BP systolic 91–125; BP diastolic 41–75; PULSE 80–98; TEMP 36.3–36.7; O2SAT 88–99
[2016-12-15] MEDS: LEVOTHYROXINE 112 MCG TAB PO SCH (05:48)
[2016-12-15 05:59] LABS: HEMATOCRIT 32.2 % (37-47); MEAN CELL VOLUME 86.8 fL (80-100); MEAN CORPUSCULAR HEMOGLOBIN 25.1 pg (25-34); MEAN CORPUSCULAR HGB CONC 28.9 g/dl (32-36); MEAN PLATELET VOLUME 10.2 fL (7.4-10.4); PLATELET COUNT 113 K/uL (130-400); RED BLOOD COUNT 3.71 M/uL (4.2-5.4); WHITE BLOOD COUNT 8.19 K/uL (4.8-10.8)
[2016-12-15 06:21] LABS: BUN/CREATININE RATIO 34.4 (10-20); CREATININE 1.6 mg/dl (0.60-1.20); MAGNESIUM 2.4 mg/dl (1.8-2.4); POTASSIUM 4.5 mmol/L (3.5-5.1)
[2016-12-15] MEDS: INSULIN ASPART 100 UNITS/ML 3 ML PEN SC SCH ×5 (07:00→20:51)
[2016-12-15] MEDS: ARFORMOTEROL TART 15MCG/2ML VIAL INH SCH ×2 (07:06→19:44)
[2016-12-15] MEDS: BUDESONIDE 0.5 MG/2 ML VIAL (PULMICORT) INH SCH ×2 (07:06→19:44)
[2016-12-15] MEDS: ALBUT/IPRATROP 3MG/0.5MG NEB 3 ML VIAL INH SCH ×4 (07:06→19:44)
--- NOTE | 2016-12-15 09:25 | Progress Note ---
Subjective Date of Service: Dec 15, 2016. Subjective Pt evaluation today including: physical exam, lab review, review of studies, review of inpatient medication list Saw/examined the patient in room 204 Yesterday, she was not saturating well with a Venturi mask, so Bipap was put on As per nursing, she had her breakfast, and then put the Bipap back on She is very lethargic and does not want to wake up for my exam She has been more calm and not as agitated or anxious like she was yesterday Problem List Medical Problems: (1) Anemia Status: Acute (2) Bilateral lower leg cellulitis Status: Acute (3) CHF (congestive heart failure) Status: Acute (4) Failure of outpatient treatment Status: Acute (5) GI bleed Status: Acute (6) Hypoxia Status: Acute (7) Hypoxia Status: Acute (8) Respiratory distress Status: Acute Review of Systems Unable to obtain Medications Current Inpatient Medications Medications (Trade) Dose Ordered Sig/Romaine Route Start Time Stop Time Status Last Admin Dose Admin Arformoterol Tartrate (Brovana 15MCG/ 2ML Neb Soln) 15 mcg BIDR INH 12/13/16 20:00 01/12/17 19:59 12/15/16 07:06 15 MCG Aspirin (Ecotrin Tab) 81 mg DAILY PO 12/14/16 09:00 01/13/17 08:59 12/14/16 08:50 81 MG Atorvastatin Calcium (Lipitor Tab) 20 mg HS PO 12/13/16 21:00 01/12/17 20:59 12/14/16 21:21 20 MG Baclofen (Lioresal Tab) 15 mg QID PRN PO 12/13/16 11:30 01/12/17 11:29 12/14/16 08:50 15 MG Budesonide (Pulmicort Respules 0.5MG/ 2ML Neb Soln) 0.5 mg BIDR INH 12/13/16 20:00 01/12/17 19:59 12/15/16 07:06 0.5 MG Lactobacillus Acidophilus (Floranex Tab) 4 tab TID PO 12/13/16 14:00 01/12/17 13:59 12/14/16 21:20 4 TAB Levothyroxine Sodium (Synthroid Tab) 112 mcg DAILYBB PO 12/14/16 06:00 01/13/17 05:59 12/15/16 05:48 112 MCG Metoprolol Succinate (Toprol Xl Tab) 100 mg DAILY PO 12/14/16 09:00 01/13/17 08:59 12/14/16 08:51 100 MG Pantoprazole Sodium (Protonix Tab) 40 mg BID PO 12/13/16 21:00 01/12/17 20:59 12/14/16 21:21 40 MG Quetiapine Fumarate (seroQUEL TAB) 50 mg HS PO 12/13/16 21:00 01/12/17 20:59 12/14/16 21:22 50 MG Senna/Docusate Sodium (Senokot S Tab) 2 tab HS PO 12/13/16 21:00 01/12/17 20:59 12/14/16 21:22 2 TAB Tramadol HCl (Ultram Tab) 50 mg Q6H PRN PO 12/13/16 11:30 01/12/17 11:29 12/14/16 08:49 50 MG Acetaminophen (Tylenol Tab) 650 mg Q4H PRN PO 12/13/16 11:45 01/12/17 11:44 Magnesium Hydroxide (Milk Of Magnesia Susp) 30 ml Q12H PRN PO 12/13/16 11:45 01/12/17 11:44 Ondansetron HCl (Zofran Inj) 4 mg Q6H PRN IV 12/13/16 11:45 01/12/17 11:44 Nitroglycerin (Nitrostat Tab) 0.4 mg UD PRN SL 12/13/16 11:45 01/12/17 11:44 Polyethylene (Miralax Powder Packet) 17 gm DAILY PRN PO 12/13/16 11:45 01/12/17 11:44 Insulin Aspart (novoLOG ASPART) SLIDING SCALE If C... ACHS SC 12/13/16 16:15 01/12/17 16:14 Glucose (Glucose 40% Gel) 15-30 GRAMS 15 GRAMS... UD PRN PO 12/13/16 11:45 01/12/17 11:44 Glucose (Glucose Chew Tab) 4-8 Tablets 4 Tabl... UD PRN PO 12/13/16 11:45 01/12/17 11:44 Dextrose (Dextrose 50% 50ML Syringe) 25-50ML OF 50% DW IV FOR... UD PRN IV 12/13/16 11:45 01/12/17 11:44 Glucagon 1 mg 1 mg UD PRN SQ 12/13/16 11:45 01/12/17 11:44 Furosemide/Syringe (Lasix Inj/ Syringe) 4 ml @ 4 mls/min BID17 IV 12/13/16 17:00 01/12/17 16:59 12/14/16 17:29 4 MLS/MIN Albuterol/ Ipratropium (Duoneb) 3 ml QIDR INH 12/13/16 20:00 01/12/17 19:59 12/14/16 15:49 3 ML Lorazepam (Ativan Inj) 1 mg Q4H PRN IV 12/14/16 11:30 01/13/17 11:29 Risperidone (Risperdal Tab) 1 mg BID PRN PO 12/14/16 14:30 01/13/17 14:29 12/14/16 21:23 1 MG Objective Vital Signs Date Time Temp Pulse Resp B/P Pulse Ox O2 Delivery O2 Flow Rate FiO2 12/15/16 07:49 36.6 87 22 113/75 88 Nasal Cannula 4.0 12/15/16 04:00 98 BiPAP 6.0 12/15/16 03:53 36.5 82 18 102/52 98 BiPAP 12/15/16 03:00 86 93 60 12/15/16 00:10 83 93 60 12/15/16 00:01 97 BiPAP 6.0 12/15/16 00:00 36.6 85 24 104/51 97 BiPAP 12/14/16 22:17 80 94 60 12/14/16 20:00 88 BiPAP 12.0 12/14/16 20:00 36.7 87 22 97/50 88 BiPAP 12.0 12/14/16 18:55 90 22 99 BiPAP/CPAP 15.0 12/14/16 16:03 BiPAP Venturi Mask 12/14/16 15:49 83 22 97 BiPAP/CPAP 15.0 12/14/16 15:45 36.9 83 18 99/51 96 96 12/14/16 12:03 BiPAP 12/14/16 11:56 36.6 86 25 98/54 90 BiPAP 12/14/16 11:15 85 31 92 BiPAP/CPAP 8.0 12/14/16 11:10 85 92 8.0 Physical Exam General Appearance: no apparent distress, + pertinent finding (somnolent/ lethargic; does not arouse; only grunts to tactile stimuli) Respiratory/Chest: no respiratory distress, no accessory muscle use, + crackles (diffusely) Cardiovascular: regular rate, rhythm, no murmur Extremities: + pertinent finding (trace edema b/l LE, no significant erythema) Laboratory Results Last 24 Hours Test 12/14/16 11:21 12/14/16 16:04 12/14/16 18:49 12/14/16 20:18 Bedside Glucose 112 mg/dl 107 mg/dl 178 mg/dl Sodium Level 138 mmol/L Potassium Level 4.8 mmol/L Chloride Level 101 mmol/L Carbon Dioxide Level 34 mmol/L Anion Gap 3.0 mmol/L Blood Urea Nitrogen 52 mg/dl Creatinine 1.80 mg/dl Est Creatinine Clear Calc Drug Dose 38.9 ml/min Estimated GFR () 32.0 Estimated GFR (Non- 27.6 BUN/Creatinine Ratio 28.8 Random Glucose 137 mg/dl Calcium Level 9.1 mg/dl Chemistry Specimen Hemolysis Test 12/15/16 05:41 12/15/16 06:15 White Blood Count 8.19 K/uL Red Blood Count 3.71 M/uL Hemoglobin 9.3 g/dL Hematocrit 32.2 % Mean Corpuscular Volume 86.8 fL Mean Corpuscular Hemoglobin 25.1 pg Mean Corpuscular Hemoglobin Concent 28.9 g/dl RDW Standard Deviation 56.6 fL RDW Coefficient of Variation 17.7 % Platelet Count 113 K/uL Mean Platelet Volume 10.2 fL Sodium Level 142 mmol/L Potassium Level 4.5 mmol/L Chloride Level 101 mmol/L Carbon Dioxide Level 36 mmol/L Anion Gap 5.0 mmol/L Blood Urea Nitrogen 55 mg/dl Creatinine 1.60 mg/dl Est Creatinine Clear Calc Drug Dose 43.9 ml/min Estimated GFR () 36.9 Estimated GFR (Non- 31.9 BUN/Creatinine Ratio 34.4 Random Glucose 86 mg/dl Calcium Level 9.0 mg/dl Magnesium Level 2.4 mg/dl Ammonia 26.0 umol/L Bedside Glucose 93 mg/dl Assessment and Plan This is a 71 year old female with PMH of severe COPD and chronic respiratory failure on continuous O2 therapy, right sided heart failure secondary to COPD and pulmonary HTN, DM2, HTN, CKD stage 3, HLD, chronic pancreatitis, hypothyroidism, depression/anxiety with recent admission to [facility] due to CHF exacerbation; was discharged to [facility] and returned with acute respiratory failure Acute on Chronic Respiratory Failure 12/15 plan is to continue diuresing Currently on Bipap and saturating well attempting weaning off Bipap, but does not saturate well without it may need discussion regarding palliative care 12/14 patient on chronic 4-5L O2 at [facility] she has multiple co-morbidities including COPD, R sided heart failure, obesity she is now requiring more O2 than at baseline; currently on a Venturi mask ABGs performed yesterday; pH mildly acidotic, chronic CO2 elevation; which seems to be close to baseline CXR performed on 12/13 Progression of pulmonary edema, small bilateral pleural effusions and bibasilar opacities which statistically reflect atelectasis likely related to her heart failure; will monitor and adjust O2 as needed during previous admission, she did require bipap; will hold off for now Acute on Chronic Right Side Heart Failure (with preserved EF) 12/15 for now, keep IV Lasix BID dosing kidneys are handling this okay Unfortunately, her breathing status has not improved today 12/14 patient recently admitted a few weeks prior due to heart failure symptoms echo performed on 11/25 suggest R sided heart failure * Flattened septum is consistent with RV pressure/volume overload. * Ejection Fraction = 65-70%. * Grade I diastolic dysfunction, (abnormal relaxation pattern). * The right ventricle is moderate to severely dilated. * The right atrium is moderate to severely dilated. * There is severe tricuspid regurgitation. * Right ventricular systolic pressure is markedly elevated at >60mmHg. CXR also suggest fluid overload, BNP > 10,000 will continue IV Lasix BID, appropriate diuresis I's and O's, daily weights, fluid restriction Acute Kidney Injury superimposed on CKD stage 3 creatinine during last admission was around 0.8 her Lasix dose during previous admission was changed from 40mg to 60mg as outpatient creatinine on admission was 1.7 appreciate nephrology input, will continue to diurese until breathing status, oxygen saturation, etc. improve Lethargy - improving seems to be improving slightly thoughts about CO2 narcosis, though CO2 seems to be at baseline ammonia level pending should on on CPAP nocturnally, though refuses COPD chronic respiratory failure with 4-5 L O2 continuously at baseline does not seem to be in exacerbation, no wheezing noted will monitor breathing status and oxygen saturation after IV Lasix doses no steroids needed nebulizers as needed Recent bilateral LE cellulitis - resolved some lower extremity swelling, though patient with R sided heart failure no need for antibiotics currently, mild residual erythema remains DM2 last A1c = 5.5% using sliding scale and monitor sugars HTN continue home medications monitor BP due to IV diuretic use currently holding up and stable Hypothyroidism continue synthroid Hx. of Black Stools, +FOBT patient was positive for FOBT during last admission refused GI w/up started on protonix BID H/H stable DVT ppx SCDs, due to hx. of GI bleed FULL CODE
[2016-12-15] MEDS: FUROSEMIDE INJ 40 MG in SYRINGE 0 ML IV SCH ×2 (09:54→17:45)
[2016-12-15] MEDS: LACTOBACILLUS ACIDOPHILUS (FLORANEX) TAB PO SCH ×3 (09:55→20:30)
[2016-12-15] MEDS: PANTOprazole SOD 40 MG TAB PO SCH ×2 (09:55→20:30)
[2016-12-15] MEDS: METOPROLOL SUCC 50MG EXT REL TAB PO SCH (09:55)
[2016-12-15] MEDS: ASPIRIN 81 MG ECTAB PO SCH (09:56)
[2016-12-15] MEDS: RISPERIDONE 1 MG TAB PO PRN ×2 (13:50→20:47)
[2016-12-15] MEDS ORDERED: FUROSEMIDE 10 MG/ML 10 ML VIAL IV SCH (14:00)
--- NOTE | 2016-12-15 14:12 | Nephrology Progress Note ---
Nephrology Progress Note Date of Service: Dec 15, 2016. Subjective challenging to maintain sats off of bipap. difficult to arouse on bipap, though ms not much different than yesterday Objective Date Time Temp Pulse Resp B/P Pulse Ox O2 Delivery O2 Flow Rate FiO2 12/15/16 12:03 98 BiPAP 6.0 12/15/16 12:01 36.3 84 22 91/41 98 BiPAP 12/15/16 11:11 90 20 98 BiPAP/CPAP 60 12/15/16 11:11 90 98 60 12/15/16 08:04 98 BiPAP 6.0 12/15/16 07:49 36.6 87 22 113/75 88 Nasal Cannula 4.0 12/15/16 07:06 80 98 60 12/15/16 07:06 80 21 98 BiPAP/CPAP 60 12/15/16 04:00 98 BiPAP 6.0 12/15/16 03:53 36.5 82 18 102/52 98 BiPAP 12/15/16 03:00 86 93 60 12/15/16 00:10 83 93 60 12/15/16 00:01 97 BiPAP 6.0 12/15/16 00:00 36.6 85 24 104/51 97 BiPAP 12/14/16 22:17 80 94 60 12/14/16 20:00 88 BiPAP 12.0 12/14/16 20:00 36.7 87 22 97/50 88 BiPAP 12.0 12/14/16 18:55 90 22 99 BiPAP/CPAP 15.0 12/14/16 16:03 BiPAP Venturi Mask 12/14/16 15:49 83 22 97 BiPAP/CPAP 15.0 12/14/16 15:45 36.9 83 18 99/51 96 96 Physical Exam: GENERAL: Quite lethargic. on bipap. EYES: No scleral icterus. ENT: dry mucous membranes. NECK: Supple. PULMONARY: Basilar rales. CARDIAC: Distant heart sounds. RRR ABDOMEN: Bowel sounds positive, soft, and nontender. valle + EXTREMITIES: 2+ BLE edema NEUROLOGIC: Sleepy. DERMATOLOGIC: No ulcers noted. some slight mottling on her legs Current Inpatient Medications Medications (Trade) Dose Ordered Sig/Romaine Route Start Time Stop Time Status Last Admin Dose Admin Arformoterol Tartrate (Brovana 15MCG/ 2ML Neb Soln) 15 mcg BIDR INH 12/13/16 20:00 01/12/17 19:59 12/15/16 07:06 15 MCG Aspirin (Ecotrin Tab) 81 mg DAILY PO 12/14/16 09:00 01/13/17 08:59 12/15/16 09:56 81 MG Atorvastatin Calcium (Lipitor Tab) 20 mg HS PO 12/13/16 21:00 01/12/17 20:59 12/14/16 21:21 20 MG Baclofen (Lioresal Tab) 15 mg QID PRN PO 12/13/16 11:30 01/12/17 11:29 12/14/16 08:50 15 MG Budesonide (Pulmicort Respules 0.5MG/ 2ML Neb Soln) 0.5 mg BIDR INH 12/13/16 20:00 01/12/17 19:59 12/15/16 07:06 0.5 MG Lactobacillus Acidophilus (Floranex Tab) 4 tab TID PO 12/13/16 14:00 01/12/17 13:59 12/15/16 09:55 4 TAB Levothyroxine Sodium (Synthroid Tab) 112 mcg DAILYBB PO 12/14/16 06:00 01/13/17 05:59 12/15/16 05:48 112 MCG Metoprolol Succinate (Toprol Xl Tab) 100 mg DAILY PO 12/14/16 09:00 01/13/17 08:59 12/15/16 09:55 100 MG Pantoprazole Sodium (Protonix Tab) 40 mg BID PO 12/13/16 21:00 01/12/17 20:59 12/15/16 09:55 40 MG Quetiapine Fumarate (seroQUEL TAB) 50 mg HS PO 12/13/16 21:00 01/12/17 20:59 12/14/16 21:22 50 MG Senna/Docusate Sodium (Senokot S Tab) 2 tab HS PO 12/13/16 21:00 01/12/17 20:59 12/14/16 21:22 2 TAB Tramadol HCl (Ultram Tab) 50 mg Q6H PRN PO 12/13/16 11:30 01/12/17 11:29 12/14/16 08:49 50 MG Acetaminophen (Tylenol Tab) 650 mg Q4H PRN PO 12/13/16 11:45 01/12/17 11:44 Magnesium Hydroxide (Milk Of Magnesia Susp) 30 ml Q12H PRN PO 12/13/16 11:45 01/12/17 11:44 Ondansetron HCl (Zofran Inj) 4 mg Q6H PRN IV 12/13/16 11:45 01/12/17 11:44 Nitroglycerin (Nitrostat Tab) 0.4 mg UD PRN SL 12/13/16 11:45 01/12/17 11:44 Polyethylene (Miralax Powder Packet) 17 gm DAILY PRN PO 12/13/16 11:45 01/12/17 11:44 Insulin Aspart (novoLOG ASPART) SLIDING SCALE If C... ACHS SC 12/13/16 16:15 01/12/17 16:14 Glucose (Glucose 40% Gel) 15-30 GRAMS 15 GRAMS... UD PRN PO 12/13/16 11:45 01/12/17 11:44 Glucose (Glucose Chew Tab) 4-8 Tablets 4 Tabl... UD PRN PO 12/13/16 11:45 01/12/17 11:44 Dextrose (Dextrose 50% 50ML Syringe) 25-50ML OF 50% DW IV FOR... UD PRN IV 12/13/16 11:45 01/12/17 11:44 Glucagon 1 mg 1 mg UD PRN SQ 12/13/16 11:45 01/12/17 11:44 Furosemide/Syringe (Lasix Inj/ Syringe) 4 ml @ 4 mls/min BID17 IV 12/13/16 17:00 01/12/17 16:59 12/15/16 09:54 4 MLS/MIN Albuterol/ Ipratropium (Duoneb) 3 ml QIDR INH 12/13/16 20:00 01/12/17 19:59 12/15/16 11:11 3 ML Lorazepam (Ativan Inj) 1 mg Q4H PRN IV 12/14/16 11:30 01/13/17 11:29 Risperidone (Risperdal Tab) 1 mg BID PRN PO 12/14/16 14:30 01/13/17 14:29 12/14/16 21:23 1 MG Last 24 Hours Test 12/14/16 16:04 12/14/16 18:49 12/14/16 20:18 12/15/16 05:41 Bedside Glucose 107 mg/dl 178 mg/dl Sodium Level 138 mmol/L 142 mmol/L Potassium Level 4.8 mmol/L 4.5 mmol/L Chloride Level 101 mmol/L 101 mmol/L Carbon Dioxide Level 34 mmol/L 36 mmol/L Anion Gap 3.0 mmol/L 5.0 mmol/L Blood Urea Nitrogen 52 mg/dl 55 mg/dl Creatinine 1.80 mg/dl 1.60 mg/dl Est Creatinine Clear Calc Drug Dose 38.9 ml/min 43.9 ml/min Estimated GFR () 32.0 36.9 Estimated GFR (Non- 27.6 31.9 BUN/Creatinine Ratio 28.8 34.4 Random Glucose 137 mg/dl 86 mg/dl Calcium Level 9.1 mg/dl 9.0 mg/dl Chemistry Specimen Hemolysis White Blood Count 8.19 K/uL Red Blood Count 3.71 M/uL Hemoglobin 9.3 g/dL Hematocrit 32.2 % Mean Corpuscular Volume 86.8 fL Mean Corpuscular Hemoglobin 25.1 pg Mean Corpuscular Hemoglobin Concent 28.9 g/dl RDW Standard Deviation 56.6 fL RDW Coefficient of Variation 17.7 % Platelet Count 113 K/uL Mean Platelet Volume 10.2 fL Magnesium Level 2.4 mg/dl Ammonia 26.0 umol/L Test 12/15/16 06:15 12/15/16 11:06 Bedside Glucose 93 mg/dl 122 mg/dl Assessment & Plan 71 y/o F w/ chronic diastolic HF, plm HTN, COPD admitted with acute on chronic respiratory failure and CLIFF (baseline creatinine 0.8) after recent admission here for cellulitis of lower extremity earlier this month desats quickly off of bipap; even on bipap difficult to arouse/ with diminished MS. nonoliguric acute kidney injury, stable; suspect ischemic versus toxic ATN w/ decreased effective intravascular volume in the setting of heart failure. still markedly volume overloaded -will increase lasix current dose to IV 40 mg tid -daily bmp -cont strict I/O and valle -for now no albumin w/ lasix Appreciate consult; will follow with you
[2016-12-15] MEDS ORDERED: FUROSEMIDE INJ 40 MG in SYRINGE 0 ML IV SCH ×2 (15:15→22:00)
[2016-12-15] MEDS ORDERED: NURSING VERBAL MED ORDER ONE (17:45)
[2016-12-15] MEDS: DOCUSATE SODIUM/SENNA 50/8.6MG TAB PO SCH (20:29)
[2016-12-15] MEDS: QUETIAPINE FUMARATE 25 MG TAB PO SCH (20:29)
[2016-12-15] MEDS: ATORVASTATIN 20 MG TAB PO SCH (20:29)
[2016-12-15] MEDS: BACLOFEN 10 MG TAB PO PRN (20:47)
[2016-12-16] VITALS (18 sets, daily range): BP systolic 97–116; BP diastolic 40–56; PULSE 74–97; TEMP 36.3–37; O2SAT 92–99
[2016-12-16] MEDS: LEVOTHYROXINE 112 MCG TAB PO SCH (05:54)
[2016-12-16 06:26] LABS: HEMATOCRIT 31.4 % (37-47); MEAN CELL VOLUME 86.7 fL (80-100); MEAN CORPUSCULAR HEMOGLOBIN 25.4 pg (25-34); MEAN CORPUSCULAR HGB CONC 29.3 g/dl (32-36); RED BLOOD COUNT 3.62 M/uL (4.2-5.4)
[2016-12-16 06:31] LABS: ARTERIAL BLD GAS O2 SATURATION 94.4 % (90-95); ARTERIAL BLOOD GAS BASE EXCESS 8.7 mEq/L (-9-1.8); ARTERIAL BLOOD GAS HCO3 35 mmol/L (19-24); ARTERIAL BLOOD GAS PO2 81 mm/Hg (80-95); ARTERIAL BLOOD GAS pH 7.39 (7.35-7.45)
[2016-12-16 06:37] LABS: ALLEN TEST POS (POS); O2 ADMINISTRATION 6L
[2016-12-16 06:46] LABS: MEAN PLATELET VOLUME 10.3 fL (7.4-10.4); PLATELET COUNT 99 K/uL (130-400); PLT ESTIMATE DECREASED
[2016-12-16] MEDS: INSULIN ASPART 100 UNITS/ML 3 ML PEN SC SCH ×3 (07:00→21:53)
[2016-12-16] MEDS: BUDESONIDE 0.5 MG/2 ML VIAL (PULMICORT) INH SCH ×2 (07:04→19:25)
[2016-12-16 07:05] LABS: CREATININE 1.1 mg/dl (0.60-1.20); MAGNESIUM 2.2 mg/dl (1.8-2.4); POTASSIUM 3.8 mmol/L (3.5-5.1)
[2016-12-16] MEDS: ARFORMOTEROL TART 15MCG/2ML VIAL INH SCH ×2 (07:14→19:25)
[2016-12-16] MEDS: ALBUT/IPRATROP 3MG/0.5MG NEB 3 ML VIAL INH SCH ×4 (08:00→19:25)
[2016-12-16] MEDS: FUROSEMIDE INJ 40 MG in SYRINGE 0 ML IV SCH ×3 (08:27→21:49)
[2016-12-16] MEDS: BACLOFEN 10 MG TAB PO PRN (08:27)
[2016-12-16] MEDS: ASPIRIN 81 MG ECTAB PO SCH (08:27)
[2016-12-16] MEDS: METOPROLOL SUCC 50MG EXT REL TAB PO SCH (08:27)
[2016-12-16] MEDS: LACTOBACILLUS ACIDOPHILUS (FLORANEX) TAB PO SCH ×3 (08:28→21:00)
[2016-12-16] MEDS: PANTOprazole SOD 40 MG TAB PO SCH ×2 (08:28→21:00)
[2016-12-16] MEDS: TRAMADOL HCL 50 MG TAB PO PRN (08:30)
--- NOTE | 2016-12-16 10:15 | Progress Note ---
Subjective Date of Service: Dec 16, 2016. Subjective Pt evaluation today including: conversation w/ patient, conversation w/ family , physical exam, lab review, review of studies, conversation w/ risk assessment consultant, review of inpatient medication list Saw/examined the patient in room 204 I spoke with the family including katerina's son, Ortiz. I talked about her tenuous respiratory condition and right heart failure. They state that they understand her poor prognosis, but that she has been telling them that she wants to remain full code. They are agreeable to speaking with palliative care. I saw the patient in the room, she is on 6L NC, but only saturating in the 80s; she states she does not want the mask to remain on. She has been on Bipap most of her hospital stay. She is stuporous; very difficult to arouse, but answers occasionally with yes or no. Problem List Medical Problems: (1) Anemia Status: Acute (2) Bilateral lower leg cellulitis Status: Acute (3) CHF (congestive heart failure) Status: Acute (4) Failure of outpatient treatment Status: Acute (5) GI bleed Status: Acute (6) Hypoxia Status: Acute (7) Hypoxia Status: Acute (8) Respiratory distress Status: Acute Review of Systems difficult to obtain due to patient's level of consciousness Medications Current Inpatient Medications Medications (Trade) Dose Ordered Sig/Romaine Route Start Time Stop Time Status Last Admin Dose Admin Arformoterol Tartrate (Brovana 15MCG/ 2ML Neb Soln) 15 mcg BIDR INH 12/13/16 20:00 01/12/17 19:59 12/16/16 07:14 15 MCG Aspirin (Ecotrin Tab) 81 mg DAILY PO 12/14/16 09:00 01/13/17 08:59 12/16/16 08:27 81 MG Atorvastatin Calcium (Lipitor Tab) 20 mg HS PO 12/13/16 21:00 01/12/17 20:59 12/15/16 20:29 20 MG Baclofen (Lioresal Tab) 15 mg QID PRN PO 12/13/16 11:30 01/12/17 11:29 12/16/16 08:27 15 MG Budesonide (Pulmicort Respules 0.5MG/ 2ML Neb Soln) 0.5 mg BIDR INH 12/13/16 20:00 01/12/17 19:59 12/16/16 07:04 0.5 MG Lactobacillus Acidophilus (Floranex Tab) 4 tab TID PO 12/13/16 14:00 01/12/17 13:59 12/16/16 08:28 4 TAB Levothyroxine Sodium (Synthroid Tab) 112 mcg DAILYBB PO 12/14/16 06:00 01/13/17 05:59 12/16/16 05:54 112 MCG Metoprolol Succinate (Toprol Xl Tab) 100 mg DAILY PO 12/14/16 09:00 01/13/17 08:59 12/16/16 08:27 100 MG Pantoprazole Sodium (Protonix Tab) 40 mg BID PO 12/13/16 21:00 01/12/17 20:59 12/16/16 08:28 40 MG Quetiapine Fumarate (seroQUEL TAB) 50 mg HS PO 12/13/16 21:00 01/12/17 20:59 12/15/16 20:29 50 MG Senna/Docusate Sodium (Senokot S Tab) 2 tab HS PO 12/13/16 21:00 01/12/17 20:59 12/15/16 20:29 2 TAB Tramadol HCl (Ultram Tab) 50 mg Q6H PRN PO 12/13/16 11:30 01/12/17 11:29 12/16/16 08:30 50 MG Acetaminophen (Tylenol Tab) 650 mg Q4H PRN PO 12/13/16 11:45 01/12/17 11:44 Magnesium Hydroxide (Milk Of Magnesia Susp) 30 ml Q12H PRN PO 12/13/16 11:45 01/12/17 11:44 Ondansetron HCl (Zofran Inj) 4 mg Q6H PRN IV 12/13/16 11:45 01/12/17 11:44 Nitroglycerin (Nitrostat Tab) 0.4 mg UD PRN SL 12/13/16 11:45 01/12/17 11:44 Polyethylene (Miralax Powder Packet) 17 gm DAILY PRN PO 12/13/16 11:45 01/12/17 11:44 Insulin Aspart (novoLOG ASPART) SLIDING SCALE If C... ACHS SC 12/13/16 16:15 5/27/17 16:14 Glucose (Glucose 40% Gel) 15-30 GRAMS 15 GRAMS... UD PRN PO 12/13/16 11:45 01/12/17 11:44 Glucose (Glucose Chew Tab) 4-8 Tablets 4 Tabl... UD PRN PO 12/13/16 11:45 01/12/17 11:44 Dextrose (Dextrose 50% 50ML Syringe) 25-50ML OF 50% DW IV FOR... UD PRN IV 12/13/16 11:45 01/12/17 11:44 Glucagon (Glucagon Inj) 1 mg UD PRN SQ 12/13/16 11:45 01/12/17 11:44 Albuterol/ Ipratropium (Duoneb) 3 ml QIDR INH 12/13/16 20:00 01/12/17 19:59 12/15/16 15:40 3 ML Lorazepam (Ativan Inj) 1 mg Q4H PRN IV 12/14/16 11:30 01/13/17 11:29 Risperidone 1 mg 1 mg BID PRN PO 12/14/16 14:30 01/13/17 14:29 12/15/16 20:47 1 MG Furosemide/Syringe (Lasix Inj/ Syringe) 4 ml @ 4 mls/min TID IV 12/16/16 14:00 01/15/17 13:59 UNV Objective Vital Signs Date Time Temp Pulse Resp B/P Pulse Ox O2 Delivery O2 Flow Rate FiO2 12/16/16 08:00 36.8 78 16 116/50 95 BiPAP 12/16/16 07:24 74 96 50 12/16/16 07:24 94 14 96 BiPAP/CPAP 50 12/16/16 04:00 BiPAP 12/16/16 03:47 36.7 90 18 104/55 96 BiPAP 12/16/16 02:59 86 95 50 12/16/16 00:00 36.7 94 20 101/40 92 BiPAP 12/15/16 23:59 BiPAP 12/15/16 21:40 91 92 50 12/15/16 20:25 36.7 98 20 110/53 88 Nasal Cannula 6.0 12/15/16 20:00 92 BiPAP 12/15/16 19:44 96 96 50 12/15/16 19:44 96 22 96 BiPAP/CPAP 50 12/15/16 16:03 94 BiPAP 6.0 12/15/16 15:40 83 99 50 12/15/16 15:40 83 21 99 BiPAP/CPAP 50 12/15/16 15:18 36.7 92 20 125/55 93 BiPAP 12/15/16 12:03 98 BiPAP 6.0 12/15/16 12:01 36.3 84 22 91/41 98 BiPAP 12/15/16 11:11 90 20 98 BiPAP/CPAP 60 12/15/16 11:11 90 98 60 Physical Exam General Appearance: + obese, + pertinent finding (stuporous) Respiratory/Chest: + decreased breath sounds, + accessory muscle use, + crackles (diffusely) Cardiovascular: regular rate, rhythm, + systolic murmur (blowing murmur at the left midclavicular line; 3/6) Extremities: + pertinent finding (+1 pitting edema b/l LE) Laboratory Results Last 24 Hours Test 12/15/16 11:06 12/15/16 16:14 12/15/16 20:31 12/16/16 06:10 Bedside Glucose 122 mg/dl 107 mg/dl 147 mg/dl White Blood Count 6.90 K/uL Red Blood Count 3.62 M/uL Hemoglobin 9.2 g/dL Hematocrit 31.4 % Mean Corpuscular Volume 86.7 fL Mean Corpuscular Hemoglobin 25.4 pg Mean Corpuscular Hemoglobin Concent 29.3 g/dl RDW Standard Deviation 56.3 fL RDW Coefficient of Variation 17.7 % Platelet Count 99 K/uL Mean Platelet Volume 10.3 fL Platelet Estimate DECREASED Arterial Blood pH 7.39 Arterial Blood Partial Pressure CO2 59 mmHg Arterial Blood Partial Pressure O2 81 mm/Hg Arterial Blood HCO3 35 mmol/L Arterial Blood Oxygen Saturation 94.4 % Arterial Blood Base Excess 8.7 mEq/L Arterial Blood Gas Delivery 6L Justice Test POS Sodium Level 145 mmol/L Potassium Level 3.8 mmol/L Chloride Level 103 mmol/L Carbon Dioxide Level 35 mmol/L Anion Gap 7.0 mmol/L Blood Urea Nitrogen 50 mg/dl Creatinine 1.10 mg/dl Est Creatinine Clear Calc Drug Dose 64.6 ml/min Estimated GFR () 58.1 Estimated GFR (Non- 50.1 BUN/Creatinine Ratio 45.0 Random Glucose 115 mg/dl Calcium Level 9.0 mg/dl Magnesium Level 2.2 mg/dl Test 12/16/16 06:30 Bedside Glucose 116 mg/dl Assessment and Plan This is a 71 year old female with PMH of severe COPD and chronic respiratory failure on continuous O2 therapy, right sided heart failure secondary to COPD and pulmonary HTN, DM2, HTN, CKD stage 3, HLD, chronic pancreatitis, hypothyroidism, depression/anxiety with recent admission to [facility] due to CHF exacerbation; was discharged to [facility] and returned with acute respiratory failure Acute on Chronic Respiratory Failure 12/16 she has had almost no improvement PCO2 increasing slightly this morning currently on 6L O2 via NC intermittent bipap use, but patient has difficulty tolerating it palliative care consult placed 12/15 plan is to continue diuresing Currently on Bipap and saturating well attempting weaning off Bipap, but does not saturate well without it may need discussion regarding palliative care 12/14 patient on chronic 4-5L O2 at [facility] she has multiple co-morbidities including COPD, R sided heart failure, obesity she is now requiring more O2 than at baseline; currently on a Venturi mask ABGs performed yesterday; pH mildly acidotic, chronic CO2 elevation; which seems to be close to baseline CXR performed on 12/13 Progression of pulmonary edema, small bilateral pleural effusions and bibasilar opacities which statistically reflect atelectasis likely related to her heart failure; will monitor and adjust O2 as needed during previous admission, she did require bipap; will hold off for now Acute on Chronic Right Side Heart Failure (with preserved EF) 12/16 appreciate nephrology input increased Lasix to TID dosing creatinine down to 1.1 and tolerating diuresis poor prognosis 12/15 for now, keep IV Lasix BID dosing kidneys are handling this okay Unfortunately, her breathing status has not improved today 12/14 patient recently admitted a few weeks prior due to heart failure symptoms echo performed on 11/25 suggest R sided heart failure * Flattened septum is consistent with RV pressure/volume overload. * Ejection Fraction = 65-70%. * Grade I diastolic dysfunction, (abnormal relaxation pattern). * The right ventricle is moderate to severely dilated. * The right atrium is moderate to severely dilated. * There is severe tricuspid regurgitation. * Right ventricular systolic pressure is markedly elevated at >60mmHg. CXR also suggest fluid overload, BNP > 10,000 will continue IV Lasix BID, appropriate diuresis I's and O's, daily weights, fluid restriction Acute Kidney Injury superimposed on CKD stage 3 12/16 improving creatinine to 1.1 continue IV Lasix 12/15 creatinine during last admission was around 0.8 her Lasix dose during previous admission was changed from 40mg to 60mg as outpatient creatinine on admission was 1.7 appreciate nephrology input, will continue to diurese until breathing status, oxygen saturation, etc. improve Lethargy/Altered Level of Consciousness 12/16 continues to be in a stupor unsure if this is CO2 narcosis; work of breathing is increased and may be getting lethargic from that 12/14 seems to be improving slightly thoughts about CO2 narcosis, though CO2 seems to be at baseline ammonia level pending should on on CPAP nocturnally, though refuses COPD 12/16 will give one dose of solu-medrol today monitor how she does clinically 12/15 chronic respiratory failure with 4-5 L O2 continuously at baseline does not seem to be in exacerbation, no wheezing noted will monitor breathing status and oxygen saturation after IV Lasix doses no steroids needed nebulizers as needed Recent bilateral LE cellulitis - resolved some lower extremity swelling, though patient with R sided heart failure no need for antibiotics currently, mild residual erythema remains DM2 last A1c = 5.5% using sliding scale and monitor sugars HTN continue home medications monitor BP due to IV diuretic use currently holding up and stable Hypothyroidism continue Synthroid Hx. of Black Stools, +FOBT patient was positive for FOBT during last admission refused GI w/up started on protonix BID H/H stable DVT ppx SCDs, due to hx. of GI bleed FULL CODE
[2016-12-16] MEDS ORDERED: METHYLPREDNISOLONE IV 40 MG in SYRINGE 0 ML IV ONE (10:45)
[2016-12-16] MEDS ORDERED: POTASSIUM CHLR 10 MEQ / WTR 10 MEQ in PREMIXED WATER 100 ML IV SCH (11:15)
[2016-12-16] MEDS: POTASSIUM CHLR 10 MEQ / WTR 10 MEQ in PREMIXED WATER 100 ML IV SCH ×2 (11:38→15:00)
[2016-12-16] MEDS: QUETIAPINE FUMARATE 25 MG TAB PO SCH (21:00)
[2016-12-16] MEDS: ATORVASTATIN 20 MG TAB PO SCH (21:00)
[2016-12-16] MEDS: DOCUSATE SODIUM/SENNA 50/8.6MG TAB PO SCH (21:00)
[2016-12-16 23:18] LABS: EOS % 0.2 %; HEMATOCRIT 32.9 % (37-47); IG% 0.2 %; LYMPH % 4.9 %; LYMPH ABS # 0.27 K/uL (1.2-3.4); MEAN CORPUSCULAR HEMOGLOBIN 25.4 pg (25-34); MONO % 1.1 %; NEUT % 93.6 %; PLATELET COUNT 115 K/uL (130-400); RED BLOOD COUNT 3.78 M/uL (4.2-5.4); WHITE BLOOD COUNT 5.55 K/uL (4.8-10.8)
[2016-12-16 23:24] LABS: ARTERIAL BLD GAS O2 SATURATION 95.1 % (90-95); ARTERIAL BLOOD GAS BASE EXCESS 7.9 mEq/L (-9-1.8); ARTERIAL BLOOD GAS HCO3 35 mmol/L (19-24); ARTERIAL BLOOD GAS PO2 87 mm/Hg (80-95); ARTERIAL BLOOD GAS pH 7.33 (7.35-7.45)
[2016-12-16 23:25] LABS: ALLEN TEST POS (POS); O2 ADMINISTRATION 50% BIPAP
[2016-12-16 23:33] LABS: COMPLETE YES; MEAN CORPUSCULAR HGB CONC 29.2 g/dl (32-36)
[2016-12-16 23:43] LABS: BUN/CREATININE RATIO 41.3 (10-20); CALCIUM 9.3 mg/dl (8.5-10.1); CREATININE 1.1 mg/dl (0.60-1.20); POTASSIUM 4.3 mmol/L (3.5-5.1)
[2016-12-17] VITALS (16 sets, daily range): BP systolic 94–113; BP diastolic 49–57; PULSE 76–101; TEMP 36.3–37; O2SAT 90–100
[2016-12-17] MEDS: RISPERIDONE 1 MG TAB PO PRN ×2 (05:27→17:18)
[2016-12-17] MEDS: BACLOFEN 10 MG TAB PO PRN ×3 (05:27→21:54)
[2016-12-17] MEDS: LEVOTHYROXINE 112 MCG TAB PO SCH (05:28)
[2016-12-17 06:00] LABS: HEMATOCRIT 36.4 % (37-47); MEAN CELL VOLUME 87.7 fL (80-100); MEAN CORPUSCULAR HEMOGLOBIN 25.1 pg (25-34); MEAN CORPUSCULAR HGB CONC 28.6 g/dl (32-36); MEAN PLATELET VOLUME 10.3 fL (7.4-10.4); PLATELET COUNT 115 K/uL (130-400); RED BLOOD COUNT 4.15 M/uL (4.2-5.4); WHITE BLOOD COUNT 4.89 K/uL (4.8-10.8)
[2016-12-17 06:34] LABS: BUN/CREATININE RATIO 39.2 (10-20); CALCIUM 9.5 mg/dl (8.5-10.1); CREATININE 1.2 mg/dl (0.60-1.20); POTASSIUM 4.3 mmol/L (3.5-5.1)
[2016-12-17] MEDS: ARFORMOTEROL TART 15MCG/2ML VIAL INH SCH ×2 (06:55→19:29)
[2016-12-17] MEDS: BUDESONIDE 0.5 MG/2 ML VIAL (PULMICORT) INH SCH ×2 (06:55→19:29)
[2016-12-17] MEDS: INSULIN ASPART 100 UNITS/ML 3 ML PEN SC SCH ×4 (07:00→21:00)
[2016-12-17] MEDS: ALBUT/IPRATROP 3MG/0.5MG NEB 3 ML VIAL INH SCH ×4 (07:29→19:29)
--- NOTE | 2016-12-17 08:35 | Progress Note ---
Subjective Date of Service: December 17, 2016. Subjective Pt evaluation today including: conversation w/ patient, physical exam, lab review, review of studies, review of inpatient medication list Saw/examined the patient in room 204 She is obtunded due to medications; last night she was getting agitated, difficult to breath, became ashen cuellar Bipap settings changed and given risperdal due to agitation Currently, she is saturating fine with bipap on, is not in respiratory distress Problem List Medical Problems: (1) Anemia Status: Acute (2) Bilateral lower leg cellulitis Status: Acute (3) CHF (congestive heart failure) Status: Acute (4) Failure of outpatient treatment Status: Acute (5) GI bleed Status: Acute (6) Hypoxia Status: Acute (7) Hypoxia Status: Acute (8) Respiratory distress Status: Acute Review of Systems Cannot obtain due to patient's mental status Medications Current Inpatient Medications Medications (Trade) Dose Ordered Sig/Romaine Route Start Time Stop Time Status Last Admin Dose Admin Arformoterol Tartrate (Brovana 15MCG/ 2ML Neb Soln) 15 mcg BIDR INH 12/13/16 20:00 01/12/17 19:59 12/17/16 06:55 15 MCG Aspirin (Ecotrin Tab) 81 mg DAILY PO 12/14/16 09:00 01/13/17 08:59 12/16/16 08:27 81 MG Atorvastatin Calcium (Lipitor Tab) 20 mg HS PO 12/13/16 21:00 01/12/17 20:59 12/15/16 20:29 20 MG Baclofen (Lioresal Tab) 15 mg QID PRN PO 12/13/16 11:30 01/12/17 11:29 12/17/16 05:27 15 MG Budesonide (Pulmicort Respules 0.5MG/ 2ML Neb Soln) 0.5 mg BIDR INH 12/13/16 20:00 01/12/17 19:59 12/17/16 06:55 0.5 MG Lactobacillus Acidophilus (Floranex Tab) 4 tab TID PO 12/13/16 14:00 01/12/17 13:59 12/16/16 08:28 4 TAB Levothyroxine Sodium (Synthroid Tab) 112 mcg DAILYBB PO 12/14/16 06:00 01/13/17 05:59 12/17/16 05:28 112 MCG Pantoprazole Sodium (Protonix Tab) 40 mg BID PO 12/13/16 21:00 01/12/17 20:59 12/16/16 08:28 40 MG Quetiapine Fumarate (seroQUEL TAB) 50 mg HS PO 12/13/16 21:00 01/12/17 20:59 12/15/16 20:29 50 MG Senna/Docusate Sodium (Senokot S Tab) 2 tab HS PO 12/13/16 21:00 01/12/17 20:59 12/15/16 20:29 2 TAB Tramadol HCl (Ultram Tab) 50 mg Q6H PRN PO 12/13/16 11:30 01/12/17 11:29 12/16/16 08:30 50 MG Acetaminophen (Tylenol Tab) 650 mg Q4H PRN PO 12/13/16 11:45 01/12/17 11:44 Magnesium Hydroxide (Milk Of Magnesia Susp) 30 ml Q12H PRN PO 12/13/16 11:45 01/12/17 11:44 Ondansetron HCl (Zofran Inj) 4 mg Q6H PRN IV 12/13/16 11:45 01/12/17 11:44 Nitroglycerin (Nitrostat Tab) 0.4 mg UD PRN SL 12/13/16 11:45 01/12/17 11:44 Polyethylene (Miralax Powder Packet) 17 gm DAILY PRN PO 12/13/16 11:45 01/12/17 11:44 Insulin Aspart (novoLOG ASPART) SLIDING SCALE If C... ACHS SC 12/13/16 16:15 01/12/17 16:14 12/16/16 21:53 1 UNITS Glucose (Glucose 40% Gel) 15-30 GRAMS 15 GRAMS... UD PRN PO 12/13/16 11:45 01/12/17 11:44 Glucose (Glucose Chew Tab) 4-8 Tablets 4 Tabl... UD PRN PO 12/13/16 11:45 01/12/17 11:44 Dextrose (Dextrose 50% 50ML Syringe) 25-50ML OF 50% DW IV FOR... UD PRN IV 12/13/16 11:45 01/12/17 11:44 Glucagon (Glucagon Inj) 1 mg UD PRN SQ 12/13/16 11:45 01/12/17 11:44 Albuterol/ Ipratropium (Duoneb) 3 ml QIDR INH 12/13/16 20:00 01/12/17 19:59 12/16/16 19:25 3 ML Lorazepam (Ativan Inj) 1 mg Q4H PRN IV 12/14/16 11:30 01/13/17 11:29 Risperidone 1 mg 1 mg BID PRN PO 12/14/16 14:30 01/13/17 14:29 12/17/16 05:27 1 MG Furosemide/Syringe (Lasix Inj/ Syringe) 4 ml @ 4 mls/min TID IV 12/16/16 14:00 01/15/17 13:59 12/16/16 21:49 4 MLS/MIN Metoprolol Succinate (Toprol Xl Tab) 50 mg DAILY PO 12/17/16 09:00 01/16/17 08:59 Objective Vital Signs Date Time Temp Pulse Resp B/P Pulse Ox O2 Delivery O2 Flow Rate FiO2 12/17/16 07:52 36.7 86 16 94/49 98 BiPAP 12/17/16 06:55 91 14 100 Nasal Cannula 6.0 12/17/16 04:00 99 BiPAP 12/17/16 03:59 36.6 76 18 97/57 98 BiPAP 12/17/16 00:27 78 97 50 12/17/16 00:00 36.3 81 18 105/53 98 BiPAP 12/16/16 23:59 BiPAP 12/16/16 21:05 86 96 50 12/16/16 20:00 99 BiPAP 12/16/16 19:26 36.3 83 18 106/54 98 BiPAP 12/16/16 19:25 88 14 96 BiPAP/CPAP 50 12/16/16 16:02 97 BiPAP 12/16/16 15:16 88 96 50 12/16/16 15:15 88 14 96 BiPAP/CPAP 50 12/16/16 15:01 84 16 103/56 95 BiPAP 12/16/16 12:21 37.0 75 16 97/44 99 BiPAP 12/16/16 12:03 94 BiPAP 12/16/16 11:23 74 96 50 12/16/16 11:22 97 14 96 BiPAP/CPAP 50 Physical Exam General Appearance: no apparent distress Respiratory/Chest: no respiratory distress, no accessory muscle use, + crackles Cardiovascular: regular rate, rhythm, + systolic murmur Extremities: normal inspection, no pedal edema Laboratory Results Last 24 Hours Test 12/16/16 11:35 12/16/16 16:33 12/16/16 20:33 12/16/16 23:05 Bedside Glucose 155 mg/dl 194 mg/dl 186 mg/dl White Blood Count 5.55 K/uL Red Blood Count 3.78 M/uL Hemoglobin 9.6 g/dL Hematocrit 32.9 % Mean Corpuscular Volume 87.0 fL Mean Corpuscular Hemoglobin 25.4 pg Mean Corpuscular Hemoglobin Concent 29.2 g/dl Platelet Count 115 K/uL Mean Platelet Volume 10.0 fL Neutrophils (%) (Auto) 93.6 % Lymphocytes (%) (Auto) 4.9 % Monocytes (%) (Auto) 1.1 % Eosinophils (%) (Auto) 0.2 % Basophils (%) (Auto) 0.0 % Neutrophils # (Auto) 5.20 K/uL Lymphocytes # (Auto) 0.27 K/uL Monocytes # (Auto) 0.06 K/uL Eosinophils # (Auto) 0.01 K/uL Basophils # (Auto) 0.00 K/uL RDW Standard Deviation 56.2 fL RDW Coefficient of Variation 17.6 % Immature Granulocyte % (Auto) 0.2 % Immature Granulocyte # (Auto) 0.01 K/uL Arterial Blood pH 7.33 Arterial Blood Partial Pressure CO2 68 mmHg Arterial Blood Partial Pressure O2 87 mm/Hg Arterial Blood HCO3 35 mmol/L Arterial Blood Oxygen Saturation 95.1 % Arterial Blood Base Excess 7.9 mEq/L Arterial Blood Gas Delivery 50% BIPAP Justice Test POS Sodium Level 146 mmol/L Potassium Level 4.3 mmol/L Chloride Level 103 mmol/L Carbon Dioxide Level 39 mmol/L Anion Gap 4.0 mmol/L Blood Urea Nitrogen 45 mg/dl Creatinine 1.10 mg/dl Est Creatinine Clear Calc Drug Dose 64.6 ml/min Estimated GFR () 58.1 Estimated GFR (Non- 50.1 BUN/Creatinine Ratio 41.3 Random Glucose 162 mg/dl Calcium Level 9.3 mg/dl Test 12/17/16 05:43 12/17/16 06:34 White Blood Count 4.89 K/uL Red Blood Count 4.15 M/uL Hemoglobin 10.4 g/dL Hematocrit 36.4 % Mean Corpuscular Volume 87.7 fL Mean Corpuscular Hemoglobin 25.1 pg Mean Corpuscular Hemoglobin Concent 28.6 g/dl RDW Standard Deviation 56.8 fL RDW Coefficient of Variation 17.5 % Platelet Count 115 K/uL Mean Platelet Volume 10.3 fL Sodium Level 144 mmol/L Potassium Level 4.3 mmol/L Chloride Level 103 mmol/L Carbon Dioxide Level 37 mmol/L Anion Gap 4.0 mmol/L Blood Urea Nitrogen 47 mg/dl Creatinine 1.20 mg/dl Est Creatinine Clear Calc Drug Dose 59.2 ml/min Estimated GFR () 52.3 Estimated GFR (Non- 45.1 BUN/Creatinine Ratio 39.2 Random Glucose 142 mg/dl Calcium Level 9.5 mg/dl Bedside Glucose 159 mg/dl Assessment and Plan This is a 71 year old female with PMH of severe COPD and chronic respiratory failure on continuous O2 therapy, right sided heart failure secondary to COPD and pulmonary HTN, DM2, HTN, CKD stage 3, HLD, chronic pancreatitis, hypothyroidism, depression/anxiety with recent admission to [facility] due to CHF exacerbation; was discharged to [facility] and returned with acute respiratory failure Acute on Chronic Respiratory Failure 12/17 Currently on Bipap did not have a good night due to respiratory distress and agitation now obtunded due to medications saturating well, in no respiratory distress currently palliative care consultation pending family aware of poor prognosis 12/16 she has had almost no improvement PCO2 increasing slightly this morning currently on 6L O2 via NC intermittent bipap use, but patient has difficulty tolerating it palliative care consult placed 12/15 plan is to continue diuresing Currently on Bipap and saturating well attempting weaning off Bipap, but does not saturate well without it may need discussion regarding palliative care 12/14 patient on chronic 4-5L O2 at [facility] she has multiple co-morbidities including COPD, R sided heart failure, obesity she is now requiring more O2 than at baseline; currently on a Venturi mask ABGs performed yesterday; pH mildly acidotic, chronic CO2 elevation; which seems to be close to baseline CXR performed on 12/13 Progression of pulmonary edema, small bilateral pleural effusions and bibasilar opacities which statistically reflect atelectasis likely related to her heart failure; will monitor and adjust O2 as needed during previous admission, she did require bipap; will hold off for now Acute on Chronic Right Side Heart Failure (with preserved EF) 12/17 continue Lasix TID dosing creatinine is stable and can handle it at 1.2 today poor prognosis 12/16 appreciate nephrology input increased Lasix to TID dosing creatinine down to 1.1 and tolerating diuresis poor prognosis 12/15 for now, keep IV Lasix BID dosing kidneys are handling this okay Unfortunately, her breathing status has not improved today 12/14 patient recently admitted a few weeks prior due to heart failure symptoms echo performed on 11/25 suggest R sided heart failure * Flattened septum is consistent with RV pressure/volume overload. * Ejection Fraction = 65-70%. * Grade I diastolic dysfunction, (abnormal relaxation pattern). * The right ventricle is moderate to severely dilated. * The right atrium is moderate to severely dilated. * There is severe tricuspid regurgitation. * Right ventricular systolic pressure is markedly elevated at >60mmHg. CXR also suggest fluid overload, BNP > 10,000 will continue IV Lasix BID, appropriate diuresis I's and O's, daily weights, fluid restriction Acute Kidney Injury superimposed on CKD stage 3 12/17 1.2 today will continue Lasix TID dosing 12/16 improving creatinine to 1.1 continue IV Lasix 12/15 creatinine during last admission was around 0.8 her Lasix dose during previous admission was changed from 40mg to 60mg as outpatient creatinine on admission was 1.7 appreciate nephrology input, will continue to diurese until breathing status, oxygen saturation, etc. improve Lethargy/Altered Level of Consciousness 12/16 continues to be in a stupor unsure if this is CO2 narcosis; work of breathing is increased and may be getting lethargic from that 12/14 seems to be improving slightly thoughts about CO2 narcosis, though CO2 seems to be at baseline ammonia level pending should on on CPAP nocturnally, though refuses COPD 12/16 will give one dose of solu-medrol today monitor how she does clinically 12/15 chronic respiratory failure with 4-5 L O2 continuously at baseline does not seem to be in exacerbation, no wheezing noted will monitor breathing status and oxygen saturation after IV Lasix doses no steroids needed nebulizers as needed Recent bilateral LE cellulitis - resolved some lower extremity swelling, though patient with R sided heart failure no need for antibiotics currently, mild residual erythema remains DM2 last A1c = 5.5% using sliding scale and monitor sugars HTN continue home medications monitor BP due to IV diuretic use currently holding up and stable Hypothyroidism continue Synthroid Hx. of Black Stools, +FOBT patient was positive for FOBT during last admission refused GI w/up started on protonix BID H/H stable DVT ppx SCDs, due to hx. of GI bleed FULL CODE
[2016-12-17] MEDS: FUROSEMIDE INJ 40 MG in SYRINGE 0 ML IV SCH ×3 (08:49→19:47)
[2016-12-17] MEDS: LACTOBACILLUS ACIDOPHILUS (FLORANEX) TAB PO SCH ×3 (08:51→19:44)
[2016-12-17] MEDS: PANTOprazole SOD 40 MG TAB PO SCH ×2 (08:51→19:44)
[2016-12-17] MEDS: ASPIRIN 81 MG ECTAB PO SCH (08:51)
[2016-12-17] MEDS: METOPROLOL SUCC 50MG EXT REL TAB PO SCH (08:52)
--- NOTE | 2016-12-17 12:44 | Palliative Care Consultation ---
Consultation Date of Consultation: December 17, 2016. Requesting Physician: Dr. Gong Attending Physician: Dr. Gong Reason for Consultation: Goals of care History of Present Illness This 71 year old female patient presented to the ED from the [facility] three days ago with c/o worsening SOB. She has a significant past medical history of severe COPD, right ventricular dysfunction secondary to COPD, pulmonary hypertension, and others listed below. She was recently treatment twice in the hospital for lower extremity cellulitis and COPD/CHF exacerbations. In the ED on this admission, a CXR showed worsening pulmonary edema, BNP was 10k, and creatinine was up to 1.70 (up from 0.88). She received IV lasix, admitted for CHF exacerbation and CLIFF. Patient has intermittently required bipap, but does not tolerate it well as it is uncomfortable. Her creatinine has improved, she is making urine. Just had echocardiogram done at beginning of November 2016 showing EF of 65-70%, severely dilated right atrium and ventricle, severe tricuspid regurg, and elevated RV pressure. Patient has been followed during previous admissions by cardiology and pulmonology. Pulmonology noted patient's FEV1 in February 2016 to be 47%, and that the patient's prognosis was guarded. Patient is also in a rather deconditioned stte, morbidly obese and not able to ambulate much. Per her sons, she was mostly in a wheelchair at SNF. Has had an overall decline since June when she transitioned from living independently to living in a residential. Now, during this admission, patient has not showed signs of improvement. Sons are struggling to make her a DNR/DNI as her wishes were to be a full code and have everything done. Palliative care consulted to assist with establishing goals of care. I met with the patient and her family in room 204. Patient is drowsy but awake, on the bipap. She denied any pain or discomfort, but was just experiencing increased SOB which is why she had the bipap put back on. Per nursing, patient desaturates to the 70s quite quickly without the bipap. Patient's son, Ortiz, just got done speaking with the patient about code status; and patient is adamant that she wants to be a full code and to be resuscitated. I located a POLST, copy is in the EMR, that states she is a full code, full treatment, abx if life can be prolonged, and long-term artificial feeding/nutrition. Myself, the two sons (Aaron and Ortiz), and daughter in law (Ortiz's ), met outside of the room. Both sons feel that their mother is not doing well and they know her prognosis is quite poor at this time. We discussed her medical conditions and they verbalized understanding. However, they are honoring their mother's wish to be a full code and receive full treatment. They stated several times, "We want to give her every fighting chance." However, if patient deteriorates to the point of no communication and she is not improving at all, they would step in and make decisions for her and would not want her to be resuscitated at that time. If patient does end up on a ventilator/coding, if there were no signs of improvement tor hope for a meaningful recovery in a few days, they again would step in and withdraw care. they would never want their mother to have a trach or feeding tube. They know the patient would never want to live in a vegetative or incapacitated state, as she was a strong and independent woman. Past Medical/Surgical History Medical History: Bronchitis CHF with preserved EF. 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 Medications Current Inpatient Medications Medications (Trade) Dose Ordered Sig/Romaine Route Start Time Stop Time Status Last Admin Dose Admin Arformoterol Tartrate (Brovana 15MCG/ 2ML Neb Soln) 15 mcg BIDR INH 12/13/16 20:00 01/12/17 19:59 12/17/16 06:55 15 MCG Aspirin (Ecotrin Tab) 81 mg DAILY PO 12/14/16 09:00 01/13/17 08:59 12/17/16 08:51 81 MG Atorvastatin Calcium (Lipitor Tab) 20 mg HS PO 12/13/16 21:00 01/12/17 20:59 12/15/16 20:29 20 MG Baclofen (Lioresal Tab) 15 mg QID PRN PO 12/13/16 11:30 01/12/17 11:29 12/17/16 05:27 15 MG Budesonide (Pulmicort Respules 0.5MG/ 2ML Neb Soln) 0.5 mg BIDR INH 12/13/16 20:00 01/12/17 19:59 12/17/16 06:55 0.5 MG Lactobacillus Acidophilus (Floranex Tab) 4 tab TID PO 12/13/16 14:00 01/12/17 13:59 12/17/16 08:51 4 TAB Levothyroxine Sodium (Synthroid Tab) 112 mcg DAILYBB PO 12/14/16 06:00 01/13/17 05:59 12/17/16 05:28 112 MCG Pantoprazole Sodium (Protonix Tab) 40 mg BID PO 12/13/16 21:00 01/12/17 20:59 12/17/16 08:51 40 MG Quetiapine Fumarate (seroQUEL TAB) 50 mg HS PO 12/13/16 21:00 01/12/17 20:59 12/15/16 20:29 50 MG Senna/Docusate Sodium (Senokot S Tab) 2 tab HS PO 12/13/16 21:00 01/12/17 20:59 12/15/16 20:29 2 TAB Tramadol HCl (Ultram Tab) 50 mg Q6H PRN PO 12/13/16 11:30 01/12/17 11:29 12/16/16 08:30 50 MG Acetaminophen (Tylenol Tab) 650 mg Q4H PRN PO 12/13/16 11:45 01/12/17 11:44 Magnesium Hydroxide (Milk Of Magnesia Susp) 30 ml Q12H PRN PO 12/13/16 11:45 01/12/17 11:44 Ondansetron HCl (Zofran Inj) 4 mg Q6H PRN IV 12/13/16 11:45 01/12/17 11:44 Nitroglycerin (Nitrostat Tab) 0.4 mg UD PRN SL 12/13/16 11:45 01/12/17 11:44 Polyethylene (Miralax Powder Packet) 17 gm DAILY PRN PO 12/13/16 11:45 01/12/17 11:44 Insulin Aspart (novoLOG ASPART) SLIDING SCALE If C... ACHS SC 12/13/16 16:15 01/12/17 16:14 12/16/16 21:53 1 UNITS Glucose (Glucose 40% Gel) 15-30 GRAMS 15 GRAMS... UD PRN PO 12/13/16 11:45 01/12/17 11:44 Glucose (Glucose Chew Tab) 4-8 Tablets 4 Tabl... UD PRN PO 12/13/16 11:45 01/12/17 11:44 Dextrose (Dextrose 50% 50ML Syringe) 25-50ML OF 50% DW IV FOR... UD PRN IV 12/13/16 11:45 01/12/17 11:44 Glucagon (Glucagon Inj) 1 mg UD PRN SQ 12/13/16 11:45 01/12/17 11:44 Albuterol/ Ipratropium (Duoneb) 3 ml QIDR INH 12/13/16 20:00 01/12/17 19:59 12/17/16 11:36 3 ML Lorazepam (Ativan Inj) 1 mg Q4H PRN IV 12/14/16 11:30 01/13/17 11:29 Risperidone 1 mg 1 mg BID PRN PO 12/14/16 14:30 01/13/17 14:29 12/17/16 05:27 1 MG Furosemide/Syringe (Lasix Inj/ Syringe) 4 ml @ 4 mls/min TID IV 12/16/16 14:00 01/15/17 13:59 12/17/16 08:49 4 MLS/MIN Metoprolol Succinate (Toprol Xl Tab) 50 mg DAILY PO 12/17/16 09:00 01/16/17 08:59 12/17/16 08:52 50 MG Physical Exam Date Time Temp Pulse Resp B/P Pulse Ox O2 Delivery O2 Flow Rate FiO2 12/17/16 11:37 77 100 50 12/17/16 11:36 77 20 100 BiPAP/CPAP 50 12/17/16 08:49 95 17 113/56 90 Nasal Cannula 6.0 12/17/16 07:52 36.7 86 16 94/49 98 BiPAP 12/17/16 06:55 91 14 100 Nasal Cannula 6.0 12/17/16 04:00 99 BiPAP 12/17/16 03:59 36.6 76 18 97/57 98 BiPAP 12/17/16 00:27 78 97 50 12/17/16 00:00 36.3 81 18 105/53 98 BiPAP 12/16/16 23:59 BiPAP 12/16/16 21:05 86 96 50 12/16/16 20:00 99 BiPAP 12/16/16 19:26 36.3 83 18 106/54 98 BiPAP 12/16/16 19:25 88 14 96 BiPAP/CPAP 50 12/16/16 16:02 97 BiPAP 12/16/16 15:16 88 96 50 12/16/16 15:15 88 14 96 BiPAP/CPAP 50 12/16/16 15:01 84 16 103/56 95 BiPAP 12/16/16 12:21 37.0 75 16 97/44 99 BiPAP 12/16/16 12:03 94 BiPAP General Appearance: no apparent distress, + obese ENT: hearing grossly normal Neck: supple, no JVD Respiratory: no respiratory distress, + decreased breath sounds, + pertinent finding (bipap mask on) Cardiovascular: regular rate, rhythm (frequent PVCs), + normal peripheral pulses, + pertinent finding (bilateral lower extremity edema) Abdomen: normal bowel sounds, non tender, soft Neurologic/Psychiatric: + pertinent finding (awake but drowsy. disoriented) Skin: + pallor Laboratory Results Last 24 Hours Test 12/16/16 16:33 12/16/16 20:33 12/16/16 23:05 12/17/16 05:43 Bedside Glucose 194 mg/dl 186 mg/dl White Blood Count 5.55 K/uL 4.89 K/uL Red Blood Count 3.78 M/uL 4.15 M/uL Hemoglobin 9.6 g/dL 10.4 g/dL Hematocrit 32.9 % 36.4 % Mean Corpuscular Volume 87.0 fL 87.7 fL Mean Corpuscular Hemoglobin 25.4 pg 25.1 pg Mean Corpuscular Hemoglobin Concent 29.2 g/dl 28.6 g/dl Platelet Count 115 K/uL 115 K/uL Mean Platelet Volume 10.0 fL 10.3 fL Neutrophils (%) (Auto) 93.6 % Lymphocytes (%) (Auto) 4.9 % Monocytes (%) (Auto) 1.1 % Eosinophils (%) (Auto) 0.2 % Basophils (%) (Auto) 0.0 % Neutrophils # (Auto) 5.20 K/uL Lymphocytes # (Auto) 0.27 K/uL Monocytes # (Auto) 0.06 K/uL Eosinophils # (Auto) 0.01 K/uL Basophils # (Auto) 0.00 K/uL RDW Standard Deviation 56.2 fL 56.8 fL RDW Coefficient of Variation 17.6 % 17.5 % Immature Granulocyte % (Auto) 0.2 % Immature Granulocyte # (Auto) 0.01 K/uL Arterial Blood pH 7.33 Arterial Blood Partial Pressure CO2 68 mmHg Arterial Blood Partial Pressure O2 87 mm/Hg Arterial Blood HCO3 35 mmol/L Arterial Blood Oxygen Saturation 95.1 % Arterial Blood Base Excess 7.9 mEq/L Arterial Blood Gas Delivery 50% BIPAP Justice Test POS Sodium Level 146 mmol/L 144 mmol/L Potassium Level 4.3 mmol/L 4.3 mmol/L Chloride Level 103 mmol/L 103 mmol/L Carbon Dioxide Level 39 mmol/L 37 mmol/L Anion Gap 4.0 mmol/L 4.0 mmol/L Blood Urea Nitrogen 45 mg/dl 47 mg/dl Creatinine 1.10 mg/dl 1.20 mg/dl Est Creatinine Clear Calc Drug Dose 64.6 ml/min 59.2 ml/min Estimated GFR () 58.1 52.3 Estimated GFR (Non- 50.1 45.1 BUN/Creatinine Ratio 41.3 39.2 Random Glucose 162 mg/dl 142 mg/dl Calcium Level 9.3 mg/dl 9.5 mg/dl Test 12/17/16 06:34 12/17/16 11:11 Bedside Glucose 159 mg/dl 144 mg/dl Assessment & Plan Palliative Performance Scale: 20 % Problem list: Altered mental status SOB Ambulatory dysfunction/weakness Respiratory failure CHF exacerbation COPD Goals of care (Z51.5) Palliative care recommendations: discussed with patient's sons and Dr. Gong. -Continue current treatment -Remains level one full code -If patient is unable to make decisions, it will be deferred to all four children who seem to be in agreement with everything. -Sons state that patient would never want to be kept alive by heroic measures if she had no chance of recovery or if she was in a vegetative state -Goal is to get patient well enough to go back to the [facility] -Prognosis is poor -Will defer to primary medical team to decide on whether or not to obtain pulmonology and cardiology consults during this admission for their input/ support and for optimal treatment as the family wants full treatment at this time -Would not increase any sedative medications at this time Thank you kindly for this consult. I will follow as needed.
[2016-12-17] MEDS: TRAMADOL HCL 50 MG TAB PO PRN ×2 (15:13→21:57)
[2016-12-17] MEDS: ATORVASTATIN 20 MG TAB PO SCH (19:44)
[2016-12-17] MEDS: QUETIAPINE FUMARATE 25 MG TAB PO SCH (19:45)
[2016-12-17] MEDS: DOCUSATE SODIUM/SENNA 50/8.6MG TAB PO SCH (19:45)
[2016-12-18] VITALS (14 sets, daily range): BP systolic 93–122; BP diastolic 50–69; PULSE 79–102; TEMP 36.4–37; O2SAT 92–99
[2016-12-18 06:16] LABS: HEMATOCRIT 32.9 % (37-47); MEAN CELL VOLUME 87.7 fL (80-100); MEAN CORPUSCULAR HEMOGLOBIN 25.1 pg (25-34); MEAN CORPUSCULAR HGB CONC 28.6 g/dl (32-36); MEAN PLATELET VOLUME 10.5 fL (7.4-10.4); PLATELET COUNT 122 K/uL (130-400); RED BLOOD COUNT 3.75 M/uL (4.2-5.4); WHITE BLOOD COUNT 8.21 K/uL (4.8-10.8)
[2016-12-18] MEDS: LEVOTHYROXINE 112 MCG TAB PO SCH (06:45)
[2016-12-18 06:55] LABS: CALCIUM 9.2 mg/dl (8.5-10.1); CREATININE 1.2 mg/dl (0.60-1.20)
[2016-12-18] MEDS: INSULIN ASPART 100 UNITS/ML 3 ML PEN SC SCH ×4 (07:00→20:56)
[2016-12-18] MEDS: ARFORMOTEROL TART 15MCG/2ML VIAL INH SCH ×2 (07:15→19:04)
[2016-12-18] MEDS: BUDESONIDE 0.5 MG/2 ML VIAL (PULMICORT) INH SCH ×2 (07:15→19:04)
[2016-12-18] MEDS: ALBUT/IPRATROP 3MG/0.5MG NEB 3 ML VIAL INH SCH ×4 (07:15→19:04)
[2016-12-18] MEDS: LACTOBACILLUS ACIDOPHILUS (FLORANEX) TAB PO SCH ×3 (08:24→20:55)
[2016-12-18] MEDS: ASPIRIN 81 MG ECTAB PO SCH (08:27)
[2016-12-18] MEDS: FUROSEMIDE INJ 40 MG in SYRINGE 0 ML IV SCH ×2 (08:27→17:06)
[2016-12-18] MEDS: PANTOprazole SOD 40 MG TAB PO SCH ×2 (08:28→20:55)
[2016-12-18] MEDS: METOPROLOL SUCC 50MG EXT REL TAB PO SCH (08:28)
--- NOTE | 2016-12-18 09:30 | Progress Note ---
Subjective Date of Service: December 18, 2016. Subjective Pt evaluation today including: conversation w/ patient, physical exam, lab review, review of studies, review of inpatient medication list Saw/examined the patient in room 204 She is awake today, on nasal cannula, eating breakfast, talking to me States she does not recall why she is in the hospital or how long she has been here - I explained everything and she understood Currently, she is calm, but gets very anxious + agitated about putting on a mask or Bipap Denies chest pain, shortness of breath, palpitations, fevers/chills Problem List Medical Problems: (1) Anemia Status: Acute (2) Bilateral lower leg cellulitis Status: Acute (3) CHF (congestive heart failure) Status: Acute (4) Failure of outpatient treatment Status: Acute (5) GI bleed Status: Acute (6) Hypoxia Status: Acute (7) Hypoxia Status: Acute (8) Respiratory distress Status: Acute Review of Systems Constitutional: No chills, No fever Respiratory: No cough, No dyspnea at rest, No dyspnea on exertion, No hemoptysis, No shortness of breath, No sputum, No wheezing Cardiac: No chest pain, No edema Abdomen: No diarrhea, No nausea, No pain, No vomiting Medications Current Inpatient Medications Medications (Trade) Dose Ordered Sig/Romaine Route Start Time Stop Time Status Last Admin Dose Admin Arformoterol Tartrate (Brovana 15MCG/ 2ML Neb Soln) 15 mcg BIDR INH 12/13/16 20:00 01/12/17 19:59 12/18/16 07:15 15 MCG Aspirin (Ecotrin Tab) 81 mg DAILY PO 12/14/16 09:00 01/13/17 08:59 12/18/16 08:27 81 MG Atorvastatin Calcium (Lipitor Tab) 20 mg HS PO 12/13/16 21:00 01/12/17 20:59 12/17/16 19:44 20 MG Baclofen (Lioresal Tab) 15 mg QID PRN PO 12/13/16 11:30 01/12/17 11:29 12/17/16 21:54 15 MG Budesonide (Pulmicort Respules 0.5MG/ 2ML Neb Soln) 0.5 mg BIDR INH 12/13/16 20:00 01/12/17 19:59 12/18/16 07:15 0.5 MG Lactobacillus Acidophilus (Floranex Tab) 4 tab TID PO 12/13/16 14:00 01/12/17 13:59 12/17/16 19:44 4 TAB Levothyroxine Sodium (Synthroid Tab) 112 mcg DAILYBB PO 12/14/16 06:00 01/13/17 05:59 12/18/16 06:45 112 MCG Pantoprazole Sodium (Protonix Tab) 40 mg BID PO 12/13/16 21:00 01/12/17 20:59 12/18/16 08:28 40 MG Quetiapine Fumarate (seroQUEL TAB) 50 mg HS PO 12/13/16 21:00 01/12/17 20:59 12/17/16 19:45 50 MG Senna/Docusate Sodium (Senokot S Tab) 2 tab HS PO 12/13/16 21:00 01/12/17 20:59 12/17/16 19:45 2 TAB Tramadol HCl (Ultram Tab) 50 mg Q6H PRN PO 12/13/16 11:30 01/12/17 11:29 12/17/16 21:57 50 MG Acetaminophen (Tylenol Tab) 650 mg Q4H PRN PO 12/13/16 11:45 01/12/17 11:44 Magnesium Hydroxide (Milk Of Magnesia Susp) 30 ml Q12H PRN PO 12/13/16 11:45 01/12/17 11:44 Ondansetron HCl (Zofran Inj) 4 mg Q6H PRN IV 12/13/16 11:45 01/12/17 11:44 Nitroglycerin (Nitrostat Tab) 0.4 mg UD PRN SL 12/13/16 11:45 01/12/17 11:44 Polyethylene (Miralax Powder Packet) 17 gm DAILY PRN PO 12/13/16 11:45 01/12/17 11:44 Insulin Aspart (novoLOG ASPART) SLIDING SCALE If C... ACHS SC 12/13/16 16:15 01/12/17 16:14 12/16/16 21:53 1 UNITS Glucose (Glucose 40% Gel) 15-30 GRAMS 15 GRAMS... UD PRN PO 12/13/16 11:45 01/12/17 11:44 Glucose (Glucose Chew Tab) 4-8 Tablets 4 Tabl... UD PRN PO 12/13/16 11:45 01/12/17 11:44 Dextrose (Dextrose 50% 50ML Syringe) 25-50ML OF 50% DW IV FOR... UD PRN IV 12/13/16 11:45 01/12/17 11:44 Glucagon (Glucagon Inj) 1 mg UD PRN SQ 12/13/16 11:45 01/12/17 11:44 Albuterol/ Ipratropium (Duoneb) 3 ml QIDR INH 12/13/16 20:00 01/12/17 19:59 12/17/16 15:11 3 ML Lorazepam (Ativan Inj) 1 mg Q4H PRN IV 12/14/16 11:30 01/13/17 11:29 Risperidone 1 mg 1 mg BID PRN PO 12/14/16 14:30 01/13/17 14:29 12/17/16 17:18 1 MG Furosemide/Syringe (Lasix Inj/ Syringe) 4 ml @ 4 mls/min TID IV 12/16/16 14:00 01/15/17 13:59 12/18/16 08:27 4 MLS/MIN Metoprolol Succinate (Toprol Xl Tab) 50 mg DAILY PO 12/17/16 09:00 01/16/17 08:59 12/18/16 08:28 50 MG Objective Vital Signs Date Time Temp Pulse Resp B/P Pulse Ox O2 Delivery O2 Flow Rate FiO2 12/18/16 08:03 36.9 88 18 102/68 98 12/18/16 07:16 93 20 95 Nasal Cannula 5.0 12/18/16 04:00 Nasal Cannula 6.0 12/18/16 03:31 37.0 98 20 93/55 92 Nasal Cannula 6.0 12/18/16 00:01 Nasal Cannula 6.0 12/18/16 00:00 36.6 94 18 106/54 94 Nasal Cannula 5.0 12/17/16 22:20 101 96 40 12/17/16 20:20 36.6 95 24 99/53 95 Nasal Cannula 6.0 12/17/16 20:00 Nasal Cannula 6.0 12/17/16 19:30 92 20 94 Nasal Cannula 5.0 12/17/16 16:00 37.0 94 20 113/50 95 BiPAP 5/1/17 16:00 Nasal Cannula 6.0 96 12/17/16 15:11 92 20 90 Nasal Cannula 5.0 12/17/16 12:33 36.9 95 18 97/51 97 BiPAP 12/17/16 12:00 90 Nasal Cannula 6.0 12/17/16 11:37 77 100 50 12/17/16 11:36 77 20 100 BiPAP/CPAP 50 Physical Exam General Appearance: no apparent distress, + obese Respiratory/Chest: no respiratory distress, no accessory muscle use, + decreased breath sounds, + crackles (mild crackles diffusely) Cardiovascular: no edema, no murmur, + systolic murmur (R apex) Extremities: normal inspection, no pedal edema Neurologic/Psychiatric: no motor/sensory deficits, alert, + depressed affect ( anxious affect) Laboratory Results Last 24 Hours Test 12/17/16 11:11 12/17/16 16:03 12/17/16 21:00 12/18/16 05:36 Bedside Glucose 144 mg/dl 110 mg/dl 110 mg/dl White Blood Count 8.21 K/uL Red Blood Count 3.75 M/uL Hemoglobin 9.4 g/dL Hematocrit 32.9 % Mean Corpuscular Volume 87.7 fL Mean Corpuscular Hemoglobin 25.1 pg Mean Corpuscular Hemoglobin Concent 28.6 g/dl RDW Standard Deviation 56.9 fL RDW Coefficient of Variation 17.6 % Platelet Count 122 K/uL Mean Platelet Volume 10.5 fL Sodium Level 142 mmol/L Potassium Level 4.0 mmol/L Chloride Level 101 mmol/L Carbon Dioxide Level 37 mmol/L Anion Gap 4.0 mmol/L Blood Urea Nitrogen 55 mg/dl Creatinine 1.20 mg/dl Est Creatinine Clear Calc Drug Dose 59.7 ml/min Estimated GFR () 52.3 Estimated GFR (Non- 45.1 BUN/Creatinine Ratio 46.0 Random Glucose 103 mg/dl Calcium Level 9.2 mg/dl Test 12/18/16 06:42 Bedside Glucose 106 mg/dl Assessment and Plan This is a 71 year old female with PMH of severe COPD and chronic respiratory failure on continuous O2 therapy, right sided heart failure secondary to COPD and pulmonary HTN, DM2, HTN, CKD stage 3, HLD, chronic pancreatitis, hypothyroidism, depression/anxiety with recent admission to [facility] due to CHF exacerbation; was discharged to [facility] and returned with acute respiratory failure Acute on Chronic Respiratory Failure 12/18 There has been an improvement in her clinical presentation today no longer lethargic and currently awake/alert, answering questions and eating breakfast She does not recall what brought her to the hospital She is on chronic 4-5 L of O2 at baseline, currently on 6L and will wean as tolerated 12/17 Currently on Bipap did not have a good night due to respiratory distress and agitation now obtunded due to medications saturating well, in no respiratory distress currently palliative care consultation pending family aware of poor prognosis 12/16 she has had almost no improvement PCO2 increasing slightly this morning currently on 6L O2 via NC intermittent bipap use, but patient has difficulty tolerating it palliative care consult placed 12/15 plan is to continue diuresing Currently on Bipap and saturating well attempting weaning off Bipap, but does not saturate well without it may need discussion regarding palliative care 12/14 patient on chronic 4-5L O2 at [facility] she has multiple co-morbidities including COPD, R sided heart failure, obesity she is now requiring more O2 than at baseline; currently on a Venturi mask ABGs performed yesterday; pH mildly acidotic, chronic CO2 elevation; which seems to be close to baseline CXR performed on 12/13 Progression of pulmonary edema, small bilateral pleural effusions and bibasilar opacities which statistically reflect atelectasis likely related to her heart failure; will monitor and adjust O2 as needed during previous admission, she did require bipap; will hold off for now Acute on Chronic Right Side Heart Failure (with preserved EF) 12/18 due to her improvement in breathing status; will taper down Lasix to BID dosing 12/17 continue Lasix TID dosing creatinine is stable and can handle it at 1.2 today poor prognosis 12/16 appreciate nephrology input increased Lasix to TID dosing creatinine down to 1.1 and tolerating diuresis poor prognosis 12/15 for now, keep IV Lasix BID dosing kidneys are handling this okay Unfortunately, her breathing status has not improved today 12/14 patient recently admitted a few weeks prior due to heart failure symptoms echo performed on 11/25 suggest R sided heart failure * Flattened septum is consistent with RV pressure/volume overload. * Ejection Fraction = 65-70%. * Grade I diastolic dysfunction, (abnormal relaxation pattern). * The right ventricle is moderate to severely dilated. * The right atrium is moderate to severely dilated. * There is severe tricuspid regurgitation. * Right ventricular systolic pressure is markedly elevated at >60mmHg. CXR also suggest fluid overload, BNP > 10,000 will continue IV Lasix BID, appropriate diuresis I's and O's, daily weights, fluid restriction Acute Kidney Injury superimposed on CKD stage 3 12/17 1.2 today will continue Lasix TID dosing 12/16 improving creatinine to 1.1 continue IV Lasix 12/15 creatinine during last admission was around 0.8 her Lasix dose during previous admission was changed from 40mg to 60mg as outpatient creatinine on admission was 1.7 appreciate nephrology input, will continue to diurese until breathing status, oxygen saturation, etc. improve Lethargy/Altered Level of Consciousness 12/16 continues to be in a stupor unsure if this is CO2 narcosis; work of breathing is increased and may be getting lethargic from that 12/14 seems to be improving slightly thoughts about CO2 narcosis, though CO2 seems to be at baseline ammonia level pending should on on CPAP nocturnally, though refuses COPD 12/16 will give one dose of solu-medrol today monitor how she does clinically 12/15 chronic respiratory failure with 4-5 L O2 continuously at baseline does not seem to be in exacerbation, no wheezing noted will monitor breathing status and oxygen saturation after IV Lasix doses no steroids needed nebulizers as needed Recent bilateral LE cellulitis - resolved some lower extremity swelling, though patient with R sided heart failure no need for antibiotics currently, mild residual erythema remains DM2 last A1c = 5.5% using sliding scale and monitor sugars HTN continue home medications monitor BP due to IV diuretic use currently holding up and stable Hypothyroidism continue Synthroid Hx. of Black Stools, +FOBT patient was positive for FOBT during last admission refused GI w/up started on protonix BID H/H stable DVT ppx SCDs, due to hx. of GI bleed FULL CODE
--- NOTE | 2016-12-18 14:25 | Palliative Care Progress Note ---
Palliative Care Progress Note Date of Service December 18, 2016. Subjective Pt evaluation today including: conversation w/ patient, conversation w/ family (son, Chente), physical exam, chart review, review of inpatient medication list Pain: 0/10 PO Intake: tolerating diet, appetite is good Voiding: valle catheter in place -Patient is more awake today. Denies any pain or discomfort -Is anxious to get back to the [facility] and out of the hospital -She is mostly oriented, able to converse appropriately, but does yell out frequently and especially night. -I had a conversation with Susan about her illness and goals of care. She is still very adamant about wanting to be a full code and receive full treatment. 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 She stated if a person makes themselves a DNR, she believes they were "treated differently , and no one cares as much." I assured her that this was not true. She said, "Maybe I've seen things other people haven't." We talked about her sons. She said she would not want to make any decision that would hurt her kids. Asked her to elaborate on that point and she said, "I just can't right now. I can't think this deep." -Spoke with son, Ortiz Bravo, on the phone-- he denied any questions/concerns. Review of Systems Respiratory: No cough, No dyspnea at rest, No shortness of breath Cardiac: + edema (improved), No chest pain Abdomen: No nausea, No pain, No vomiting Psychiatric: + anxiety Objective Vital Signs Date Time Temp Pulse Resp B/P Pulse Ox O2 Delivery O2 Flow Rate FiO2 12/18/16 11:41 85 20 92 Nasal Cannula 5.0 12/18/16 11:29 36.7 87 18 122/69 97 12/18/16 08:03 36.9 88 18 102/68 98 12/18/16 08:00 Nasal Cannula 6.0 12/18/16 07:16 93 20 95 Nasal Cannula 5.0 12/18/16 04:00 Nasal Cannula 6.0 12/18/16 03:31 37.0 98 20 93/55 92 Nasal Cannula 6.0 12/18/16 00:01 Nasal Cannula 6.0 12/18/16 00:00 36.6 94 18 106/54 94 Nasal Cannula 5.0 12/17/16 22:20 101 96 40 12/17/16 20:20 36.6 95 24 99/53 95 Nasal Cannula 6.0 12/17/16 20:00 Nasal Cannula 6.0 12/17/16 19:30 92 20 94 Nasal Cannula 5.0 12/17/16 16:00 37.0 94 20 113/50 95 BiPAP 12/17/16 16:00 Nasal Cannula 6.0 96 12/17/16 15:11 92 20 90 Nasal Cannula 5.0 Physical Exam General Appearance: no apparent distress, + obese ENT: hearing grossly normal Neck: supple, no JVD Respiratory/Chest: + decreased breath sounds, + crackles (few, fine in bases) , + pertinent finding (on face mask, desaturates to 70s when mask lifted for short time) Cardiovascular: regular rate, rhythm, + systolic murmur, + normal peripheral pulses, + pertinent finding (trace pitting edema to bilateral lower extremities) Abdomen: normal bowel sounds, non tender, soft Neurologic/Psychiatric: alert, oriented x 3, + pertinent finding (also some forgetfulness and occasionally yelling out) Laboratory Results Last 24 Hours Test 12/17/16 16:03 12/17/16 21:00 12/18/16 05:36 12/18/16 06:42 Bedside Glucose 110 mg/dl 110 mg/dl 106 mg/dl White Blood Count 8.21 K/uL Red Blood Count 3.75 M/uL Hemoglobin 9.4 g/dL Hematocrit 32.9 % Mean Corpuscular Volume 87.7 fL Mean Corpuscular Hemoglobin 25.1 pg Mean Corpuscular Hemoglobin Concent 28.6 g/dl RDW Standard Deviation 56.9 fL RDW Coefficient of Variation 17.6 % Platelet Count 122 K/uL Mean Platelet Volume 10.5 fL Sodium Level 142 mmol/L Potassium Level 4.0 mmol/L Chloride Level 101 mmol/L Carbon Dioxide Level 37 mmol/L Anion Gap 4.0 mmol/L Blood Urea Nitrogen 55 mg/dl Creatinine 1.20 mg/dl Est Creatinine Clear Calc Drug Dose 59.7 ml/min Estimated GFR () 52.3 Estimated GFR (Non- 45.1 BUN/Creatinine Ratio 46.0 Random Glucose 103 mg/dl Calcium Level 9.2 mg/dl Test 12/18/16 11:05 Bedside Glucose 100 mg/dl Assessment and Plan Problem list: Altered mental status SOB Ambulatory dysfunction/weakness Respiratory failure CHF exacerbation COPD Goals of care (Z51.5) Palliative care recommendations: -Continue current treatment. -Patient is full code per her wishes. Also spoke with Ortiz Bravo, son, on the phone. He stated his frustration with the constant questioning of the patient's code status. The sons are never going to change the patient's code status as long as she is still able to speak that she wants everything done. Please refer to my last note on this matter. I did assure him that when a patient is in such a tenuous position, it is standard to revisit this question daily, to be sure that we are treating the patient according to their wishes. He understood and stated it was helpful for him to know that. -Plan is to go back to the [facility] when medically stable. Sons are considering eventually transitioning to hospice. I will follow peripherally for now and will be available should any palliative needs arise. Palliative Performance Scale: 30 % Discharge planning: nursing home facility
[2016-12-18] MEDS: TRAMADOL HCL 50 MG TAB PO PRN (17:18)
[2016-12-18] MEDS: RISPERIDONE 1 MG TAB PO PRN (18:08)
[2016-12-18] MEDS: BACLOFEN 10 MG TAB PO PRN (19:50)
[2016-12-18] MEDS: DOCUSATE SODIUM/SENNA 50/8.6MG TAB PO SCH (20:54)
[2016-12-18] MEDS: QUETIAPINE FUMARATE 25 MG TAB PO SCH (20:54)
[2016-12-18] MEDS: ATORVASTATIN 20 MG TAB PO SCH (20:55)
[2016-12-19] VITALS (10 sets, daily range): BP systolic 91–123; BP diastolic 51–66; PULSE 90–106; TEMP 36.5–37; O2SAT 89–95
[2016-12-19] MEDS: LEVOTHYROXINE 112 MCG TAB PO SCH (06:02)
[2016-12-19] MEDS: BUDESONIDE 0.5 MG/2 ML VIAL (PULMICORT) INH SCH ×2 (06:56→19:35)
[2016-12-19] MEDS: ALBUT/IPRATROP 3MG/0.5MG NEB 3 ML VIAL INH SCH ×4 (06:56→19:35)
[2016-12-19] MEDS: ARFORMOTEROL TART 15MCG/2ML VIAL INH SCH ×2 (06:56→19:35)
[2016-12-19 07:13] LABS: HEMATOCRIT 32.7 % (37-47); MEAN CELL VOLUME 86.5 fL (80-100); MEAN CORPUSCULAR HEMOGLOBIN 25.1 pg (25-34); MEAN CORPUSCULAR HGB CONC 29.1 g/dl (32-36); MEAN PLATELET VOLUME 10.2 fL (7.4-10.4); PLATELET COUNT 113 K/uL (130-400); RED BLOOD COUNT 3.78 M/uL (4.2-5.4); WHITE BLOOD COUNT 9.34 K/uL (4.8-10.8)
[2016-12-19 07:45] LABS: BUN/CREATININE RATIO 44.4 (10-20); CALCIUM 8.8 mg/dl (8.5-10.1); CREATININE 1.1 mg/dl (0.60-1.20); MAGNESIUM 2.2 mg/dl (1.8-2.4); POTASSIUM 3.6 mmol/L (3.5-5.1)
[2016-12-19] MEDS: ONDANSETRON INJ 2 MG/ML 2 ML VIAL IV PRN (08:15)
[2016-12-19] MEDS: FUROSEMIDE INJ 40 MG in SYRINGE 0 ML IV SCH (08:16)
[2016-12-19] MEDS: BACLOFEN 10 MG TAB PO PRN (08:17)
[2016-12-19] MEDS: ASPIRIN 81 MG ECTAB PO SCH (08:17)
[2016-12-19] MEDS: LACTOBACILLUS ACIDOPHILUS (FLORANEX) TAB PO SCH ×3 (08:17→19:59)
[2016-12-19] MEDS: PANTOprazole SOD 40 MG TAB PO SCH ×2 (08:18→21:43)
[2016-12-19] MEDS: RISPERIDONE 1 MG TAB PO PRN ×2 (08:18→16:39)
[2016-12-19] MEDS: METOPROLOL SUCC 50MG EXT REL TAB PO SCH (08:19)
[2016-12-19] MEDS: INSULIN ASPART 100 UNITS/ML 3 ML PEN SC SCH ×4 (08:20→21:45)
[2016-12-19] MEDS: FUROSEMIDE 40 MG TAB PO SCH (16:38)
[2016-12-19] MEDS: DOCUSATE SODIUM/SENNA 50/8.6MG TAB PO SCH (21:44)
[2016-12-19] MEDS: ATORVASTATIN 20 MG TAB PO SCH (21:44)
[2016-12-19] MEDS: QUETIAPINE FUMARATE 25 MG TAB PO SCH (21:44)
--- NOTE | 2016-12-19 22:27 | Progress Note ---
Medicine Progress Note Date & Time of Visit: December 19, 2016 at 12:35. Subjective This is a 71 year old female with PMH of severe COPD and chronic respiratory failure on continuous O2 therapy, right sided heart failure secondary to COPD and pulmonary HTN, with recent admission to [facility] due to CHF exacerbation; was discharged to [facility] and returned with acute respiratory failure "Can I go home?" -She states she feels back to her baseline WRT breathing -She denies any chest pain, wheezing, abdominal discomfort, headache, urinary issues, blood per rectum. -she is tolerating PO without difficulty -she states that she uses a wheelchair to get around mostly at baseline and doesn't do much walking -she is having memory issues, so alot of answers were given followed by "but I can't really remember" -She denies any swelling -she denies any pain in her legs -she is OK with moving to the floor for one more day of observation. Objective Last 8 Hrs Date Time Temp Pulse Resp B/P Pulse Ox O2 Delivery O2 Flow Rate FiO2 12/19/16 11:21 99 20 95 Nasal Cannula 5.0 12/19/16 11:00 36.5 105 18 104/61 92 5.0 12/19/16 07:43 36.8 106 18 123/66 92 5.0 Physical Exam: GEN: Obese, in no acute distress, alert and oriented to person, place and time HEENT: NC/AT, normal sclerae, no JVD but patient has obese neck making exam limited CARDIO: tachy rate, S1/2 heard without m/g/r LUNGS: CTA bilaterally, no crackles, rales or wheezes, good diaphragmatic excursion ABD: soft, non-tender, non-distended, no rebound or guarding EXTREMITY: RP and DP palpable 2+ bilat, no LE swelling or edema, extremities are warm and well-perfused, normal skin color and temp, no evidence of cellulitis NEURO: CN 2-12 grossly intact, sensation intact throughout MUSC: pt is wheelchair-bound with limited movement capability so gait was not assessed 2/2 fall risk, appears generally weak but can move extremities against gravity and roll her self in bed, no gross focal deficits. SKIN: warm and dry Laboratory Results: 12/19/16 06:40 12/19/16 06:40 Test 12/13/16 09:05 12/13/16 09:42 12/14/16 05:24 12/14/16 18:49 Total Bilirubin 0.6 mg/dl (0.2-1) Direct Bilirubin 0.2 mg/dl (0-0.2) Aspartate Amino Transf (AST/SGOT) 22 U/L (15-37) Alanine Aminotransferase (ALT/SGPT) 42 U/L (12-78) Alkaline Phosphatase 71 U/L (45-117) Total Creatine Kinase 24 U/L (26-192) Creatine Kinase MB 1.4 ng/ml (0.5-3.6) Creatine Kinase MB Ratio 5.8 (0-3.0) Total Protein 6.2 gm/dl (6.4-8.2) Albumin 3.2 gm/dl (3.4-5.0) Bedside Troponin I 0.030 ng/ml (0-0.045) Pro-B-Type Natriuretic Peptide 13230 pg/ml (0-900) Chemistry Specimen Hemolysis Test 12/15/16 05:41 12/16/16 06:10 12/16/16 23:05 12/19/16 06:40 Ammonia 26.0 umol/L (11-32) Platelet Estimate DECREASED Immature Granulocyte % (Auto) 0.2 % White Blood Count 5.55 K/uL (4.8-10.8) Red Blood Count 3.78 M/uL (4.2-5.4) 3.78 M/uL (4.2-5.4) Hemoglobin 9.6 g/dL (12.0-16.0) Hematocrit 32.9 % (37-47) Mean Corpuscular Volume 87.0 fL (80-100) 86.5 fL (80-100) Mean Corpuscular Hemoglobin 25.4 pg (25-34) 25.1 pg (25-34) Mean Corpuscular Hemoglobin Concent 29.2 g/dl (32-36) 29.1 g/dl (32-36) Platelet Count 115 K/uL (130-400) Mean Platelet Volume 10.0 fL (7.4-10.4) 10.2 fL (7.4-10.4) Neutrophils (%) (Auto) 93.6 % Lymphocytes (%) (Auto) 4.9 % Monocytes (%) (Auto) 1.1 % Eosinophils (%) (Auto) 0.2 % Basophils (%) (Auto) 0.0 % Neutrophils # (Auto) 5.20 K/uL (1.4-6.5) Lymphocytes # (Auto) 0.27 K/uL (1.2-3.4) Monocytes # (Auto) 0.06 K/uL (0.11-0.59) Eosinophils # (Auto) 0.01 K/uL (0-0.5) Basophils # (Auto) 0.00 K/uL (0-0.2) Immature Granulocyte # (Auto) 0.01 K/uL (0.00-0.02) Arterial Blood pH 7.33 (7.35-7.45) Arterial Blood Partial Pressure CO2 68 mmHg (35-46) Arterial Blood Partial Pressure O2 87 mm/Hg (80-95) Arterial Blood HCO3 35 mmol/L (19-24) Arterial Blood Oxygen Saturation 95.1 % (90-95) Arterial Blood Base Excess 7.9 mEq/L (-9-1.8) Arterial Blood Gas Delivery 50% BIPAP Justice Test POS (POS) RDW Standard Deviation 56.9 fL (36.4-46.3) RDW Coefficient of Variation 17.7 % (11.5-14.5) Anion Gap 3.0 mmol/L (3-11) Est Creatinine Clear Calc Drug Dose 63.9 ml/min Estimated GFR () 58.1 Estimated GFR (Non- 50.1 BUN/Creatinine Ratio 44.4 (10-20) Calcium Level 8.8 mg/dl (8.5-10.1) Magnesium Level 2.2 mg/dl (1.8-2.4) Test 12/19/16 21:42 Bedside Glucose 138 mg/dl (70-90) Last 24 Hours Test 12/18/16 15:54 12/18/16 19:37 12/19/16 06:40 12/19/16 07:18 Bedside Glucose 112 mg/dl 104 mg/dl 119 mg/dl White Blood Count 9.34 K/uL Red Blood Count 3.78 M/uL Hemoglobin 9.5 g/dL Hematocrit 32.7 % Mean Corpuscular Volume 86.5 fL Mean Corpuscular Hemoglobin 25.1 pg Mean Corpuscular Hemoglobin Concent 29.1 g/dl RDW Standard Deviation 56.9 fL RDW Coefficient of Variation 17.7 % Platelet Count 113 K/uL Mean Platelet Volume 10.2 fL Sodium Level 143 mmol/L Potassium Level 3.6 mmol/L Chloride Level 102 mmol/L Carbon Dioxide Level 38 mmol/L Anion Gap 3.0 mmol/L Blood Urea Nitrogen 49 mg/dl Creatinine 1.10 mg/dl Est Creatinine Clear Calc Drug Dose 63.9 ml/min Estimated GFR () 58.1 Estimated GFR (Non- 50.1 BUN/Creatinine Ratio 44.4 Random Glucose 121 mg/dl Calcium Level 8.8 mg/dl Magnesium Level 2.2 mg/dl Test 12/19/16 11:25 Bedside Glucose 130 mg/dl Assessment & Plan This is a 71 year old female with PMH of severe COPD and chronic respiratory failure on continuous O2 therapy, right sided heart failure secondary to COPD and pulmonary HTN, with recent admission to [facility] due to CHF exacerbation; was discharged to [facility] and returned with acute respiratory failure Acute on Chronic Respiratory Failure 12/19 Continues to do well on baseline oxygen status -continues to diurese well on the BID Lasix and CLIFF is resolving -no conversational dyspnea on baseline oxygen via NC -transfer off tele and observe for one more day 12/18 There has been an improvement in her clinical presentation today no longer lethargic and currently awake/alert, answering questions and eating breakfast She does not recall what brought her to the hospital She is on chronic 4-5 L of O2 at baseline, currently on 6L and will wean as tolerated 12/17 Currently on Bipap did not have a good night due to respiratory distress and agitation now obtunded due to medications saturating well, in no respiratory distress currently palliative care consultation pending family aware of poor prognosis 12/16 she has had almost no improvement PCO2 increasing slightly this morning currently on 6L O2 via NC intermittent bipap use, but patient has difficulty tolerating it palliative care consult placed 12/15 plan is to continue diuresing Currently on Bipap and saturating well attempting weaning off Bipap, but does not saturate well without it may need discussion regarding palliative care 12/14 patient on chronic 4-5L O2 at [facility] she has multiple co-morbidities including COPD, R sided heart failure, obesity she is now requiring more O2 than at baseline; currently on a Venturi mask ABGs performed yesterday; pH mildly acidotic, chronic CO2 elevation; which seems to be close to baseline CXR performed on 12/13 Progression of pulmonary edema, small bilateral pleural effusions and bibasilar opacities which statistically reflect atelectasis likely related to her heart failure; will monitor and adjust O2 as needed during previous admission, she did require bipap; will hold off for now Acute on Chronic Right Side Heart Failure (with preserved EF) 12/19: continues to diurese and breathing has improved. No evidence of swelling or JVD today. Cont current management with BID dosing of Lasix 12/18 due to her improvement in breathing status; will taper down Lasix to BID dosing 12/17 continue Lasix TID dosing creatinine is stable and can handle it at 1.2 today poor prognosis 12/16 appreciate nephrology input increased Lasix to TID dosing creatinine down to 1.1 and tolerating diuresis poor prognosis 12/15 for now, keep IV Lasix BID dosing kidneys are handling this okay Unfortunately, her breathing status has not improved today 12/14 patient recently admitted a few weeks prior due to heart failure symptoms echo performed on 11/25 suggest R sided heart failure * Flattened septum is consistent with RV pressure/volume overload. * Ejection Fraction = 65-70%. * Grade I diastolic dysfunction, (abnormal relaxation pattern). * The right ventricle is moderate to severely dilated. * The right atrium is moderate to severely dilated. * There is severe tricuspid regurgitation. * Right ventricular systolic pressure is markedly elevated at >60mmHg. CXR also suggest fluid overload, BNP > 10,000 will continue IV Lasix BID, appropriate diuresis I's and O's, daily weights, fluid restriction Acute Kidney Injury superimposed on CKD stage 3: resolved 12/17 1.2 today will continue Lasix TID dosing 12/16 improving creatinine to 1.1 continue IV Lasix 12/15 creatinine during last admission was around 0.8 her Lasix dose during previous admission was changed from 40mg to 60mg as outpatient creatinine on admission was 1.7 appreciate nephrology input, will continue to diurese until breathing status, oxygen saturation, etc. improve Lethargy/Altered Level of Consciousness-resolved. She is A&O x 3 today (12/19) COPD-(12/19) no wheezing on exam, not on steroids. Cont nebs PRN. Doing well overall. Recent bilateral LE cellulitis - resolved DM2: sugars are controlled last A1c = 5.5% using sliding scale and monitor sugars HTN: at goal, continue home medications Hypothyroidism: continue Synthroid Hx. of Black Stools, +FOBT: denies any blood per rectum, lightheadedness, chest pain or abdominal pain patient was positive for FOBT during last admission refused GI w/up started on protonix BID H/H stable DVT ppx SCDs, due to hx. of GI bleed FULL CODE Dispo to floor Spoke with her son by phone and apprised him of all updates. All questions were answered to his satisfaction by the end of the call. Additionally, I reconsulted PT and OT for assistance in getting her back to rehab since lungs have improved and she is not Hospice material at this time. DO [facility] Discharge planning: assisted facility Consultants: Nephrology Current Inpatient Medications: Current Inpatient Medications Medications (Trade) Dose Ordered Sig/Romaine Route Start Time Stop Time Status Last Admin Dose Admin Arformoterol Tartrate (Brovana 15MCG/ 2ML Neb Soln) 15 mcg BIDR INH 12/13/16 20:00 01/12/17 19:59 12/18/16 19:04 15 MCG Aspirin (Ecotrin Tab) 81 mg DAILY PO 12/14/16 09:00 01/13/17 08:59 12/19/16 08:17 81 MG Atorvastatin Calcium (Lipitor Tab) 20 mg HS PO 12/13/16 21:00 01/12/17 20:59 12/18/16 20:55 20 MG Baclofen (Lioresal Tab) 15 mg QID PRN PO 12/13/16 11:30 01/12/17 11:29 12/19/16 08:17 15 MG Budesonide (Pulmicort Respules 0.5MG/ 2ML Neb Soln) 0.5 mg BIDR INH 12/13/16 20:00 01/12/17 19:59 12/18/16 19:04 0.5 MG Lactobacillus Acidophilus (Floranex Tab) 4 tab TID PO 12/13/16 14:00 01/12/17 13:59 12/19/16 08:17 4 TAB Levothyroxine Sodium (Synthroid Tab) 112 mcg DAILYBB PO 12/14/16 06:00 01/13/17 05:59 12/19/16 06:02 112 MCG Pantoprazole Sodium (Protonix Tab) 40 mg BID PO 12/13/16 21:00 01/12/17 20:59 12/19/16 08:18 40 MG Quetiapine Fumarate (seroQUEL TAB) 50 mg HS PO 12/13/16 21:00 01/12/17 20:59 12/18/16 20:54 50 MG Senna/Docusate Sodium (Senokot S Tab) 2 tab HS PO 12/13/16 21:00 01/12/17 20:59 12/18/16 20:54 2 TAB Tramadol HCl (Ultram Tab) 50 mg Q6H PRN PO 12/13/16 11:30 01/12/17 11:29 12/18/16 17:18 50 MG Acetaminophen (Tylenol Tab) 650 mg Q4H PRN PO 12/13/16 11:45 01/12/17 11:44 Magnesium Hydroxide (Milk Of Magnesia Susp) 30 ml Q12H PRN PO 12/13/16 11:45 01/12/17 11:44 Ondansetron HCl (Zofran Inj) 4 mg Q6H PRN IV 12/13/16 11:45 01/12/17 11:44 12/19/16 08:15 4 MG Nitroglycerin (Nitrostat Tab) 0.4 mg UD PRN SL 12/13/16 11:45 01/12/17 11:44 Polyethylene (Miralax Powder Packet) 17 gm DAILY PRN PO 12/13/16 11:45 01/12/17 11:44 Insulin Aspart (novoLOG ASPART) SLIDING SCALE If C... ACHS SC 12/13/16 16:15 01/12/17 16:14 12/19/16 08:20 5 UNITS Glucose (Glucose 40% Gel) 15-30 GRAMS 15 GRAMS... UD PRN PO 12/13/16 11:45 01/12/17 11:44 Glucose (Glucose Chew Tab) 4-8 Tablets 4 Tabl... UD PRN PO 12/13/16 11:45 01/12/17 11:44 Dextrose (Dextrose 50% 50ML Syringe) 25-50ML OF 50% DW IV FOR... UD PRN IV 12/13/16 11:45 01/12/17 11:44 Glucagon (Glucagon Inj) 1 mg UD PRN SQ 12/13/16 11:45 01/12/17 11:44 Albuterol/ Ipratropium (Duoneb) 3 ml QIDR INH 12/13/16 20:00 01/12/17 19:59 12/19/16 11:21 3 ML Lorazepam (Ativan Inj) 1 mg Q4H PRN IV 12/14/16 11:30 01/13/17 11:29 Risperidone (Risperdal Tab) 1 mg BID PRN PO 12/14/16 14:30 01/13/17 14:29 12/19/16 08:18 1 MG Metoprolol Succinate 50 mg 50 mg DAILY PO 12/17/16 09:00 01/16/17 08:59 12/19/16 08:19 50 MG Furosemide/Syringe (Lasix Inj/ Syringe) 4 ml @ 4 mls/min BID17 IV 12/18/16 17:00 01/17/17 16:59 12/19/16 08:16 4 MLS/MIN
[2016-12-20] VITALS (18 sets, daily range): BP systolic 84–115; BP diastolic 42–74; PULSE 80–103; TEMP 36.3–36.9; O2SAT 85–98
[2016-12-20] MEDS ORDERED: ALBUT/IPRATROP 3MG/0.5MG NEB 3 ML VIAL INH PRN (00:45)
[2016-12-20] MEDS ORDERED: NALOXONE HCL 0.4 MG/1 ML VIAL/CARP IV STA (00:49)
[2016-12-20] MEDS ORDERED: ALBUT/IPRATROP 3MG/0.5MG NEB 3 ML VIAL INH STA (01:02)
[2016-12-20 01:25] LABS: ARTERIAL BLD GAS O2 SATURATION 90.7 % (90-95); ARTERIAL BLOOD GAS BASE EXCESS 10.9 mEq/L (-9-1.8); ARTERIAL BLOOD GAS HCO3 37 mmol/L (19-24); ARTERIAL BLOOD GAS PO2 68 mm/Hg (80-95); ARTERIAL BLOOD GAS pH 7.42 (7.35-7.45)
[2016-12-20 01:26] LABS: COMPLETE YES; EOS % 1.2 %; HEMATOCRIT 32.5 % (37-47); IG% 0.1 %; LYMPH % 8.4 %; LYMPH ABS # 0.58 K/uL (1.2-3.4); MEAN CELL VOLUME 86.4 fL (80-100); MEAN CORPUSCULAR HGB CONC 28.9 g/dl (32-36); MEAN PLATELET VOLUME 10.3 fL (7.4-10.4); MONO % 7.3 %; PLATELET COUNT 107 K/uL (130-400); RED BLOOD COUNT 3.76 M/uL (4.2-5.4); WHITE BLOOD COUNT 6.87 K/uL (4.8-10.8)
[2016-12-20 01:27] LABS: ALLEN TEST POS (POS); O2 ADMINISTRATION 40% BIPAP
[2016-12-20] MEDS ORDERED: FUROSEMIDE INJ 40 MG in SYRINGE 0 ML IV STA (01:31)
[2016-12-20] MEDS ORDERED: FUROSEMIDE INJ 20 MG in SYRINGE 0 ML IV STA (01:37)
[2016-12-20 01:49] LABS: BUN/CREATININE RATIO 47.4 (10-20); CALCIUM 8.9 mg/dl (8.5-10.1); CREATININE 1.1 mg/dl (0.60-1.20); MAGNESIUM 2.3 mg/dl (1.8-2.4); POTASSIUM 3.7 mmol/L (3.5-5.1)
[2016-12-20 03:30] LABS: URINE APPEARANCE CLEAR (CLEAR); URINE BILIRUBIN NEG (NEG); URINE COLOR YELLOW; URINE EPITHELIAL CELL AUTO 0-5 /lpf (0-5); URINE NITRITE NEG (NEG); URINE PH 6.5 (4.5-7.5); UROBILINOGEN NEG (NEG); ZZURINE CULT IF INDIC CATH YES
[2016-12-20 03:40] LABS: MANUAL MICROSCOPIC REQUIRED? NO; REVIEW REQ? NO
[2016-12-20] MEDS ORDERED: CEFEPIME IV 2,000 MG in DEXTROSE 5% 100ML 100 ML IV STA (03:47)
[2016-12-20] MEDS: LEVOTHYROXINE 112 MCG TAB PO SCH ×2 (04:50→08:22)
--- NOTE | 2016-12-20 05:12 | Progress Note ---
Internal Med Progress Note Date of Service: December 20, 2016. Provider Documentation: Made aware by RN of decreased responsiveness around 1230AM. As per RN, px noted to be agitated by RT last night - px placed on the BIPAP. px obtunded, minimally responsive to pain similar episode 12/16 PM after review of EMR CXR congestion ABG noted, improved pCO2 UA WBC est, epith cells CT head initial read AP Encephalopathy ? UTI (px not septic) ? med related (? Risperdal, Seroquel) ff urine CS, IV Cefepime for now hold parameters for PM Seroquel, decrease prn dose for Risperdal Will relay developments to AM provider. Vital Signs: Date Time Temp Pulse Resp B/P Pulse Ox O2 Delivery O2 Flow Rate FiO2 12/20/16 04:40 97 95 40 12/20/16 01:39 84 106/64 12/20/16 01:02 90 22 96 BiPAP/CPAP 40 12/20/16 01:00 89 95 40 12/20/16 00:49 36.6 88 20 104/66 98 BiPAP 12/20/16 00:00 BiPAP 40 12/19/16 21:30 90 94 40 12/19/16 19:35 91 20 95 Nasal Cannula 5.0 12/19/16 16:00 92 Nasal Cannula 5.0 12/19/16 15:53 36.6 99 21 107/65 92 Nasal Cannula 5.0 12/19/16 15:28 36.6 90 18 91/56 89 Nasal Cannula 5.0 12/19/16 14:40 99 20 92 Nasal Cannula 5.0 12/19/16 12:00 Nasal Cannula 5.0 12/19/16 11:21 99 20 95 Nasal Cannula 5.0 12/19/16 11:00 36.5 105 18 104/61 92 5.0 12/19/16 08:00 Nasal Cannula 5.0 12/19/16 07:43 36.8 106 18 123/66 92 5.0 Lab Results: Results Past 24 Hours Test 12/19/16 06:40 12/19/16 07:18 12/19/16 11:25 12/19/16 17:21 Range/Units White Blood Count 9.34 4.8-10.8 K/uL Red Blood Count 3.78 4.2-5.4 M/uL Hemoglobin 9.5 12.0-16.0 g/dL Hematocrit 32.7 37-47 % Mean Corpuscular Volume 86.5 80-100 fL Mean Corpuscular Hemoglobin 25.1 25-34 pg Mean Corpuscular Hemoglobin Concent 29.1 32-36 g/dl RDW Standard Deviation 56.9 36.4-46.3 fL RDW Coefficient of Variation 17.7 11.5-14.5 % Platelet Count 113 130-400 K/uL Mean Platelet Volume 10.2 7.4-10.4 fL Sodium Level 143 136-145 mmol/L Potassium Level 3.6 3.5-5.1 mmol/L Chloride Level 102 98-107 mmol/L Carbon Dioxide Level 38 21-32 mmol/L Anion Gap 3.0 3-11 mmol/L Blood Urea Nitrogen 49 7-18 mg/dl Creatinine 1.10 0.60-1.20 mg/dl Est Creatinine Clear Calc Drug Dose 63.9 ml/min Estimated GFR () 58.1 Estimated GFR (Non- 50.1 BUN/Creatinine Ratio 44.4 10-20 Random Glucose 121 70-99 mg/dl Calcium Level 8.8 8.5-10.1 mg/dl Magnesium Level 2.2 1.8-2.4 mg/dl Bedside Glucose 119 130 99 70-90 mg/dl Test 12/19/16 20:41 12/19/16 21:42 12/20/16 00:34 12/20/16 01:13 Range/Units Bedside Glucose 144 138 130 70-90 mg/dl White Blood Count 6.87 4.8-10.8 K/uL Red Blood Count 3.76 4.2-5.4 M/uL Hemoglobin 9.4 12.0-16.0 g/dL Hematocrit 32.5 37-47 % Mean Corpuscular Volume 86.4 80-100 fL Mean Corpuscular Hemoglobin 25.0 25-34 pg Mean Corpuscular Hemoglobin Concent 28.9 32-36 g/dl Platelet Count 107 130-400 K/uL Mean Platelet Volume 10.3 7.4-10.4 fL Neutrophils (%) (Auto) 83.0 % Lymphocytes (%) (Auto) 8.4 % Monocytes (%) (Auto) 7.3 % Eosinophils (%) (Auto) 1.2 % Basophils (%) (Auto) 0.0 % Neutrophils # (Auto) 5.70 1.4-6.5 K/uL Lymphocytes # (Auto) 0.58 1.2-3.4 K/uL Monocytes # (Auto) 0.50 0.11-0.59 K/uL Eosinophils # (Auto) 0.08 0-0.5 K/uL Basophils # (Auto) 0.00 0-0.2 K/uL RDW Standard Deviation 56.1 36.4-46.3 fL RDW Coefficient of Variation 17.7 11.5-14.5 % Immature Granulocyte % (Auto) 0.1 % Immature Granulocyte # (Auto) 0.01 0.00-0.02 K/uL Arterial Blood pH 7.42 7.35-7.45 Arterial Blood Partial Pressure CO2 58 35-46 mmHg Arterial Blood Partial Pressure O2 68 80-95 mm/Hg Arterial Blood HCO3 37 19-24 mmol/L Arterial Blood Oxygen Saturation 90.7 90-95 % Arterial Blood Base Excess 10.9 -9-1.8 mEq/L Arterial Blood Gas Delivery 40% BIPAP Justice Test POS POS Sodium Level 144 136-145 mmol/L Potassium Level 3.7 3.5-5.1 mmol/L Chloride Level 102 98-107 mmol/L Carbon Dioxide Level 40 21-32 mmol/L Anion Gap 2.0 3-11 mmol/L Blood Urea Nitrogen 52 7-18 mg/dl Creatinine 1.10 0.60-1.20 mg/dl Est Creatinine Clear Calc Drug Dose 63.9 ml/min Estimated GFR () 58.1 Estimated GFR (Non- 50.1 BUN/Creatinine Ratio 47.4 10-20 Random Glucose 117 70-99 mg/dl Calcium Level 8.9 8.5-10.1 mg/dl Magnesium Level 2.3 1.8-2.4 mg/dl Ammonia 34.0 11-32 umol/L Test 12/20/16 03:20 Range/Units Urine Color YELLOW Urine Appearance CLEAR CLEAR Urine pH 6.5 4.5-7.5 Urine Specific [place] 1.010 1.000-1.030 Urine Protein NEG NEG Urine Glucose (UA) NEG NEG Urine Ketones NEG NEG Urine Occult Blood 1+ NEG Urine Nitrite NEG NEG Urine Bilirubin NEG NEG Urine Urobilinogen NEG NEG Urine Leukocyte Esterase SMALL NEG Urine WBC (Auto) 5-10 0-5 /hpf Urine RBC (Auto) 5-10 0-4 /hpf Urine Hyaline Casts (Auto) 1-5 0-5 /lpf Urine Epithelial Cells (Auto) 0-5 0-5 /lpf Urine Bacteria (Auto) 2+ NEG Microbiology Results 12/20/16 Urine Culture, Received Pending
[2016-12-20] MEDS: INSULIN ASPART 100 UNITS/ML 3 ML PEN SC SCH ×4 (06:30→20:13)
--- NOTE | 2016-12-20 06:32 | DIAGNOSTIC IMAGING REPORT ---
CT HEAD WITHOUT CONTRAST (CT) CLINICAL HISTORY: Change in mental status with diminished responsiveness. COMPARISON STUDY: 12/27/2007 TECHNIQUE: Axial CT of the brain is performed from the vertex to the skull base. IV contrast was not administered for this examination. CT DOSE: 1305.31 mGy.cm FINDINGS: No intra or extra-axial mass lesions are visualized. There is no CT evidence of acute cortical infarction. There is no evidence of midline shift. There is no acute hemorrhage. No calvarial fractures are visualized. There are minor white matter hypodensities likely on a small vessel basis. There is no evidence of pathologic ventricular dilatation. There is a right maxillary sinus air-fluid level. IMPRESSION: Right maxillary sinus air-fluid level. Correlate clinically in regards to acute sinusitis. Otherwise no acute intracranial findings. Electronically signed by: Jamin Foreman M.D. 12/20/2016 6:31 AM Dictated Date/Time: 12/20/2016 6:30 AM
[2016-12-20] MEDS: BUDESONIDE 0.5 MG/2 ML VIAL (PULMICORT) INH SCH ×2 (07:41→19:26)
[2016-12-20] MEDS: ARFORMOTEROL TART 15MCG/2ML VIAL INH SCH ×2 (07:41→19:26)
[2016-12-20] MEDS: ALBUT/IPRATROP 3MG/0.5MG NEB 3 ML VIAL INH SCH ×4 (07:41→19:26)
[2016-12-20] MEDS ORDERED: CEFEPIME CONSULT ACTIVE PRN ×2 (08:00)
[2016-12-20] MEDS: LACTOBACILLUS ACIDOPHILUS (FLORANEX) TAB PO SCH ×3 (08:21→20:00)
[2016-12-20] MEDS: PANTOprazole SOD 40 MG TAB PO SCH ×2 (08:21→20:05)
[2016-12-20] MEDS: ASPIRIN 81 MG ECTAB PO SCH (08:23)
[2016-12-20] MEDS: RISPERIDONE 0.5 MG TAB PO PRN ×3 (08:23→23:37)
[2016-12-20] MEDS: POLYETHYLENE (MIRALAX) 17 GM PACK PO PRN (08:24)
[2016-12-20] MEDS: METOPROLOL SUCC 50MG EXT REL TAB PO SCH (08:24)
[2016-12-20] MEDS: FUROSEMIDE 40 MG TAB PO SCH (08:55)
--- NOTE | 2016-12-20 09:33 | DIAGNOSTIC IMAGING REPORT ---
CHEST ONE VIEW PORTABLE CLINICAL HISTORY: resp distress COMPARISON STUDY: 12/14/2016 FINDINGS: There are postsurgical changes of spinal rodding. The heart is enlarged. There is radiographic evidence of congestive failure/fluid overload. Small pleural effusions right greater than left are suspected. Bibasilar airspace opacities, likely represent atelectasis/edema.[ IMPRESSION: Cardiomegaly, and radiographic evidence of congestive failure with suspected bilateral pleural effusions right greater than left. Bibasal airspace opacities, likely atelectasis/edema. Electronically signed by: Jamin Foreman M.D. 12/20/2016 9:32 AM Dictated Date/Time: 12/20/2016 6:38 AM
--- NOTE | 2016-12-20 10:34 | Palliative Care Progress Note ---
Palliative Care Progress Note Date of Service December 20, 2016. Subjective Pt evaluation today including: conversation w/ family (son, Chente Bravo), conversation w/ sustainability consultant (Dr. Ford) Received a phone message last evening from patient's son, Foreign Bravo, at [phone] , with a sense of urgency in his voice. Got message this morning and called Ortiz back. He stated that last night the patient was moved to [id number] and there was talk about discharging her back to the [facility] soon. He stated, "I don't understand, there's been all this talk about her dying and now she's just being kicked out." Again, we discussed the patient's medical conditions and disease trajectory with chronic illnesses such as CHF, COPD, etc. He verbalized understanding and situation was deescalated. Updated Dr. Ford on the conversation. Again, I will follow peripherally and will be available for any palliative care needs should they arise.
[2016-12-20] MEDS ORDERED: FUROSEMIDE 40 MG TAB PO SCH (14:00)
[2016-12-20] MEDS: CEFEPIME IV 2000 MG in DEXTROSE 5% 100ML IV SCH (15:40)
--- NOTE | 2016-12-20 16:53 | Cardiology Consultation ---
Cardiology Consultation Date of Consultation: December 20, 2016 History of Present Illness Tierra Galvan is a 71 year old female seen in cardiology consultation per the request of Dr Ford for the evaluation of right heart failure. The patient is actually known to the undersigned as I have followed her on an outpatient basis given her history of abdominal aorta atherosclerosis hypertension and palpitations. She has a long-standing prior history of cigarette smoking and has severe COPD. Echocardiogram performed in 2007 revealed normal right ventricular chamber size and systolic function. An echocardiogram performed September 2015 revealed mild right ventricular chamber enlargement with flattening of the interventricular septum consistent with periventricular pressure and volume overload. The patient has had multiple recent admissions including admissions in early and mid November for lower extremity edema and superimposed cellulitis. She was followed by Dr. Feliciano of our practice and echocardiogram performed on 11/25/16 revealed progressive right ventricular dysfunction. The images from that study were reviewed independently by the undersigned with findings of a small and underfilled left ventricular cavity with hyperdynamic LV systolic function. The right ventricle was noted to be severely dilated with flattened interventricular septum consistent with right ventricular pressure and volume overload and right ventricular systolic dysfunction. The right atrium was noted to be moderately dilated with severe tricuspid regurgitation. The inferior vena cava was dilated and did not collapse with inspiration consistent with elevated right atrial pressure in the range of 15 mmHg. The calculated pulmonary artery systolic pressure was in excess of 80 mmHg per my review of the Doppler data. The patient was discharged to [facility] on 11/28/16 on a course of prednisone taper and furosemide 40 mg by mouth daily. This was a higher dose than her previous long standing dose of furosemide 20 mg daily that she been on at the time of my last office encounter with her in March 2016. She was readmitted on 12/13/16 due to concerns of somnolence and worsening shortness of breath despite increasing oxygen delivery to 6 L. She had previously been on IV furosemide including doses of furosemide 40 mg IV twice a day during this hospital stay along with albumin administration. She was noted to have acute kidney injury with creatinine peak of 1.7 which is subsequently improved with most recent creatinine of 1.1 mg/dL today. Overnight, she was noted to be somnolent. She has not been held to tolerate BiPAP therapy. She subsequently has been arousable and is being treated with antibiotics for urinary tract infection. The patient's mental status however is not at her baseline at present she is very emotional and is concerned that she wants to leave the hospital and she is asking for water. She is unhappy that she is on a 1500 ML fluid restriction. History PAST MEDICAL HISTORY: 1. Severe COPD, with echocardiographic findings of right heart failure consistent with cor pulmonale physiology 2. Hypothyroidism 3. Chronic pancreatitis 4. Atherosclerosis of the abdominal aorta 5. Hypertension PAST SURGICAL HISTORY: 1. Colonoscopy 2. Cholecystectomy 09/22/2007 3. Tracheostomy 10/23/2007 4. Spine surgery 1998 5. Total hysterectomy 1994 FAMILY HISTORY: Father's presumed myocardial infarction/CAD in the past with age 51 SOCIAL HISTORY: Cigarette smoking the past having quit 2007. The patient smoked 2 packs per day for 45 years. Review Of Systems Conference of review of systems is unobtainable due to the patient's mental status Allergies Coded Allergies: Benzodiazepines (Unverified Adverse Reaction, Intermediate, DELIRIUM, 12/13) Patient has history of abuse and addiction per family. 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 Medications Reported Home Medications Medications Dose Route/Sig Max Daily Dose Days Date Category Dose Instructions Lactinex (Lactobacillus Acidophilus) Tab 4 Tabs PO TID 12/13/16 Reported Protonix (Pantoprazole Sodium) 40 Mg Tab 40 Mg PO BID 30 12/05/16 Rx Lasix (Furosemide) 40 Mg Tab 60 Mg PO DAILY 30 12/05/16 Rx Ultram (Tramadol HCl) 50 Mg Tab 50 Mg PO Q6H PRN 10 12/05/16 Rx Senokot S (Sennosides-Docusate Sodium) 1 Tab Tab 2 Tab PO HS 30 11/28/16 Rx Prednisone 10 Mg Tab 40 Mg PO UD 11/28/16 Rx PREDNISONE 40MG PO DAILY X 2 DAYS THEN PREDNISONE 30MG PO DAILY X 2 DAYS THEN PREDNISONE 20MG PO DAILY X 2 DAYS THEN PREDNISONE 10MG PO DAILY X 2 DAYS THEN PREDNISONE 5MG PO DAILY HOME DOSE Ventolin Hfa (Albuterol) 60 Puffs/5400 Mcg Aers 2 Puffs INH Q4 PRN 11/24/16 Reported Novolog (Insulin Aspart) 100 Units/Ml Inj SQ UD 11/24/16 Reported Per sliding scale Seroquel (Quetiapine Fumarate) 50 Mg Tab 50 Mg PO HS 11/24/16 Reported Pulmicort (Budesonide (Inhalation)) 0.5 Mg/2 Ml Lynn 0.5 Mg NEB BID 11/24/16 Reported Brovana (Arformoterol Tartrate) 15 Mcg/2 Ml Neb 15 Mcg INH BID 11/24/16 Reported Synthroid (Levothyroxine Sodium) 112 Mcg Tab 112 Mcg PO DAILY 11/24/16 Reported Duoneb (Ipratropium-Albuterol) 3 Ml Nebu 1 Treatment INH Q6H PRN 11/24/16 Reported Aspirin 81 (Aspirin) 81 Mg Tab 81 Mg PO DAILY 11/24/16 Reported Oxygen Gas 4 Liters NA CONTINOUS 10/10/15 Reported Zofran (Ondansetron Hcl) 4 Mg Tab 4 Mg PO Q8 PRN 09/21/15 Reported Lipitor (Atorvastatin Calcium) 20 Mg Tab 20 Mg PO HS 09/21/15 Reported Lioresal (Baclofen) 10 Mg Tab 15 Mg PO QID PRN 09/21/15 Reported Toprol-Xl (Metoprolol Succinate) 100 Mg Tabcr 100 Mg PO DAILY 09/21/15 Reported Physical Exam Vital Signs (Last 8hrs): Last 8 Hrs Date Time Temp Pulse Resp B/P Pulse Ox O2 Delivery O2 Flow Rate FiO2 12/20/16 15:33 80 94 40 12/20/16 15:32 80 22 94 BiPAP/CPAP 40 12/20/16 15:26 100/62 12/20/16 15:21 36.3 98 24 85/42 91 Nasal Cannula 5.0 12/20/16 13:41 90 92 12/20/16 11:15 89 94 40 12/20/16 11:15 89 26 94 Nasal Cannula 40 General Appearance: Awake, oriented to being in the hospital, but not herself, Head: Normocephalic Atraumatic. Eyes: PERRLA, EOMI, conjunctiva and sclera clear Neck: Supple. No carotid bruits noted. No JVD. No HJD. Respiratory: Breath sounds clear to auscultation bilaterally. No w/r/r. Cardiovascular: Reg rate and rhythm. S1 and S2 noted. No murmurs, rubs, gallops. PMI non displace. Abdomen: Normal bowel sounds, soft nontender. no abdominal bruits. Extremities: Trace bilateral ankle edema Neuro: No focal deficits. Psychiatric: Normal affect. Data Last Resulted 12/20/16 01:13 Red Blood Count 3.76, Mean Corpuscular Volume 86.4, Mean Corpuscular Hemoglobin 25.0, Mean Corpuscular Hemoglobin Concent 28.9, Mean Platelet Volume 10.3, Neutrophils (%) (Auto) 83.0, Lymphocytes (%) (Auto) 8.4, Monocytes (%) (Auto) 7.3, Eosinophils (%) (Auto) 1.2, Basophils (%) (Auto) 0.0, Neutrophils # (Auto) 5.70, Lymphocytes # (Auto) 0.58, Monocytes # (Auto) 0.50, Eosinophils # (Auto) 0.08, Basophils # (Auto) 0.00 Last Resulted 12/20/16 01:13 Imaging: Echocardiogram from November 2016 summarized in history of present illness EKG: Sinus rhythm, age-indeterminate septal infarction pattern, perhaps due to lead positioning Telemetry reviewed: She is not on telemetry Assessment & Plan Impression: 71-year-old female 1. Acute on chronic right heart failure, with severe right ventricular chamber dilatation, severe RV systolic dysfunction due to underlying lung disease, cor pulmonale physiology 2. Encephalopathy perhaps due to acute illness, possible underlying UTI Recommendations: Per review of the chart it sounds as though her edema has improved this admission. She still has some degree of abdominal distention that she is perhaps retaining fluid there. I do not think she requires additional aggressive IV diuretic therapy, but I think that if we back off her diuretics her fluid will reaccumulate. She had been transitioned to oral furosemide at 40 mg twice a day and this was interpreted increased to 40 mg 3 times per day. At this time I'm going to discontinue oral furosemide and place her on torsemide 20 mg by mouth daily. I recommended that we liberalize her fluid restriction from 1500 ML's 2 2000 mL Vis[place] patient is complaining of a great deal of thirst. Overall, this is a significant change in the patient's condition over the last 7 months since last time I've seen her as an outpatient. Review of her echocardiogram reveals changes noted on study last month consistent with irreversible cor pulmonale physiology and I think her prognosis is likely poor. She has had 3 recent hospital stays within about a one-month interval of time. She is not on pharmacologic DVT prophylaxis, I suspect this is due to her issues with anemia. This will have to be reassessed on daily basis as she is certainly at high risk for developing DVT/pulmonary embolism. Given her degree of right ventricular systolic dysfunction, I do not think her right ventricle with tolerate another insult well.
[2016-12-20] MEDS: DOCUSATE SODIUM/SENNA 50/8.6MG TAB PO SCH (20:05)
[2016-12-20] MEDS: QUETIAPINE FUMARATE 25 MG TAB PO SCH (20:05)
[2016-12-20] MEDS: ATORVASTATIN 20 MG TAB PO SCH (20:06)
[2016-12-20] MEDS: TRAMADOL HCL 50 MG TAB PO PRN (20:08)
--- NOTE | 2016-12-20 22:13 | Progress Note ---
Medicine Progress Note Date & Time of Visit: December 20, 2016 at 18:45. Subjective Ms. Galvan is very upset tongiht She is hollering to anyone who will listen that she needs to get out of here and that she will if she doesn't get out We discussed getting her more anxiety medication and she told me that she can't take ativan, that she takes the "R" word She was still able to calm down some and follow my instruction during the physical exam We talked about her upcoming dinner and this made her more calm Per nurse she has not had a bowel movement in about 6 days, so will schedule some Miralax Objective Last 8 Hrs Date Time Temp Pulse Resp B/P Pulse Ox O2 Delivery O2 Flow Rate FiO2 12/20/16 16:00 91 Nasal Cannula 6.0 12/20/16 15:33 80 94 40 12/20/16 15:32 80 22 94 BiPAP/CPAP 40 12/20/16 15:26 100/62 12/20/16 15:21 36.3 98 24 85/42 91 Nasal Cannula 5.0 12/20/16 13:41 90 92 12/20/16 11:15 89 94 40 12/20/16 11:15 89 26 94 Nasal Cannula 40 Physical Exam: GEN: Obese, emotionally distressed, alert HEENT: NC/AT, normal sclerae CARDIO: tachy rate, S1/2 heard without m/g/r LUNGS: CTA bilaterally, no crackles, rales or wheezes, good diaphragmatic excursion ABD: soft, non-tender, non-distended, no rebound or guarding EXTREMITY: RP and DP palpable 2+ bilat, no LE swelling or edema, extremities are warm and well-perfused, normal skin color and temp, no evidence of cellulitis SKIN: warm and dry Laboratory Results: 12/20/16 01:13 Red Blood Count 3.76, Mean Corpuscular Volume 86.4, Mean Corpuscular Hemoglobin 25.0, Mean Corpuscular Hemoglobin Concent 28.9, Mean Platelet Volume 10.3, Neutrophils (%) (Auto) 83.0, Lymphocytes (%) (Auto) 8.4, Monocytes (%) (Auto) 7.3, Eosinophils (%) (Auto) 1.2, Basophils (%) (Auto) 0.0, Neutrophils # (Auto) 5.70, Lymphocytes # (Auto) 0.58, Monocytes # (Auto) 0.50, Eosinophils # (Auto) 0.08, Basophils # (Auto) 0.00 12/20/16 01:13 Test 12/13/16 09:05 12/13/16 09:42 12/14/16 05:24 12/14/16 18:49 Total Bilirubin 0.6 mg/dl (0.2-1) Direct Bilirubin 0.2 mg/dl (0-0.2) Aspartate Amino Transf (AST/SGOT) 22 U/L (15-37) Alanine Aminotransferase (ALT/SGPT) 42 U/L (12-78) Alkaline Phosphatase 71 U/L (45-117) Total Creatine Kinase 24 U/L (26-192) Creatine Kinase MB 1.4 ng/ml (0.5-3.6) Creatine Kinase MB Ratio 5.8 (0-3.0) Total Protein 6.2 gm/dl (6.4-8.2) Albumin 3.2 gm/dl (3.4-5.0) Bedside Troponin I 0.030 ng/ml (0-0.045) Pro-B-Type Natriuretic Peptide 26206 pg/ml (0-900) Chemistry Specimen Hemolysis Test 12/16/16 06:10 12/20/16 01:13 12/20/16 03:20 12/20/16 20:14 Platelet Estimate DECREASED White Blood Count 6.87 K/uL (4.8-10.8) Red Blood Count 3.76 M/uL (4.2-5.4) Hemoglobin 9.4 g/dL (12.0-16.0) Hematocrit 32.5 % (37-47) Mean Corpuscular Volume 86.4 fL (80-100) Mean Corpuscular Hemoglobin 25.0 pg (25-34) Mean Corpuscular Hemoglobin Concent 28.9 g/dl (32-36) Platelet Count 107 K/uL (130-400) Mean Platelet Volume 10.3 fL (7.4-10.4) Neutrophils (%) (Auto) 83.0 % Lymphocytes (%) (Auto) 8.4 % Monocytes (%) (Auto) 7.3 % Eosinophils (%) (Auto) 1.2 % Basophils (%) (Auto) 0.0 % Neutrophils # (Auto) 5.70 K/uL (1.4-6.5) Lymphocytes # (Auto) 0.58 K/uL (1.2-3.4) Monocytes # (Auto) 0.50 K/uL (0.11-0.59) Eosinophils # (Auto) 0.08 K/uL (0-0.5) Basophils # (Auto) 0.00 K/uL (0-0.2) RDW Standard Deviation 56.1 fL (36.4-46.3) RDW Coefficient of Variation 17.7 % (11.5-14.5) Immature Granulocyte % (Auto) 0.1 % Immature Granulocyte # (Auto) 0.01 K/uL (0.00-0.02) Arterial Blood pH 7.42 (7.35-7.45) Arterial Blood Partial Pressure CO2 58 mmHg (35-46) Arterial Blood Partial Pressure O2 68 mm/Hg (80-95) Arterial Blood HCO3 37 mmol/L (19-24) Arterial Blood Oxygen Saturation 90.7 % (90-95) Arterial Blood Base Excess 10.9 mEq/L (-9-1.8) Arterial Blood Gas Delivery 40% BIPAP Justice Test POS (POS) Anion Gap 2.0 mmol/L (3-11) Est Creatinine Clear Calc Drug Dose 63.9 ml/min Estimated GFR () 58.1 Estimated GFR (Non- 50.1 BUN/Creatinine Ratio 47.4 (10-20) Calcium Level 8.9 mg/dl (8.5-10.1) Magnesium Level 2.3 mg/dl (1.8-2.4) Ammonia 34.0 umol/L (11-32) Urine Color YELLOW Urine Appearance CLEAR (CLEAR) Urine pH 6.5 (4.5-7.5) Urine Specific [place] 1.010 (1.000-1.030) Urine Protein NEG (NEG) Urine Glucose (UA) NEG (NEG) Urine Ketones NEG (NEG) Urine Occult Blood 1+ (NEG) Urine Nitrite NEG (NEG) Urine Bilirubin NEG (NEG) Urine Urobilinogen NEG (NEG) Urine Leukocyte Esterase SMALL (NEG) Urine WBC (Auto) 5-10 /hpf (0-5) Urine RBC (Auto) 5-10 /hpf (0-4) Urine Hyaline Casts (Auto) 1-5 /lpf (0-5) Urine Epithelial Cells (Auto) 0-5 /lpf (0-5) Urine Bacteria (Auto) 2+ (NEG) Bedside Glucose 118 mg/dl (70-90) Date/Time Source Procedure Growth Status 12/20/16 03:20 Urine,Catheterized Urine Culture Pending Received Last 24 Hours Test 12/19/16 20:41 12/19/16 21:42 12/20/16 00:34 12/20/16 01:13 Bedside Glucose 144 mg/dl 138 mg/dl 130 mg/dl White Blood Count 6.87 K/uL Red Blood Count 3.76 M/uL Hemoglobin 9.4 g/dL Hematocrit 32.5 % Mean Corpuscular Volume 86.4 fL Mean Corpuscular Hemoglobin 25.0 pg Mean Corpuscular Hemoglobin Concent 28.9 g/dl Platelet Count 107 K/uL Mean Platelet Volume 10.3 fL Neutrophils (%) (Auto) 83.0 % Lymphocytes (%) (Auto) 8.4 % Monocytes (%) (Auto) 7.3 % Eosinophils (%) (Auto) 1.2 % Basophils (%) (Auto) 0.0 % Neutrophils # (Auto) 5.70 K/uL Lymphocytes # (Auto) 0.58 K/uL Monocytes # (Auto) 0.50 K/uL Eosinophils # (Auto) 0.08 K/uL Basophils # (Auto) 0.00 K/uL RDW Standard Deviation 56.1 fL RDW Coefficient of Variation 17.7 % Immature Granulocyte % (Auto) 0.1 % Immature Granulocyte # (Auto) 0.01 K/uL Arterial Blood pH 7.42 Arterial Blood Partial Pressure CO2 58 mmHg Arterial Blood Partial Pressure O2 68 mm/Hg Arterial Blood HCO3 37 mmol/L Arterial Blood Oxygen Saturation 90.7 % Arterial Blood Base Excess 10.9 mEq/L Arterial Blood Gas Delivery 40% BIPAP Justice Test POS Sodium Level 144 mmol/L Potassium Level 3.7 mmol/L Chloride Level 102 mmol/L Carbon Dioxide Level 40 mmol/L Anion Gap 2.0 mmol/L Blood Urea Nitrogen 52 mg/dl Creatinine 1.10 mg/dl Est Creatinine Clear Calc Drug Dose 63.9 ml/min Estimated GFR () 58.1 Estimated GFR (Non- 50.1 BUN/Creatinine Ratio 47.4 Random Glucose 117 mg/dl Calcium Level 8.9 mg/dl Magnesium Level 2.3 mg/dl Ammonia 34.0 umol/L Test 12/20/16 03:20 12/20/16 08:33 12/20/16 11:16 12/20/16 12:41 Urine Color YELLOW Urine Appearance CLEAR Urine pH 6.5 Urine Specific [place] 1.010 Urine Protein NEG Urine Glucose (UA) NEG Urine Ketones NEG Urine Occult Blood 1+ Urine Nitrite NEG Urine Bilirubin NEG Urine Urobilinogen NEG Urine Leukocyte Esterase SMALL Urine WBC (Auto) 5-10 /hpf Urine RBC (Auto) 5-10 /hpf Urine Hyaline Casts (Auto) 1-5 /lpf Urine Epithelial Cells (Auto) 0-5 /lpf Urine Bacteria (Auto) 2+ Bedside Glucose 106 mg/dl 122 mg/dl 122 mg/dl Date/Time Source Procedure Growth Status 12/20/16 03:20 Urine,Catheterized Urine Culture Pending Received Assessment & Plan This is a 71 year old female with PMH of severe COPD and chronic respiratory failure on continuous O2 therapy, right sided heart failure secondary to COPD and pulmonary HTN, with recent admission to [facility] due to CHF exacerbation; was discharged to [facility] and returned with acute respiratory failure Acute on Chronic Respiratory Failure 12/20: episode of poor responsiveness overnight while on bipap CT head revealed no acute findings except for an AF level in the maxillary sinus CXR revealed an increase in vol overload compared with CXR from 12/14 UA was positive for possible infection and treatment was started with cefepime She became more alert this morning and continues to have episodes of crying out like that described above. Cardiology saw pt and changing diuretics to torsemide She has cor pulmonale from her significant lung disease, and continues to require oxygen for this She is currently at baseline oxygen requirements As a result of activity last night her risperidone was decreased-may be the interaction of this with Seroquel BIPAP use while sleeping as tolerated. Acute on Chronic Right Side Heart Failure (with preserved EF) -cardiology evaluated her and changing diuretic to torsemide -will liberalize her PO fluid intake fo her comfort Acute Kidney Injury superimposed on CKD stage 3: resolved Lethargy/Altered Level of Consciousness-resolved. She is A&O x 3 today (12/19) COPD-(12/19) no wheezing on exam, not req steroids. Cont nebs PRN. Doing well overall. Recent bilateral LE cellulitis - resolved DM2: sugars are controlled last A1c = 5.5% using sliding scale and monitor sugars HTN: at goal, continue home medications Hypothyroidism: continue Synthroid Hx. of Black Stools, +FOBT: denies any blood per rectum, lightheadedness, chest pain or abdominal pain patient was positive for FOBT during last admission refused GI w/up started on protonix BID H/H stable DVT ppx SCDs, due to hx. of GI bleed FULL CODE DO [facility]: [facility] Consultants: Nephrology Current Inpatient Medications: Current Inpatient Medications Medications (Trade) Dose Ordered Sig/Romaine Route Start Time Stop Time Status Last Admin Dose Admin Arformoterol Tartrate (Brovana 15MCG/ 2ML Neb Soln) 15 mcg BIDR INH 12/13/16 20:00 01/12/17 19:59 12/20/16 07:41 15 MCG Aspirin (Ecotrin Tab) 81 mg DAILY PO 12/14/16 09:00 01/13/17 08:59 12/20/16 08:23 81 MG Atorvastatin Calcium (Lipitor Tab) 20 mg HS PO 12/13/16 21:00 01/12/17 20:59 12/19/16 21:44 20 MG Budesonide (Pulmicort Respules 0.5MG/ 2ML Neb Soln) 0.5 mg BIDR INH 12/13/16 20:00 01/12/17 19:59 12/20/16 07:41 0.5 MG Lactobacillus Acidophilus (Floranex Tab) 4 tab TID PO 12/13/16 14:00 01/12/17 13:59 12/20/16 13:41 4 TAB Levothyroxine Sodium (Synthroid Tab) 112 mcg DAILYBB PO 12/14/16 06:00 01/13/17 05:59 12/20/16 08:22 112 MCG Pantoprazole Sodium (Protonix Tab) 40 mg BID PO 12/13/16 21:00 01/12/17 20:59 12/20/16 08:21 40 MG Quetiapine Fumarate (seroQUEL TAB) 50 mg HS PO 12/13/16 21:00 12/19/16 21:44 50 MG Senna/Docusate Sodium (Senokot S Tab) 2 tab HS PO 12/13/16 21:00 01/12/17 20:59 12/19/16 21:44 2 TAB Tramadol HCl (Ultram Tab) 50 mg Q6H PRN PO 12/13/16 11:30 01/12/17 11:29 12/18/16 17:18 50 MG Acetaminophen (Tylenol Tab) 650 mg Q4H PRN PO 12/13/16 11:45 01/12/17 11:44 Magnesium Hydroxide (Milk Of Magnesia Susp) 30 ml Q12H PRN PO 12/13/16 11:45 01/12/17 11:44 Ondansetron HCl (Zofran Inj) 4 mg Q6H PRN IV 12/13/16 11:45 01/12/17 11:44 12/19/16 08:15 4 MG Nitroglycerin (Nitrostat Tab) 0.4 mg UD PRN SL 12/13/16 11:45 01/12/17 11:44 Polyethylene (Miralax Powder Packet) 17 gm DAILY PRN PO 12/13/16 11:45 01/12/17 11:44 12/20/16 08:24 17 GM Insulin Aspart (novoLOG ASPART) SLIDING SCALE If C... ACHS SC 12/13/16 16:15 01/12/17 16:14 12/20/16 18:31 3 UNITS Glucose (Glucose 40% Gel) 15-30 GRAMS 15 GRAMS... UD PRN PO 12/13/16 11:45 01/12/17 11:44 Glucose (Glucose Chew Tab) 4-8 Tablets 4 Tabl... UD PRN PO 12/13/16 11:45 01/12/17 11:44 Dextrose (Dextrose 50% 50ML Syringe) 25-50ML OF 50% DW IV FOR... UD PRN IV 12/13/16 11:45 01/12/17 11:44 Glucagon (Glucagon Inj) 1 mg UD PRN SQ 12/13/16 11:45 01/12/17 11:44 Albuterol/ Ipratropium (Duoneb) 3 ml QIDR INH 12/13/16 20:00 01/12/17 19:59 12/20/16 15:32 3 ML Metoprolol Succinate (Toprol Xl Tab) 50 mg DAILY PO 12/17/16 09:00 01/16/17 08:59 12/20/16 08:24 50 MG Albuterol/ Ipratropium (Duoneb) 3 ml Q2H PRN INH 12/20/16 00:45 01/19/17 00:44 Cefepime HCl 1 ea 1 ea DAILY PRN N/A 12/20/16 08:00 01/19/17 07:59 Cefepime HCl/ Dextrose (Maxipime IV/D5 100ml) 112.5 ml @ 225 mls/hr Q12H IV 12/20/16 16:00 12/24/16 16:29 12/20/16 15:40 225 MLS/HR Risperidone (Risperdal Tab) 0.5 mg BID PRN PO 12/20/16 08:00 01/19/17 07:59 12/20/16 16:28 0.5 MG Torsemide (Demadex Tab) 20 mg QAM PO 12/21/16 08:00 01/20/17 07:59
[2016-12-21] VITALS (10 sets, daily range): BP systolic 88–112; BP diastolic 54–63; PULSE 66–98; TEMP 36.6–36.7; O2SAT 88–94
[2016-12-21] MEDS: TRAMADOL HCL 50 MG TAB PO PRN ×3 (01:38→23:31)
[2016-12-21] MEDS: CEFEPIME IV 2000 MG in DEXTROSE 5% 100ML IV SCH ×2 (05:04→16:35)
[2016-12-21 07:18] LABS: BUN/CREATININE RATIO 45.1 (10-20); CALCIUM 9.2 mg/dl (8.5-10.1); CREATININE 1.2 mg/dl (0.60-1.20); MAGNESIUM 2.3 mg/dl (1.8-2.4); POTASSIUM 3.8 mmol/L (3.5-5.1)
[2016-12-21] MEDS: BUDESONIDE 0.5 MG/2 ML VIAL (PULMICORT) INH SCH ×2 (07:47→19:00)
[2016-12-21] MEDS: ARFORMOTEROL TART 15MCG/2ML VIAL INH SCH ×2 (07:47→19:00)
[2016-12-21] MEDS: ALBUT/IPRATROP 3MG/0.5MG NEB 3 ML VIAL INH SCH ×4 (07:47→19:00)
[2016-12-21] MEDS: ASPIRIN 81 MG ECTAB PO SCH (08:27)
[2016-12-21] MEDS: TORSEMIDE 20 MG TAB PO SCH (08:27)
[2016-12-21] MEDS: LACTOBACILLUS ACIDOPHILUS (FLORANEX) TAB PO SCH ×3 (08:28→19:53)
[2016-12-21] MEDS: METOPROLOL SUCC 50MG EXT REL TAB PO SCH (08:28)
[2016-12-21] MEDS: PANTOprazole SOD 40 MG TAB PO SCH ×2 (08:28→19:53)
[2016-12-21] MEDS: INSULIN ASPART 100 UNITS/ML 3 ML PEN SC SCH ×4 (08:29→21:24)
[2016-12-21] MEDS ORDERED: POLYETHYLENE (MIRALAX) 17 GM PACK PO SCH (09:00)
[2016-12-21] MEDS: RISPERIDONE 0.5 MG TAB PO PRN ×2 (09:45→16:37)
[2016-12-21] MEDS ORDERED: ENOXAPARIN 40 MG/0.4 ML SYR SQ ONE (10:30)
--- NOTE | 2016-12-21 10:49 | Progress Note ---
Medicine Progress Note Date & Time of Visit: December 21, 2016 at 10:38. Subjective 71 yo F with cor pulmonale and decompensated R heart failure, currently optimized. -She is doing well this morning -states she is very fatigued because she hasn't gotten much sleep overnight -she is very thirsty and continues to ask for more water -she is doing very well on the risperidone for agitation Objective Last 8 Hrs Date Time Temp Pulse Resp B/P Pulse Ox O2 Delivery O2 Flow Rate FiO2 12/21/16 07:25 85 20 94 Nasal Cannula 5.0 12/21/16 07:19 36.7 86 20 100/63 91 Nasal Cannula 5.0 Physical Exam: GEN: Obese, calm, alert and appropriate, sitting up at the bedside HEENT: NC/AT, normal sclerae CARDIO: reg rate, S1/2 heard without m/g/r LUNGS: mostly clear to auscultation with some crackles at the bases ABD: soft, non-tender, non-distended, no rebound or guarding EXTREMITY: RP and DP palpable 2+ bilat, no LE swelling or edema, extremities are warm and well-perfused, normal skin color and temp, no evidence of cellulitis SKIN: warm and dry Laboratory Results: 12/21/16 06:20 Test 12/21/16 06:20 12/21/16 07:52 Anion Gap 6.0 mmol/L (3-11) Est Creatinine Clear Calc Drug Dose 58.4 ml/min Estimated GFR () 52.3 Estimated GFR (Non- 45.1 BUN/Creatinine Ratio 45.1 (10-20) Calcium Level 9.2 mg/dl (8.5-10.1) Magnesium Level 2.3 mg/dl (1.8-2.4) Bedside Glucose 98 mg/dl (70-90) Last 24 Hours Test 12/20/16 11:16 12/20/16 12:41 12/20/16 17:27 12/20/16 20:14 Bedside Glucose 122 mg/dl 122 mg/dl 114 mg/dl 118 mg/dl Test 12/21/16 06:20 12/21/16 07:52 Sodium Level 140 mmol/L Potassium Level 3.8 mmol/L Chloride Level 100 mmol/L Carbon Dioxide Level 34 mmol/L Anion Gap 6.0 mmol/L Blood Urea Nitrogen 54 mg/dl Creatinine 1.20 mg/dl Est Creatinine Clear Calc Drug Dose 58.4 ml/min Estimated GFR () 52.3 Estimated GFR (Non- 45.1 BUN/Creatinine Ratio 45.1 Random Glucose 117 mg/dl Calcium Level 9.2 mg/dl Magnesium Level 2.3 mg/dl Bedside Glucose 98 mg/dl Assessment & Plan This is a 71 year old female with PMH of severe COPD and chronic respiratory failure on continuous O2 therapy, right sided heart failure secondary to COPD and pulmonary HTN, with recent admission to [facility] due to CHF exacerbation; was discharged to [facility] and returned with acute respiratory failure Acute on Chronic Right Side Heart Failure (with preserved EF)/cor pulmonale -cardiology changed diuretics from Lasix to torsemide -removed fluid restriction and started 2gm salt restriction instead Acute on Chronic Respiratory Failure 2/2 above and COPD -at baseline oxygen requirements and although deconditioned and can drop her oxygen saturations with changing positions, the nurses have had success with readjusting her and getting this back up easily -no BIPAP overnight and sat has remained >93% on just the oxygen Acute cystitis 2/2 E coli: continues on cefepime IV, awaiting sensitivities Anemia-chronic, likely multifactorial with h/o FOBT+, poss chronic GI losses but declined GI workup so conservative treatment is being pursued at this time with BID PPI. Likely also 2/2 chronic disease. Monitor H/H periodically. Thrombocytopenia-Chronic, cont to monitor. Will hold heparin for DVT proph only if PLT<50K or if she has bleeding. Acute Kidney Injury superimposed on CKD stage 3: resolved Lethargy/Altered Level of Consciousness-resolved. COPD-stable, no wheezing on exam, not req steroids. Cont nebs PRN. Doing well overall. Recent bilateral LE cellulitis - resolved DM2: sugars are controlled last A1c = 5.5% using sliding scale and monitor sugars HTN: at goal, continue home medications Hypothyroidism: continue Synthroid Hx. of Black Stools, +FOBT: denies any blood per rectum, lightheadedness, chest pain or abdominal pain patient was positive for FOBT during last admission refused GI w/up started on protonix BID H/H stable DVT ppx Lovenox started FULL CODE Dispo: to [facility] tomorrow. I spoke with her son, Ortiz, by phone, and explained my concerns with taking the risperidone and seroquel together especially at night. He verbalized understanding that these will need to be by at least 4 hours, and we discussed the plan and all his questions were answered. We discussed likely discharge in the morning, which was also verbalized to Marilia in CM. DO Ilir G[facility]ast. [facility] Hospitalist Discharge planning: [facility] facility Consultants: Nephrology, Cardiology Current Inpatient Medications: Current Inpatient Medications Medications (Trade) Dose Ordered Sig/Romaine Route Start Time Stop Time Status Last Admin Dose Admin Arformoterol Tartrate (Brovana 15MCG/ 2ML Neb Soln) 15 mcg BIDR INH 12/13/16 20:00 01/12/17 19:59 12/21/16 07:47 15 MCG Aspirin (Ecotrin Tab) 81 mg DAILY PO 12/14/16 09:00 01/13/17 08:59 12/21/16 08:27 81 MG Atorvastatin Calcium (Lipitor Tab) 20 mg HS PO 12/13/16 21:00 01/12/17 20:59 12/20/16 20:06 20 MG Budesonide (Pulmicort Respules 0.5MG/ 2ML Neb Soln) 0.5 mg BIDR INH 12/13/16 20:00 01/12/17 19:59 12/21/16 07:47 0.5 MG Lactobacillus Acidophilus (Floranex Tab) 4 tab TID PO 12/13/16 14:00 01/12/17 13:59 12/21/16 08:28 4 TAB Levothyroxine Sodium (Synthroid Tab) 112 mcg DAILYBB PO 12/14/16 06:00 01/13/17 05:59 12/20/16 08:22 112 MCG Pantoprazole Sodium (Protonix Tab) 40 mg BID PO 12/13/16 21:00 01/12/17 20:59 12/21/16 08:28 40 MG Quetiapine Fumarate (seroQUEL TAB) 50 mg HS PO 12/13/16 21:00 12/20/16 20:05 50 MG Senna/Docusate Sodium (Senokot S Tab) 2 tab HS PO 12/13/16 21:00 01/12/17 20:59 12/20/16 20:05 2 TAB Tramadol HCl (Ultram Tab) 50 mg Q6H PRN PO 12/13/16 11:30 01/12/17 11:29 12/21/16 01:38 50 MG Acetaminophen (Tylenol Tab) 650 mg Q4H PRN PO 12/13/16 11:45 01/12/17 11:44 Magnesium Hydroxide (Milk Of Magnesia Susp) 30 ml Q12H PRN PO 12/13/16 11:45 01/12/17 11:44 Ondansetron HCl (Zofran Inj) 4 mg Q6H PRN IV 12/13/16 11:45 01/12/17 11:44 12/19/16 08:15 4 MG Nitroglycerin (Nitrostat Tab) 0.4 mg UD PRN SL 12/13/16 11:45 01/12/17 11:44 Polyethylene (Miralax Powder Packet) 17 gm DAILY PRN PO 12/13/16 11:45 01/12/17 11:44 12/20/16 08:24 17 GM Insulin Aspart (novoLOG ASPART) SLIDING SCALE If C... ACHS SC 12/13/16 16:15 01/12/17 16:14 12/20/16 18:31 3 UNITS Glucose (Glucose 40% Gel) 15-30 GRAMS 15 GRAMS... UD PRN PO 12/13/16 11:45 01/12/17 11:44 Glucose (Glucose Chew Tab) 4-8 Tablets 4 Tabl... UD PRN PO 12/13/16 11:45 01/12/17 11:44 Dextrose (Dextrose 50% 50ML Syringe) 25-50ML OF 50% DW IV FOR... UD PRN IV 12/13/16 11:45 01/12/17 11:44 Glucagon (Glucagon Inj) 1 mg UD PRN SQ 12/13/16 11:45 01/12/17 11:44 Albuterol/ Ipratropium (Duoneb) 3 ml QIDR INH 12/13/16 20:00 01/12/17 19:59 12/21/16 07:47 3 ML Metoprolol Succinate (Toprol Xl Tab) 50 mg DAILY PO 12/17/16 09:00 01/16/17 08:59 12/21/16 08:28 50 MG Albuterol/ Ipratropium (Duoneb) 3 ml Q2H PRN INH 12/20/16 00:45 01/19/17 00:44 Cefepime HCl 1 ea 1 ea DAILY PRN N/A 12/20/16 08:00 01/19/17 07:59 Cefepime HCl/ Dextrose (Maxipime IV/D5 100ml) 112.5 ml @ 225 mls/hr Q12H IV 12/20/16 16:00 12/24/16 16:29 12/21/16 05:04 225 MLS/HR Torsemide (Demadex Tab) 20 mg QAM PO 12/21/16 08:00 01/20/17 07:59 12/21/16 08:27 20 MG Risperidone (Risperdal Tab) 0.5 mg BID17 PRN PO 12/21/16 09:00 01/20/17 08:59 12/21/16 09:45 0.5 MG Enoxaparin Sodium (Lovenox Inj) 40 mg QAM SQ 12/22/16 08:00 01/21/17 07:59
--- NOTE | 2016-12-21 14:59 | Cardiology Follow-Up ---
Subjective General Date of Service: December 21, 2016. Chief Complaint: follow up cor pulmonale Pt evaluation today including: conversation w/ patient, physical exam History of Present Illness The patient is a 71 year old female seen in follow up. Mental status is improved today compared to yesterday. She still asked to go home. She remains hypoxic with pulse ox of 88% on 6 L /min of Oxygen by nasal canula. Allergies Coded Allergies: Benzodiazepines (Unverified Adverse Reaction, Intermediate, DELIRIUM, 12/13) Patient has history of abuse and addiction per family. 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 Social History Smoking Status: Former Smoker Hx Tobacco Use In Past Year?: No Hx Alcohol Use - Type And Amou: No Hx Substance Use - Type And Am: No Problem List Medical Problems: (1) Anemia Status: Acute (2) Bilateral lower leg cellulitis Status: Acute (3) CHF (congestive heart failure) Status: Acute (4) Failure of outpatient treatment Status: Acute (5) GI bleed Status: Acute (6) Hypoxia Status: Acute (7) Hypoxia Status: Acute (8) Respiratory distress Status: Acute Physical Exam Vital Signs Last Vital Signs Documentation Date Time Temp Pulse Resp B/P Pulse Ox O2 Delivery O2 Flow Rate FiO2 12/21/16 11:32 92 20 91 BiPAP/CPAP 50 12/21/16 08:00 5.0 12/21/16 07:19 36.7 100/63 Physical Exam Constitutional: General Apperance: obese Level of Distress: NAD, chronically ill Neck: supple Lungs: Auscultation: no wheezing Cardiovascular: Heart Auscultation: RRR, no murmurs Extremities: pertinent finding (trace ankle edema) Assessment and Plan Assessment and Plan Impression: 1. Acute on chronic right heart failure due to underlying lung disease, cor pulmonale physiology 2. CKD 3 Encephalopathy Plan: Tolerating torsemide 20 mg well. Agree with lovenox for DVT prophylaxis. Khalif Otero, DO Laboratory Results Last 24 Hours Test 12/20/16 17:27 12/20/16 20:14 12/21/16 06:20 12/21/16 07:52 Bedside Glucose 114 mg/dl 118 mg/dl 98 mg/dl Sodium Level 140 mmol/L Potassium Level 3.8 mmol/L Chloride Level 100 mmol/L Carbon Dioxide Level 34 mmol/L Anion Gap 6.0 mmol/L Blood Urea Nitrogen 54 mg/dl Creatinine 1.20 mg/dl Est Creatinine Clear Calc Drug Dose 58.4 ml/min Estimated GFR () 52.3 Estimated GFR (Non- 45.1 BUN/Creatinine Ratio 45.1 Random Glucose 117 mg/dl Calcium Level 9.2 mg/dl Magnesium Level 2.3 mg/dl Test 12/21/16 11:33 Bedside Glucose 115 mg/dl
[2016-12-21] MEDS: DOCUSATE SODIUM/SENNA 50/8.6MG TAB PO SCH (19:53)
[2016-12-21] MEDS: ATORVASTATIN 20 MG TAB PO SCH (19:54)
[2016-12-21] MEDS: QUETIAPINE FUMARATE 25 MG TAB PO SCH (19:58)
[2016-12-22] VITALS (7 sets, daily range): BP systolic 92; BP diastolic 54–59; PULSE 71–93; TEMP 36.4; O2SAT 92–94
[2016-12-22] MEDS: POLYETHYLENE (MIRALAX) 17 GM PACK PO PRN (02:10)
[2016-12-22] MEDS: CEFEPIME IV 2000 MG in DEXTROSE 5% 100ML IV SCH (04:06)
[2016-12-22] MEDS: RISPERIDONE 0.5 MG TAB PO PRN (04:34)
[2016-12-22] MEDS: ONDANSETRON INJ 2 MG/ML 2 ML VIAL IV PRN (06:14)
[2016-12-22] MEDS: LEVOTHYROXINE 112 MCG TAB PO SCH (06:19)
[2016-12-22] MEDS: ALBUT/IPRATROP 3MG/0.5MG NEB 3 ML VIAL INH SCH (07:15)
[2016-12-22] MEDS: ARFORMOTEROL TART 15MCG/2ML VIAL INH SCH (07:18)
[2016-12-22] MEDS: BUDESONIDE 0.5 MG/2 ML VIAL (PULMICORT) INH SCH (07:18)
[2016-12-22 07:33] LABS: CREATININE 1.4 mg/dl (0.60-1.20)
[2016-12-22] MEDS ORDERED: ENOXAPARIN 40 MG/0.4 ML SYR SQ SCH (08:00)
[2016-12-22] MEDS: METOPROLOL SUCC 50MG EXT REL TAB PO SCH (08:00)
[2016-12-22] MEDS: TORSEMIDE 20 MG TAB PO SCH (08:00)
[2016-12-22] MEDS: LACTOBACILLUS ACIDOPHILUS (FLORANEX) TAB PO SCH ×2 (08:00→14:00)
[2016-12-22] MEDS ORDERED: CEFDINIR 250 MG/5 ML 60 ML PO SCH (09:00)
[2016-12-22] MEDS: INSULIN ASPART 100 UNITS/ML 3 ML PEN SC SCH ×2 (09:20→12:37)
[2016-12-22] MEDS: ASPIRIN 81 MG ECTAB PO SCH (09:23)
[2016-12-22] MEDS: PANTOprazole SOD 40 MG TAB PO SCH (09:24)
[2016-12-22] MEDS ORDERED: BISACODYL 10 MG SUPP PR ONE (10:30)
[2016-12-22] MEDS ORDERED: NURSING VERBAL MED ORDER ONE (10:30)
[2016-12-22] MEDS ORDERED: TPRSR50 PO (11:43)
[2016-12-22] MEDS ORDERED: DMD20 PO (11:43)
[2016-12-22] MEDS ORDERED: [UNRECOGNIZED DRUG - CODE] PO (11:43)
[2016-12-22] MEDS ORDERED: RISP0.5T4 PO (11:43)
--- NOTE | 2016-12-22 11:53 | Discharge Instructions ---
Discharge Instructions Date of Service December 22, 2016. Admission Reason for Admission: Chf, Hypoxia Discharge Discharge Diagnosis / Problem: [place] on chronic respiratory failure, UTI Discharge Goals Goal(s): Prevent Disease Progression Activity Recommendations Activity Limitations: per Instructions/Follow-up section . Instructions / Follow-Up Instructions / Follow-Up Call your Primary Care doctor if any of the following symptoms or problems start or get worse: * Shortness of breath or difficulty breathing * Wake up at night short of breath * Chest pain * Cough * Swelling of your hands, feet, or legs * More fatigued or tired with your normal activity * Palpitations - sudden fast heart beats WEIGHT * Weigh yourself every morning after using the bathroom. * Use the same scale. * Wear the same amount of clothing. * Write your weight down on a chart. * Call your Primary Care doctor if you gain more than 2-3 pounds in 1-2 days. MEDICATIONS * Use this discharge instruction sheet for medication instructions. * Take your medications at the time your doctor ordered. * Do not skip a dose of your medicines. * If you miss a dose of medicine, take it as soon as possible, but DO NOT DOUBLE A DOSE. * Read your medicine information when you get home. * Know all of the side effects of your medicine. If in doubt, ask your pharmacist * Call your Primary Care doctor's office if you have any side effects. * Be sure all of your doctors know what medicine and herbs you take (including cold, flu, and herbal medicine). Take the following with you to your follow-up doctor appointments: * Weight Chart * Medication List * List of questions Do not drink excessive alcohol, beer or wine. ADDITIONAL PROVIDER INSTRUCTIONS: Please take all medications as instructed. You need three more days of antibiotic for your UTI. If any diarrhea occurs or other problems with this medication, please alert the staff at [facility] if this occurs. You have been started on a new diuretic. As a result, you should have a renal profile (PRP or BMP) drawn in the next two weeks to ensure your kidney function is doing well. Please have these results faxed to Dr. Ortiz Otero at [facility]. You will need to follow-up with [facility] within the next month as an outpatient follow-up from this hospitalization. You have been started on Risperidone for anxiety. Please ensure this is not taken in conjunction with Seroquel. You will need a follow-up appointment one week after discharge from [facility] to see your primary care physician. It was a pleasure taking care of you! Call if you have any questions or problems. You can reach a [facility] hospitalist on duty at [facility] 24 hours a day by calling [phone]. Take care of yourself. Deena Ford, [facility] Hospitalist Current Hospital Diet Patient's current hospital diet: AHA Diet (Heart Healthy), Diabetes Type 2 Diet Discharge Diet Recommended Diet: AHA Diet (Heart Healthy), Diabetes Type 2 Diet Pending Studies Studies pending at discharge: no Laboratory Results Hemoglobin A1c Test 11/25/16 04:30 Range/Units Estimated Average Glucose 111 mg/dl Hemoglobin A1c 5.5 4.5-5.6 % Medical Emergencies . Who to Call and When: Call 911 or go to the Emergency Room if: * If at any time you feel your situation is an emergency * You have tightness or pain in your chest that does not go away with rest or Nitroglycerin * You are very short of breath even with rest . Non-Emergent Contact Non-Emergency issues call your: Primary Care Provider . . "Provider Documentation" section prepared by Deena Ford. . VTE Core Measure Inpt VTE Proph given/why not?: Enoxaparin (Lovenox)SQ
[2016-12-23] MEDS ORDERED: CEFD250S2 PO (02:14)
[2016-12-23] MEDS ORDERED: METO50TA7 PO (02:14)
[2016-12-23] MEDS ORDERED: ACET-1311 PO (02:14)
[2016-12-23] MEDS ORDERED: TORS20TA2 PO (02:14)
[2016-12-23] MEDS ORDERED: SENN-65 PO (02:14)
[2016-12-23] MEDS ORDERED: VNTHFA/IN INH (02:14)
[2016-12-23] MEDS ORDERED: NYST1POW7 TOP (02:14)
[2016-12-23] MEDS ORDERED: BISA10SU38 PR (02:14)
[2016-12-23] MEDS ORDERED: SODIENE PR (02:14)
[2016-12-23] MEDS ORDERED: MOMLX PO (02:14)
[2016-12-23] MEDS ORDERED: TRAM-10 PO (02:14)
[2016-12-23] MEDS ORDERED: RISP0.5T10 PO (02:14)
--- NOTE | 2016-12-28 07:24 | Discharge Summary ---
Discharge Summary Date of Service December 28, 2016. Discharge Summary Admission Date: Dec 13, 2016 at 11:36 Discharge Date: December 22, 2016 Discharge Disposition: [facility] facility Principal Diagnosis: Acute on Chronic Right Side Heart Failure (with preserved EF)/cor pulmonale Acute on Chronic Respiratory Failure 2/2 above and COPD Acute cystitis 2/2 E coli Chronic Anemia Thrombocytopenia Acute Kidney Injury superimposed on CKD stage 3: resolved Lethargy/Altered Level of Consciousness-resolved. COPD Recent bilateral LE cellulitis - resolved DM2 HTN Hypothyroidism Hx. of Black Stools, +FOBT Procedures: None. Consultations: Nephrology, Cardiology, Palliative Care Pending Studies/Follow-Up: see instructions below Medication Reconciliation Continued Medications: Arformoterol Tartrate (Brovana) 15 Mcg/2 Ml Neb 15 MCG INH BID, INHALER Aspirin (Aspirin 81) 81 Mg Tab 81 MG PO DAILY Atorvastatin (Lipitor) 20 Mg Tab 20 MG PO HS, TAB Budesonide (Inhalation) (Pulmicort) 0.5 Mg/2 Ml Lynn 0.5 MG NEB BID Insulin Aspart (Novolog) 100 Units/Ml Inj SQ ACHS SLIDING SCALE: BSG 0 -150= 0 UNITS BSG 151 - 200= 6 UNITS BSG 201 - 250= 8 UNITS BSG 251 - 300= 10 UNITS BSG 301 - 350= 12 UNITS BSG 351 - 400= 14 UNITS BSG 401 - 450= 16 UNITS BSG >450 CALL Ipratropium-Albuterol (Duoneb) 3 Ml Nebu 1 TREATMENT INH Q6H PRN for SOB/Wheezing, INHA Lactobacillus Acidophilus (Lactinex) Tab 4 TABS PO TID, TAB Levothyroxine Sodium (Synthroid) 112 Mcg Tab 112 MCG PO DAILY, TAB Ondansetron Hcl (Zofran) 4 Mg Tab 4 MG PO Q8 PRN for Nausea, TAB Oxygen (Oxygen) Gas 4 LITERS NA CONTINOUS Quetiapine Fumarate (Seroquel) 50 Mg Tab 50 MG PO HS, TAB Discontinued Medications: Baclofen (Lioresal) 10 Mg Tab 15 MG PO QID PRN for Muscle Spasms, TAB Furosemide (Lasix) 40 Mg Tab 60 MG PO DAILY for 30 Days, #45 TAB Metoprolol Succ (Toprol Xl) (Toprol-Xl ) 100 Mg Tabcr 100 MG PO DAILY, TAB Prednisone (Prednisone) 10 Mg Tab 40 MG PO UD, #30 TAB 1 Refill PREDNISONE 40MG PO DAILY X 2 DAYS THEN PREDNISONE 30MG PO DAILY X 2 DAYS THEN PREDNISONE 20MG PO DAILY X 2 DAYS THEN PREDNISONE 10MG PO DAILY X 2 DAYS THEN PREDNISONE 5MG PO DAILY HOME DOSE Admission Information HPI (per Admitting provider): HISTORY OF PRESENT ILLNESS: This is a 71-year-old Female with PMH significant for COPD on chronic oxygen, right ventricular dysfunction due to COPD, pulmonary hypertension, diabetes type 2, hypertension, chronic pancreatitis, depression, dyslipidemia, hypertension, history of bronchitis, hypothyroidism, panic disorder without agoraphobia, history of urinary tract infections, was recently in the hospital (12/04/16) for CHF and lower extremity cellulitis extending up to the abdomen, was treated with IV antibiotics, IV lasix and discharged to [facility] side on increased dose of lasix 60 mg History obtained from EMR, ER physician, Hospital records, as patient is very drowsy and keeps saying that she is sleepy. Unable to give a good history and details. Per records, patient comes back to ED with c/o SOB worsening from baseline since yesterday after noon. Requiring 6 L oxygen (at home on 4 L). CXR- worsening of pulmonary edema, BNP 10k doubled compared to last one 5k, Creatinine is up to 1.70 from 0.88. Received a dose of IV lasix 40 mg in ED. We will admit her for CHF exacerbation, CLIFF on CKD for further evaluation and mx Physical Exam (per Admitting): General Appearance: + pertinent finding (Drowsy/Sleepy) Head: normocephalic, atraumatic Eyes: PERRL ENT: hearing grossly normal Neck: supple Respiratory/Chest: chest non-tender, no respiratory distress, no accessory muscle use, + decreased breath sounds, + crackles Cardiovascular: regular rate, rhythm, no murmur, + pertinent finding (b/l edema -thighs + ) Abdomen/GI: non tender, soft, + distended, + pertinent finding (distended +) Extremities/Musculoskelatal: + pedal edema (bilateral extending upto abdomen ) Neurologic/Psych: + pertinent finding (drowsy + Limited exam as not cooperative) Skin: normal color Hospital Course This is a 71 year old female with PMH of severe COPD and chronic respiratory failure on continuous O2 therapy, right sided heart failure secondary to COPD and pulmonary HTN, with recent admission to [facility] due to CHF exacerbation; was discharged to [facility] and returned with acute respiratory failure Acute on Chronic Right Side Heart Failure (with preserved EF)/cor pulmonale -cardiology changed diuretics from Lasix to torsemide -removed fluid restriction and started 2gm salt restriction instead of fluid restriction and patient did very well Acute on Chronic Respiratory Failure 2/2 above and COPD -at baseline oxygen requirements and although deconditioned and can drop her oxygen saturations with changing positions, the nurses have had success with readjusting her and getting this back up easily -no BIPAP overnight and sat has remained >93% on just the oxygen Acute cystitis 2/2 E coli: continues on cefepime IV, switched to Omnicef PO Anemia-chronic, likely multifactorial with h/o FOBT+, poss chronic GI losses but declined GI workup so conservative treatment is being pursued at this time with BID PPI. Likely also 2/2 chronic disease. Monitor H/H periodically. Thrombocytopenia-Chronic, cont to monitor. Acute Kidney Injury superimposed on CKD stage 3: resolved Lethargy/Altered Level of Consciousness-resolved. COPD-stable, no wheezing on exam, not req steroids. Cont nebs PRN. Doing well overall. Recent bilateral LE cellulitis - resolved DM2: sugars are controlled last A1c = 5.5% using sliding scale and monitor sugars HTN: at goal, continue home medications Hypothyroidism: continue Synthroid Hx. of Black Stools, +FOBT: denies any blood per rectum, lightheadedness, chest pain or abdominal pain patient was positive for FOBT during last admission refused GI w/up started on protonix BID H/H stable Dispo: to [facility] tomorrow. I spoke with her son, Ortiz, by phone, and explained my concerns with taking the risperidone and seroquel together especially at night. This was after one night in the hospital where she was difficult to arouse after this combination of meds had been given. He verbalized understanding that these will need to be by at least 4 hours, and we discussed the plan and all his questions were answered. On day of discharge the patient was afebrile and hemodynamically stable and was oxygenating at baseline. She was ambulating at baseline, which is not much, and was tolerating PO. She was mentating at baseline and was A&O x 3. She denied any UTI symptoms. Physical exam revealed clear lungs to auscultation, normal heart exam and no edema, JVD or other signs of acute R heart failure. She was discharged in good condition back to [facility] for continued care. Her son was notified again of the plan on day of discharge and all questions were answered. Total time spent on discharge = 60 minutes This includes examination of the patient, discharge planning, medication reconciliation, and communication with other providers. Discharge Instructions Discharge Instructions Date of Service December 22, 2016. Admission Reason for Admission: Chf, Hypoxia Discharge Discharge Diagnosis / Problem: [place] on chronic respiratory failure, UTI Discharge Goals Goal(s): Prevent Disease Progression Activity Recommendations Activity Limitations: per Instructions/Follow-up section . Instructions / Follow-Up Instructions / Follow-Up Call your Primary Care doctor if any of the following symptoms or problems start or get worse: * Shortness of breath or difficulty breathing * Wake up at night short of breath * Chest pain * Cough * Swelling of your hands, feet, or legs * More fatigued or tired with your normal activity * Palpitations - sudden fast heart beats WEIGHT * Weigh yourself every morning after using the bathroom. * Use the same scale. * Wear the same amount of clothing. * Write your weight down on a chart. * Call your Primary Care doctor if you gain more than 2-3 pounds in 1-2 days. MEDICATIONS * Use this discharge instruction sheet for medication instructions. * Take your medications at the time your doctor ordered. * Do not skip a dose of your medicines. * If you miss a dose of medicine, take it as soon as possible, but DO NOT DOUBLE A DOSE. * Read your medicine information when you get home. * Know all of the side effects of your medicine. If in doubt, ask your pharmacist * Call your Primary Care doctor's office if you have any side effects. * Be sure all of your doctors know what medicine and herbs you take (including cold, flu, and herbal medicine). Take the following with you to your follow-up doctor appointments: * Weight Chart * Medication List * List of questions Do not drink excessive alcohol, beer or wine. ADDITIONAL PROVIDER INSTRUCTIONS: Please take all medications as instructed. You need three more days of antibiotic for your UTI. If any diarrhea occurs or other problems with this medication, please alert the staff at [facility] if this occurs. You have been started on a new diuretic. As a result, you should have a renal profile (PRP or BMP) drawn in the next two weeks to ensure your kidney function is doing well. Please have these results faxed to Dr. Ortiz Otero at [facility]. You will need to follow-up with [facility] within the next month as an outpatient follow-up from this hospitalization. You have been started on Risperidone for anxiety. Please ensure this is not taken in conjunction with Seroquel. You will need a follow-up appointment one week after discharge from [facility] to see your primary care physician. It was a pleasure taking care of you! Call if you have any questions or problems. You can reach a [facility] hospitalist on duty at [facility] 24 hours a day by calling [phone]. Take care of yourself. Deena Ford, DO [facility] Additional Copies To Willy Otero D.O.; [facility]
== END 2016-12-22 17:05 | DRG 291 ==
LOC: ENRESERVTM → ENRESERVDT → EDBD 08:52 → C.EDB 08:53 → C.2E 11:36 → C.MS4W 12-19 12:48
PROVIDERS: ADMIT Internal Medicine; ATTEND Hospitalist
DX: I13.0 Hypertensive heart and chronic kidney disease with heart failure and stage 1 through stage 4 chronic kidney disease, or unspecified chronic kidney disease (principal); J96.21 Acute and chronic respiratory failure with hypoxia; G93.40 Encephalopathy, unspecified; I50.33 Acute on chronic diastolic (congestive) heart failure; N17.9 Acute kidney failure, unspecified; K86.1 Other chronic pancreatitis; I27.2 Other secondary pulmonary hypertension; N18.3 Chronic kidney disease, stage 3 (moderate); E78.5 Hyperlipidemia, unspecified; F32.9 Major depressive disorder, single episode, unspecified; E11.22 Type 2 diabetes mellitus with diabetic chronic kidney disease; J44.9 Chronic obstructive pulmonary disease, unspecified; E03.9 Hypothyroidism, unspecified; K59.00 Constipation, unspecified; I27.81 Cor pulmonale (chronic); Z51.5 Encounter for palliative care; Z79.4 Long term (current) use of insulin; Z79.52 Long term (current) use of systemic steroids; Z79.82 Long term (current) use of aspirin; Z79.899 Other long term (current) drug therapy; Z99.81 Dependence on supplemental oxygen; E66.9 Obesity, unspecified; F41.9 Anxiety disorder, unspecified; Z87.891 Personal history of nicotine dependence

== ENCOUNTER 2016-12-23 01:36 | Emergency (ER) | payer OTHER ==
[~2016-12-23] VITALS: Ht 177.8 cm; Wt 125.3 kg
[~2016-12-23 01:36] MED LIST changes: -ACET325T30 PO; -BACL10TA PO; -BISA10SU38 PR; -CIPR-255 PO; +DMD20 PO; -FURO40TA3 PO; -LCTL45 PO; +LCTX PO; -METO100T44 PO; -PRD20 PO; -PRED10TA PO; -PRNJ PO; +RISP0.5T4 PO; +TPRSR50 PO; +[UNRECOGNIZED DRUG - CODE] PO
[2016-12-23 01:43] VITALS: TEMP 36.7; Ht 177.8 cm; Wt 125.3 kg
[2016-12-23 01:51] VITALS: O2SAT 93
[2016-12-23] MEDS ORDERED: VNTHFA/IN INH (02:14)
[2016-12-23] MEDS ORDERED: METO50TA7 PO (02:14)
[2016-12-23] MEDS ORDERED: NYST1POW7 TOP (02:14)
[2016-12-23] MEDS ORDERED: MOMLX PO (02:14)
[2016-12-23] MEDS ORDERED: TORS20TA2 PO (02:14)
[2016-12-23] MEDS ORDERED: TRAM-10 PO (02:14)
[2016-12-23] MEDS ORDERED: BISA10SU38 PR (02:14)
[2016-12-23] MEDS ORDERED: RISP0.5T10 PO (02:14)
[2016-12-23] MEDS ORDERED: SENN-65 PO (02:14)
[2016-12-23] MEDS ORDERED: ACET-1311 PO (02:14)
[2016-12-23] MEDS ORDERED: SODIENE PR (02:14)
[2016-12-23] MEDS ORDERED: CEFD250S2 PO (02:14)
--- NOTE | 2016-12-23 02:19 | EMERGENCY ROOM VISIT NOTE ---
History Report prepared by [place]: Samantha Dodson Under the Supervision of: Dr. Trinh Patel D.O. First contact with patient: 01:40 Chief Complaint: RESPIRATORY PROBLEMS Stated Complaint: BREATHING DIFFICULTY Nursing Triage Summary: discharged today at 1700 for chf. was sent back to [facility]. personnel noticed this am that her pulse ox was 68%. gave her 2 nebulizer treatment and pulse ox went to 73%. wears oxygen at 5l,states abdomen is distended and hard which is not normal for her History of Present Illness The patient is a 71 year old female who presents to the Emergency Room with complaints of persistent respiratory problems that began prior to arrival. The patient states that she was recently evaluated in the hospital and discharged today. EMS reports that the patient has a history of Raynaud's disease. The patient states that she went back to the [facility] today and they were monitoring her closely. She states that around 2300 she was woken by staff stating that her oxygen saturations were declining. The patient notes that she has felt short of breath, but additionally states that she often breathes with her mouth open. She additionally notes recent constipation and a recent weight gain of 20 lbs. Per nursing staff, the patient wears 5 liters of supplemental oxygen chronically. EMS reports that the patient's oxygen saturation was found to be in the 50s upon arrival on her finger. EMS notes that they placed a monitor on the patient's ear which revealed an oxygen saturation in the high 80s. The patient reports an oxygen saturation in the high 80s is normal for her. Source of History: patient, EMS, nursing staff Onset: prior to arrival Position: other (global) Quality: other (respiratory problems) Timing: other (persistent) Associated Symptoms: + SOB Note: Associated Symptoms: constipation, weight gain of 20 lbs. Review of Systems See HPI for pertinent positives & negatives. A total of 10 systems reviewed and were otherwise negative. Past Medical & Surgical Medical Problems: (1) Atherosclerosis of abdominal aorta (2) Bilateral lower leg cellulitis (3) CHF (congestive heart failure) (4) Cholelith W Cholecys Nec (5) Chronic bronchitis (6) Chronic obstructive lung disease (7) Chronic pancreatitis (8) COPD exacerbation (9) Depressive Disorder Nec (10) Dyslipidemia (11) Essential hypertension (12) History of bronchiolitis (13) Hypothyroidism (14) Osteoporosis (15) Panic Disorder Without Agoraphobia (16) Pulmonary hypertension (17) Right ventricular dysfunction (18) Scoliosis deformity of spine (19) Urin Tract Infection Nos Surgical Problems: (1) Carcinoma in situ of breast (2) s p cholecystectomy (3) S/P hysterectomy (4) S/P spinal surgery Family History FH: heart disease FATHER Social History Smoking Status: Former Smoker Alcohol Use: none, other Drug Use: none Marital Status: single Housing Status: fdc Occupation Status: retired Current/Historical Medications Scheduled Arformoterol Tartrate (Brovana), 15 MCG INH BID Aspirin (Aspirin 81), 81 MG PO DAILY Atorvastatin (Lipitor), 20 MG PO HS Budesonide (Inhalation) (Pulmicort), 0.5 MG NEB BID Cefdinir (Omnicef), 300 MG PO Q12H Insulin Aspart (Novolog), SQ ACHS Lactobacillus Acidophilus (Lactinex), 4 TABS PO TID Levothyroxine Sodium (Synthroid), 112 MCG PO DAILY Metoprolol Succ (Toprol Xl) (Toprol-Xl), 50 MG PO QAM Nystatin (Topical) (Nystatin), 1 APPLN TOP BID Oxygen (Oxygen), 4 LITERS NA CONTINOUS Quetiapine Fumarate (Seroquel), 50 MG PO HS Risperidone (Risperdal), 0.5 MG PO BID Sennosides-Docusate Sodium (Senokot S), 2 TABS PO HS Torsemide (Demadex), 20 MG PO QAM Scheduled PRN Acetaminophen (Tylenol), 650 MG PO Q4H PRN for Pain or Fever Albuterol Hfa (Ventolin Hfa), 2 PUFFS INH Q4H PRN for Shortness of Breath Bisacodyl (Dulcolax), 1 SUPP WI DAILY PRN for Constipation Ipratropium-Albuterol (Duoneb), 1 TREATMENT INH Q6H PRN for SOB/Wheezing Magnesium Hydroxide (Milk of Magnesia), 30 ML PO DAILY PRN for Constipation Ondansetron Hcl (Zofran), 4 MG PO Q8 PRN for Nausea Sodium Phosphate/Biphosphate (Fleet Enema), 1 EA WI DAILY PRN for Constipation Tramadol (Ultram), 50 MG PO Q6H PRN for Pain Allergies Coded Allergies: Benzodiazepines (Verified Adverse Reaction, Intermediate, DELIRIUM, 12/23/16 ) Patient has history of abuse and addiction per family. 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 Physical Exam Vital Signs Date Time Temp Pulse Resp B/P Pulse Ox O2 Delivery O2 Flow Rate FiO2 12/23/16 06:14 81 18 103/70 97 12/23/16 05:16 97 16 98/57 94 Nasal Cannula 4.0 12/23/16 05:11 104 12/23/16 03:43 97 18 100/57 94 Nasal Cannula 6.0 12/23/16 01:51 93 Nasal Cannula 6.0 12/23/16 01:51 106 12/23/16 01:43 36.7 105 19 90/66 93 Nasal Cannula 6.0 12/23/16 01:43 87 Room Air 5.0 Physical Exam HEENT: Head - normocephalic and atraumatic Pupils are equal, round, and reactive to light. Extraocular eye muscles are intact, and sclera are anicteric. Nose - moist nasal mucosa without discharge. Mouth - moist buccal mucosa. Oropharynx is nonerythematous and there is no tonsillar exudate or edema noted. Neck: Supple; no JVD, nuchal rigidity, cervical lymphadenopathy. Heart: Tachycardic rate and regular rhythm. There is a normal S1 and S2 with no murmurs, clicks, or gallops appreciated. Lungs: Diminished breath sounds in all lung witt, with no wheezes, rales, or rhonchi. Abdomen: Significant distension and fullness in epigastrium of the abdomen. Soft, completely nontender, with good bowel sounds. There are no palpable pulsatile masses or hepatosplenomegaly. There is no guarding, rigidity, or rebound noted. Extremities: 2+ edema in the legs. No evidence of cyanosis, clubbing. There are easily palpable peripheral pulses. Skin: warm and dry with good turgor and no rashes. Medical Decision & Procedures ER Provider Diagnostic Interpretation: 2 view abdominal x-ray, obstruction series as per my interpretation: cardiomegaly, bilateral pleural effusions-unchanged from previous x-rays. Evidence of congestive heart failure. Moderate fecal retention, no sign of obstruction. Laboratory Results 12/23/16 02:45 Red Blood Count 3.75, Mean Corpuscular Volume 84.0, Mean Corpuscular Hemoglobin 24.0, Mean Corpuscular Hemoglobin Concent 28.6, Mean Platelet Volume 10.4, Neutrophils (%) (Auto) 85.4, Lymphocytes (%) (Auto) 5.5, Monocytes (%) (Auto) 6.7, Eosinophils (%) (Auto) 2.1, Basophils (%) (Auto) 0.1, Neutrophils # (Auto) 7.38, Lymphocytes # (Auto) 0.48, Monocytes # (Auto) 0.58, Eosinophils # (Auto) 0.18, Basophils # (Auto) 0.01 12/23/16 02:45 Test 12/23/16 02:45 White Blood Count 8.65 K/uL (4.8-10.8) Red Blood Count 3.75 M/uL (4.2-5.4) Hemoglobin 9.0 g/dL (12.0-16.0) Hematocrit 31.5 % (37-47) Mean Corpuscular Volume 84.0 fL (80-100) Mean Corpuscular Hemoglobin 24.0 pg (25-34) Mean Corpuscular Hemoglobin Concent 28.6 g/dl (32-36) Platelet Count 140 K/uL (130-400) Mean Platelet Volume 10.4 fL (7.4-10.4) Neutrophils (%) (Auto) 85.4 % Lymphocytes (%) (Auto) 5.5 % Monocytes (%) (Auto) 6.7 % Eosinophils (%) (Auto) 2.1 % Basophils (%) (Auto) 0.1 % Neutrophils # (Auto) 7.38 K/uL (1.4-6.5) Lymphocytes # (Auto) 0.48 K/uL (1.2-3.4) Monocytes # (Auto) 0.58 K/uL (0.11-0.59) Eosinophils # (Auto) 0.18 K/uL (0-0.5) Basophils # (Auto) 0.01 K/uL (0-0.2) RDW Standard Deviation 54.3 fL (36.4-46.3) RDW Coefficient of Variation 17.5 % (11.5-14.5) Immature Granulocyte % (Auto) 0.2 % Immature Granulocyte # (Auto) 0.02 K/uL (0.00-0.02) Anion Gap 6.0 mmol/L (3-11) Est Creatinine Clear Calc Drug Dose 52.3 ml/min Estimated GFR () 43.4 Estimated GFR (Non- 37.4 BUN/Creatinine Ratio 44.4 (10-20) Calcium Level 8.9 mg/dl (8.5-10.1) Total Bilirubin 0.7 mg/dl (0.2-1) Aspartate Amino Transf (AST/SGOT) 15 U/L (15-37) Alanine Aminotransferase (ALT/SGPT) 28 U/L (12-78) Alkaline Phosphatase 73 U/L (45-117) Troponin I 0.040 ng/ml (0-0.045) Pro-B-Type Natriuretic Peptide 9287 pg/ml (0-900) Total Protein 6.4 gm/dl (6.4-8.2) Albumin 2.7 gm/dl (3.4-5.0) Globulin 3.7 gm/dl (2.5-4.0) Albumin/Globulin Ratio 0.7 (0.9-2) Laboratory results per my review. Medications Administered Medications (Trade) Dose Ordered Sig/Romaine Route Start Time Stop Time Status Last Admin Dose Admin Risperidone (Risperdal Tab) 0.5 mg NOW STAT PO 12/23/16 04:35 12/23/16 04:36 DC 12/23/16 05:16 0.5 MG Procedure Oral risperidone ECG Indication: SOB/dyspnea Rate (beats per minute): 102 Rhythm: sinus tachycardia Findings: no acute ischemic change, no ectopy Comparison ECG Date: 12/15/16 Change: no significant change ED Course 0157: Past medical records reviewed. The patient was evaluated in room B9. A complete history and physical exam was performed. Laboratory studies were drawn as above. The patient had a chest x-ray as described above. The patient's oxygen saturations remain in the high 80s and low 90s on 4 L of oxygen. This is baseline for her. The patient was becoming more restless and requesting her tranquilizer. 0429: I reevaluated the patient and she is requesting her Risperdal. I discussed all the exam findings with her and I discussed the treatment plan. The patient explained to me that she was told at [facility] that they could no longer care for her and not to return. I discussed this with our leather case finisher. She contacted the nursing supervisor framing mill at [facility] and they are certainly willing to take her back. Medical Decision The patient is a 71 year old female who presents to the ED with respiratory problems. Differential diagnosis includes constipation, CHF, Raynaud's disease, pneumonia. Lab interpretation: hemoglobin 9.0, was 9.4 3 days ago, normal white count, creatinine 1.4 which is baseline, BUN 62, glucose 119, troponin 0.040, BNP 9287. The patient was just discharged from the hospital recently for an episode of congestive heart failure. On routine vital sign testing, the patient was found to have O2 saturations in the 50s. This was thought possibly to be a false reading since EMS arrived on scene and had O2 saturations in the 80s with the pulse ox probe on the patient's earlobe. The patient does have history of ranauds. I also thought that the patient may have such significant constipation and intestinal fullness that this could be pressing up against her diaphragm and causing increased shortness of breath. X-ray shows moderate amount of stool but no obvious signs of obstruction. Chest x-ray reveals bilateral pleural effusions and congestive heart failure. This is unchanged from the x-rays that were done just prior to her discharge from the hospital. Impression Primary Impression: CHF (congestive heart failure) Additional Impression: Anemia Scribe Attestation The scribe's documentation has been prepared under my direction and personally reviewed by me in its entirety. I confirm that the note above accurately reflects all work, treatment, procedures, and medical decision making performed by me. Departure Information Dispostion Home / Self-Care Referrals John Boucher (PCP) Forms HOME CARE DOCUMENTATION FORM, IMPORTANT VISIT INFORMATION, WORK / SCHOOL INSTRUCTIONS Patient Instructions [facility] Additional Instructions Continue supplemental O2. We recommend pulse ox testing on the ear or forehead for accurate results. Problem Qualifiers
[2016-12-23 03:10] LABS: BUN/CREATININE RATIO 44.4 (10-20); CALCIUM 8.9 mg/dl (8.5-10.1); CREATININE 1.4 mg/dl (0.60-1.20); POTASSIUM 3.8 mmol/L (3.5-5.1)
[2016-12-23 03:17] LABS: ALB/GLOB RATIO 0.7 (0.9-2); BASO % 0.1 %; BASO ABS # 0.01 K/uL (0-0.2); COMPLETE YES; EOS % 2.1 %; HEMATOCRIT 31.5 % (37-47); IG% 0.2 %; LYMPH % 5.5 %; LYMPH ABS # 0.48 K/uL (1.2-3.4); MEAN CORPUSCULAR HGB CONC 28.6 g/dl (32-36); MEAN PLATELET VOLUME 10.4 fL (7.4-10.4); MONO % 6.7 %; NEUT % 85.4 %; PLATELET COUNT 140 K/uL (130-400); RED BLOOD COUNT 3.75 M/uL (4.2-5.4); WHITE BLOOD COUNT 8.65 K/uL (4.8-10.8)
[2016-12-23] MEDS ORDERED: RISPERIDONE 0.5 MG TAB PO STA (04:35)
[2016-12-23 06:14] VITALS: BP 103/70; PULSE 81; O2SAT 97
--- NOTE | 2016-12-23 06:48 | DIAGNOSTIC IMAGING REPORT ---
ABDOMEN 2VIEW W/PA CHEST RTN CLINICAL HISTORY: epigastric fullness; sob COMPARISON STUDY: 12/20/2016 FINDINGS: The AP chest reveals postsurgical changes of spinal rodding. The heart is enlarged. There is bony vascular congestion. There is a small right pleural effusion with associated right basilar airspace opacities. Supine and decubitus views reveal mild gaseous prominence of small bowel loops. There are scattered air-fluid levels. There is no free air. There are surgical clips in the left upper quadrant. IMPRESSION: 1. Cardiomegaly and radiographic evidence of congestive failure/fluid overload with a right pleural effusion and associated right basilar airspace opacities 2. Nonspecific bowel gas pattern with scattered air-fluid levels. No conventional radiographic evidence of significant bowel obstruction. No evidence of free air. Electronically signed by: Jamin Foreman M.D. 12/23/2016 6:47 AM Dictated Date/Time: 12/23/2016 6:45 AM
== END 2016-12-23 06:15 | disposition home or self-care (01) ==
LOC: EDBD 01:36 → C.EDB 01:37
DX: I50.9 Heart failure, unspecified (principal); D64.9 Anemia, unspecified; R00.0 Tachycardia, unspecified; I10 Essential (primary) hypertension; E78.5 Hyperlipidemia, unspecified; E03.9 Hypothyroidism, unspecified; M81.0 Age-related osteoporosis without current pathological fracture; F32.9 Major depressive disorder, single episode, unspecified; J44.9 Chronic obstructive pulmonary disease, unspecified; K86.1 Other chronic pancreatitis; Z87.442 Personal history of urinary calculi; Z90.710 Acquired absence of both cervix and uterus; Z85.3 Personal history of malignant neoplasm of breast; Z90.49 Acquired absence of other specified parts of digestive tract; Z87.891 Personal history of nicotine dependence; Z79.82 Long term (current) use of aspirin; Z79.4 Long term (current) use of insulin; Z79.899 Other long term (current) drug therapy; Z88.8 Allergy status to other drugs, medicaments and biological substances; Z82.49 Family history of ischemic heart disease and other diseases of the circulatory system